=== PATIENT | female | born 1980 ===

== ENCOUNTER 2017-01-15 13:07 | Emergency (ER) | payer OTHER, SELFPAY ==
[2017-01-15 13:07] VITALS: BMI 33.6
--- NOTE | 2017-01-15 15:20 | C.PDOC ---
Time Seen by Provider: 01/15/17 13:35 Chief Complaint (Nursing): Anxiety History Per: Patient Onset/Duration Of Symptoms: Days, Intermittent Episodes Current Symptoms Are (Timing): Still Present Exacerbating Factor(s): Other (Based on physical location) Severity: Moderate Associated Symptoms: Anxiety Reports Recently: Seen In ED (Yesterday she had normal labs and CXR at [facility]. ) Additional History Per: Prior Records Past Medical History Reviewed: Historical Data, Nursing Documentation, Vital Signs Vital Signs: Last Vital Signs Temp 97 F L 01/15/17 13:14 Pulse 82 01/15/17 13:14 Resp 18 01/15/17 13:14 BP 127/82 01/15/17 13:14 Pulse Ox 96 01/15/17 13:14 - Medical History PMH: Anxiety, Asthma, HTN, Hypothyroidism, Personality Disorder, Chronic Kidney Disease Surgical History: No Surg Hx - [facility] Procedures MONITORING NOS (05/07/14) MANUAL ASSIST DELIV NEC (05/07/14) Family History: States: Unknown Family Hx - Social History Hx Tobacco Use: No Hx Alcohol Use: No Hx Substance Use: No - Immunization History Hx Tetanus Toxoid Vaccination: No Hx Influenza Vaccination: Yes Hx Pneumococcal Vaccination: No Review Of Systems Except As Marked, All Systems Reviewed And Found Negative. Constitutional: Negative for: Fever, Weakness Cardiovascular: Positive for: Palpitations Respiratory: Positive for: Shortness of Breath. Negative for: Hemoptysis Gastrointestinal: Negative for: Abdominal Pain Musculoskeletal: Negative for: Neck Pain Skin: Negative for: Rash Neurological: Negative for: Weakness, Numbness, Seizures Psych: Positive for: Anxiety. Negative for: Psychosis, Suicidal ideation Physical Exam - Physical Exam Appears: Non-toxic, No Acute Distress Skin: Normal Color, Warm, Dry, No Rash Head: Atraumatic, Normacephalic Eye(s): bilateral: PERRL, EOMI Neck: Normal ROM, Supple Cardiovascular: Rhythm Regular Respiratory: Normal Breath Sounds, No Accessory Muscle Use Gastrointestinal/Abdominal: Soft, No Tenderness Back: No CVA Tenderness Extremity: Normal ROM, No Pedal Edema, No Calf Tenderness Neurological/Psych: Oriented x3, Normal Speech, Normal Cognition, Normal Motor, Normal Sensation ED Course And Treatment ECG: Interpreted By Me, Viewed By Me ECG Rhythm: Sinus Rhythm ECG Interpretation: No Acute Changes Rate From EC O2 Sat by Pulse Oximetry: 96 Pulse Ox Interpretation: Normal Progress Note: Pt feels much better after speaking to the Nitroglycerin Separator Operator. Reassessment Condition: Improved Medical Decision Making Medical Decision Making: PERC rule negative. Disposition Counseled Patient/Family Regarding: Studies Performed, Diagnosis, Need For Followup, Rx Given - Disposition Disposition: HOME/ ROUTINE Disposition Time: 15:21 Condition: IMPROVED Additional Instructions: Follow up with your doctor for further evaluation and treatment. Return to the ER if you develop worsening of symptoms or if you have any other concerns. Prescriptions: ALPRAZolam [Xanax] 0.25 mg PO BID PRN #10 tab PRN Reason: Anxiety Instructions: Anxiety (ED) - Clinical Impression Clinical Impression: Anxiety attack
[2017-01-15 15:43] VITALS: BP 120/95; PULSE 80; RESP 20; TEMP 98; O2SAT 100
== END 2017-01-15 15:45 | disposition home or self-care (01) ==
LOC: C.ER 13:07
DX: F41.9 Anxiety disorder, unspecified (principal)

== ENCOUNTER 2017-01-21 10:07 | Emergency (ER) | payer MEDICAID, OTHER, SELFPAY ==
[2017-01-21 10:12] VITALS: RESP 18; TEMP 97; BMI 32.4
[2017-01-21] MEDS ORDERED: Sodium Chloride 0.9% 1,000 ML IV ONE (10:53)
[2017-01-21] MEDS ORDERED: Sodium Chloride 0.9% 1,000 ML ONE (10:59)
[2017-01-21 11:22] LABS: BASO # 0.1 K/uL (0.0-0.2); BASO % 0.7 % (0.0-2.0); EOS # 0.2 K/uL (0.0-0.7); EOS % 2.5 % (0.0-4.0); HEMATOCRIT 43.8 % (34.0-47.0); LYMPH # 1.6 K/uL (1.0-4.3); LYMPH % 18.2 % (20.0-40.0); MEAN CELL VOLUME 87.5 fL (81.0-99.0); MEAN CORPUSCULAR HEMOGLOBIN 29.4 pg (27.0-31.0); MEAN CORPUSCULAR HGB CONC 33.6 g/dL (33.0-37.0); MONO # 0.6 K/uL (0.0-0.8); MONO % 6.6 % (0.0-10.0); RED CELL DISTRIBUTION WIDTH 13.3 % (11.5-14.5); WHITE BLOOD COUNT 8.8 K/uL (4.8-10.8)
[2017-01-21 11:23] LABS: CHLORIDE 99 mmol/L (98-107)
[2017-01-21 11:24] LABS: POTASSIUM 3.6 mmol/L (3.6-5.2); SODIUM 137 mmol/L (132-148)
[2017-01-21 11:26] LABS: GFR AFRICAN-AMERICAN > 60; RBC URINE < 1 /hpf (0-3); URINE BILIRUBIN NEGATIVE (NEGATIVE); URINE BLOOD NEGATIVE (NEGATIVE); URINE COLOR Straw (YELLOW); URINE GLUCOSE (UA) NORMAL (Normal); URINE KETONE NEGATIVE (NEGATIVE); URINE LEUKOCYTE ESTERASE NEG Leu/uL (Negative); URINE PROTEIN NEGATIVE (NEGATIVE); URINE UROBILINOGEN NORMAL mg/dL (0.2-1.0); WBC URINE 1 /hpf (0-5)
[2017-01-21 11:27] LABS: ALB/GLOB RATIO 1.2 (1.0-2.1); ALKALINE PHOSPHATASE 80 U/L (38-126); ALT/SGPT 43 U/L (9-52); AST/SGOT 30 U/L (14-36); BILIRUBIN,TOTAL 0.5 mg/dL (0.2-1.3); BLOOD UREA NITROGEN 9 mg/dL (7-17); CALCIUM 9.4 mg/dl (8.6-10.4); CARBON DIOXIDE 20 mmol/L (22-30); GLUCOSE,RANDOM 88 mg/dL (65-105); TOTAL PROTEIN 8.3 g/dL (6.3-8.3)
[2017-01-21 12:08] LABS: FT3 4.25 pg/mL (2.77-5.27)
[2017-01-21 12:22] LABS: THYROID STIMULATING HORMONE 0.47 mIU/L (0.46-4.68)
--- NOTE | 2017-01-21 12:44 | RAD ---
PROCEDURE: CHEST RADIOGRAPH, 1 VIEW HISTORY: palpitations COMPARISON: None available. FINDINGS: LUNGS: Clear. PLEURA: No pneumothorax or pleural fluid seen. CARDIOVASCULAR: Normal. OSSEOUS STRUCTURES: No significant abnormalities. VISUALIZED UPPER ABDOMEN: Normal. OTHER FINDINGS: None. IMPRESSION: No active disease.
[2017-01-21 12:46] VITALS: BP 130/76; PULSE 77; O2SAT 96
--- NOTE | 2017-01-21 12:53 | C.PDOC ---
History Of Present Illness The patient, a 36 y/o female, presents to the ED for evaluation of lightheadedness and palpitations which have been occurring intermittently for the past 1-2 weeks with symptoms occurring more frequently within the past 1-2 days. Patient reports a recent change in her synthroid medication by her PMD. Otherwise, she denies fever, chills, chest pain, shortness of breath, nausea, vomiting, recent travel, or sick contacts. Chief Complaint (Nursing): Dizziness/Lightheaded History Per: Patient History/Exam Limitations: no limitations Onset/Duration Of Symptoms: Intermittent Episodes (1-2 weeks ), Worse Since (1- 2 days ) Current Symptoms Are (Timing): Still Present Possible Causative Factor(s): New Medications Fall Associated With With Symptoms: No Recent travel outside of the [place]: No Additional History Per: Patient Past Medical History Reviewed: Historical Data, Nursing Documentation, Vital Signs Vital Signs: Last Vital Signs Temp 97 F L 01/21/17 12:39 Pulse 77 01/21/17 12:39 Resp 18 01/21/17 12:39 BP 130/76 01/21/17 12:39 Pulse Ox 96 01/21/17 12:57 - Medical History PMH: Anxiety, Asthma, HTN, Hypothyroidism, Personality Disorder, Chronic Kidney Disease Surgical History: No Surg Hx - [facility] Procedures MONITORING NOS (05/07/14) MANUAL ASSIST DELIV NEC (05/07/14) Family History: States: Unknown Family Hx - Social History Hx Tobacco Use: No Hx Alcohol Use: No Hx Substance Use: No - Immunization History Hx Tetanus Toxoid Vaccination: No Hx Influenza Vaccination: Yes Hx Pneumococcal Vaccination: No Review Of Systems Except As Marked, All Systems Reviewed And Found Negative. Constitutional: Negative for: Fever, Chills Cardiovascular: Positive for: Palpitations. Negative for: Chest Pain Respiratory: Negative for: Shortness of Breath Gastrointestinal: Negative for: Nausea, Vomiting Neurological: Positive for: Other (+lightheadedness ) Physical Exam - Physical Exam Appears: Non-toxic, No Acute Distress Skin: Normal Color, Warm, Dry Head: Atraumatic, Normacephalic Eye(s): bilateral: Normal Inspection, EOMI Oral Mucosa: Moist Neck: Supple Chest: Symmetrical, No Deformity, No Tenderness Cardiovascular: Rhythm Regular, No Murmur Respiratory: Normal Breath Sounds, No Rales, No Rhonchi, No Wheezing Gastrointestinal/Abdominal: Soft, No Tenderness, No Guarding, No Rebound Back: Normal Inspection, No Vertebral Tenderness, No Paraspinal Tenderness Extremity: Normal ROM, Capillary Refill (less than 2 seconds) Neurological/Psych: Oriented x3, Normal Speech, Normal Cognition Gait: Steady ED Course And Treatment - Laboratory Results Result Diagrams: 01/21/17 11:12 01/21/17 11:12 ECG: Interpreted By Me, Viewed By Me ECG Rhythm: Sinus Rhythm Rate From EC O2 Sat by Pulse Oximetry: 96 (on RA) Pulse Ox Interpretation: Normal - Other Rad CXR X-Ray: Interpreted by Me, Viewed By Me, Read By Radiologist Interpretation: Accession No. : [id number]. Patient Name / ID : FIDEL CHRISTIANSEN / [id number]. Exam Date : 01/21/2017 11:01:46 ( Approved ). Study Comment : Sex / Age : F / 36Y. Creator : Steff Soares. Dictator : Steff Soares. Sales Department Manager : Banquet Pilot : Steff Soares. Approver2 : Report Date : 01/21/2017 12:42:43. My Comment : . PROCEDURE: CHEST RADIOGRAPH, 1 VIEW. HISTORY: palpitations. COMPARISON: None available. FINDINGS: LUNGS : Clear. PLEURA: No pneumothorax or pleural fluid seen. CARDIOVASCULAR: Normal. OSSEOUS STRUCTURES: No significant abnormalities. VISUALIZED UPPER ABDOMEN: Normal. OTHER FINDINGS: None. IMPRESSION: No active disease. Progress Note: labs, CXR, EKG ordered and reviewed. Patient received Ativan PO and IV Fluids. On reassessment, patient is resting comfortably, showing no signs of distress, and reports an improvement in her symptoms. Patient is stable for discharge and is provided with an Rx instructing her to follow up with her PMD within 24-48 hours for further evaluation. Disposition - Disposition Referrals: [facility], [Non-Staff] - Disposition: HOME/ ROUTINE Disposition Time: 12:00 Condition: IMPROVED Additional Instructions: Thank you for letting us take care of you today. Your provider was Dr. Huang. You were treated for palpitations/lightheadedness. The emergency medical care you received today was directed at your acute symptoms. If you were prescribed any medication, please fill it and take as directed. It may take several days for your symptoms to resolve. Return to the Emergency Department if your symptoms worsen, do not improve, or if you have any other problems. Please contact your doctor or call one of the physicians/clinics you have been referred to that are listed on the Patient Visit Information form that is included in your discharge packet. Bring any paperwork you were given at discharge with you along with any medications you are taking to your follow up visit. Our treatment cannot replace ongoing medical care by a primary care provider (PCP) outside of the emergency department. Thank you for allowing the [facility] team to be part of your care today. Follow up with your doctor in 3-4 days for re-evaluation. Prescriptions: ALPRAZolam [Xanax] 0.25 mg PO Q8 PRN #5 tab PRN Reason: Anxiety Instructions: Palpitations (ED) - Clinical Impression Clinical Impression: Anxiety - Scribe Statement The provider has reviewed the documentation as recorded by the Scribe (Kyara Hubbard) Provider Attestation: All medical record entries made by the Scribe were at my direction and personally dictated by me. I have reviewed the chart and agree that the record accurately reflects my personal performance of the history, physical exam, medical decision making, and the department course for this patient. I have also personally directed, reviewed, and agree with the discharge instructions and disposition.
--- NOTE | 2017-01-22 23:17 | CARD ---
APPROVED REPORT EKG Measurement Heart [id number] <Conclusion> Normal sinus rhythm Normal ECG
== END 2017-01-21 12:49 | disposition home or self-care (01) ==
LOC: C.ER 10:07
DX: F41.9 Anxiety disorder, unspecified (principal)
CPT/HCPCS: 71010; 80053; 80324; 80345; 80346; 80349; 80353; 80358; 80361; 81001; 83992; 84443; 84481; 84484; 84703; 85025; 93005; 99285; J7040

== ENCOUNTER 2017-01-26 11:43 | Emergency (ER) | payer SELFPAY ==
[2017-01-26 11:44] VITALS: BMI 32.4
[2017-01-26] MEDS ORDERED: Heparin25000 units/250ml 1/2NS 250 ML IV STA (12:07)
[2017-01-26 12:40] LABS: BASO # 0.1 K/uL (0.0-0.2); BASO % 0.8 % (0.0-2.0); EOS # 0.2 K/uL (0.0-0.7); HEMATOCRIT 41.7 % (34.0-47.0); LYMPH # 1.4 K/uL (1.0-4.3); LYMPH % 22.1 % (20.0-40.0); MEAN CELL VOLUME 88.2 fL (81.0-99.0); MEAN CORPUSCULAR HEMOGLOBIN 29.4 pg (27.0-31.0); MEAN CORPUSCULAR HGB CONC 33.3 g/dL (33.0-37.0); MEAN PLATELET VOLUME 10.1 fL (7.2-11.7); MONO # 0.4 K/uL (0.0-0.8); MONO % 6.1 % (0.0-10.0); NRBC % 0.1 % (0.0-2.0); RED CELL DISTRIBUTION WIDTH 13.2 % (11.5-14.5); WHITE BLOOD COUNT 6.5 K/uL (4.8-10.8)
[2017-01-26 12:48] LABS: CHLORIDE 100 mmol/L (98-107); SODIUM 138 mmol/L (132-148)
[2017-01-26 12:49] LABS: POTASSIUM 3.8 mmol/L (3.6-5.2)
[2017-01-26 12:51] LABS: ALB/GLOB RATIO 1.4 (1.0-2.1); ALKALINE PHOSPHATASE 81 U/L (38-126); ALT/SGPT 35 U/L (9-52); AST/SGOT 35 U/L (14-36); BILIRUBIN,TOTAL 0.5 mg/dL (0.2-1.3); BLOOD UREA NITROGEN 7 mg/dL (7-17); CARBON DIOXIDE 23 mmol/L (22-30); GFR AFRICAN-AMERICAN > 60; GLUCOSE,RANDOM 108 mg/dL (65-105); TOTAL PROTEIN 7.7 g/dL (6.3-8.3)
[2017-01-26 12:52] LABS: CALCIUM 8.9 mg/dl (8.6-10.4)
[2017-01-26 13:05] LABS: INR 1.1
[2017-01-26 13:07] LABS: FT3 4.62 pg/mL (2.77-5.27)
--- NOTE | 2017-01-26 13:18 | RAD ---
HISTORY: chest pain COMPARISON: 01/21/2017 FINDINGS: LUNGS: No active pulmonary disease. PLEURA: No significant pleural effusion identified, no pneumothorax apparent. CARDIOVASCULAR: Normal. OSSEOUS STRUCTURES: No significant abnormalities. VISUALIZED UPPER ABDOMEN: Normal. OTHER FINDINGS: None. IMPRESSION: No active disease.
--- NOTE | 2017-01-26 14:12 | C.PDOC ---
History Of Present Illness 36 y/o female presents to the ED complaining of persistent palpitations and sharp chest pain intermittently for two weeks. Patient denies shortness of breath, fever, or cough. Note that the patient was seen by me 5 days ago, treated and released with prescription which she said made her feel better but she has been unable to follow up because her doctor is on vacation. Chief Complaint (Nursing): Chest Pain History Per: Patient History/Exam Limitations: no limitations Onset/Duration Of Symptoms: Days (14), Intermittent Episodes, Persistent Current Symptoms Are (Timing): Still Present Recent travel outside of the [place]: No Past Medical History Reviewed: Historical Data, Nursing Documentation, Vital Signs Vital Signs: Last Vital Signs Temp 97.8 F 01/26/17 11:50 Pulse 107 H 01/26/17 11:50 Resp 16 01/26/17 12:25 BP 119/85 01/26/17 11:50 Pulse Ox 98 01/26/17 14:20 - Medical History PMH: Anxiety, Asthma, HTN, Hypothyroidism, Personality Disorder, Chronic Kidney Disease Surgical History: No Surg Hx - [facility] Procedures MONITORING NOS (05/07/14) MANUAL ASSIST DELIV NEC (05/07/14) Family History: States: Unknown Family Hx - Social History Hx Tobacco Use: No Hx Alcohol Use: No Hx Substance Use: No - Immunization History Hx Tetanus Toxoid Vaccination: No Hx Influenza Vaccination: Yes Hx Pneumococcal Vaccination: No Review Of Systems Except As Marked, All Systems Reviewed And Found Negative. Constitutional: Negative for: Fever Cardiovascular: Positive for: Chest Pain, Palpitations Respiratory: Negative for: Cough, Shortness of Breath Physical Exam - Physical Exam Appears: Non-toxic, No Acute Distress Skin: Normal Color, Warm, Dry Head: Atraumatic, Normacephalic Neck: Normal ROM, Supple Chest: Symmetrical, No Tenderness Cardiovascular: Rhythm Regular Respiratory: Normal Breath Sounds, No Rales, No Rhonchi, No Wheezing Gastrointestinal/Abdominal: Normal Exam, Soft, No Tenderness Back: Normal Inspection Extremity: Normal ROM, No Swelling Neurological/Psych: Oriented x3, Normal Speech, Normal Cognition ED Course And Treatment - Laboratory Results Result Diagrams: 01/26/17 12:32 01/26/17 12:07 ECG: Interpreted By Me ECG Rhythm: Sinus Rhythm Interpretation Of ECG: normal axis, normal intervals Rate From EC (bpm) O2 Sat by Pulse Oximetry: 98 (ra) Pulse Ox Interpretation: Normal - Other Rad Chest X-Ray X-Ray: Viewed By Me, Read By Radiologist (Ry Feliciano MD) Interpretation: IMPRESSION: No active disease. Medical Decision Making Medical Decision Making: Plan: * EKG * Labs * CXR Disposition - Disposition Referrals: [facility], [Non-Staff] - Disposition: HOME/ ROUTINE Disposition Time: 14:30 Condition: GOOD Additional Instructions: Thank you for letting us take care of you today. Your provider was Dr. Huang. You were treated for non-cardiac chest pain. The emergency medical care you received today was directed at your acute symptoms. If you were prescribed any medication, please fill it and take as directed. It may take several days for your symptoms to resolve. Return to the Emergency Department if your symptoms worsen, do not improve, or if you have any other problems. Please contact your doctor or call one of the physicians/clinics you have been referred to that are listed on the Patient Visit Information form that is included in your discharge packet. Bring any paperwork you were given at discharge with you along with any medications you are taking to your follow up visit. Our treatment cannot replace ongoing medical care by a primary care provider (PCP) outside of the emergency department. Thank you for allowing the [facility] team to be part of your care today. Follow up with your doctor in 2 days to be re-evaluated. Long-term medications such as Xanax should not be prescribed by the emergency room. Prescriptions: ALPRAZolam [Xanax] 0.25 mg PO BID PRN #10 tab PRN Reason: Anxiety Instructions: Chest Pain (ED) - Clinical Impression Clinical Impression: Non-cardiac chest pain - Scribe Statement The provider has reviewed the documentation as recorded by the Scribe (Didi Vela) Provider Attestation: All medical record entries made by the Scribe were at my direction and personally dictated by me. I have reviewed the chart and agree that the record accurately reflects my personal performance of the history, physical exam, medical decision making, and the department course for this patient. I have also personally directed, reviewed, and agree with the discharge instructions and disposition.
[2017-01-26 14:39] LABS: THYROID STIMULATING HORMONE 0.32 mIU/L (0.46-4.68)
[2017-01-26 15:05] VITALS: BP 121/71; PULSE 87; RESP 17; TEMP 98.7; O2SAT 99
--- NOTE | 2017-01-31 14:02 | CARD ---
APPROVED REPORT EKG Measurement Heart [id number] <Conclusion> Sinus tachycardia Otherwise normal ECG
== END 2017-01-26 15:05 | disposition home or self-care (01) ==
LOC: C.ER 11:43 → C.9E 12:06 → UNDOADMIN 12:06 → C.ER 15:05
DX: R07.89 Other chest pain (principal)

== ENCOUNTER 2017-09-18 09:12 | Emergency (ER) | payer OTHER ==
[2017-09-18 09:12] VITALS: BMI 34.4
[2017-09-18 09:25] VITALS: RESP 18
--- NOTE | 2017-09-18 09:54 | C.PDOC ---
History Of Present Illness 36 yr old female presents to the ER with complaints of new onset of left buttock /leg pain and paresthesia for the past 2 days. Patient reports history of chronic intermittent lower back pain. States previous diagnose "arthritis" on spinal xrays. Patient states the pain is made worse with movement and position. Denies recent trauma, leg weakness or numbness. NEW ONSET L BUTTOCK/LEG PAIN AND PARESTHESIA X 2 DAYS. HO CHRONIC LBP, INTERMIT. PS PREV DX "ARTHRITIS" ON SPINAL XRAYS. NO TRAUMA. WORSE W MOVEMENT, POSITION. DENIES LEG WEAKNESS, OTHER ASSOC SX EXAM MILD DIST NONTOXIC BACK LIMITED ROM DUE TO PAIN. NO FOCAL TEND. ATRAUM NEURO LLE +PARESTHESIA THIGH, POST LOWER LEG. REFLEXES 2+ B/L. NO MOTOR DEF. EXT ATRAUM AROM WO DIFF REMAINDER NEG MDM SCIATICA. NO PAIN MEDS TAKEN CONTACT CENTER CONSULTANT. ON GABAPENTIN AND KLONIPIN. PAIN MEDS, ADVISED CLINIC FU Time Seen by Provider: 09/18/17 09:34 Chief Complaint (Nursing): Back Pain History Per: Patient History/Exam Limitations: no limitations Onset/Duration Of Symptoms: Days (2) Past Medical History Reviewed: Historical Data, Nursing Documentation, Vital Signs Vital Signs: Last Vital Signs Temp 98.1 F 09/18/17 10:42 Pulse 81 09/18/17 10:42 Resp 18 09/18/17 10:42 BP 127/85 09/18/17 10:42 Pulse Ox 97 09/18/17 10:42 - Medical History PMH: Anxiety, Asthma, HTN, Hypothyroidism, Personality Disorder, Chronic Kidney Disease - [facility] Procedures MONITORING NOS (05/07/14) MANUAL ASSIST DELIV NEC (05/07/14) Family History: States: No Known Family Hx - Social History Hx Tobacco Use: No Hx Alcohol Use: No Hx Substance Use: No - Immunization History Hx Tetanus Toxoid Vaccination: No Hx Influenza Vaccination: Yes Hx Pneumococcal Vaccination: No Review Of Systems Except As Marked, All Systems Reviewed And Found Negative. Musculoskeletal: Positive for: Other ((+) Left buttock/Leg pain and paresthesia. (-) No leg weakness or numbness.) Physical Exam - Physical Exam Appears: Non-toxic, In Acute Distress (Mild) Skin: Warm, Dry, No Rash Head: Atraumatic, Normacephalic Back: Decreased ROM (Due to pain), Other (No focal tenderness) Extremity: Normal ROM, No Tenderness, No Swelling Neurological/Psych: Oriented x3, Normal Speech, Normal Motor, Other ((+) LLE - Paresthesia thigh, post lower leg. Reflexes 2+ bilateral. No motor deficits.) ED Course And Treatment O2 Sat by Pulse Oximetry: 94 (RA) Pulse Ox Interpretation: Normal Medical Decision Making Medical Decision Making: PLAN: * Zofran PO * Dilaudid IM * Toradol IM * Lidocaine TD Disposition Counseled Patient/Family Regarding: Diagnosis, Need For Followup, Rx Given - Disposition [facility]errals[facility] [Outside] Disposition: HOME/ ROUTINE Disposition Time: 09:54 Condition: IMPROVED Prescriptions: Dexamethasone 12 mg PO ONCE #2 tab Ibuprofen [Motrin] 600 mg PO Q6 #30 tab oxyCODONE/Acetaminophen [Percocet 5/325 mg Tab] 1 tab PO QID PRN #14 tab PRN Reason: Pain Instructions: Sciatica (ED) Forms: [facility] (Turkish) - Clinical Impression Clinical Impression: Sciatic leg pain - Scribe Statement The provider has reviewed the documentation as recorded by the Maryibe Deandra Hurst Provider Attestation: All medical record entries made by the Maryibe were at my direction and personally dictated by me. I have reviewed the chart and agree that the record accurately reflects my personal performance of the history, physical exam, medical decision making, and the department course for this patient. I have also personally directed, reviewed, and agree with the discharge instructions and disposition.
[2017-09-18] MEDS ORDERED: HYDROmorphone 0.5 mg/0.5 ml ISec IM STA (09:56)
[2017-09-18] MEDS ORDERED: Lidocaine 5% Patch TD STA (09:56)
[2017-09-18] MEDS ORDERED: Lidocaine 5% Patch TD ONE (10:09)
[2017-09-18 10:43] VITALS: BP 127/85; PULSE 81; TEMP 98.1
[2017-09-18 10:47] VITALS: O2SAT 94
== END 2017-09-18 10:44 | disposition home or self-care (01) ==
LOC: C.ER 09:12
DX: M54.32 Sciatica, left side (principal)
CPT/HCPCS: 96372; 99283; J1170; J1885

== ENCOUNTER 2017-09-19 10:48 | Inpatient (IN) | payer OTHER ==
--- NOTE | 2017-09-19 11:41 | C.PDOC ---
History Of Present Illness 36 y/o female presents to ED for evaluation of left leg pain and swelling for the last 2 days. Pt was seen in the clinic yesterday and was discharged home with pain meds. Pt states that pain still persists. Denies change in sensation, fever, or other complaints. Time Seen by Provider: 09/19/17 11:29 Chief Complaint (Nursing): Lower Extremity Problem/Injury History Per: Patient History/Exam Limitations: no limitations Onset/Duration Of Symptoms: Days Current Symptoms Are (Timing): Still Present Past Medical History Reviewed: Historical Data, Nursing Documentation, Vital Signs Vital Signs: Last Vital Signs Temp 97.9 F 09/19/17 11:04 Pulse 78 09/19/17 11:04 Resp 18 09/19/17 11:04 BP 126/83 09/19/17 11:04 Pulse Ox 99 09/19/17 11:46 - Medical History PMH: Anxiety, Asthma, HTN, Hypothyroidism, Personality Disorder, Chronic Kidney Disease - [facility] Procedures MONITORING NOS (05/07/14) MANUAL ASSIST DELIV NEC (05/07/14) Family History: States: Unknown Family Hx - Social History Hx Tobacco Use: No Hx Alcohol Use: No Hx Substance Use: No - Immunization History Hx Tetanus Toxoid Vaccination: No Hx Influenza Vaccination: No Hx Pneumococcal Vaccination: No Review Of Systems Except As Marked, All Systems Reviewed And Found Negative. Constitutional: Negative for: Fever, Chills Cardiovascular: Positive for: Edema (left leg). Negative for: Chest Pain, Palpitations Respiratory: Negative for: Shortness of Breath Gastrointestinal: Negative for: Nausea, Vomiting, Abdominal Pain Musculoskeletal: Positive for: Leg Pain (left) Neurological: Negative for: Weakness, Numbness Physical Exam - Physical Exam Appears: Non-toxic, No Acute Distress Skin: Warm, Dry, Other (discoloration of left lower extremity) Head: Atraumatic, Normacephalic Eye(s): bilateral: Normal Inspection Oral Mucosa: Moist Cardiovascular: Rhythm Regular, No Murmur Respiratory: Normal Breath Sounds, No Rales, No Rhonchi, No Wheezing Extremity: Capillary Refill (<2 secs.), No Deformity, Swelling (mild left lower extremity), Other ((+) stephanie's sign in left leg) Neurological/Psych: Oriented x3, Normal Speech ED Course And Treatment - Laboratory Results Result Diagrams: 09/19/17 11:52 09/19/17 11:52 Lab Interpretation: Abnormal O2 Sat by Pulse Oximetry: 99 Pulse Ox Interpretation: Normal - CT Scan/US L leg US Other Rad Studies (CT/US): Radiology Report Reviewed (+ L leg femoral DVT) Progress Note: tramadol PO, Lovenox 90 mg SQ Reevaluation Time: 12:35 Reassessment Condition: Improved - Physician Consult Information Outcome Of Conversation: 1230: d/w Dr. Espinoza, Hospitalist, ok to admit Medical Decision Making Medical Decision Making: Blood work, EKG, doppler ordered and reviewed. Patient was given Tramadol. unprovoked DVT no ciggs, OCP, surgery, trauma, prolonged fixed positions/trips. Disposition Doctor Will See Patient In The: Hospital Counseled Patient/Family Regarding: Studies Performed, Diagnosis - Disposition Disposition: HOSPITALIZED Disposition Time: 12:40 Condition: GOOD Forms: [facility] (Kyrgyz) - Clinical Impression Clinical Impression: Left leg DVT - Scribe Statement The provider has reviewed the documentation as recorded by the Maryibfrench Hubbard All medical record entries made by the Maryibfrench were at my direction and personally dictated by me. I have reviewed the chart and agree that the record accurately reflects my personal performance of the history, physical exam, medical decision making, and the department course for this patient. I have also personally directed, reviewed, and agree with the discharge instructions and disposition.
[2017-09-19 11:58] LABS: BASO # 0.1 K/uL (0.0-0.2); BASO % 0.3 % (0.0-2.0); EOS % 0.2 % (0.0-4.0); HEMATOCRIT 42.1 % (34.0-47.0); LYMPH # 1.9 K/uL (1.0-4.3); MEAN CELL VOLUME 89.1 fL (81.0-99.0); MEAN CORPUSCULAR HEMOGLOBIN 29.5 pg (27.0-31.0); MEAN CORPUSCULAR HGB CONC 33.1 g/dL (33.0-37.0); MEAN PLATELET VOLUME 10.3 fL (7.2-11.7); MONO # 0.7 K/uL (0.0-0.8); MONO % 3.6 % (0.0-10.0); RED CELL DISTRIBUTION WIDTH 13.2 % (11.5-14.5)
[2017-09-19 12:00] LABS: WHITE BLOOD COUNT 18.8 K/uL (4.8-10.8)
[2017-09-19 12:10] LABS: ALKALINE PHOSPHATASE 101 U/L (38-126); ALT/SGPT 54 U/L (9-52); AST/SGOT 29 U/L (14-36); BLOOD UREA NITROGEN 10 mg/dL (7-17); CALCIUM 9.1 mg/dl (8.6-10.4); CARBON DIOXIDE 19 mmol/L (22-30); CHLORIDE 101 mmol/L (98-107); GFR AFRICAN-AMERICAN > 60; GLUCOSE,RANDOM 106 mg/dL (65-105); POTASSIUM 3.4 mmol/L (3.6-5.2); SODIUM 135 mmol/L (132-148); TOTAL PROTEIN 8.4 g/dL (6.3-8.3)
[2017-09-19 12:11] LABS: ALB/GLOB RATIO 1.2 (1.0-2.1)
[2017-09-19] MEDS ORDERED: Enoxaparin 40 mg Syringe SC STA (12:22)
--- NOTE | 2017-09-19 12:37 | VASCLAB ---
PROCEDURE: Lower Extremity Venous Duplex Exam. HISTORY: Leg swelling PRIORS: None. TECHNIQUE: Bilateral common femoral, femoral, popliteal and posterior tibial, peroneal and great saphenous veins were evaluated. Flow was assessed with color Doppler, compressibility, assessment of phasic flow and augmentation response. Report prepared by AUDRA Celestin FINDINGS: RIGHT: 1. Common Femoral Vein: 1.1. Compressibility - Fully compressible: Thrombus - None : Flow - Phasic: Augmentation -Normal: Reflux - None. 2. Femoral Vein: 2.1. Compressibility - Fully compressible: Thrombus - None : Flow - Phasic: Augmentation -Normal: Reflux - None. 3. Popliteal Vein: 3.1. Compressibility - Fully compressible: Thrombus - None : Flow - Phasic: Augmentation -Normal: Reflux - None. 4. Posterior Tibial Vein: 4.1. Compressibility - Fully compressible: Thrombus - None: Flow - Phasic: Augmentation -Normal: Reflux - None. 5. Peroneal Vein: 5.1. Compressibility - Fully compressible: Thrombus - None: Flow - Phasic: Augmentation -Normal: Reflux - None. 6. Great Saphenous Vein: 6.1. Compressibility - Fully compressible: Thrombus - None: Flow - Phasic: Augmentation - Normal: Reflux - None. LEFT: 1. Common Femoral Vein: 1.1. Compressibility - Incompressible: Thrombus - Acute: Flow - Absent : Augmentation -None: Reflux - None. 2. Femoral Vein: 2.1. Compressibility - Partial: Thrombus - Acute: Flow - Reduced : Augmentation -Normal: Reflux - None. 3. Popliteal Vein: 3.1. Compressibility - Fully compressible: Thrombus - None : Flow - Phasic: Augmentation -Normal: Reflux - None. 4. Posterior Tibial Vein: 4.1. Compressibility - Fully compressible: Thrombus - None: Flow - Phasic: Augmentation -Normal: Reflux - None. 5. Peroneal Vein: 5.1. Compressibility - Fully compressible: Thrombus - None: Flow - Phasic: Augmentation -Normal: Reflux - None. 6. Great Saphenous Vein: 6.1. Compressibility - Fully compressible: Thrombus - None: Flow - Phasic: Augmentation - Normal: Reflux - None. OTHER FINDINGS: IMPRESSION: Right: No evidence of deep or superficial vein thrombosis of the right lower extremity. Normal valve function noted of the right side. Left: 1. Totally occluding acute deep vein thrombosis of the left common femoral vein, extending into the saphenofemoral junction. 2. Partial acute deep vein thrombosis of the left femoral vein, with mild reduction of the venous return. The findings above were reported by the cardiovascular operating room nurse, to emergency room Mellisa Atkinson, at 12:19 p.m.
[2017-09-19] MEDS ORDERED: Enoxaparin 100 mg Syringe SC ONE (12:45)
--- NOTE | 2017-09-19 12:58 | CP.PCM.PN ---
Subjective - Date & Time of Evaluation Date of Evaluation: 09/19/17 Time of Evaluation: 12:55 Objective - Vital Signs/Intake and Output Vital Signs (last 24 hours): Temp Pulse Resp BP Pulse Ox 97.9 F 78 18 126/83 99 09/19/17 11:04 09/19/17 11:04 09/19/17 11:04 09/19/17 11:04 09/19/17 12:40 - Medications Medications: Current Medications Potassium Chloride (K-Dur 20 Meq Er Tab) 20 meq PO DAILY [facility] - Labs Labs: 09/19/17 11:52 09/19/17 11:52 - Constitutional Appears: Non-toxic - Head Exam Head Exam: NORMAL INSPECTION - Eye Exam Eye Exam: EOMI, Normal appearance - ENT Exam ENT Exam: Mucous Membranes Moist - Cardiovascular Exam Cardiovascular Exam: REGULAR RHYTHM, +S1, +S2 - GI/Abdominal Exam GI & Abdominal Exam: Soft - Extremities Exam Extremities Exam: Full ROM - Neurological Exam Neurological Exam: Alert, Awake
[2017-09-19] MEDS ORDERED: Potassium Chloride 20 mEq ER Tab PO ONE (13:14)
[2017-09-19] MEDS: Potassium Chloride 20 mEq ER Tab PO SCH (13:14)
--- NOTE | 2017-09-19 13:44 | RAD ---
HISTORY: adm COMPARISON: 01/26/2017. FINDINGS: LUNGS: There is mild pulmonary hyperinflation and peribronchial cuffing with streaky opacities in the lungs. No focal consolidation. PLEURA: No significant pleural effusion identified, no pneumothorax apparent. CARDIOVASCULAR: Normal. OSSEOUS STRUCTURES: No significant abnormalities. VISUALIZED UPPER ABDOMEN: Normal. OTHER FINDINGS: None. IMPRESSION: Findings are most compatible with reactive small airway disease/ viral bronchitis/ atypical pneumonitis. No lobar pneumonia.
[2017-09-19] MEDS ORDERED: Iodixanol 320 MG/ML 100 ML BOTTLE IV ONE (14:31)
--- NOTE | 2017-09-19 14:31 | CP.PCM.HP ---
Addendum entered and electronically signed by Rozina Menon DO 09/19/17 15:08: AT, PT, DP pulses palpated bilaterally capillary refill <2 seconds bilaterally Original Note: <Rozina Menon - Last Filed: 09/19/17 14:48> History of Present Illness - History of Present Illness History of Present Illness: History and Physical 36F presents with left leg pain and swelling for the last 2 days. Patient was seen in clinic and discharged home with pain medications. Patient came back because the pain wasn't getting better. Pain still persists even with tramadol given today in ED. Patient denies numbness, tingling, fever. Patient states there is some pain in her legs when she squeezes her left thigh. Patient states she's also had shortness of breath which happened prior to feeling the sharper pain in her left leg. Patient states she sometimes has palpitations but workup has not found anything in her past. Patient denies ever using control. Patient denies car rides longer than 30minutes. Patient states she was a former smoker, but hasn't smoked for about 7 years. Prior to then, she would smoke socially when out drinking PMH: anxiety, hypothyroid Past surgical history: none Social history: former smoker, social alcohol user, no illicit drugs, no hookah Family History: mother had "thin blood" Present on Admission - Present on Admission Any Indicators Present on Admission: Yes History of DVT/PE: Yes History of Uncontrolled Diabetes: No Urinary Catheter: No Decubitus Ulcer Present: No Review of Systems - EENT Eyes: As Per HPI Past Patient History - Infectious Disease Hx of Infectious Diseases: None - Past Social History Smoking Status: Former Smoker - CARDIAC Hx Hypertension: Yes - PULMONARY Hx Asthma: Yes - NEUROLOGICAL Hx Neurological Disorder: Yes Other/Comment: trigeminal neuralgia - HEENT Other/Comment: states recently completed abtx for tooth infection x1wk ago - RENAL Hx Chronic Kidney Disease: Yes - ENDOCRINE/METABOLIC Hx Hypothyroidism: Yes - HEMATOLOGICAL/ONCOLOGICAL Hx Blood Disorders: No - INTEGUMENTARY Hx Dermatological Problems: No - MUSCULOSKELETAL/RHEUMATOLOGICAL Hx Musculoskeletal Disorders: No - GASTROINTESTINAL Hx Gastrointestinal Disorders: No - GENITOURINARY/GYNECOLOGICAL Hx Genitourinary Disorders: No - PSYCHIATRIC Hx Anxiety: Yes Hx Substance Use: No - SURGICAL HISTORY Hx Surgeries: No - ANESTHESIA Hx Anesthesia: No Hx Anesthesia Reactions: No Hx Malignant Hyperthermia: No Meds Allergies/Adverse Reactions: Allergies Allergy/AdvReac Type Severity Reaction Status Date / Time No Known Allergies Allergy Verified 09/19/17 11:06 Physical Exam - Constitutional Appears: Non-toxic - Head Exam Head Exam: NORMAL INSPECTION - Eye Exam Eye Exam: EOMI, Normal appearance - ENT Exam ENT Exam: Mucous Membranes Moist - Neck Exam Neck exam: Positive for: Full Rom - Respiratory Exam Respiratory Exam: Clear to Auscultation Bilateral, NORMAL BREATHING PATTERN - Cardiovascular Exam Cardiovascular Exam: REGULAR RHYTHM, +S1, +S2 - GI/Abdominal Exam GI & Abdominal Exam: Normal Bowel Sounds, Soft - Extremities Exam Additional comments: left leg is colder than right leg, visibly more purple. Patient unable to do straight leg test due to discomfort - Neurological Exam Neurological exam: Alert, CN II-XII Intact Additional comments: sensory normal bilateral lower extremities - Psychiatric Exam Psychiatric exam: Normal Affect, Normal Mood - Skin Skin Exam: Dry, Intact, Pallor Results - Vital Signs Recent Vital Signs: Last Vital Signs Temp 97.9 F 09/19/17 11:04 Pulse 78 09/19/17 11:04 Resp 18 09/19/17 11:04 BP 126/83 09/19/17 11:04 Pulse Ox 99 09/19/17 12:40 - Labs Result Diagrams: 09/19/17 11:52 09/19/17 11:52 Labs: Laboratory Results - last 24 hr 09/19/17 09/19/17 09/19/17 11:52 11:52 11:52 WBC 18.8 H D RBC 4.72 Hgb 13.9 Hct 42.1 MCV 89.1 MCH 29.5 MCHC 33.1 RDW 13.2 Plt Count 150 MPV 10.3 Neut % (Auto) 85.9 H Lymph % (Auto) 10.0 L Gregory % (Auto) 3.6 Eos % (Auto) 0.2 Baso % (Auto) 0.3 Neut # 16.1 H Lymph # 1.9 Gregory # 0.7 Eos # 0.0 Baso # 0.1 D-Dimer, Quantitative 4800 H Sodium 135 Potassium 3.4 L Chloride 101 Carbon Dioxide 19 L Anion Gap 19 BUN 10 Creatinine 0.5 L Est GFR ( Amer) > 60 Est GFR (Non-Af Amer) > 60 Random Glucose 106 H Calcium 9.1 Total Bilirubin 1.0 AST 29 ALT 54 H D Alkaline Phosphatase 101 Total Protein 8.4 H Albumin 4.5 Globulin 3.9 Albumin/Globulin Ratio 1.2 Assessment & Plan - Assessment and Plan (Free Text) Assessment: Patient is a 36 who presents with left leg pain. DVT, and shortness of breath D-dimer 4800 f/u BNP f/u CTA of chest f/u 09/19 EKG 09/19 CT chest angio: 09/19 CXR: no active disease 09/19 Duplex lower extremity showing dvt in left common femoral vein extending to saphenofemoral junction and dvt in the left femoral vein, with mild reduction of venous return Lovenox 90 SC BID Hypokalemia, repleted K+ 3.4 DVT prophylaxis: no SCDs. Therapeutic lovenox is ordered GI prophylaxis Protonix discussed with DR. Olga Menon DO PGY1 - Date & Time Date: 09/19/17 Time: 14:57 <Ry Espinoza - Last Filed: 09/19/17 15:28> Results - Vital Signs Recent Vital Signs: Last Vital Signs Temp 97.9 F 09/19/17 11:04 Pulse 78 09/19/17 11:04 Resp 18 09/19/17 11:04 BP 126/83 09/19/17 11:04 Pulse Ox 99 09/19/17 12:40 - Labs Result Diagrams: 09/19/17 11:52 09/19/17 11:52 Labs: Laboratory Results - last 24 hr 09/19/17 09/19/17 09/19/17 11:52 11:52 11:52 WBC 18.8 H D RBC 4.72 Hgb 13.9 Hct 42.1 MCV 89.1 MCH 29.5 MCHC 33.1 RDW 13.2 Plt Count 150 MPV 10.3 Neut % (Auto) 85.9 H Lymph % (Auto) 10.0 L Gregory % (Auto) 3.6 Eos % (Auto) 0.2 Baso % (Auto) 0.3 Neut # 16.1 H Lymph # 1.9 Gregory # 0.7 Eos # 0.0 Baso # 0.1 D-Dimer, Quantitative 4800 H Sodium 135 Potassium 3.4 L Chloride 101 Carbon Dioxide 19 L Anion Gap 19 BUN 10 Creatinine 0.5 L Est GFR ( Amer) > 60 Est GFR (Non-Af Amer) > 60 Random Glucose 106 H Calcium 9.1 Total Bilirubin 1.0 AST 29 ALT 54 H D Alkaline Phosphatase 101 Total Protein 8.4 H Albumin 4.5 Globulin 3.9 Albumin/Globulin Ratio 1.2 Attending/Attestation - Attestation I have personally seen and examined this patient.: Yes I have fully participated in the care of the patient.: Yes I have reviewed all pertinent clinical information: Yes Notes (Text): Medical attending: Patient was seen and examined by me, agrees the above note by medical administrative specialist - please there is an error in the resident note - she actually went to the emergency room previously and was discharged from the ER. It appears that at that time she was thought to have some episode of sciatica. Came and saw the patient in hallway bed for. She is not under any acute distress. She did have a positive large DVT located on the left common femoral vein extending all the way down to the saphenofemoral junction. She says that the pain prevents her from walking very far. She is able to move her toes. On exam we were able to feel dorsalis pedis and tibialis posterior pulses. She denies having any use of control pills, she denies smoking, she denies recent blood from a or falling to the left side. She already had a shot of Lovenox subcutaneous 90 given in the ER this is can be continued twice a day Because of the extent of this DVT we asked the patient if the she's having any shortness of breath or feelings of palpitations or rapid heart rates. The patient explains to us that she DOES feel short of breath and that every now that she has noted palpitations. So our plan is to order a CTA to assess for potential PE. There is an EKG ordered however it's completely missing right now so we'll have to try to track down her EKG. Thank you very much, Ry Espinoza
--- NOTE | 2017-09-19 15:36 | CT ---
PROCEDURE: CT Chest with contrast (Pulmonary Angiogram) HISTORY: ddimer and dvt with SOB COMPARISON: None available. TECHNIQUE: Axial computed tomography images were obtained of the chest in the pulmonary arterial phase of enhancement. Coronal and sagittal reformatted images were created and reviewed. Intravenous contrast dose: 100 mL Visipaque 320 Radiation dose: Total exam DLP = 534.40 mGy-cm. This CT exam was performed using one or more of the following dose reduction techniques: Automated exposure control, adjustment of the mA and/or kV according to patient size, and/or use of iterative reconstruction technique. FINDINGS: PULMONARY ARTERIES: Unremarkable. No pulmonary embolism. AORTA: No acute findings. No thoracic aortic aneurysm. LUNGS: Unremarkable. No nodule, mass or pulmonary consolidation. PLEURAL SPACES: Unremarkable. No effusion or pneuomothorax. HEART: Unremarkable. No cardiomegaly. No significant pericardial effusion. LYMPH NODES: No lymphadenopathy. BONES, CHEST WALL: Unremarkable. No fracture or destructive lesion OTHER FINDINGS: Unremarkable. IMPRESSION: No evidence of pulmonary embolism. Unremarkable CT examination of the chest.
[2017-09-19 18:02] LABS: CHOLESTEROL 148 mg/dL (0-199)
[2017-09-19] MEDS: Enoxaparin 100 mg Syringe SC SCH (22:35)
[2017-09-20] MEDS: Oxycodone/Acetaminophen 5/325 mg Tab PO PRN ×2 (01:51→21:56)
[2017-09-20 06:59] LABS: BASO % 0.4 % (0.0-2.0); EOS # 0.3 K/uL (0.0-0.7); EOS % 3.2 % (0.0-4.0); LYMPH # 2.9 K/uL (1.0-4.3); LYMPH % 28.5 % (20.0-40.0); MEAN CELL VOLUME 90.3 fL (81.0-99.0); MEAN CORPUSCULAR HEMOGLOBIN 30.4 pg (27.0-31.0); MEAN CORPUSCULAR HGB CONC 33.7 g/dL (33.0-37.0); MEAN PLATELET VOLUME 9.7 fL (7.2-11.7); MONO # 0.5 K/uL (0.0-0.8); NRBC % 0.1 % (0.0-2.0); RED CELL DISTRIBUTION WIDTH 13.4 % (11.5-14.5); WHITE BLOOD COUNT 10.3 K/uL (4.8-10.8)
[2017-09-20 07:09] LABS: INR 1.2
--- NOTE | 2017-09-20 07:43 | CP.PCM.PN ---
Objective - Vital Signs/Intake and Output Vital Signs (last 24 hours): Temp Pulse Resp BP Pulse Ox 97.7 F 72 20 123/86 97 09/20/17 00:00 09/20/17 00:00 09/20/17 00:00 09/20/17 00:00 09/20/17 00:00 - Medications Medications: Current Medications Enoxaparin Sodium (Lovenox) 90 mg SC Q12 [facility] Last Admin: 09/19/17 22:35 Dose: 90 mg Oxycodone/Acetaminophen (Percocet 5/325 Mg Tab) 1 tab PO Q6H PRN PRN Reason: Pain, moderate (4-7) Stop: 09/22/17 13:41 Last Admin: 09/20/17 01:51 Dose: 1 tab Pantoprazole Sodium (Protonix Ec Tab) 40 mg PO DAILY [facility] Pneumococcal Polyvalent Vaccine (Pneumovax 23 Vaccine) 0.5 ml IM .ONCE ONE Stop: 09/22/17 10:01 Potassium Chloride (K-Dur 20 Meq Er Tab) 20 meq PO DAILY [facility] Last Admin: 09/19/17 13:14 Dose: 20 meq - Labs Labs: 09/20/17 06:49 09/19/17 11:52 PT 13.0 SECONDS (9.7-12.2) H 09/20/17 06:49 INR 1.2 09/20/17 06:49 APTT 34 SECONDS (21-34) 09/20/17 06:49
[2017-09-20] MEDS ORDERED: Levothyroxine 88 MCG TAB PO SCH ×2 (08:00→10:00)
--- NOTE | 2017-09-20 08:12 | CP.PCM.PN ---
<Rozina Menon - Last Filed: 09/20/17 14:58> Subjective - Date & Time of Evaluation Date of Evaluation: 09/20/17 Time of Evaluation: 07:35 - Subjective Subjective: Progress note for Dr. Espinoza Patient seen and examined at bedside. No acute events overnight. Patient states that she was short of breath for a little bit overnight, but denies chest pain. Patient states that when she walked yesterday, her left leg seemed more swollen and experienced sharp pain. Patient advised to be careful walking and limit it if she feels that she will fall. Patient states that her left leg feel a little worse than yesterday. Patient also complains of back pain traveling along left buttock and was explained during physical exam that likely musculoskeltal, but can be related to the DVT in common femoral dvt. Per speaking with surgery resident: patient's mother had to take a blood thinner at one point in her life, for reason's patient is unaware of. On admission, patient mentioned that her mother had "thin blood" that they had to "thicken." Will follow up Objective - Vital Signs/Intake and Output Vital Signs (last 24 hours): Temp Pulse Resp BP Pulse Ox 97.6 F 73 18 112/69 97 09/20/17 06:00 09/20/17 06:00 09/20/17 06:00 09/20/17 06:00 09/20/17 06:00 - Medications Medications: Current Medications Enoxaparin Sodium (Lovenox) 90 mg SC Q12 [facility] Last Admin: 09/19/17 22:35 Dose: 90 mg Levothyroxine Sodium (Synthroid) 88 mcg PO DAILY@0630 [facility] Last Admin: 09/20/17 08:05 Dose: 88 mcg Oxycodone/Acetaminophen (Percocet 5/325 Mg Tab) 1 tab PO Q6H PRN PRN Reason: Pain, moderate (4-7) Stop: 09/22/17 13:41 Last Admin: 09/20/17 01:51 Dose: 1 tab Pantoprazole Sodium (Protonix Ec Tab) 40 mg PO DAILY [facility] Pneumococcal Polyvalent Vaccine (Pneumovax 23 Vaccine) 0.5 ml IM .ONCE ONE Stop: 09/22/17 10:01 Potassium Chloride (K-Dur 20 Meq Er Tab) 20 meq PO DAILY [facility] Last Admin: 09/19/17 13:14 Dose: 20 meq - Labs Labs: 09/20/17 06:49 09/19/17 11:52 PT 13.0 SECONDS (9.7-12.2) H 09/20/17 06:49 INR 1.2 09/20/17 06:49 APTT 34 SECONDS (21-34) 09/20/17 06:49 - Constitutional Appears: Non-toxic - Head Exam Head Exam: NORMAL INSPECTION - Eye Exam Eye Exam: EOMI, Normal appearance - ENT Exam ENT Exam: Mucous Membranes Moist - Neck Exam Neck Exam: Full ROM - Respiratory Exam Respiratory Exam: Clear to Ausculation Bilateral, NORMAL BREATHING PATTERN - Cardiovascular Exam Cardiovascular Exam: REGULAR RHYTHM, +S1, +S2 - GI/Abdominal Exam GI & Abdominal Exam: Soft, Normal Bowel Sounds Additional comments: no rebound tenderness, no rigidity - Extremities Exam Extremities Exam: Full ROM Additional comments: lef piriformis tenderpoint - Back Exam Back Exam: Full ROM Additional comments: tattoo noted on back. - Neurological Exam Neurological Exam: Alert, Awake - Skin Skin Exam: Dry, Intact Additional comments: left leg colder than right leg. right leg is normal skin color and left leg is slightly purple in hue. DP, AT, PT pulses palpated bilaterally left DP, AT, PT pulses faint Assessment and Plan - Assessment and Plan (Free Text) Assessment: Patient is a 36 who presents with left leg pain. DVT common femoral vein extending to saphenofemoral junction and dvt in the left femoral vein and shortness of breath D-dimer 4800 09/20 BNP 101 09/19 EKG 09/19 CTA of chest: negative for PE 09/19 CXR: no active disease 09/19 Duplex lower extremity showing dvt in left common femoral vein extending to saphenofemoral junction and dvt in the left femoral vein, with mild reduction of venous return 09/[address] Phan: ileofemoral dvt for tPa with angiojet tomorrow 09/20 Lipid Panel: Triglycerides 148 Cholesterol 148 LDL 102 HDL 39 rosuvastatin 10mgqd Lovenox 90 SC BID Vascular Surgery Consult: Dr. Phan Monitor Vitals Hx Hypothyroidism TSH 17.00 Free T4 1.51 levothyroxine 100mcg POQD ? hypercoaguable family history Heme/Onc Consult: Dr. Guerra Hypokalemia, repleted, resolved Left Piriformis muscle strain, sciatic nerve irritation flexeril 5mg PO TID Prophylaxis DVT prophylaxis: no SCDs. Therapeutic lovenox is ordered GI prophylaxis Protonix discussed with DR. Olga Menon, DO PGY1 <Ry Espinoza - Last Filed: 09/20/17 15:15> Objective - Vital Signs/Intake and Output Vital Signs (last 24 hours): Temp Pulse Resp BP Pulse Ox 98.5 F 73 20 136/90 98 09/20/17 08:00 09/20/17 08:00 09/20/17 08:00 09/20/17 08:00 09/20/17 08:00 Intake and Output: 09/20/17 09/20/17 06:59 18:59 Intake Total 400 Balance 400 - Medications Medications: Current Medications Clonazepam (Klonopin) 1 mg PO DAILY [facility] Last Admin: 09/20/17 10:24 Dose: 1 mg Cyclobenzaprine HCl (Flexeril) 5 mg PO TID PRN PRN Reason: Muscle spasm Enoxaparin Sodium (Lovenox) 90 mg SC Q12 [facility] Last Admin: 09/20/17 10:23 Dose: 90 mg Ergocalciferol (Drisdol 50,000 Intl Units Cap) 1 cap PO QWK [facility] Last Admin: 09/20/17 10:24 Dose: 1 cap Fluticasone Propionate (Flonase) 1 spr SNEHAL DAILY [facility] Last Admin: 09/20/17 12:05 Dose: 1 spr Gabapentin (Neurontin) 300 mg PO BID [facility] Last Admin: 09/20/17 10:24 Dose: 300 mg Ibuprofen (Motrin Tab) 600 mg PO Q6 [facility] Last Admin: 09/20/17 12:06 Dose: 600 mg Levothyroxine Sodium (Synthroid) 100 mcg PO DAILY@0630 [facility] Oxycodone/Acetaminophen (Percocet 5/325 Mg Tab) 1 tab PO Q6H PRN PRN Reason: Pain, moderate (4-7) Stop: 09/22/17 13:41 Last Admin: 09/20/17 01:51 Dose: 1 tab Pantoprazole Sodium (Protonix Ec Tab) 40 mg PO DAILY [facility] Last Admin: 09/20/17 10:23 Dose: 40 mg Pneumococcal Polyvalent Vaccine (Pneumovax 23 Vaccine) 0.5 ml IM .ONCE ONE Stop: 12/02/17 10:01 Potassium Chloride (K-Dur 20 Meq Er Tab) 20 meq PO DAILY [facility] Last Admin: 09/20/17 10:24 Dose: 20 meq Rosuvastatin Calcium (Crestor) 10 mg PO HS K[facility]ANDRA - Labs Labs: 09/20/17 06:49 09/20/17 06:49 PT 13.0 SECONDS (9.7-12.2) H 09/20/17 06:49 INR 1.2 09/20/17 06:49 APTT 34 SECONDS (21-34) 09/20/17 06:49 Attending/Attestation - Attestation I have personally seen and examined this patient.: Yes I have fully participated in the care of the patient.: Yes I have reviewed all pertinent clinical information, including history, physical exam and plan: Yes Notes (Text): 09/20/17 15:15 Medical attending: Patient was seen and examined by me, agrees the above note by hospitalist medical director. The patient was seen with her family members at bedside. The patient was okay with this. Yesterday we had placed her on Lovenox however when we came and saw the patient today the swelling as well as the discomfort of her left leg particularly her left thigh been steadily getting worse. The left leg was larger than the right side. We reached out to the vascular surgery, and a additional CT scan of the lower extremities is pending. Surgery is considering to the intervention tomorrow with TPA and AngioJet. Thank you very much, Ry Espnioza
[2017-09-20 08:47] LABS: ALB/GLOB RATIO 1.3 (1.0-2.1); ALKALINE PHOSPHATASE 94 U/L (38-126); ALT/SGPT 57 U/L (9-52); AST/SGOT 34 U/L (14-36); BLOOD UREA NITROGEN 10 mg/dL (7-17); CALCIUM 8.7 mg/dl (8.6-10.4); CARBON DIOXIDE 26 mmol/L (22-30); CHLORIDE 101 mmol/L (98-107); GFR AFRICAN-AMERICAN > 60; GLUCOSE,RANDOM 75 mg/dL (65-105); POTASSIUM 3.8 mmol/L (3.6-5.2); SODIUM 141 mmol/L (132-148); TOTAL PROTEIN 7.5 g/dL (6.3-8.3)
[2017-09-20] MEDS: Pantoprazole 40 mg EC Tab PO SCH (10:23)
[2017-09-20] MEDS: Enoxaparin 100 mg Syringe SC SCH ×2 (10:23→21:57)
[2017-09-20] MEDS: Potassium Chloride 20 mEq ER Tab PO SCH (10:24)
[2017-09-20] MEDS: Ergocalciferol 50,000 Intl Units Cap PO SCH (10:24)
--- NOTE | 2017-09-20 10:42 | CP.PCM.CON ---
History of Present Illness - History of Present Illness History of Present Illness: Vascular Surgery Consult Note for Dr. Phan Reason for Consult: DVT in L common femoral vein and L femoral vein 36F with PMH of hypothyroidism was admitted for left leg pain and swelling. Patient states that symptoms have been present for about 4 days. Patient denies trauma, immobilization, or recent surgery. Patient went to ER and was sent home. She immediately followed up in the [facility] and was sent for lower extremity doppler. Doppler showed clot in L common femoral vein and L femoral vein. She went back to ER then was admitted. She was started on therapeutic lovenox. Patient states that she never had this pain in the past. She reportd sudeen onset. She rates the pain as moderate o severe. She describes pain as constant and sharp located in Left lower extremity. She denies exacerbating or alleviating factors. Denies smoking or OCP use. Admits subjective fever/chills, chest pain, SOB, palpitations, PMH: anxiety, hypothyroid, vitamin D deficiency Meds: As per EMR Allergy: NKDA PSH: denies FH: mother was on anticoagulation for "heart issue" Social: former smoker, social alcohol user, denies illicit drugs; lives with 7 kids and Review of Systems - Review of Systems All systems: reviewed and no additional remarkable complaints except (as per hpi ) Past Patient History - Infectious Disease Hx of Infectious Diseases: None - Past Social History Smoking Status: Former Smoker - CARDIAC Hx Hypertension: Yes - PULMONARY Hx Asthma: Yes - NEUROLOGICAL Hx Neurological Disorder: Yes Other/Comment: trigeminal neuralgia - HEENT Other/Comment: states recently completed abtx for tooth infection x1wk ago - RENAL Hx Chronic Kidney Disease: Yes - ENDOCRINE/METABOLIC Hx Hypothyroidism: Yes - HEMATOLOGICAL/ONCOLOGICAL Hx Blood Disorders: No - INTEGUMENTARY Hx Dermatological Problems: No - MUSCULOSKELETAL/RHEUMATOLOGICAL Hx Musculoskeletal Disorders: No - GASTROINTESTINAL Hx Gastrointestinal Disorders: No - GENITOURINARY/GYNECOLOGICAL Hx Genitourinary Disorders: No - PSYCHIATRIC Hx Anxiety: Yes Hx Substance Use: No - SURGICAL HISTORY Hx Surgeries: No - ANESTHESIA Hx Anesthesia: No Hx Anesthesia Reactions: No Hx Malignant Hyperthermia: No Meds Allergies/Adverse Reactions: Allergies Allergy/AdvReac Type Severity Reaction Status Date / Time No Known Allergies Allergy Verified 09/19/17 11:06 - Medications Medications: Current Medications Clonazepam (Klonopin) 1 mg PO DAILY [facility] Last Admin: 09/20/17 10:24 Dose: 1 mg Cyclobenzaprine HCl (Flexeril) 5 mg PO TID PRN PRN Reason: Muscle spasm Enoxaparin Sodium (Lovenox) 90 mg SC Q12 [facility] Last Admin: 09/20/17 10:23 Dose: 90 mg Ergocalciferol (Drisdol 50,000 Intl Units Cap) 1 cap PO QWK [facility] Last Admin: 09/20/17 10:24 Dose: 1 cap Fluticasone Propionate (Flonase) 1 spr SNEHAL DAILY [facility] Gabapentin (Neurontin) 300 mg PO BID [facility] Last Admin: 09/20/17 10:24 Dose: 300 mg Ibuprofen (Motrin Tab) 600 mg PO Q6 [facility] Levothyroxine Sodium (Synthroid) 88 mcg PO DAILY@0630 [facility] Last Admin: 09/20/17 08:05 Dose: 88 mcg Oxycodone/Acetaminophen (Percocet 5/325 Mg Tab) 1 tab PO Q6H PRN PRN Reason: Pain, moderate (4-7) Stop: 09/22/17 13:41 Last Admin: 09/20/17 01:51 Dose: 1 tab Pantoprazole Sodium (Protonix Ec Tab) 40 mg PO DAILY [facility] Last Admin: 09/20/17 10:23 Dose: 40 mg Pneumococcal Polyvalent Vaccine (Pneumovax 23 Vaccine) 0.5 ml IM .ONCE ONE Stop: 09/22/17 10:01 Potassium Chloride (K-Dur 20 Meq Er Tab) 20 meq PO DAILY [facility] Last Admin: 09/20/17 10:24 Dose: 20 meq Physical Exam - Constitutional Appears: No Acute Distress, Younger Than Stated Age - Head Exam Head Exam: ATRAUMATIC, NORMOCEPHALIC - Eye Exam Eye Exam: EOMI, Normal appearance - ENT Exam ENT Exam: Mucous Membranes Moist - Respiratory Exam Respiratory Exam: NORMAL BREATHING PATTERN - Cardiovascular Exam Cardiovascular Exam: REGULAR RHYTHM - GI/Abdominal Exam GI & Abdominal Exam: Soft. absent: Tenderness - Extremities Exam Extremities exam: Positive for: calf tenderness, normal capillary refill, pedal edema, tenderness (LLE), pedal pulses present (bilaterally) Additional comments: LLE: redness, edema throughout leg, tender to palpation, DP/PT/Popliteal pulses present - Back Exam Back exam: absent: CVA tenderness (L), CVA tenderness (R) - Neurological Exam Neurological exam: Alert, CN II-XII Intact, Oriented x3 - Psychiatric Exam Psychiatric exam: Normal Affect, Normal Mood - Skin Skin Exam: Dry, Intact, Warm Results - Vital Signs Recent Vital Signs: Last Vital Signs Temp 98.5 F 09/20/17 08:00 Pulse 73 09/20/17 08:00 Resp 20 09/20/17 08:00 BP 136/90 09/20/17 08:00 Pulse Ox 98 09/20/17 08:00 - Labs Result Diagrams: 09/20/17 06:49 09/20/17 06:49 Labs: Laboratory Results - last 24 hr 09/19/17 09/19/17 09/19/17 11:52 11:52 11:52 WBC 18.8 H D RBC 4.72 Hgb 13.9 Hct 42.1 MCV 89.1 MCH 29.5 MCHC 33.1 RDW 13.2 Plt Count 150 MPV 10.3 Neut % (Auto) 85.9 H Lymph % (Auto) 10.0 L [place] % (Auto) 3.6 Eos % (Auto) 0.2 Baso % (Auto) 0.3 Neut # 16.1 H Lymph # 1.9 [place] # 0.7 Eos # 0.0 Baso # 0.1 PT INR APTT D-Dimer, Quantitative 4800 H Sodium 135 Potassium 3.4 L Chloride 101 Carbon Dioxide 19 L Anion Gap 19 BUN 10 Creatinine 0.5 L Est GFR ( Amer) > 60 Est GFR (Non-Af Amer) > 60 Random Glucose 106 H Calcium 9.1 Total Bilirubin 1.0 AST 29 ALT 54 H D Alkaline Phosphatase 101 Troponin I NT-Pro-B Natriuret Pep Total Protein 8.4 H Albumin 4.5 Globulin 3.9 Albumin/Globulin Ratio 1.2 Triglycerides Cholesterol LDL Cholesterol Direct HDL Cholesterol Free T4 TSH 3rd Generation 09/19/17 09/19/17 09/20/17 17:29 17:29 06:49 WBC 10.3 RBC 4.65 Hgb 14.1 Hct 42.0 MCV 90.3 MCH 30.4 MCHC 33.7 RDW 13.4 Plt Count 143 MPV 9.7 Neut % (Auto) 62.9 Lymph % (Auto) 28.5 [place] % (Auto) 5.0 Eos % (Auto) 3.2 Baso % (Auto) 0.4 Neut # 6.5 Lymph # 2.9 [place] # 0.5 Eos # 0.3 Baso # 0.0 PT INR APTT D-Dimer, Quantitative Sodium Potassium Chloride Carbon Dioxide Anion Gap BUN Creatinine Est GFR ( Amer) Est GFR (Non-Af Amer) Random Glucose Calcium Total Bilirubin AST ALT Alkaline Phosphatase Troponin I < 0.0120 NT-Pro-B Natriuret Pep 101 Total Protein Albumin Globulin Albumin/Globulin Ratio Triglycerides 91 D Cholesterol 148 LDL Cholesterol Direct 102 HDL Cholesterol 39 Free T4 1.51 TSH 3rd Generation 17.00 H 09/20/17 09/20/17 06:49 06:49 WBC RBC Hgb Hct MCV MCH MCHC RDW Plt Count MPV Neut % (Auto) Lymph % (Auto) [place] % (Auto) Eos % (Auto) Baso % (Auto) Neut # Lymph # [place] # Eos # Baso # PT 13.0 H INR 1.2 APTT 34 D-Dimer, Quantitative Sodium 141 Potassium 3.8 Chloride 101 Carbon Dioxide 26 Anion Gap 18 BUN 10 Creatinine 0.5 L Est GFR ( Amer) > 60 Est GFR (Non-Af Amer) > 60 Random Glucose 75 Calcium 8.7 Total Bilirubin 1.0 AST 34 ALT 57 H Alkaline Phosphatase 94 Troponin I NT-Pro-B Natriuret Pep Total Protein 7.5 Albumin 4.2 Globulin 3.3 Albumin/Globulin Ratio 1.3 Triglycerides Cholesterol LDL Cholesterol Direct HDL Cholesterol Free T4 TSH 3rd Generation Assessment & Plan - Assessment and Plan (Free Text) Plan: 36 F with L common femoral vein and L femoral vein DVT -TPA angiojet tomorrow -NPO past MN -Anticoagulation -Recommend Heme/Onc consult -Discussed with Dr. Emilie Cortez PGY1
[2017-09-20] MEDS: Fluticasone Nasal 50 mcg/Spray NAS SCH (12:05)
--- NOTE | 2017-09-20 14:54 | CP.PCM.CON ---
<Priti Lundy DO - Last Filed: 09/20/17 16:24> History of Present Illness - History of Present Illness History of Present Illness: Hematology consult for Dr. Guerra Patient is a 36 year old female with PMHx hypothyroidism, anxiety, chronic sinusitis who presented to the hospital with complaint of leg pain. Patient states she went to the ER initially on 09/18 with complaint of left buttock and leg pain. Patient was treated with pain medications and discharged to follow up with her PMD in the [facility]. She went to the clinic on and was sent back to the ER for evaluation for suspected DVT. Patient was diagnosed with left totally occluding acute DVT of the left common femoral vein extending into the saphenofemoral junction as well as partial acute DVT of the left femoral vein with mild reduction of venous return. Patient denies smoking , hormonal control use, sedentary lifestyle. Patient reports her mother was on a blood thinner at one point but believes it was due to a cardiac issue, not blood clot related. PMD: NHC at [facility] PMHx: hypothyroidism, anxiety, depression, chronic sinusitis PSHx: denies Social: denies alcohol, tobacco (former), drugs Review of Systems - Constitutional Constitutional: absent: Chills, Fever - EENT Eyes: absent: Blurred Vision Nose/Mouth/Throat: Nasal Congestion - Cardiovascular Cardiovascular: absent: Chest Pain, Dyspnea - Respiratory Respiratory: absent: Cough - Gastrointestinal Gastrointestinal: absent: Nausea, Vomiting - Genitourinary Genitourinary: absent: Dysuria - Musculoskeletal Musculoskeletal: Back Pain - Neurological Neurological: absent: Weakness Past Patient History - Infectious Disease Hx of Infectious Diseases: None - Past Social History Smoking Status: Former Smoker - CARDIAC Hx Hypertension: Yes - PULMONARY Hx Asthma: Yes - NEUROLOGICAL Hx Neurological Disorder: Yes Other/Comment: trigeminal neuralgia - HEENT Other/Comment: states recently completed abtx for tooth infection x1wk ago - RENAL Hx Chronic Kidney Disease: Yes - ENDOCRINE/METABOLIC Hx Hypothyroidism: Yes - HEMATOLOGICAL/ONCOLOGICAL Hx Blood Disorders: No - INTEGUMENTARY Hx Dermatological Problems: No - MUSCULOSKELETAL/RHEUMATOLOGICAL Hx Musculoskeletal Disorders: No - GASTROINTESTINAL Hx Gastrointestinal Disorders: No - GENITOURINARY/GYNECOLOGICAL Hx Genitourinary Disorders: No - PSYCHIATRIC Hx Anxiety: Yes Hx Substance Use: No - SURGICAL HISTORY Hx Surgeries: No - ANESTHESIA Hx Anesthesia: No Hx Anesthesia Reactions: No Hx Malignant Hyperthermia: No Meds Allergies/Adverse Reactions: Allergies Allergy/AdvReac Type Severity Reaction Status Date / Time No Known Allergies Allergy Verified 09/19/17 11:06 - Medications Medications: Current Medications Clonazepam (Klonopin) 1 mg PO DAILY [facility] Last Admin: 09/20/17 10:24 Dose: 1 mg Cyclobenzaprine HCl (Flexeril) 5 mg PO TID PRN PRN Reason: Muscle spasm Enoxaparin Sodium (Lovenox) 90 mg SC Q12 [facility] Last Admin: 09/20/17 10:23 Dose: 90 mg Ergocalciferol (Drisdol 50,000 Intl Units Cap) 1 cap PO QWK [facility] Last Admin: 09/20/17 10:24 Dose: 1 cap Fluticasone Propionate (Flonase) 1 spr SNEHAL DAILY [facility] Last Admin: 09/20/17 12:05 Dose: 1 spr Gabapentin (Neurontin) 300 mg PO BID [facility] Last Admin: 09/20/17 10:24 Dose: 300 mg Ibuprofen (Motrin Tab) 600 mg PO Q6 [facility] Last Admin: 09/20/17 12:06 Dose: 600 mg Levothyroxine Sodium (Synthroid) 100 mcg PO DAILY@0630 [facility] Oxycodone/Acetaminophen (Percocet 5/325 Mg Tab) 1 tab PO Q6H PRN PRN Reason: Pain, moderate (4-7) Stop: 09/22/17 13:41 Last Admin: 09/20/17 01:51 Dose: 1 tab Pantoprazole Sodium (Protonix Ec Tab) 40 mg PO DAILY [facility] Last Admin: 09/20/17 10:23 Dose: 40 mg Pneumococcal Polyvalent Vaccine (Pneumovax 23 Vaccine) 0.5 ml IM .ONCE ONE Stop: 09/22/17 10:01 Potassium Chloride (K-Dur 20 Meq Er Tab) 20 meq PO DAILY [facility] Last Admin: 09/20/17 10:24 Dose: 20 meq Rosuvastatin Calcium (Crestor) 10 mg PO HS [facility] Physical Exam - Constitutional Appears: No Acute Distress - Head Exam Head Exam: ATRAUMATIC, NORMOCEPHALIC - Eye Exam Eye Exam: EOMI - ENT Exam ENT Exam: Mucous Membranes Moist - Respiratory Exam Respiratory Exam: NORMAL BREATHING PATTERN - Cardiovascular Exam Cardiovascular Exam: +S1, +S2 - GI/Abdominal Exam GI & Abdominal Exam: Soft - Extremities Exam Extremities exam: Positive for: calf tenderness (left) - Neurological Exam Neurological exam: Alert, Oriented x3 - Psychiatric Exam Psychiatric exam: Normal Affect - Skin Skin Exam: Warm Results - Vital Signs Recent Vital Signs: Last Vital Signs Temp 98.5 F 09/20/17 08:00 Pulse 73 09/20/17 08:00 Resp 20 09/20/17 08:00 BP 136/90 09/20/17 08:00 Pulse Ox 98 09/20/17 08:00 - Labs Result Diagrams: 09/20/17 06:49 09/20/17 06:49 Labs: Laboratory Results - last 24 hr 09/19/17 09/19/17 09/20/17 17:29 17:29 06:49 WBC 10.3 RBC 4.65 Hgb 14.1 Hct 42.0 MCV 90.3 MCH 30.4 MCHC 33.7 RDW 13.4 Plt Count 143 MPV 9.7 Neut % (Auto) 62.9 Lymph % (Auto) 28.5 [place] % (Auto) 5.0 Eos % (Auto) 3.2 Baso % (Auto) 0.4 Neut # 6.5 Lymph # 2.9 [place] # 0.5 Eos # 0.3 Baso # 0.0 PT INR APTT Sodium Potassium Chloride Carbon Dioxide Anion Gap BUN Creatinine Est GFR ( Amer) Est GFR (Non-Af Amer) Random Glucose Calcium Total Bilirubin AST ALT Alkaline Phosphatase Troponin I < 0.0120 NT-Pro-B Natriuret Pep 101 Total Protein Albumin Globulin Albumin/Globulin Ratio Triglycerides 91 D Cholesterol 148 LDL Cholesterol Direct 102 HDL Cholesterol 39 Free T4 1.51 TSH 3rd Generation 17.00 H 09/20/17 09/20/17 06:49 06:49 WBC RBC Hgb Hct MCV MCH MCHC RDW Plt Count MPV Neut % (Auto) Lymph % (Auto) [place] % (Auto) Eos % (Auto) Baso % (Auto) Neut # Lymph # [place] # Eos # Baso # PT 13.0 H INR 1.2 APTT 34 Sodium 141 Potassium 3.8 Chloride 101 Carbon Dioxide 26 Anion Gap 18 BUN 10 Creatinine 0.5 L Est GFR ( Amer) > 60 Est GFR (Non-Af Amer) > 60 Random Glucose 75 Calcium 8.7 Total Bilirubin 1.0 AST 34 ALT 57 H Alkaline Phosphatase 94 Troponin I NT-Pro-B Natriuret Pep Total Protein 7.5 Albumin 4.2 Globulin 3.3 Albumin/Globulin Ratio 1.3 Triglycerides Cholesterol LDL Cholesterol Direct HDL Cholesterol Free T4 TSH 3rd Generation Assessment & Plan - Assessment and Plan (Free Text) Assessment: Left common femoral vein and left femoral vein DVT unprovoked continue therapeutic anticoagulation patient will need anticoagulation for minimum 3 months patient to be evaluated by vascular surgery for possible removal of clot will check for antiphospholipid antibody, prothrombin gene mutation, factor V Leiden mutation remainder of hypercoaguability workup to be done as outpatient Plan as per Dr. Guerra <Raf Guerra - Last Filed: 09/20/17 17:42> Meds - Medications Medications: Current Medications Clonazepam (Klonopin) 1 mg PO DAILY [facility] Last Admin: 09/20/17 10:24 Dose: 1 mg Cyclobenzaprine HCl (Flexeril) 5 mg PO TID PRN PRN Reason: Muscle spasm Enoxaparin Sodium (Lovenox) 90 mg SC Q12 [facility] Last Admin: 09/20/17 10:23 Dose: 90 mg Ergocalciferol (Drisdol 50,000 Intl Units Cap) 1 cap PO QWK [facility] Last Admin: 09/20/17 10:24 Dose: 1 cap Fluticasone Propionate (Flonase) 1 spr SNEHAL DAILY [facility] Last Admin: 09/20/17 12:05 Dose: 1 spr Gabapentin (Neurontin) 300 mg PO BID [facility] Last Admin: 09/20/17 10:24 Dose: 300 mg Ibuprofen (Motrin Tab) 600 mg PO Q6 [facility] Last Admin: 09/20/17 17:13 Dose: 600 mg Levothyroxine Sodium (Synthroid) 100 mcg PO DAILY@0630 [facility] Oxycodone/Acetaminophen (Percocet 5/325 Mg Tab) 1 tab PO Q6H PRN PRN Reason: Pain, moderate (4-7) Stop: 09/22/17 13:41 Last Admin: 09/20/17 01:51 Dose: 1 tab Pantoprazole Sodium (Protonix Ec Tab) 40 mg PO DAILY [facility] Last Admin: 09/20/17 10:23 Dose: 40 mg Pneumococcal Polyvalent Vaccine (Pneumovax 23 Vaccine) 0.5 ml IM .ONCE ONE Stop: 09/22/17 10:01 Potassium Chloride (K-Dur 20 Meq Er Tab) 20 meq PO DAILY [facility] Last Admin: 09/20/17 10:24 Dose: 20 meq Rosuvastatin Calcium (Crestor) 10 mg PO HS [facility] Results - Vital Signs Recent Vital Signs: Last Vital Signs Temp 98.1 F 09/20/17 16:34 Pulse 83 09/20/17 16:34 Resp 20 09/20/17 16:34 BP 122/79 09/20/17 16:34 Pulse Ox 99 09/20/17 16:34 - Labs Result Diagrams: 09/20/17 06:49 09/20/17 06:49 Labs: Laboratory Results - last 24 hr 09/19/17 09/19/17 09/20/17 17:29 17:29 06:49 WBC 10.3 RBC 4.65 Hgb 14.1 Hct 42.0 MCV 90.3 MCH 30.4 MCHC 33.7 RDW 13.4 Plt Count 143 MPV 9.7 Neut % (Auto) 62.9 Lymph % (Auto) 28.5 [place] % (Auto) 5.0 Eos % (Auto) 3.2 Baso % (Auto) 0.4 Neut # 6.5 Lymph # 2.9 [place] # 0.5 Eos # 0.3 Baso # 0.0 PT INR APTT Sodium Potassium Chloride Carbon Dioxide Anion Gap BUN Creatinine Est GFR ( Amer) Est GFR (Non-Af Amer) Random Glucose Calcium Total Bilirubin AST ALT Alkaline Phosphatase Troponin I < 0.0120 NT-Pro-B Natriuret Pep 101 Total Protein Albumin Globulin Albumin/Globulin Ratio Triglycerides 91 D Cholesterol 148 LDL Cholesterol Direct 102 HDL Cholesterol 39 Free T4 1.51 TSH 3rd Generation 17.00 H 09/20/17 09/20/17 06:49 06:49 WBC RBC Hgb Hct MCV MCH MCHC RDW Plt Count MPV Neut % (Auto) Lymph % (Auto) [place] % (Auto) Eos % (Auto) Baso % (Auto) Neut # Lymph # [place] # Eos # Baso # PT 13.0 H INR 1.2 APTT 34 Sodium 141 Potassium 3.8 Chloride 101 Carbon Dioxide 26 Anion Gap 18 BUN 10 Creatinine 0.5 L Est GFR ( Amer) > 60 Est GFR (Non-Af Amer) > 60 Random Glucose 75 Calcium 8.7 Total Bilirubin 1.0 AST 34 ALT 57 H Alkaline Phosphatase 94 Troponin I NT-Pro-B Natriuret Pep Total Protein 7.5 Albumin 4.2 Globulin 3.3 Albumin/Globulin Ratio 1.3 Triglycerides Cholesterol LDL Cholesterol Direct HDL Cholesterol Free T4 TSH 3rd Generation Assessment & Plan - Assessment and Plan (Free Text) Assessment: Pt seen and examined, agree with residents consult. 36 year old female admitted with unprovoked left leg DVT. Therapeutic anticoagulation, inherited thrombophilia w/u, vascular surgery. Thank you for this interesting consult.
--- NOTE | 2017-09-20 14:56 | CP.PCM.PN ---
Subjective - Date & Time of Evaluation Date of Evaluation: 09/20/17 Time of Evaluation: 14:55 - Subjective Subjective: ileo femoral dvt for tpa angiojet tomorrow Objective - Vital Signs/Intake and Output Vital Signs (last 24 hours): Temp Pulse Resp BP Pulse Ox 98.5 F 73 20 136/90 98 09/20/17 08:00 09/20/17 08:00 09/20/17 08:00 09/20/17 08:00 09/20/17 08:00 Intake and Output: 09/20/17 09/20/17 06:59 18:59 Intake Total 400 Balance 400 - Medications Medications: Current Medications Clonazepam (Klonopin) 1 mg PO DAILY [facility] Last Admin: 09/20/17 10:24 Dose: 1 mg Cyclobenzaprine HCl (Flexeril) 5 mg PO TID PRN PRN Reason: Muscle spasm Enoxaparin Sodium (Lovenox) 90 mg SC Q12 [facility] Last Admin: 09/20/17 10:23 Dose: 90 mg Ergocalciferol (Drisdol 50,000 Intl Units Cap) 1 cap PO QWK [facility] Last Admin: 09/20/17 10:24 Dose: 1 cap Fluticasone Propionate (Flonase) 1 spr SNEHAL DAILY [facility] Last Admin: 09/20/17 12:05 Dose: 1 spr Gabapentin (Neurontin) 300 mg PO BID [facility] Last Admin: 09/20/17 10:24 Dose: 300 mg Ibuprofen (Motrin Tab) 600 mg PO Q6 [facility] Last Admin: 09/20/17 12:06 Dose: 600 mg Levothyroxine Sodium (Synthroid) 100 mcg PO DAILY@0630 [facility] Oxycodone/Acetaminophen (Percocet 5/325 Mg Tab) 1 tab PO Q6H PRN PRN Reason: Pain, moderate (4-7) Stop: 09/22/17 13:41 Last Admin: 09/20/17 01:51 Dose: 1 tab Pantoprazole Sodium (Protonix Ec Tab) 40 mg PO DAILY [facility] Last Admin: 09/20/17 10:23 Dose: 40 mg Pneumococcal Polyvalent Vaccine (Pneumovax 23 Vaccine) 0.5 ml IM .ONCE ONE Stop: 09/22/17 10:01 Potassium Chloride (K-Dur 20 Meq Er Tab) 20 meq PO DAILY [facility] Last Admin: 09/20/17 10:24 Dose: 20 meq Rosuvastatin Calcium (Crestor) 10 mg PO HS [facility] - Labs Labs: 09/20/17 06:49 09/20/17 06:49 PT 13.0 SECONDS (9.7-12.2) H 09/20/17 06:49 INR 1.2 09/20/17 06:49 APTT 34 SECONDS (21-34) 09/20/17 06:49
[2017-09-20] MEDS ORDERED: Iodixanol 320 mg/ml 150 ml Bottle IV ONE (15:41)
[2017-09-21] MEDS ORDERED: Levothyroxine 88 MCG TAB PO SCH (06:30)
[2017-09-21 07:52] LABS: BASO % 0.4 % (0.0-2.0); EOS # 0.4 K/uL (0.0-0.7); EOS % 4.9 % (0.0-4.0); LYMPH # 1.9 K/uL (1.0-4.3); MEAN CELL VOLUME 88.4 fL (81.0-99.0); MEAN CORPUSCULAR HEMOGLOBIN 30.2 pg (27.0-31.0); MEAN CORPUSCULAR HGB CONC 34.2 g/dL (33.0-37.0); MEAN PLATELET VOLUME 10.7 fL (7.2-11.7); MONO # 0.4 K/uL (0.0-0.8); MONO % 5.6 % (0.0-10.0); RED CELL DISTRIBUTION WIDTH 13.1 % (11.5-14.5); WHITE BLOOD COUNT 7.3 K/uL (4.8-10.8)
[2017-09-21 08:03] LABS: ALB/GLOB RATIO 1.3 (1.0-2.1); ALKALINE PHOSPHATASE 98 U/L (38-126); ALT/SGPT 50 U/L (9-52); AST/SGOT 28 U/L (14-36); BILIRUBIN,TOTAL 1.1 mg/dL (0.2-1.3); BLOOD UREA NITROGEN 13 mg/dL (7-17); CALCIUM 8.7 mg/dl (8.6-10.4); CARBON DIOXIDE 22 mmol/L (22-30); CHLORIDE 105 mmol/L (98-107); GFR AFRICAN-AMERICAN > 60; GLUCOSE,RANDOM 103 mg/dL (65-105); POTASSIUM 3.7 mmol/L (3.6-5.2); SODIUM 141 mmol/L (132-148); TOTAL PROTEIN 7.7 g/dL (6.3-8.3)
[2017-09-21] MEDS: Enoxaparin 100 mg Syringe SC SCH (10:24)
[2017-09-21] MEDS: Fluticasone Nasal 50 mcg/Spray NAS SCH (10:24)
[2017-09-21] MEDS: Pantoprazole 40 mg EC Tab PO SCH (10:25)
[2017-09-21] MEDS: Potassium Chloride 20 mEq ER Tab PO SCH (10:25)
[2017-09-21] MEDS ORDERED: Propofol 10 mg/ml Inj (20 ML) ONE (12:06)
[2017-09-21] MEDS ORDERED: Midazolam 2 MG/2 ML VIAL ONE ×3 (12:06→13:37)
[2017-09-21] MEDS ORDERED: Iohexol 350mg/ml 100 ML ONE (12:16)
[2017-09-21] MEDS ORDERED: Iodixanol 320 MG/ML 200 ML BOTTLE IV ONE (12:17)
[2017-09-21] MEDS ORDERED: Iodixanol 320 MG/ML 100 ML BOTTLE IV ONE (12:18)
[2017-09-21] MEDS ORDERED: Lidocaine 2% Inj (20ml) ONE (12:22)
[2017-09-21] MEDS ORDERED: Alteplase 20 MG in Sodium Chloride 0.9% 100 ML IV ONE (13:00)
--- NOTE | 2017-09-21 14:19 | CT ---
PROCEDURE: CT Angiography Abdomen, Pelvis and Lower Extremity with Contrast HISTORY: left ileo femoral dvt /venous phase abd/pelvis COMPARISON: None. TECHNIQUE: Technique: CT angiography of the abdomen, pelvis and bilateral lower extremities performed in the VENOUS phase of enhancement. Coronal and sagittal reformats, and well as rotating MIP images of the vessels generated at the workstation. Intravenous contrast dose: 150 MILLILITERS VISIPAQUE 320 Radiation dose: Total exam DLP = 2992.68 MGy-cm. This CT exam was performed using one or more of the following dose reduction techniques: Automated exposure control, adjustment of the mA and/or kV according to patient size, and/or use of iterative reconstruction technique. FINDINGS: CT ANGIOGRAPHY: The suprarenal IVC is normal. There is thrombus within the infrarenal IVC extending into the left common iliac vein and left lower extremity. There is significant thrombus within the left common femoral vein superficial femoral vein and deep femoral vein. Thrombus appears to extend into the popliteal vein. Assessment of thrombus within the tibial veins is limited on this study. Iliac vein and left femoral veins are enlarged consistent acute DVT and possible phlebitis. ABDOMINAL AORTA:: The abdominal is unremarkable. MAJOR AORTIC BRANCHES: Celiac [place]: Unremarkable. Superior mesenteric artery: Unremarkable. Inferior mesenteric artery: Unremarkable. Renal arteries: Unremarkable. PELVIC ARTERIES: Right Common Iliac: Unremarkable. Right External Iliac: Unremarkable. Right Internal Iliac: Unremarkable. Left Common Iliac: Unremarkable. Left External Iliac: Unremarkable. Left Internal Iliac: Unremarkable. RIGHT LOWER EXTREMITY ARTERIES: Right Common Femoral: Unremarkable. Right Superficial Femoral: Unremarkable. Right Profunda Femoris: Unremarkable. Right Popliteal:Unremarkable. Right Anterior Tibial: Unremarkable. Right Tibioperoneal Trunk: Unremarkable. Right Posterior Tibial: Unremarkable. Right Peroneal: Unremarkable. Right dorsalis pedis : Unremarkable. LEFT LOWER EXTREMITY ARTERIES: Left Common Femoral: Unremarkable. Left Superficial Femoral: Unremarkable. Left Profunda Femoris: Unremarkable. Left Popliteal: Unremarkable. Left Anterior Tibial: Unremarkable. Left Tibioperoneal Trunk: Unremarkable. Left Posterior Tibial: Unremarkable. Left Peronea: Unremarkable. Left Dorsalis pedis: Unremarkable. NON-ANGIOGRAPHIC ASPECT OF THE EXAM: LOWER THORAX: Unremarkable. LIVER: Unremarkable. No gross lesion or ductal dilatation. GALLBLADDER AND BILE DUCTS: Unremarkable. PANCREAS: Unremarkable. No gross lesion or ductal dilatation. SPLEEN: Unremarkable. ADRENALS: Unremarkable. No mass. KIDNEYS AND URETERS: Unremarkable. No hydronephrosis. No solid mass. STOMACH AND BOWEL: Unremarkable. No obstruction. No gross mural thickening. APPENDIX: Normal appendix. PERITONEUM: Unremarkable. No free fluid. No free air. LYMPH NODES: Unremarkable. No enlarged lymph nodes. BLADDER: Unremarkable. REPRODUCTIVE: Unremarkable. BONES: No acute fracture. OTHER FINDINGS: None. IMPRESSION: CT venogram showed thrombus within the infrarenal IVC extends the left common femoral vein and left lower extremity. In the left lower extremity, thrombus is present within the left common femoral vein, superficial femoral vein, and deep femoral veins. The thrombus extends in the popliteal vein. This is and acute DVT of the left ileal femoral veins. Assessment of thrombus within the tibial veins limited on this study. Remainder of the exam as per above.
--- NOTE | 2017-09-21 14:27 | PCM.SURG1 ---
Surgeon's Initial Post Op Note - Surgeon's Notes Surgeon: rahul Speck Dyer: 0 Type of Anesthesia: IV Sedation Anesthesia Administered By: charlotte/oneida Pre-Operative Diagnosis: ileo femoral dvt Operative Findings: extensive dvt left iliac and femoral. 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 venogram. mechanical thrombolysis with tpa and angiojet. balloon angioplasty of left iliac common and external vein Specimen/Specimens Removed: 0 Estimated Blood Loss: EBL {In ML}: 50 Blood Products Given: N/A Drains Used: No Drains Post-Op Condition: Good Date of Surgery/Procedure: 09/21/17 Time of Surgery/Procedure: 14:31
--- NOTE | 2017-09-21 15:06 | CP.PCM.PN ---
<Jude Suazo - Last Filed: 09/21/17 15:18> Subjective - Date & Time of Evaluation Date of Evaluation: 09/21/17 Time of Evaluation: 09:05 - Subjective Subjective: Medicine Note (PGY-1)----> Dr. Espinoza's service Patient was seen and examined at bedside. Patient's was at bedside. Patient states that she is doing well but still admits to moderate discomfort in her right leg. Patient denies chest pain, palpitations, SOB, fever, chills, nausea, headache and dizziness. Patient is aware that she is scheduled for mechanical thrombolysis with tpa and angiojet for left ileo-femoral DVT. Objective - Vital Signs/Intake and Output Vital Signs (last 24 hours): Temp Pulse Resp BP Pulse Ox 98.3 F 82 20 125/80 97 09/21/17 07:00 09/21/17 08:00 09/21/17 07:00 09/21/17 07:00 09/21/17 07:00 - Medications Medications: Current Medications Clonazepam (Klonopin) 1 mg PO DAILY [facility] Last Admin: 09/21/17 10:25 Dose: 1 mg Cyclobenzaprine HCl (Flexeril) 5 mg PO TID PRN PRN Reason: Muscle spasm Enoxaparin Sodium (Lovenox) 90 mg SC Q12 [facility] Last Admin: 09/21/17 10:24 Dose: 90 mg Ergocalciferol (Drisdol 50,000 Intl Units Cap) 1 cap PO QWK [facility] Last Admin: 09/20/17 10:24 Dose: 1 cap Fluticasone Propionate (Flonase) 1 spr SNEHAL DAILY [facility] Last Admin: 09/21/17 10:24 Dose: 1 spr Gabapentin (Neurontin) 300 mg PO BID [facility] Last Admin: 09/21/17 10:25 Dose: 300 mg Ibuprofen (Motrin Tab) 600 mg PO Q6 [facility] Last Admin: 09/21/17 05:25 Dose: Not Given Levothyroxine Sodium (Synthroid) 100 mcg PO DAILY@0630 [facility] Oxycodone/Acetaminophen (Percocet 5/325 Mg Tab) 1 tab PO Q6H PRN PRN Reason: Pain, moderate (4-7) Stop: 09/22/17 13:41 Last Admin: 09/20/17 21:56 Dose: 1 tab Pantoprazole Sodium (Protonix Ec Tab) 40 mg PO DAILY [facility] Last Admin: 09/21/17 10:25 Dose: 40 mg Pneumococcal Polyvalent Vaccine (Pneumovax 23 Vaccine) 0.5 ml IM .ONCE ONE Stop: 09/22/17 10:01 Potassium Chloride (K-Dur 20 Meq Er Tab) 20 meq PO DAILY [facility] Last Admin: 09/21/17 10:25 Dose: 20 meq Rosuvastatin Calcium (Crestor) 10 mg PO HS [facility] Last Admin: 09/20/17 21:57 Dose: 10 mg - Labs Labs: 09/21/17 07:31 09/21/17 07:31 PT 13.0 SECONDS (9.7-12.2) H 09/20/17 06:49 INR 1.2 09/20/17 06:49 APTT 34 SECONDS (21-34) 09/20/17 06:49 - Constitutional Appears: Well, No Acute Distress - Head Exam Head Exam: ATRAUMATIC - Eye Exam Eye Exam: EOMI, Normal appearance - ENT Exam ENT Exam: Mucous Membranes Moist - Respiratory Exam Respiratory Exam: Clear to Ausculation Bilateral, NORMAL BREATHING PATTERN - Cardiovascular Exam Cardiovascular Exam: REGULAR RHYTHM, +S1, +S2 - GI/Abdominal Exam GI & Abdominal Exam: Soft, Normal Bowel Sounds - Extremities Exam Extremities Exam: Calf Tenderness. absent: Tenderness Additional comments: Left foot pain and calf tenderness left leg colder than right leg. right leg is normal skin color and left leg is slightly purple in hue. DP, AT, PT pulses palpated bilaterally left DP, AT, PT pulses faint - Neurological Exam Neurological Exam: Alert, Awake - Psychiatric Exam Psychiatric exam: Normal Affect Assessment and Plan (1) Left leg DVT Assessment & Plan: DVT common femoral vein extending to saphenofemoral junction and dvt in the left femoral vein On admission: D-dimer 4800 09/19 CTA of chest: negative for PE 09/19 CXR: no active disease 09/19 Duplex lower extremity showing dvt in left common femoral vein extending to saphenofemoral junction and dvt in the left femoral vein, with mild reduction of venous return Labs: Lipid Panel: Triglycerides 148, Cholesterol 148, LDL 102, HDL 39 rosuvastatin 10mgqd Lovenox 90 SC BID Management/Medication: Vascular Surgery, Dr. Phan Consulted---> Help appreciated: S/P IVC filter via right politeal vein, venogram, mechanical thrombolysis with tpa and angiojet. balloon angioplasty of left iliac common and external vein, POD #0 * Rosuvastatin 10mg HS * Lovenox 90 SC BID Status: Acute (2) History of hypothyroidism Assessment & Plan: TSH 17.00 Free T4 1.51 levothyroxine 100mcg PO daily Status: Acute (3) Family history of hypercoagulable state Assessment & Plan: Heme/Onc Consult: Dr. Guerra---> Help appreciated * Management as per recommendation Status: Acute (4) Spasm of left piriformis muscle Assessment & Plan: Irritation of the sciatica nerve Medication/Management: * flexeril 5mg PO TID Status: Acute (5) Prophylactic measure Assessment & Plan: DVT prophylaxis: no SCDs. Therapeutic lovenox is ordered GI prophylaxis Protonix All plans and management discussed with Dr. Espinoza Status: Acute <Ry Espinoza - Last Filed: 09/21/17 16:27> Objective - Vital Signs/Intake and Output Vital Signs (last 24 hours): Temp Pulse Resp BP Pulse Ox 98.3 F 82 20 125/80 97 09/21/17 07:00 09/21/17 08:00 09/21/17 07:00 09/21/17 07:00 09/21/17 07:00 - Medications Medications: Current Medications Clonazepam (Klonopin) 1 mg PO DAILY [facility] Last Admin: 09/21/17 10:25 Dose: 1 mg Cyclobenzaprine HCl (Flexeril) 5 mg PO TID PRN PRN Reason: Muscle spasm Enoxaparin Sodium (Lovenox) 90 mg SC Q12 [facility] Last Admin: 09/21/17 10:24 Dose: 90 mg Ergocalciferol (Drisdol 50,000 Intl Units Cap) 1 cap PO QWK [facility] Last Admin: 09/20/17 10:24 Dose: 1 cap Fluticasone Propionate (Flonase) 1 spr SNEHAL DAILY [facility] Last Admin: 09/21/17 10:24 Dose: 1 spr Gabapentin (Neurontin) 300 mg PO BID [facility] Last Admin: 09/21/17 10:25 Dose: 300 mg Ibuprofen (Motrin Tab) 600 mg PO Q6 [facility] Last Admin: 09/21/17 12:00 Dose: Not Given Levothyroxine Sodium (Synthroid) 100 mcg PO DAILY@0630 [facility] Oxycodone/Acetaminophen (Percocet 5/325 Mg Tab) 1 tab PO Q6H PRN PRN Reason: Pain, moderate (4-7) Stop: 09/22/17 13:41 Last Admin: 09/20/17 21:56 Dose: 1 tab Pantoprazole Sodium (Protonix Ec Tab) 40 mg PO DAILY [facility] Last Admin: 09/21/17 10:25 Dose: 40 mg Pneumococcal Polyvalent Vaccine (Pneumovax 23 Vaccine) 0.5 ml IM .ONCE ONE Stop: 09/22/17 10:01 Potassium Chloride (K-Dur 20 Meq Er Tab) 20 meq PO DAILY [facility] Last Admin: 09/21/17 10:25 Dose: 20 meq Rosuvastatin Calcium (Crestor) 10 mg PO HS [facility] Last Admin: 09/20/17 21:57 Dose: 10 mg - Labs Labs: 09/21/17 07:31 09/21/17 07:31 PT 13.0 SECONDS (9.7-12.2) H 09/20/17 06:49 INR 1.2 09/20/17 06:49 APTT 34 SECONDS (21-34) 09/20/17 06:49 Attending/Attestation - Attestation I have personally seen and examined this patient.: Yes I have fully participated in the care of the patient.: Yes I have reviewed all pertinent clinical information, including history, physical exam and plan: Yes Notes (Text): 09/21/17 16:27 Medical attending: Patient was seen and examined by me, agrees the above note by medical office rep. I greatly appreciate the help of vascular surgery with Dr. Phan. 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 And the so the left iliac vein was compressed by the iliac artery. So Dr. Phan's team was able to TPA these clots and balloon and stent her iliac area. He also put an IVC filter since the clot extended so much. He explained that the filter can and should be eventually removed. He indicated that the patient will need full anticoagulation with either Coumadin or any new or oral anticoagulation agent for 3 to 6 months duration Thank you very much, Ry Espinoza
[2017-09-21] MEDS ORDERED: Aluminum Hydroxide/Magnesium Hydroxide Susp (30 mL) PO ONE (17:21)
--- NOTE | 2017-09-21 19:10 | VAS ---
DATE: 09/21/2017 OPERATIVE ANGIOGRAM VENOGRAM REPORT PREOPERATIVE DIAGNOSES: Left iliac vein thrombosis. PROCEDURE CARRIED OUT: 1. Placement of vena cava filter via right popliteal vein with micropuncture technique and venacavogram. 2. Venogram, left leg popliteal approach and venogram mechanical thrombolysis using the AngioJet technique and t-PA. 3. Balloon angioplasty of left iliac vein and common iliac and external iliac vein and deployment of 18 x 90 wall stent in the left common iliac and external iliac vein. SURGEON: Morteza Phan Jr., MD ASSISTANTS: None. ANESTHESIOLOGIST: Jessica Momin MD and Lizette Mayfield CRNA INDICATIONS FOR PROCEDURE: The patient is a 36-year-old woman with several children, who presents with extensive iliofemoral vein thrombosis of left leg, discoloration of her skin and massive swelling. PROCEDURE AND FINDINGS: Initially because there was clot on her CAT scan, which showed extension at the inferior vena cava, we placed a filter at the level of the renal veins via a right popliteal approach. Subsequently, using micropuncture technique, we punctured the left popliteal artery, advanced the catheter centrally and carried out a venogram. This is showing an extensive clot at the level of the common femoral vein superiorly. There was no clot seen in the lower portion of the leg. We then using an 8-[place] catheter and the AngioJet device, the larger size, instilled t-PA, waited 30 minutes and went back on the machine and suctioned out the clots that were present. Subsequent imaging revealed that there was a high-grade stenosis just below the confluence of the iliac veins and the left iliac vein. This was ballooned with a variety of balloons of 12 to 14 balloon appeared with a residual present. We then deployed an 18 x 90 stent in this area with excellent cosmetic results and brisk flow in to the vena cava. Pressure was then applied to both popliteal veins after the catheters were removed. The patient remained on a continuous heparin drip during the procedure. There were no intraoperative complications or problems. The blood loss was 50 mL. The operation carried out is, 1. Placement of removable filter via right femoral vein with C-arm fluoroscopy, ultrasound guided puncture and micropuncture technique. 2. Venogram, left leg; t-PA thrombolysis, mechanical thrombolysis using the AngioJet device, balloon angioplasty of the left iliac vein, finally deployment of an 18 x 90 wall stent in the left common and external iliac vein. The patient tolerated the procedure well. Final pictures, angiographic pictures showed brisk flow into the vena cava without any residual stenosis. Morteza Phan Jr., MD
[2017-09-21 20:30] LABS: BASO # 0.1 K/uL (0.0-0.2); BASO % 1.1 % (0.0-2.0); EOS % 0.4 % (0.0-4.0); HEMATOCRIT 38.6 % (34.0-47.0); LYMPH # 0.8 K/uL (1.0-4.3); LYMPH % 6.5 % (20.0-40.0); MEAN CELL VOLUME 88.4 fL (81.0-99.0); MEAN CORPUSCULAR HEMOGLOBIN 29.3 pg (27.0-31.0); MEAN CORPUSCULAR HGB CONC 33.1 g/dL (33.0-37.0); MEAN PLATELET VOLUME 11.4 fL (7.2-11.7); MONO # 0.6 K/uL (0.0-0.8); MONO % 4.8 % (0.0-10.0); PLATELET COUNT 143 K/uL (130-400); WHITE BLOOD COUNT 11.9 K/uL (4.8-10.8)
[2017-09-21 20:37] LABS: POTASSIUM 4.3 mmol/L (3.6-5.2)
[2017-09-21 20:41] LABS: ALB/GLOB RATIO 1.3 (1.0-2.1); ALKALINE PHOSPHATASE 89 U/L (38-126); ALT/SGPT 46 U/L (9-52); AST/SGOT 103 U/L (14-36); BILIRUBIN,TOTAL 3.3 mg/dL (0.2-1.3); BLOOD UREA NITROGEN 18 mg/dL (7-17); CALCIUM 8.7 mg/dl (8.6-10.4); CARBON DIOXIDE 19 mmol/L (22-30); CHLORIDE 106 mmol/L (98-107); GFR AFRICAN-AMERICAN > 60; GLUCOSE,RANDOM 149 mg/dL (65-105); SODIUM 137 mmol/L (132-148); TOTAL PROTEIN 7.6 g/dL (6.3-8.3)
--- NOTE | 2017-09-21 21:08 | CT ---
EXAM: CT Head Without Intravenous Contrast CLINICAL HISTORY: 36 years old, female; Pain; Headache; Additional info: Headache after thrombectomy and ivc filter TECHNIQUE: Axial computed tomography images of the head/brain without intravenous contrast. All CT scans at this facility use one or more dose reduction techniques, viz.: automated exposure control; ma/kV adjustment per patient size (including targeted exams where dose is matched to indication; i.e. head); or iterative reconstruction technique. Coronal and sagittal reformatted images were created and reviewed. COMPARISON: No relevant prior studies available. FINDINGS: Brain: Multiple areas of increased attenuation are identified within the CSF spaces, diffusely within the bilateral cerebral hemispheres, and opacifying the intracranial vasculature. This may simply be secondary to recent intravenous contrast, although a subarachnoid hemorrhage demonstrates a similar appearance. No significant white matter disease. No edema. Ventricles: No significant ventriculomegaly. Bones: No acute displaced fracture. Sinuses: Unremarkable as visualized. No acute sinusitis. Mastoid air cells: Unremarkable as visualized. No mastoid effusion. IMPRESSION: Findings within the bilateral cerebral hemispheres which may be secondary to recent intravenous contrast, although a subarachnoid hemorrhage demonstrates a similar appearance. To delineate between the two causative factors, either delayed imaging (approximately 4-6 hours) to allow for the intravenous contrast to be excreted, versus a lumbar puncture (to evaluate for the presence of blood in the CSF) is suggested.
[2017-09-21 21:18] LABS: NEUTROPHIL 89 % (50-75); TOTAL CELLS COUNTED 100
--- NOTE | 2017-09-21 21:28 | US ---
EXAM: US Abdomen Limited, Right Upper Quadrant CLINICAL HISTORY: 36 years old, female; Pain; Abdominal pain; Epigastric; Additional info: Ruq ultrasound TECHNIQUE: Real-time ultrasound of the right upper quadrant with image documentation. COMPARISON: CT - ANGIOGRAPHY ABD ILEOFEM RUNOFF 2017-09-20 16:06 FINDINGS: Liver: Increased in echogenicity and size measuring 18 cm in longitudinal dimension. No intrahepatic bile duct dilation. Gallbladder: No acute findings. No gallstones. Common bile duct: No stones. No dilation, measuring 4.5 mm. Pancreas: Visualization of the pancreas is limited by overlying bowel gas. Right kidney: Unremarkable echogenicity and size measuring 10.7 x 5.0 x 4.6 cm. No obstructing stones. No solid mass. No hydronephrosis. IMPRESSION: Fatty infiltration of enlarged liver. Limited evaluation of the pancreas, secondary to overlying bowel gas. Otherwise, unremarkable sonographic evaluation of the right upper quadrant, as detailed above.
[2017-09-21] MEDS ORDERED: Protamine 50mg/5mL Inj IV ONE (21:36)
[2017-09-21] MEDS ORDERED: HYDROmorphone 1 mg/ml ISec ONE (21:37)
--- NOTE | 2017-09-21 21:56 | CP.PCM.PN ---
<SinanRozina - Last Filed: 09/21/17 22:00> Subjective - Date & Time of Evaluation Date of Evaluation: 09/21/17 Time of Evaluation: 21:52 - Subjective Subjective: Progress note Patient was seen and examined with severe frontal and occipital headache. Patient was nauseau, vomiting, and admitted to right upper quadrant pain, mid- epigastric burning sensation. Patient feels weak she states. Patient does not appear to be in the same disposition as last progress note and is not in the same disposition as the time this resident has seen patient (prior to procedure) . Bilious vomiting seen in basin. Patient denies numbness, weakness, tingling. she does have sore feelings in pain. Upon visit with night attending Dr. Lang, patient was still not tolerating pain well. Patient continues vomiting. Objective - Vital Signs/Intake and Output Vital Signs (last 24 hours): Temp Pulse Resp BP Pulse Ox 98.4 F 65 20 191/103 H 97 09/21/17 16:30 09/21/17 18:41 09/21/17 16:30 09/21/17 18:41 09/21/17 16:30 - Medications Medications: Current Medications Clonazepam (Klonopin) 1 mg PO DAILY [facility] Last Admin: 09/21/17 10:25 Dose: 1 mg Cyclobenzaprine HCl (Flexeril) 5 mg PO TID PRN PRN Reason: Muscle spasm Ergocalciferol (Drisdol 50,000 Intl Units Cap) 1 cap PO QWK [facility] Last Admin: 09/20/17 10:24 Dose: 1 cap Fluticasone Propionate (Flonase) 1 spr SNEHAL DAILY [facility] Last Admin: 09/21/17 10:24 Dose: 1 spr Gabapentin (Neurontin) 300 mg PO BID [facility] Last Admin: 09/21/17 18:14 Dose: 300 mg Ibuprofen (Motrin Tab) 600 mg PO Q6 PRN PRN Reason: Pain, moderate (4-7) Last Admin: 09/21/17 18:14 Dose: 600 mg Ketorolac Tromethamine (Toradol) 30 mg IVP Q6 PRN PRN Reason: Pain, severe (8-10) Last Admin: 09/21/17 18:15 Dose: 30 mg Levothyroxine Sodium (Synthroid) 100 mcg PO DAILY@0630 [facility] Metoclopramide HCl (Reglan) 10 mg IVP Q4 [facility] Ondansetron HCl (Zofran Inj) 4 mg IVP Q6H PRN PRN Reason: Nausea/Vomiting Last Admin: 09/21/17 18:15 Dose: 4 mg Pantoprazole Sodium (Protonix Ec Tab) 40 mg PO DAILY [facility] Last Admin: 09/21/17 10:25 Dose: 40 mg Pneumococcal Polyvalent Vaccine (Pneumovax 23 Vaccine) 0.5 ml IM .ONCE ONE Stop: 09/22/17 10:01 Potassium Chloride (K-Dur 20 Meq Er Tab) 20 meq PO DAILY [facility] Last Admin: 09/21/17 10:25 Dose: 20 meq Rosuvastatin Calcium (Crestor) 10 mg PO HS [facility] Last Admin: 09/20/17 21:57 Dose: 10 mg - Labs Labs: 09/21/17 20:14 09/21/17 20:14 PT 13.0 SECONDS (9.7-12.2) H 09/20/17 06:49 INR 1.2 09/20/17 06:49 APTT 34 SECONDS (21-34) 09/20/17 06:49 - Constitutional Appears: In Acute Distress - Head Exam Head Exam: NORMAL INSPECTION - Eye Exam Eye Exam: EOMI, Normal appearance Pupil Exam: NORMAL ACCOMODATION, PERRL - ENT Exam ENT Exam: absent: Mucous Membranes Moist - Cardiovascular Exam Cardiovascular Exam: REGULAR RHYTHM, +S1, +S2 Assessment and Plan - Assessment and Plan (Free Text) Assessment: DVT common femoral vein extending to saphenofemoral junction and dvt in the left femoral vein s/p IVC filter via right popliteal vein and thrombolysis of left femoral dvt. On admission: D-dimer 4800 09/19 CTA of chest: negative for PE 09/19 CXR: no active disease 09/19 Duplex lower extremity showing dvt in left common femoral vein extending to saphenofemoral junction and dvt in the left femoral vein, with mild reduction of venous return 09/21 CT head without contrast 20:00 possible subarachnoid hemorrhage, suggestive but cannot be sure due to recent contrast. per radiology, repeat CT head w/o contrast in 5 hours 09/21 CT head without contrast repeat: ICU consult: Dr. Carbone Labs: Lipid Panel: Triglycerides 148, Cholesterol 148, LDL 102, HDL 39 Rosuvastatin 10mgqd Management/Medication: Vascular Surgery, Dr. Phan Consult Help appreciated: S/P IVC filter via right politeal vein, venogram, mechanical thrombolysis with tpa and angiojet. balloon angioplasty of left iliac common and external vein, POD #0 Rosuvastatin 10mg HS Lovenox 90 SC BID, held due to severe headache, pending second CT head w/o contrast read History of hypothyroidism Assessment & Plan: TSH 17.00 Free T4 1.51 levothyroxine 100mcg PO daily Status: Acute history of trigeminal neuralgia Gabapentin Family history of hypercoagulable state Assessment & Plan: Heme/Onc Consult: Dr. Guerra Help appreciated * Management as per recommendation Status: Acute Spasm of left piriformis muscle Assessment & Plan: Irritation of the sciatica nerve Medication/Management: * flexeril 5mg PO TID PRN Status: Acute Prophylaxis Assessment & Plan: DVT prophylaxis: no SCDs. Therapeutic lovenox is ordered GI prophylaxis Protonix All plans and management discussed with Dr. Espinoza Status: Acute <Edgardo Lang P - Last Filed: 09/21/17 23:44> Objective - Vital Signs/Intake and Output Vital Signs (last 24 hours): Temp Pulse Resp BP Pulse Ox 98.4 F 65 20 191/103 H 97 09/21/17 16:30 09/21/17 18:41 09/21/17 16:30 09/21/17 18:41 09/21/17 16:30 - Medications Medications: Current Medications Clonazepam (Klonopin) 1 mg PO DAILY [facility] Last Admin: 09/21/17 10:25 Dose: 1 mg Cyclobenzaprine HCl (Flexeril) 5 mg PO TID PRN PRN Reason: Muscle spasm Ergocalciferol (Drisdol 50,000 Intl Units Cap) 1 cap PO QWK [facility] Last Admin: 09/20/17 10:24 Dose: 1 cap Fluticasone Propionate (Flonase) 1 spr SNEHAL DAILY [facility] Last Admin: 09/21/17 10:24 Dose: 1 spr Gabapentin (Neurontin) 300 mg PO BID [facility] Last Admin: 09/21/17 18:14 Dose: 300 mg Hydralazine HCl (Apresoline) 10 mg IVP Q6H PRN PRN Reason: Systolic Blood Pressure Ibuprofen (Motrin Tab) 600 mg PO Q6 PRN PRN Reason: Pain, moderate (4-7) Last Admin: 09/21/17 18:14 Dose: 600 mg Ketorolac Tromethamine (Toradol) 30 mg IVP Q6 PRN PRN Reason: Pain, severe (8-10) Last Admin: 09/21/17 18:15 Dose: 30 mg Levothyroxine Sodium (Synthroid) 100 mcg PO DAILY@0630 [facility] Metoclopramide HCl (Reglan) 10 mg IVP Q4 [facility] Last Admin: 09/21/17 22:00 Dose: 10 mg Ondansetron HCl (Zofran Inj) 4 mg IVP Q6H PRN PRN Reason: Nausea/Vomiting Last Admin: 09/21/17 18:15 Dose: 4 mg Pantoprazole Sodium (Protonix Ec Tab) 40 mg PO DAILY [facility] Last Admin: 09/21/17 10:25 Dose: 40 mg Pneumococcal Polyvalent Vaccine (Pneumovax 23 Vaccine) 0.5 ml IM .ONCE ONE Stop: 09/22/17 10:01 Potassium Chloride (K-Dur 20 Meq Er Tab) 20 meq PO DAILY [facility] Last Admin: 09/21/17 10:25 Dose: 20 meq Rosuvastatin Calcium (Crestor) 10 mg PO HS [facility] Last Admin: 09/21/17 21:59 Dose: Not Given - Labs Labs: 09/21/17 20:14 09/21/17 20:14 PT 13.0 SECONDS (9.7-12.2) H 09/20/17 06:49 INR 1.2 09/20/17 06:49 APTT 34 SECONDS (21-34) 09/20/17 06:49 Attending/Attestation - Attestation I have personally seen and examined this patient.: Yes I have fully participated in the care of the patient.: Yes I have reviewed all pertinent clinical information, including history, physical exam and plan: Yes Notes (Text): C/o severe headache in frontal, occipital area, denied abd pain, only when vomiting, patient alert and oriented, moving all 4 limbs. She was evaluated after reviewing the CT ordered earlier for headache, CT reviewed by me and also discussed with radiologist area of subarachnoid space especially close to central falx more prominent suspicious for subarachnoid bleeding vs recent contrast administration which was also the possibility in this patient. She did have some pain with movement of head side and touching chin to chest. Elevated BP also had DD of being in relation to pain vs effect of subarachoind bleeding. Patient also has h/o trigeminal neuralgia on the left side, mentioned that this was different pain. Case also discussed with Dr. Phan on the phone, last lovenox dose was at 10:24 this am, heparin and local tpa given during ivc filter placement and thrombectomy the effect of both should be gone by this time. A repeat CT brain ordered and also abd/pelvis ordered as drop in hemoglobin noticed 1.6g, and patient had abdominal symptoms earlier. If repeat study is negative for bleeding therapeutic heparin drip will be started. Patient will be transferred to ICU. Control of bp if not improved after iv opiod, of anticoagulation till repeat CT, patient already has ivc filter. D/w Dr Carbone in ICU, agreed for transfer. 09/21/17 23:44
[2017-09-21] MEDS ORDERED: HYDROmorphone 1 mg/ml ISec IVP STA (21:59)
--- NOTE | 2017-09-21 22:40 | CP.PCM.CON ---
History of Present Illness - History of Present Illness History of Present Illness: Attending: Ry Espinoza MD Hematology: Raf Guerra MD Vascular Surgeon: Morteza Phan MD Reason for Consult: Concern for Subaracnoid Hemorrhage Chief Complaint: Headaches/Vomiting The patient was seen and examined in the ICU HPI: This is a 36 years old female with hx of headaches, Asthma and anxiety who was admitted on the09/19/17 and diagnosed with left leg DVT. She had done machine maintenance mechanic thrombolysis of the left Ileo- femoral DVT with TPA and later developed severe fronto- occipital headaches, different from her usual headaches. This was accompanied with profuse vomiting and RUQ and epigastria abdominal pains. A head CT indicated signs of Subaracnoid Hemorrhage vs acute intravenous contrast. PMH: Trigeminal Neuralgia; Anxiety ; Hypothyroidism; Asthma; Headaches PSH: SH: Former smoker; No illegal drugs; No alcohol Family hx;States: No known Illnesses Allergies: NKDA Medications: reviewed \ Review of Systems - Constitutional Constitutional: Fatigue, Headache. absent: Anorexia, Chills, Lethargy - EENT Eyes: absent: Diplopia, Floaters, Photophobia, Requires Corrective Lenses Ears: absent: Decreased Hearing, Ear Discharge, Tinnitus Nose/Mouth/Throat: absent: Epistaxis, Nasal Congestion, Nasal Discharge, Sinus Pressure, Dental Pain - Cardiovascular Cardiovascular: absent: Chest Pain at Rest, Dyspnea, Edema, Palpitations - Respiratory Respiratory: absent: Hemoptysis, Dyspnea on Exertion, Wheezing, Snoring, Stridor - Gastrointestinal Gastrointestinal: Nausea, Vomiting. absent: Constipation, Diarrhea - Genitourinary Genitourinary: absent: Dysuria, Flank Pain, Hematuria, Urinary Frequency - Musculoskeletal Musculoskeletal: Back Pain. absent: Stiffness, Tingling - Integumentary Additional comments: left leg pain - Neurological Neurological: absent: Abnormal Movements, Confusion, Focal Weakness - Psychiatric Psychiatric: absent: Anxiety, Depression - Endocrine Endocrine: absent: Palpitations, Polyphagia, Polyuria - Hematologic/Lymphatic Hematologic: absent: Easy Bleeding, Easy Bruising Past Patient History - Infectious Disease Hx of Infectious Diseases: None - Past Social History Smoking Status: Former Smoker Chewing Tobacco Use: No Cigar Use: No Alcohol: None Drugs: Denies Home Situation {Lives}: With Family - CARDIAC Hx Hypertension: Yes - PULMONARY Hx Asthma: Yes - NEUROLOGICAL Hx Neurological Disorder: Yes Other/Comment: trigeminal neuralgia - HEENT Other/Comment: states recently completed abtx for tooth infection x1wk ago - RENAL Hx Chronic Kidney Disease: Yes - ENDOCRINE/METABOLIC Hx Hypothyroidism: Yes - HEMATOLOGICAL/ONCOLOGICAL Hx Blood Disorders: No - INTEGUMENTARY Hx Dermatological Problems: No - MUSCULOSKELETAL/RHEUMATOLOGICAL Hx Musculoskeletal Disorders: No - GASTROINTESTINAL Hx Gastrointestinal Disorders: No - GENITOURINARY/GYNECOLOGICAL Hx Genitourinary Disorders: No - PSYCHIATRIC Hx Anxiety: Yes Hx Substance Use: No - SURGICAL HISTORY Hx Surgeries: No - ANESTHESIA Hx Anesthesia: No Hx Anesthesia Reactions: No Hx Malignant Hyperthermia: No Meds Allergies/Adverse Reactions: Allergies Allergy/AdvReac Type Severity Reaction Status Date / Time No Known Allergies Allergy Verified 09/19/17 11:06 - Medications Medications: Current Medications Clonazepam (Klonopin) 1 mg PO DAILY [facility] Last Admin: 09/21/17 10:25 Dose: 1 mg Cyclobenzaprine HCl (Flexeril) 5 mg PO TID PRN PRN Reason: Muscle spasm Ergocalciferol (Drisdol 50,000 Intl Units Cap) 1 cap PO QWK [facility] Last Admin: 09/20/17 10:24 Dose: 1 cap Fluticasone Propionate (Flonase) 1 spr SNEHAL DAILY [facility] Last Admin: 09/21/17 10:24 Dose: 1 spr Gabapentin (Neurontin) 300 mg PO BID [facility] Last Admin: 09/21/17 18:14 Dose: 300 mg Ibuprofen (Motrin Tab) 600 mg PO Q6 PRN PRN Reason: Pain, moderate (4-7) Last Admin: 09/21/17 18:14 Dose: 600 mg Ketorolac Tromethamine (Toradol) 30 mg IVP Q6 PRN PRN Reason: Pain, severe (8-10) Last Admin: 09/21/17 18:15 Dose: 30 mg Levothyroxine Sodium (Synthroid) 100 mcg PO DAILY@0630 [facility] Metoclopramide HCl (Reglan) 10 mg IVP Q4 [facility] Last Admin: 09/21/17 22:00 Dose: 10 mg Ondansetron HCl (Zofran Inj) 4 mg IVP Q6H PRN PRN Reason: Nausea/Vomiting Last Admin: 09/21/17 18:15 Dose: 4 mg Pantoprazole Sodium (Protonix Ec Tab) 40 mg PO DAILY [facility] Last Admin: 09/21/17 10:25 Dose: 40 mg Pneumococcal Polyvalent Vaccine (Pneumovax 23 Vaccine) 0.5 ml IM .ONCE ONE Stop: 09/22/17 10:01 Potassium Chloride (K-Dur 20 Meq Er Tab) 20 meq PO DAILY [facility] Last Admin: 09/21/17 10:25 Dose: 20 meq Rosuvastatin Calcium (Crestor) 10 mg PO HS [facility] Last Admin: 09/21/17 21:59 Dose: Not Given Physical Exam - Constitutional Appears: No Acute Distress - Head Exam Head Exam: ATRAUMATIC, NORMAL INSPECTION, NORMOCEPHALIC - Eye Exam Eye Exam: EOMI, Normal appearance Pupil Exam: NORMAL ACCOMODATION, PERRL - ENT Exam ENT Exam: Mucous Membranes Moist, Normal Exam, Normal External Ear Exam, Normal Oropharynx - Neck Exam Neck exam: Positive for: Full Rom, Lymphadenopathy, Tenderness - Respiratory Exam Respiratory Exam: Clear to Auscultation Bilateral. absent: Rales, Rhonchi, Wheezes - Cardiovascular Exam Cardiovascular Exam: REGULAR RHYTHM, +S1, +S2 - GI/Abdominal Exam GI & Abdominal Exam: Normal Bowel Sounds, Soft. absent: Mass, Organomegaly - Rectal Exam Rectal Exam: Deferred - Extremities Exam Extremities exam: Positive for: full ROM, normal inspection. Negative for: calf tenderness Additional comments: Left leg wrapped in crescencio dressing - Back Exam Back exam: NORMAL INSPECTION. absent: CVA tenderness (L), CVA tenderness (R) - Neurological Exam Neurological exam: Alert, CN II-XII Intact, Oriented x3, Reflexes Normal - Psychiatric Exam Psychiatric exam: Normal Affect, Normal Mood - Skin Skin Exam: Dry, Intact, Normal Color, Warm Results - Vital Signs Recent Vital Signs: Last Vital Signs Temp 98.4 F 09/21/17 16:30 Pulse 65 09/21/17 18:41 Resp 20 09/21/17 16:30 BP 191/103 H 09/21/17 18:41 Pulse Ox 97 09/21/17 16:30 - Labs Result Diagrams: 09/21/17 20:14 09/21/17 20:14 Labs: Laboratory Results - last 24 hr 09/21/17 09/21/17 09/21/17 07:31 07:31 20:14 WBC 7.3 11.9 H D RBC 4.75 4.36 Hgb 14.4 12.8 Hct 42.0 38.6 MCV 88.4 88.4 MCH 30.2 29.3 MCHC 34.2 33.1 RDW 13.1 13.0 Plt Count 165 143 MPV 10.7 11.4 Neut % (Auto) 63.1 87.2 H Lymph % (Auto) 26.0 6.5 L Jackson % (Auto) 5.6 4.8 Eos % (Auto) 4.9 H 0.4 Baso % (Auto) 0.4 1.1 Neut # 4.6 10.3 H Lymph # 1.9 0.8 L Jackson # 0.4 0.6 Eos # 0.4 0.0 Baso # 0.0 0.1 Neutrophils % (Manual) 89 H Band Neutrophils % 1 Lymphocytes % (Manual) 7 L Monocytes % (Manual) 3 Platelet Estimate Normal Sodium 141 Potassium 3.7 Chloride 105 Carbon Dioxide 22 Anion Gap 17 BUN 13 Creatinine 0.5 L Est GFR ( Amer) > 60 Est GFR (Non-Af Amer) > 60 Random Glucose 103 Calcium 8.7 Total Bilirubin 1.1 Direct Bilirubin AST 28 ALT 50 Alkaline Phosphatase 98 Total Protein 7.7 Albumin 4.4 Globulin 3.3 Albumin/Globulin Ratio 1.3 Beta HCG, Quant < 2.39 09/21/17 09/21/17 20:14 21:00 WBC RBC Hgb Hct MCV MCH MCHC RDW Plt Count MPV Neut % (Auto) Lymph % (Auto) Jackson % (Auto) Eos % (Auto) Baso % (Auto) Neut # Lymph # Jackson # Eos # Baso # Neutrophils % (Manual) Band Neutrophils % Lymphocytes % (Manual) Monocytes % (Manual) Platelet Estimate Sodium 137 Potassium 4.3 Chloride 106 Carbon Dioxide 19 L Anion Gap 16 BUN 18 H Creatinine 1.1 Est GFR ( Amer) > 60 Est GFR (Non-Af Amer) 57 Random Glucose 149 H Calcium 8.7 Total Bilirubin 3.3 H Direct Bilirubin 1.7 H AST 103 H D ALT 46 Alkaline Phosphatase 89 Total Protein 7.6 Albumin 4.3 Globulin 3.4 Albumin/Globulin Ratio 1.3 Beta HCG, Quant - Impressions Impression: CT Head without contrast: - Imaging and Cardiology CT scan - head Status: Image reviewed by me, Report reviewed by me Additional comment: Diffuse increased attenuation within the CSF space and opacifying the intracraneal vasculature, which could represent recent intravenous contrast or subaracnoid hemorrhage. Assessment & Plan - Assessment and Plan (Free Text) Plan: #. Headache/ nausea and Vomits r/o Subaracnoid hemorrhage v/s recent intravenous contrast on CT brain. - Transfer to ICU for Closer monitoring - Repeat CT head without contrast in 2 hours and 8 hours( results showed no difference with conclusion being that the CT picture was intravenious contrast in the vessels of the brain.) - Treat headache with Dil;audid - Vomits treated with Reglan # Left ileofemoral DVT s/p Mechanical Thrombolysis with TPA - Heparin started as this could be discontinued promptly and reversed quickle with Protamin if necessary - A repeated CT of the head will be done in the Am and if no sign of bleed then the patient could be switched to Oral or Subcutaneous forms of Anticoagulation. #. Hypothyroidism - Levothyroxin #. Anxiety - Klonapin - Date & Time Date: 09/21/17 Time: 22:40
--- NOTE | 2017-09-22 00:36 | CT ---
EXAM: CT Head Without Intravenous Contrast CLINICAL HISTORY: 36 years old, female; Pain; Headache; Headache not specified; Additional info: Reassess headache TECHNIQUE: Axial computed tomography images of the head/brain without intravenous contrast. All CT scans at this facility use one or more dose reduction techniques, viz.: automated exposure control; ma/kV adjustment per patient size (including targeted exams where dose is matched to indication; i.e. head); or iterative reconstruction technique. COMPARISON: CT - HEAD W/O CONTRAST 2017-09-21 20:37 FINDINGS: Brain: Again identified is increased attenuation within the CSF spaces, diffusely within the bilateral cerebral hemispheres, with decreased prominence when compared with prior examination. Persistent ribbonlike focus of increased attenuation within the left frontoparietal lobe, less prominent than prior but persistent. No significant white matter disease. No edema. Ventricles: No significant ventriculomegaly. Bones: No acute displaced fracture. Sinuses: Unremarkable as visualized. No acute sinusitis. Mastoid air cells: Unremarkable as visualized. No mastoid effusion. IMPRESSION: Findings which most likely represent residual intracranial contrast, for which short-term followup is recommended.
--- NOTE | 2017-09-22 00:52 | CT ---
EXAM: CT Chest Without Intravenous Contrast CLINICAL HISTORY: 36 years old, female; Pain; Abdominal pain; Generalized; Additional info: Abdominal pain, sp ivc filter placement TECHNIQUE: Axial computed tomography images of the chest without intravenous contrast. All CT scans at this facility use one or more dose reduction techniques, viz.: automated exposure control; ma/kV adjustment per patient size (including targeted exams where dose is matched to indication; i.e. head); or iterative reconstruction technique. Coronal and sagittal reformatted images were created and reviewed. COMPARISON: No relevant prior studies available. FINDINGS: Lungs: No mass. No consolidation. Small bilateral pleural effusions, with adjacent compressive atelectasis. Pleural spaces: As above. Heart: No cardiomegaly. No significant pericardial effusion. Vasculature: No aortic aneurysm. Lymph nodes: No enlarged lymph nodes. Bones: No acute fracture. IMPRESSION: Small bilateral pleural effusions, with adjacent compressive atelectasis. EXAM: CT Abdomen Without Intravenous Contrast CLINICAL HISTORY: 36 years old, female; Pain; Abdominal pain; Generalized; Additional info: Abdominal pain, sp ivc filter placement TECHNIQUE: Axial computed tomography images of the abdomen without intravenous contrast. All CT scans at this facility use one or more dose reduction techniques, viz.: automated exposure control; ma/kV adjustment per patient size (including targeted exams where dose is matched to indication; i.e. head); or iterative reconstruction technique. Coronal and sagittal reformatted images were created and reviewed. COMPARISON: CT - ANGIOGRAPHY ABD ILEOFEM RUNOFF 2017-09-20 16:06 FINDINGS: ABDOMEN: Liver: No acute findings Gallbladder and bile ducts: Vicarious excretion of contrast into the gallbladder, which is minimally distended. No intra-extrahepatic biliary ductal dilation. Pancreas: Limited evaluation secondary to the lack of intravenous contrast. Spleen: No acute findings. Adrenals: No acute findings. Kidneys and ureters: No obstructing stones. No hydronephrosis. Opacification of the bilateral kidneys, with excretion. Appendix: The appendix is of normal caliber (series 6, image 101). Stomach and bowel: Mural edema within the terminal ileum, a nonspecific finding. Peritoneum: Dense fluid is identified within the presacral position, possibly representing prior hemorrhage. No areas of increased attenuation are detected to suggest the presence of acute hemorrhage. Lymph nodes: Limited evaluation without intravenous contrast. Vasculature: No aortic aneurysm. Filter in good position. Stent within the left common iliac vein. Persistent phlegmonous change surrounding the Veins of the left hemipelvis. This finding is unchanged from earlier examination. Bones: No acute fracture. IMPRESSION: Interval placement of a left common iliac vein stent. Dense free fluid within the presacral position, representing prior hemorrhage. No acute hemorrhage is identified. Stable phlegmonous change within the left hemipelvis, incompletely evaluated on the current examination. Vicarious excretion of contrast within the gallbladder, which is minimally distended.
[2017-09-22] MEDS ORDERED: Heparin25000 units/250ml 1/2NS 25,000 UNITS/250 ML BAG IV PRN (01:07)
[2017-09-22] MEDS: Levothyroxine 100 MCG TAB PO SCH (06:36)
[2017-09-22 08:01] LABS: BASO % 0.3 % (0.0-2.0); EOS # 0.1 K/uL (0.0-0.7); EOS % 0.4 % (0.0-4.0); LYMPH # 1.6 K/uL (1.0-4.3); LYMPH % 13.2 % (20.0-40.0); MEAN CELL VOLUME 88.9 fL (81.0-99.0); MEAN CORPUSCULAR HEMOGLOBIN 29.9 pg (27.0-31.0); MEAN CORPUSCULAR HGB CONC 33.6 g/dL (33.0-37.0); MEAN PLATELET VOLUME 10.2 fL (7.2-11.7); MONO # 0.6 K/uL (0.0-0.8); MONO % 4.8 % (0.0-10.0); RED CELL DISTRIBUTION WIDTH 13.2 % (11.5-14.5); WHITE BLOOD COUNT 12.2 K/uL (4.8-10.8)
[2017-09-22 08:23] LABS: ALB/GLOB RATIO 1.4 (1.0-2.1); ALKALINE PHOSPHATASE 81 U/L (38-126); ALT/SGPT 49 U/L (9-52); AST/SGOT 64 U/L (14-36); BILIRUBIN,TOTAL 1.4 mg/dL (0.2-1.3); BLOOD UREA NITROGEN 19 mg/dL (7-17); CALCIUM 8.2 mg/dl (8.6-10.4); CARBON DIOXIDE 28 mmol/L (22-30); CHLORIDE 105 mmol/L (98-107); GFR AFRICAN-AMERICAN > 60; GLUCOSE,RANDOM 127 mg/dL (65-105); MAGNESIUM 1.7 mg/dL (1.6-2.3); PHOSPHOROUS 3.3 mg/dL (2.5-4.5); POTASSIUM 3.5 mmol/L (3.6-5.2); SODIUM 139 mmol/L (132-148); TOTAL PROTEIN 6.5 g/dL (6.3-8.3)
--- NOTE | 2017-09-22 08:39 | CT ---
PROCEDURE: CT HEAD WITHOUT CONTRAST. HISTORY: follow up for prior subarachnoid prominien finding COMPARISON: Unenhanced head CT 09/22/2017. TECHNIQUE: Axial computed tomography images were obtained through the head/brain without intravenous contrast. Radiation dose: Total exam DLP = 995.74 mGy-cm. This CT exam was performed using one or more of the following dose reduction techniques: Automated exposure control, adjustment of the mA and/or kV according to patient size, and/or use of iterative reconstruction technique. FINDINGS: HEMORRHAGE: Stable subarachnoid hemorrhage is appreciated the left frontal lobe minimally and throughout multiple medial bifrontal/ biparietal sulci of the parasagittal plane near the vertex under nearly diffuse basis. Only sulci in the anterior frontal lobe appears spared. BRAIN: Normal andrade-white matter differentiation and density are appreciated throughout the cerebrum and cerebellum with the brainstem appearing unremarkable as well. There is no mass effect. There is no suspicious extra-axial fluid collection in the midline brain anatomy appears diffusely unremarkable. VENTRICLES: Unremarkable. No hydrocephalus. CALVARIUM: Unremarkable. PARANASAL SINUSES: Unremarkable as visualized. No significant inflammatory changes. MASTOID AIR CELLS: Unremarkable as visualized. No inflammatory changes. OTHER FINDINGS: None. IMPRESSION: Stable subarachnoid hemorrhage is seen in the parasagittal bifrontal and biparietal distributions as well as at the left frontal lobe laterally. No interval increase in volume subarachnoid hemorrhage is identified at this time. Remainder of the brain appears normal. Continued clinical and CT follow-up are advised.
[2017-09-22] MEDS: Potassium Chloride 20 mEq ER Tab PO SCH (09:43)
[2017-09-22] MEDS: Pantoprazole 40 mg EC Tab PO SCH (09:43)
[2017-09-22] MEDS ORDERED: Pneumococcal 23-Valent Vaccine IM ONE (10:00)
[2017-09-22] MEDS ORDERED: Influenza Vaccine 60 mcg/0.5 mL SYR (4YR UP) IM ONE (10:00)
--- NOTE | 2017-09-22 10:35 | CARD ---
APPROVED REPORT EKG Measurement Heart [id number] <Conclusion> Suspect arm lead reversal, interpretation assumes no reversal Normal sinus rhythm Right axis deviation T wave abnormality, consider inferior ischemia Abnormal ECG
[2017-09-22] MEDS: Fluticasone Nasal 50 mcg/Spray NAS SCH (10:39)
--- NOTE | 2017-09-22 15:17 | CP.PCM.PN ---
Subjective - Date & Time of Evaluation Date of Evaluation: 09/22/17 Time of Evaluation: 15:00 - Subjective Subjective: Patient was seen and examined She was moved down to ICU last night for further monitoring after it was noted that the patient had developed a headache as well as elevated high blood pressure She had just had S/P mechanical thrombolysis with TPA and angiojet as well as ballon angioplasty of the left illiac. She had an extensive DVT of the left illiac and femoral vein as well as severe stenosis. Overnight she developed a headache as well as elevated blood pressure, nausea, abdominal discomfort. She was moved to the ICU and the initial head CT was concerning for subaracnoid hemorrhage and she had a repeat head CT done. She does not have any seem to have an neurological deficits at this time, CN 2- 12 intact and also full range of motion of the upper and lower extremities as well as msucle strength. However she reports still has ongoing headache though much less severe than before. Objective - Vital Signs/Intake and Output Vital Signs (last 24 hours): Temp Pulse Resp BP Pulse Ox 98.3 F 82 17 122/87 100 09/22/17 12:00 09/22/17 15:00 09/22/17 15:00 09/22/17 14:44 09/22/17 15:00 Intake and Output: 09/22/17 09/22/17 06:59 18:59 Intake Total 481.5 81.5 Output Total 0 900 Balance 481.5 -818.5 - Medications Medications: Current Medications Acetaminophen (Tylenol 325mg Tab) 650 mg PO Q6 PRN PRN Reason: Headache Last Admin: 09/22/17 13:16 Dose: 650 mg Clonazepam (Klonopin) 1 mg PO DAILY [facility] Last Admin: 09/22/17 09:43 Dose: 1 mg Cyclobenzaprine HCl (Flexeril) 5 mg PO TID PRN PRN Reason: Muscle spasm Ergocalciferol (Drisdol 50,000 Intl Units Cap) 1 cap PO QWK [facility] Last Admin: 09/20/17 10:24 Dose: 1 cap Fluticasone Propionate (Flonase) 1 spr SNEHAL DAILY [facility] Last Admin: 09/21/17 10:24 Dose: 1 spr Gabapentin (Neurontin) 300 mg PO BID [facility] Last Admin: 12/02/17 09:43 Dose: 300 mg Hydralazine HCl (Apresoline) 10 mg IVP Q6H PRN PRN Reason: Systolic Blood Pressure Hydromorphone HCl (Dilaudid) 0.5 mg IVP Q4H PRN PRN Reason: Pain, moderate (4-7) Hydromorphone HCl (Dilaudid) 1 mg IVP Q4H PRN PRN Reason: Pain, severe (8-10) Heparin Sodium/Sodium Chloride (Heparin 97023 Units/250ml 1/2 Normal Saline) 25 ,000 units in 250 mls @ 16.329 mls/hr IV .[id number] PRN; Protocol; 18 UNITS/KG/HR PRN Reason: ADJUST RATE PER PROTOCOL Last Admin: 09/22/17 01:44 Dose: 18 units/kg/hr, 16.329 mls/hr Magnesium Sulfate/Dextrose (Magnesium Sulfate 1 Gm/100 Ml D5w) 1 gm in 100 mls @ 300 mls/hr IVPB Q30M [facility] Stop: 09/22/17 16:04 Levothyroxine Sodium (Synthroid) 100 mcg PO DAILY@0630 [facility] Last Admin: 09/22/17 06:36 Dose: 100 mcg Metoclopramide HCl (Reglan) 10 mg IVP Q6 PRN PRN Reason: Nausea/Vomiting Nimodipine (Nimotop) 30 mg PO Q4H [facility] Ondansetron HCl (Zofran Inj) 4 mg IVP Q6H PRN PRN Reason: Nausea/Vomiting Last Admin: 09/21/17 18:15 Dose: 4 mg Pantoprazole Sodium (Protonix Ec Tab) 40 mg PO DAILY [facility] Last Admin: 09/22/17 09:43 Dose: 40 mg Potassium Chloride (K-Dur 20 Meq Er Tab) 20 meq PO DAILY [facility] Last Admin: 09/22/17 09:43 Dose: 20 meq Rosuvastatin Calcium (Crestor) 10 mg PO HS [facility] Last Admin: 09/21/17 21:59 Dose: Not Given - Labs Labs: 09/22/17 07:50 09/22/17 07:50 PT 13.0 SECONDS (9.7-12.2) H 09/20/17 06:49 INR 1.2 09/20/17 06:49 APTT 57 SECONDS (21-34) H D 09/22/17 07:50 - Constitutional Appears: Non-toxic, No Acute Distress - Head Exam Head Exam: ATRAUMATIC, NORMAL INSPECTION, NORMOCEPHALIC - Eye Exam Eye Exam: EOMI - ENT Exam ENT Exam: Mucous Membranes Moist, Normal Exam - Respiratory Exam Respiratory Exam: Clear to Ausculation Bilateral, NORMAL BREATHING PATTERN - Cardiovascular Exam Cardiovascular Exam: REGULAR RHYTHM - GI/Abdominal Exam GI & Abdominal Exam: Soft, Normal Bowel Sounds. absent: Distended, Firm, Guarding, Rigid, Tenderness - Extremities Exam Additional comments: Decreased swelling left upper thigh and calf area. Palpable pulses - Neurological Exam Neurological Exam: Alert, Awake, CN II-XII Intact, Oriented x3 Neuro motor strength exam: Left Upper Extremity: 5, Right Upper Extremity: 5, Left Lower Extremity: 5, Right Lower Extremity: 5 - Psychiatric Exam Psychiatric exam: Normal Affect, Normal Mood - Skin Skin Exam: Dry, Warm Assessment and Plan - Assessment and Plan (Free Text) Assessment: Assessment and Plan (1) Subarachnoid hemmorage, status post thrombolysis with TPA. Appreciate neurology evaluation of the patient. Per neurology a CTA of head and neck should be done to assess for potential anursym. Also use Magnesium sulfate for headache and decadron IV as well Follow blood pressure, hydralazine 10mg IVP if systolic > 160 Hold all heparin, lovenox, ASA, NSAIDS (2) Left leg DVT of the illiac and femoral veins DVT common femoral vein extending to saphenofemoral junction and dvt in the left femoral vein On admission: D-dimer 4800 09/19 CTA of chest: negative for PE 09/19 CXR: no active disease 09/19 Duplex lower extremity showing dvt in left common femoral vein extending to saphenofemoral junction and dvt in the left femoral vein, with mild reduction of venous return Vascular Surgery, Dr. Phan Consulted---> Help appreciated: S/P IVC filter via right politeal vein, venogram, mechanical thrombolysis with tpa and angiojet. balloon angioplasty of left iliac common and external vein, POD #0 * Rosuvastatin 10mg HS (3) History of hypothyroidism TSH 17.00 Free T4 1.51 levothyroxine 100mcg PO daily (3) Family history of hypercoagulable state Heme/Onc Consult: Dr. Guerra---> Help appreciated * Management as per recommendation (4) Prophylactic measure DVT prophylaxis: no SCDs. GI prophylaxis Protonix
--- NOTE | 2017-09-22 15:31 | CP.PCM.PN ---
Subjective - Date & Time of Evaluation Date of Evaluation: 09/22/17 Time of Evaluation: 15:30 - Subjective Subjective: see dictation Objective - Vital Signs/Intake and Output Vital Signs (last 24 hours): Temp Pulse Resp BP Pulse Ox 98.3 F 82 17 122/87 100 09/22/17 12:00 09/22/17 15:00 09/22/17 15:00 09/22/17 14:44 09/22/17 15:00 Intake and Output: 09/22/17 09/22/17 06:59 18:59 Intake Total 481.5 81.5 Output Total 0 900 Balance 481.5 -818.5 - Medications Medications: Current Medications Acetaminophen (Tylenol 325mg Tab) 650 mg PO Q6 PRN PRN Reason: Headache Last Admin: 09/22/17 13:16 Dose: 650 mg Clonazepam (Klonopin) 1 mg PO DAILY [facility] Last Admin: 09/22/17 09:43 Dose: 1 mg Cyclobenzaprine HCl (Flexeril) 5 mg PO TID PRN PRN Reason: Muscle spasm Ergocalciferol (Drisdol 50,000 Intl Units Cap) 1 cap PO QWK [facility] Last Admin: 09/20/17 10:24 Dose: 1 cap Fluticasone Propionate (Flonase) 1 spr SNEHAL DAILY [facility] Last Admin: 09/21/17 10:24 Dose: 1 spr Gabapentin (Neurontin) 300 mg PO BID [facility] Last Admin: 09/22/17 09:43 Dose: 300 mg Hydralazine HCl (Apresoline) 10 mg IVP Q6H PRN PRN Reason: Systolic Blood Pressure Hydromorphone HCl (Dilaudid) 0.5 mg IVP Q4H PRN PRN Reason: Pain, moderate (4-7) Hydromorphone HCl (Dilaudid) 1 mg IVP Q4H PRN PRN Reason: Pain, severe (8-10) Heparin Sodium/Sodium Chloride (Heparin 84964 Units/250ml 1/2 Normal Saline) 25 ,000 units in 250 mls @ 16.329 mls/hr IV .[id number] PRN; Protocol; 18 UNITS/KG/HR PRN Reason: ADJUST RATE PER PROTOCOL Last Admin: 09/22/17 01:44 Dose: 18 units/kg/hr, 16.329 mls/hr Magnesium Sulfate/Dextrose (Magnesium Sulfate 1 Gm/100 Ml D5w) 1 gm in 100 mls @ 300 mls/hr IVPB Q30M [facility] Stop: 09/22/17 16:04 Levothyroxine Sodium (Synthroid) 100 mcg PO DAILY@0630 [facility] Last Admin: 09/22/17 06:36 Dose: 100 mcg Metoclopramide HCl (Reglan) 10 mg IVP Q6 PRN PRN Reason: Nausea/Vomiting Nimodipine (Nimotop) 30 mg PO Q4H [facility] Ondansetron HCl (Zofran Inj) 4 mg IVP Q6H PRN PRN Reason: Nausea/Vomiting Last Admin: 09/21/17 18:15 Dose: 4 mg Pantoprazole Sodium (Protonix Ec Tab) 40 mg PO DAILY [facility] Last Admin: 09/22/17 09:43 Dose: 40 mg Potassium Chloride (K-Dur 20 Meq Er Tab) 20 meq PO DAILY [facility] Last Admin: 09/22/17 09:43 Dose: 20 meq Rosuvastatin Calcium (Crestor) 10 mg PO HS [facility] Last Admin: 09/21/17 21:59 Dose: Not Given - Labs Labs: 09/22/17 07:50 09/22/17 07:50 PT 13.0 SECONDS (9.7-12.2) H 09/20/17 06:49 INR 1.2 09/20/17 06:49 APTT 57 SECONDS (21-34) H D 09/22/17 07:50
[2017-09-22] MEDS: Magnesium Sulfate 1 gm in D5W 1 GM/100 ML BAG IVPB SCH ×2 (15:37→15:38)
--- NOTE | 2017-09-22 15:50 | CP.PCM.CON ---
History of Present Illness - History of Present Illness History of Present Illness: Ms. 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 After the procedure she was started on heparin drip with a plan for long-term anticoagulation; however, she developed the sudden onset of headache that started in the occipital region and radiated bifrontally with a peak that occurred in seconds. She described the headache as 10/10 in severity, pulsating , associated with photophobia and nausea with vomiting. CT scan of the head showed subarachnoid blood in the parasagital, bifrontal and posterior regions. Heparin drip was discontinued and I was called to assist with the management and care. Review of Systems - Review of Systems All systems: reviewed and no additional remarkable complaints except Past Patient History - Infectious Disease Hx of Infectious Diseases: None - Past Social History Smoking Status: Former Smoker Chewing Tobacco Use: No Cigar Use: No Alcohol: None Drugs: Denies Home Situation {Lives}: With Family - CARDIAC Hx Hypertension: Yes - PULMONARY Hx Asthma: Yes - NEUROLOGICAL Hx Neurological Disorder: Yes Other/Comment: trigeminal neuralgia - HEENT Other/Comment: states recently completed abtx for tooth infection x1wk ago - RENAL Hx Chronic Kidney Disease: Yes - ENDOCRINE/METABOLIC Hx Hypothyroidism: Yes - HEMATOLOGICAL/ONCOLOGICAL Hx Blood Disorders: No - INTEGUMENTARY Hx Dermatological Problems: No - MUSCULOSKELETAL/RHEUMATOLOGICAL Hx Musculoskeletal Disorders: No - GASTROINTESTINAL Hx Gastrointestinal Disorders: No - GENITOURINARY/GYNECOLOGICAL Hx Genitourinary Disorders: No - PSYCHIATRIC Hx Anxiety: Yes Hx Substance Use: No - SURGICAL HISTORY Hx Surgeries: No - ANESTHESIA Hx Anesthesia: No Hx Anesthesia Reactions: No Hx Malignant Hyperthermia: No Meds Allergies/Adverse Reactions: Allergies Allergy/AdvReac Type Severity Reaction Status Date / Time No Known Allergies Allergy Verified 09/19/17 11:06 - Medications Medications: Current Medications Acetaminophen (Tylenol 325mg Tab) 650 mg PO Q6 PRN PRN Reason: Headache Last Admin: 09/22/17 13:16 Dose: 650 mg Clonazepam (Klonopin) 1 mg PO DAILY [facility] Last Admin: 09/22/17 09:43 Dose: 1 mg Cyclobenzaprine HCl (Flexeril) 5 mg PO TID PRN PRN Reason: Muscle spasm Ergocalciferol (Drisdol 50,000 Intl Units Cap) 1 cap PO QWK [facility] Last Admin: 09/20/17 10:24 Dose: 1 cap Fluticasone Propionate (Flonase) 1 spr SNEHAL DAILY [facility] Last Admin: 09/22/17 10:39 Dose: Not Given Gabapentin (Neurontin) 300 mg PO BID [facility] Last Admin: 09/22/17 09:43 Dose: 300 mg Hydralazine HCl (Apresoline) 10 mg IVP Q6H PRN PRN Reason: Systolic Blood Pressure Hydromorphone HCl (Dilaudid) 0.5 mg IVP Q4H PRN PRN Reason: Pain, moderate (4-7) Hydromorphone HCl (Dilaudid) 1 mg IVP Q4H PRN PRN Reason: Pain, severe (8-10) Heparin Sodium/Sodium Chloride (Heparin 26194 Units/250ml 1/2 Normal Saline) 25 ,000 units in 250 mls @ 16.329 mls/hr IV .[id number] PRN; Protocol; 18 UNITS/KG/HR PRN Reason: ADJUST RATE PER PROTOCOL Last Admin: 09/22/17 01:44 Dose: 18 units/kg/hr, 16.329 mls/hr Magnesium Sulfate/Dextrose (Magnesium Sulfate 1 Gm/100 Ml D5w) 1 gm in 100 mls @ 300 mls/hr IVPB Q30M [facility] Stop: 09/22/17 16:04 Last Admin: 09/22/17 15:38 Dose: 300 mls/hr Levothyroxine Sodium (Synthroid) 100 mcg PO DAILY@0630 [facility] Last Admin: 09/22/17 06:36 Dose: 100 mcg Metoclopramide HCl (Reglan) 10 mg IVP Q6 PRN PRN Reason: Nausea/Vomiting Nimodipine (Nimotop) 30 mg PO Q4H [facility] Last Admin: 09/22/17 15:37 Dose: 30 mg Ondansetron HCl (Zofran Inj) 4 mg IVP Q6H PRN PRN Reason: Nausea/Vomiting Last Admin: 09/21/17 18:15 Dose: 4 mg Pantoprazole Sodium (Protonix Ec Tab) 40 mg PO DAILY [facility] Last Admin: 09/22/17 09:43 Dose: 40 mg Potassium Chloride (K-Dur 20 Meq Er Tab) 20 meq PO DAILY [facility] Last Admin: 09/22/17 09:43 Dose: 20 meq Rosuvastatin Calcium (Crestor) 10 mg PO HS [facility] Last Admin: 09/21/17 21:59 Dose: Not Given Physical Exam - Constitutional Appears: Well - Eye Exam Eye Exam: EOMI, Normal appearance, PERRL - ENT Exam ENT Exam: Mucous Membranes Moist, Normal Exam - Neck Exam Neck exam: Positive for: Normal Inspection - Respiratory Exam Respiratory Exam: Clear to Auscultation Bilateral, NORMAL BREATHING PATTERN - Cardiovascular Exam Cardiovascular Exam: REGULAR RHYTHM, +S1, +S2 - GI/Abdominal Exam GI & Abdominal Exam: Normal Bowel Sounds, Soft. absent: Tenderness - Rectal Exam Rectal Exam: Deferred - Extremities Exam Extremities exam: Positive for: normal inspection - Back Exam Back exam: NORMAL INSPECTION - Neurological Exam Neurological exam: Alert, CN II-XII Intact, Normal Gait, Oriented x3, Reflexes Normal - Psychiatric Exam Psychiatric exam: Normal Affect, Normal Mood Results - Vital Signs Recent Vital Signs: Last Vital Signs Temp 98.3 F 09/22/17 12:00 Pulse 82 09/22/17 15:00 Resp 17 09/22/17 15:00 BP 122/87 09/22/17 14:44 Pulse Ox 100 09/22/17 15:00 - Labs Result Diagrams: 09/22/17 07:50 09/22/17 07:50 Labs: Laboratory Results - last 24 hr 09/21/17 09/21/17 09/21/17 20:14 20:14 21:00 WBC 11.9 H D RBC 4.36 Hgb 12.8 Hct 38.6 MCV 88.4 MCH 29.3 MCHC 33.1 RDW 13.0 Plt Count 143 MPV 11.4 Neut % (Auto) 87.2 H Lymph % (Auto) 6.5 L [place] % (Auto) 4.8 Eos % (Auto) 0.4 Baso % (Auto) 1.1 Neut # 10.3 H Lymph # 0.8 L [place] # 0.6 Eos # 0.0 Baso # 0.1 Neutrophils % (Manual) 89 H Band Neutrophils % 1 Lymphocytes % (Manual) 7 L Monocytes % (Manual) 3 Platelet Estimate Normal APTT Sodium 137 Potassium 4.3 Chloride 106 Carbon Dioxide 19 L Anion Gap 16 BUN 18 H Creatinine 1.1 Est GFR ( Amer) > 60 Est GFR (Non-Af Amer) 57 Random Glucose 149 H Calcium 8.7 Phosphorus Magnesium Total Bilirubin 3.3 H Direct Bilirubin 1.7 H AST 103 H D ALT 46 Alkaline Phosphatase 89 Total Protein 7.6 Albumin 4.3 Globulin 3.4 Albumin/Globulin Ratio 1.3 09/22/17 09/22/17 09/22/17 07:50 07:50 07:50 WBC 12.2 H RBC 4.05 Hgb 12.1 Hct 36.0 MCV 88.9 MCH 29.9 MCHC 33.6 RDW 13.2 Plt Count 142 MPV 10.2 Neut % (Auto) 81.3 H Lymph % (Auto) 13.2 L [place] % (Auto) 4.8 Eos % (Auto) 0.4 Baso % (Auto) 0.3 Neut # 9.9 H Lymph # 1.6 [place] # 0.6 Eos # 0.1 Baso # 0.0 Neutrophils % (Manual) Band Neutrophils % Lymphocytes % (Manual) Monocytes % (Manual) Platelet Estimate APTT 57 H D Sodium 139 Potassium 3.5 L Chloride 105 Carbon Dioxide 28 Anion Gap 9 L BUN 19 H Creatinine 0.9 Est GFR ( Amer) > 60 Est GFR (Non-Af Amer) > 60 Random Glucose 127 H Calcium 8.2 L Phosphorus 3.3 Magnesium 1.7 Total Bilirubin 1.4 H Direct Bilirubin AST 64 H D ALT 49 Alkaline Phosphatase 81 Total Protein 6.5 Albumin 3.8 Globulin 2.7 Albumin/Globulin Ratio 1.4 Assessment & Plan (1) Subarachnoid hemorrhage Assessment and Plan: The appearance of the areas involved on the CT scan of the head make this more likely to be a venous bleed as opposed to arterial A CTA of the head/neck is recommended to rule out any intracranial aneurysms or arterial malformations. Furthermore, I recommend conservative care and the followin. Treat pain with Magnesium Sulfate 2 grams IV ONCE and Decadron 10 mg IV ONCE 2. Start nimodipine at 30 mg Q 4 to improve outcome in SAH 3. Q2 hour neuro-checks and call a code stroke if there is any change in mental status or focal neurologic deficits appear 4. Keep head elevated about 45 degrees 5. Control BP and maintain normotension 6. Fluids with NS at 75 mL/hr 7. Avoid anti-platelet agents or anticoagulation for now 8. PT/OT eval and treat if needed 9. Discuss SCD with vascular surgery, may consider SQ heparin for DVT Px after [address] head shows resolution of bleed. 10. Case management consult Thank you. Status: Acute Priority: High (2) Family history of hypercoagulable state Status: Acute (3) Anxiety Status: Acute (4) Anxiety attack Status: Acute (5) Paresthesia Status: Acute (6) Trigeminal neuralgia Status: Acute
--- NOTE | 2017-09-22 17:05 | CP.CCUPN ---
CCU Subjective - Physician Review Events Since Last Encounter (Free Text): 09/22/17 17:02 alert and oriented, no focal defecits, c/o headache. CCU Objective - Vital Signs / Intake & Output Vital Signs (Last 4 hours): Vital Signs Temp Pulse Resp BP Pulse Ox 09/22/17 16:00 98.7 F 95 H 15 98 09/22/17 15:45 77 14 146/80 99 09/22/17 15:00 82 17 100 09/22/17 14:44 76 16 122/87 100 09/22/17 14:00 83 20 99 09/22/17 13:44 78 13 104/58 L 99 Intake and Output (Last 8hrs): Intake & Output 09/22/17 09/22/17 09/22/17 06:59 14:59 22:59 Intake Total 481.5 281.5 300 Output Total 0 500 800 Balance 481.5 -218.5 -500 Weight 198 lb 8 oz Intake: Intake, IV Amount 81.5 81.5 100 Right Forearm 81.5 81.5 100 Oral 400 200 200 Output: Urine 0 500 800 Urine, Voided 0 500 800 - Physical Exam Head: Positive for: Atraumatic, Normocephalic Pupils: Positive for: PERRL Extroacular Muscles: Positive for: EOMI Conjunctiva: Positive for: Normal Mouth: Positive for: Moist Mucous Membranes Neck: Positive for: Normal Range of Motion Respiratory/Chest: Positive for: Clear to Auscultation, Good Air Exchange Cardiovascular: Positive for: Regular Rate and Rhythm Abdomen: Positive for: Normal Bowel Sounds. Negative for: Tenderness, Distention Neurological: Positive for: GCS=15, CN II-XII Intact, Speech Normal Psychiatric: Positive for: Alert, Oriented x 3, Normal Insight, Normal Concentration - Medications Active Medications: Active Medications Generic Name Dose Route Start Last Admin Trade Name Freq PRN Reason Stop Dose Admin Acetaminophen 650 mg 09/22/17 11:56 09/22/17 13:16 Tylenol 325mg Tab PO 650 mg Q6 PRN Administration Headache Clonazepam 1 mg 09/20/17 10:00 09/22/17 09:43 Klonopin PO 1 mg DAILY [facility] Administration Cyclobenzaprine HCl 5 mg 09/20/17 08:18 Flexeril PO TID PRN Muscle spasm Ergocalciferol 1 cap 09/20/17 10:00 09/20/17 10:24 Drisdol 50,000 Intl Units Cap PO 1 cap QWK [facility] Administration Fluticasone Propionate 1 spr 09/20/17 10:00 09/22/17 10:39 Flonase SNEHAL Not Given DAILY [facility] Gabapentin 300 mg 09/20/17 10:00 09/22/17 09:43 Neurontin PO 300 mg BID [facility] Administration Hydralazine HCl 10 mg 09/21/17 22:53 Apresoline IVP Q6H PRN Systolic Blood Pressure Hydromorphone HCl 0.5 mg 09/22/17 01:15 Dilaudid IVP Q4H PRN Pain, moderate (4-7) Hydromorphone HCl 1 mg 09/22/17 01:16 Dilaudid IVP Q4H PRN Pain, severe (8-10) Sodium Chloride 1,000 mls @ 70 mls/hr 09/22/17 16:00 Sodium Chloride 0.9% IV .[id number] [facility] Levothyroxine Sodium 100 mcg 09/22/17 06:30 09/22/17 06:36 Synthroid PO 100 mcg DAILY@0630 [facility] Administration Metoclopramide HCl 10 mg 09/22/17 01:02 Reglan IVP Q6 PRN Nausea/Vomiting Nimodipine 30 mg 09/22/17 15:00 09/22/17 15:37 Nimotop PO 30 mg Q4H [facility] Administration Ondansetron HCl 4 mg 09/21/17 17:20 09/21/17 18:15 Zofran Inj IVP 4 mg Q6H PRN Administration Nausea/Vomiting Pantoprazole Sodium 40 mg 09/20/17 10:00 09/22/17 09:43 Protonix Ec Tab PO 40 mg DAILY [facility] Administration Potassium Chloride 20 meq 09/19/17 13:00 09/22/17 09:43 K-Dur 20 Meq Er Tab PO 20 meq DAILY [facility] Administration Rosuvastatin Calcium 10 mg 09/20/17 22:00 09/21/17 21:59 Crestor PO Not Given HS [facility] - Patient Studies Lab Studies: Lab Studies 09/22/17 09/22/17 09/22/17 Range/Units 07:50 07:50 07:50 WBC 12.2 H (4.8-10.8) K/uL RBC 4.05 (3.80-5.20) Mil/uL Hgb 12.1 (11.0-16.0) g/dL Hct 36.0 (34.0-47.0) % MCV 88.9 (81.0-99.0) fL MCH 29.9 (27.0-31.0) pg MCHC 33.6 (33.0-37.0) g/dL RDW 13.2 (11.5-14.5) % Plt Count 142 (130-400) K/uL MPV 10.2 (7.2-11.7) fL Neut % (Auto) 81.3 H (50.0-75.0) % Lymph % (Auto) 13.2 L (20.0-40.0) % [place] % (Auto) 4.8 (0.0-10.0) % Eos % (Auto) 0.4 (0.0-4.0) % Baso % (Auto) 0.3 (0.0-2.0) % Neut # 9.9 H (1.8-7.0) K/uL Lymph # 1.6 (1.0-4.3) K/uL [place] # 0.6 (0.0-0.8) K/uL Eos # 0.1 (0.0-0.7) K/uL Baso # 0.0 (0.0-0.2) K/uL Neutrophils % (Manual) (50-75) % Band Neutrophils % (0-2) % Lymphocytes % (Manual) (20-40) % Monocytes % (Manual) (0-10) % Platelet Estimate (NORMAL) APTT 57 H D (21-34) SECONDS Sodium 139 (132-148) mmol/L Potassium 3.5 L (3.6-5.2) mmol/L Chloride 105 (98-107) mmol/L Carbon Dioxide 28 (22-30) mmol/L Anion Gap 9 L (10-20) BUN 19 H (7-17) mg/dL Creatinine 0.9 (0.7-1.2) mg/dL Est GFR ( Amer) > 60 Est GFR (Non-Af Amer) > 60 Random Glucose 127 H (65-105) mg/dL Calcium 8.2 L (8.6-10.4) mg/dl Phosphorus 3.3 (2.5-4.5) mg/dL Magnesium 1.7 (1.6-2.3) mg/dL Total Bilirubin 1.4 H (0.2-1.3) mg/dL Direct Bilirubin (0.0-0.4) mg/dL AST 64 H D (14-36) U/L ALT 49 (9-52) U/L Alkaline Phosphatase 81 (38-126) U/L Total Protein 6.5 (6.3-8.3) g/dL Albumin 3.8 (3.5-5.0) g/dL Globulin 2.7 (2.2-3.9) gm/dL Albumin/Globulin Ratio 1.4 (1.0-2.1) 09/21/17 09/21/17 09/21/17 Range/Units 21:00 20:14 20:14 WBC 11.9 H D (4.8-10.8) K/uL RBC 4.36 (3.80-5.20) Mil/uL Hgb 12.8 (11.0-16.0) g/dL Hct 38.6 (34.0-47.0) % MCV 88.4 (81.0-99.0) fL MCH 29.3 (27.0-31.0) pg MCHC 33.1 (33.0-37.0) g/dL RDW 13.0 (11.5-14.5) % Plt Count 143 (130-400) K/uL MPV 11.4 (7.2-11.7) fL Neut % (Auto) 87.2 H (50.0-75.0) % Lymph % (Auto) 6.5 L (20.0-40.0) % [place] % (Auto) 4.8 (0.0-10.0) % Eos % (Auto) 0.4 (0.0-4.0) % Baso % (Auto) 1.1 (0.0-2.0) % Neut # 10.3 H (1.8-7.0) K/uL Lymph # 0.8 L (1.0-4.3) K/uL [place] # 0.6 (0.0-0.8) K/uL Eos # 0.0 (0.0-0.7) K/uL Baso # 0.1 (0.0-0.2) K/uL Neutrophils % (Manual) 89 H (50-75) % Band Neutrophils % 1 (0-2) % Lymphocytes % (Manual) 7 L (20-40) % Monocytes % (Manual) 3 (0-10) % Platelet Estimate Normal (NORMAL) APTT (21-34) SECONDS Sodium 137 (132-148) mmol/L Potassium 4.3 (3.6-5.2) mmol/L Chloride 106 (98-107) mmol/L Carbon Dioxide 19 L (22-30) mmol/L Anion Gap 16 (10-20) BUN 18 H (7-17) mg/dL Creatinine 1.1 (0.7-1.2) mg/dL Est GFR ( Amer) > 60 Est GFR (Non-Af Amer) 57 Random Glucose 149 H (65-105) mg/dL Calcium 8.7 (8.6-10.4) mg/dl Phosphorus (2.5-4.5) mg/dL Magnesium (1.6-2.3) mg/dL Total Bilirubin 3.3 H (0.2-1.3) mg/dL Direct Bilirubin 1.7 H (0.0-0.4) mg/dL AST 103 H D (14-36) U/L ALT 46 (9-52) U/L Alkaline Phosphatase 89 (38-126) U/L Total Protein 7.6 (6.3-8.3) g/dL Albumin 4.3 (3.5-5.0) g/dL Globulin 3.4 (2.2-3.9) gm/dL Albumin/Globulin Ratio 1.3 (1.0-2.1) Laboratory Results - last 24 hr 09/21/17 09/21/17 09/21/17 20:14 20:14 21:00 WBC 11.9 H D RBC 4.36 Hgb 12.8 Hct 38.6 MCV 88.4 MCH 29.3 MCHC 33.1 RDW 13.0 Plt Count 143 MPV 11.4 Neut % (Auto) 87.2 H Lymph % (Auto) 6.5 L [place] % (Auto) 4.8 Eos % (Auto) 0.4 Baso % (Auto) 1.1 Neut # 10.3 H Lymph # 0.8 L [place] # 0.6 Eos # 0.0 Baso # 0.1 Neutrophils % (Manual) 89 H Band Neutrophils % 1 Lymphocytes % (Manual) 7 L Monocytes % (Manual) 3 Platelet Estimate Normal APTT Sodium 137 Potassium 4.3 Chloride 106 Carbon Dioxide 19 L Anion Gap 16 BUN 18 H Creatinine 1.1 Est GFR ( Amer) > 60 Est GFR (Non-Af Amer) 57 Random Glucose 149 H Calcium 8.7 Phosphorus Magnesium Total Bilirubin 3.3 H Direct Bilirubin 1.7 H AST 103 H D ALT 46 Alkaline Phosphatase 89 Total Protein 7.6 Albumin 4.3 Globulin 3.4 Albumin/Globulin Ratio 1.3 09/22/17 09/22/17 09/22/17 07:50 07:50 07:50 WBC 12.2 H RBC 4.05 Hgb 12.1 Hct 36.0 MCV 88.9 MCH 29.9 MCHC 33.6 RDW 13.2 Plt Count 142 MPV 10.2 Neut % (Auto) 81.3 H Lymph % (Auto) 13.2 L [place] % (Auto) 4.8 Eos % (Auto) 0.4 Baso % (Auto) 0.3 Neut # 9.9 H Lymph # 1.6 [place] # 0.6 Eos # 0.1 Baso # 0.0 Neutrophils % (Manual) Band Neutrophils % Lymphocytes % (Manual) Monocytes % (Manual) Platelet Estimate APTT 57 H D Sodium 139 Potassium 3.5 L Chloride 105 Carbon Dioxide 28 Anion Gap 9 L BUN 19 H Creatinine 0.9 Est GFR ( Amer) > 60 Est GFR (Non-Af Amer) > 60 Random Glucose 127 H Calcium 8.2 L Phosphorus 3.3 Magnesium 1.7 Total Bilirubin 1.4 H Direct Bilirubin AST 64 H D ALT 49 Alkaline Phosphatase 81 Total Protein 6.5 Albumin 3.8 Globulin 2.7 Albumin/Globulin Ratio 1.4 EKG/Cardiology Studies: Cardiology / EKG Studies 09/21/17 19:42 EKG [ELECTROCARDIOGRAM] Stat Comment: Mode Of Transportation: Reason For Exam: substernal chest pain and burning Isolation: Contact Review of Systems - Review of Systems All systems: reviewed and no additional remarkable complaints except - Neurological Neurological: Headaches Critical Care Progress Note - Nutrition Nutrition: Nutrition Category Date Time Status Regular Diet [DIET] Diets 12/02/17 Lunch Active Assessment/Plan (1) Subarachnoid hemorrhage Assessment and plan: 36yo F. 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 patient underwent revascularization with intravenous tPA, angiojet and stenting. post-operative heparin started. post-op course c/b SAH. Neuro: obtaining CTA to r/o aneurysmal bleed. Starting nimodipine for vasospasm prophylaxis. Mag Sulfate x 1 for headache. Neuro checks q2h. Neuro - Dr. Crockett Pulm: no acute issues, breathing spontaneously on room air CV: hemodynamically stable Hem: no acute issues Renal: no acute issues, urine output wnl, will monitor. Endo: no acute issues GI: regular diet ID: no acute issues DVT proph - SCD's GI proph - protonix Code status - full code Critical Care Time spent 60 minutes Multi-disciplinary rounds were performed with house staff, nursing, speech therapy, respiratory therapy, pharmacy and nutrition with integrated input from the primary team/attending and other consulting services. The documented time is cumulative and includes review of patient data/exams/labs/chart review and examination of the patient on rounds and throughout the day; time is exclusive of any procedures or teaching time. Current Visit: Yes Status: Acute Priority: High
[2017-09-22] MEDS: Sodium Chloride 0.9% 1,000 ML IV SCH (18:04)
--- NOTE | 2017-09-22 18:16 | CP.PCM.PN ---
Subjective - Date & Time of Evaluation Date of Evaluation: 09/22/17 Time of Evaluation: 18:05 - Subjective Subjective: Has headache. Interim events noted Off anticoagulation Objective - Vital Signs/Intake and Output Vital Signs (last 24 hours): Temp Pulse Resp BP Pulse Ox 98.7 F 84 15 146/80 99 09/22/17 16:00 09/22/17 17:00 09/22/17 17:00 09/22/17 15:45 09/22/17 17:00 Intake and Output: 09/22/17 09/22/17 06:59 18:59 Intake Total 481.5 776.5 Output Total 0 1300 Balance 481.5 -523.5 - Medications Medications: Current Medications Acetaminophen (Tylenol 325mg Tab) 650 mg PO Q6 PRN PRN Reason: Headache Last Admin: 09/22/17 13:16 Dose: 650 mg Clonazepam (Klonopin) 1 mg PO DAILY [facility] Last Admin: 09/22/17 09:43 Dose: 1 mg Cyclobenzaprine HCl (Flexeril) 5 mg PO TID PRN PRN Reason: Muscle spasm Ergocalciferol (Drisdol 50,000 Intl Units Cap) 1 cap PO QWK [facility] Last Admin: 09/20/17 10:24 Dose: 1 cap Fluticasone Propionate (Flonase) 1 spr SNEHAL DAILY [facility] Last Admin: 09/22/17 10:39 Dose: Not Given Gabapentin (Neurontin) 300 mg PO BID [facility] Last Admin: 09/22/17 18:03 Dose: 300 mg Hydralazine HCl (Apresoline) 10 mg IVP Q6H PRN PRN Reason: Systolic Blood Pressure Hydromorphone HCl (Dilaudid) 0.5 mg IVP Q4H PRN PRN Reason: Pain, moderate (4-7) Hydromorphone HCl (Dilaudid) 1 mg IVP Q4H PRN PRN Reason: Pain, severe (8-10) Sodium Chloride (Sodium Chloride 0.9%) 1,000 mls @ 70 mls/hr IV .[id number] [facility] Last Admin: 09/22/17 18:04 Dose: 70 mls/hr Levothyroxine Sodium (Synthroid) 100 mcg PO DAILY@0630 [facility] Last Admin: 09/22/17 06:36 Dose: 100 mcg Metoclopramide HCl (Reglan) 10 mg IVP Q6 PRN PRN Reason: Nausea/Vomiting Nimodipine (Nimotop) 30 mg PO Q4H [facility] Last Admin: 09/22/17 18:03 Dose: 30 mg Ondansetron HCl (Zofran Inj) 4 mg IVP Q6H PRN PRN Reason: Nausea/Vomiting Last Admin: 09/21/17 18:15 Dose: 4 mg Pantoprazole Sodium (Protonix Ec Tab) 40 mg PO DAILY [facility] Last Admin: 09/22/17 09:43 Dose: 40 mg Potassium Chloride (K-Dur 20 Meq Er Tab) 20 meq PO DAILY [facility] Last Admin: 09/22/17 09:43 Dose: 20 meq Rosuvastatin Calcium (Crestor) 10 mg PO HS [facility] Last Admin: 09/21/17 21:59 Dose: Not Given - Labs Labs: 09/22/17 07:50 09/22/17 07:50 PT 13.0 SECONDS (9.7-12.2) H 09/20/17 06:49 INR 1.2 09/20/17 06:49 APTT 57 SECONDS (21-34) H D 09/22/17 07:50 - Head Exam Head Exam: ATRAUMATIC - Eye Exam Eye Exam: Normal appearance - ENT Exam ENT Exam: Mucous Membranes Dry - Respiratory Exam Respiratory Exam: NORMAL BREATHING PATTERN - Cardiovascular Exam Cardiovascular Exam: +S1, +S2 - GI/Abdominal Exam GI & Abdominal Exam: Normal Bowel Sounds - Extremities Exam Extremities Exam: Pedal Edema Assessment and Plan (1) Subarachnoid hemorrhage Assessment & Plan: Neuro f/u anticoagulation on hold Status: Acute (2) Left leg DVT Assessment & Plan: left ilio femoral DVT secondary to May-Thurner syndrome s/p IVC filter, revascularization, stenting anticoagulation on hold for SAH would recommend DVT prophylaxis once cleared by neurology Status: Acute
[2017-09-22] MEDS ORDERED: Iodixanol 320 MG/ML 100 ML BOTTLE IV ONE (18:23)
--- NOTE | 2017-09-22 20:19 | CT ---
EXAM: CT Angiography Head With Intravenous Contrast CLINICAL HISTORY: 36 years old, female; Signs and symptoms; Other: R. O aneurysm; Additional info: R/O aneurysm, S/P sah TECHNIQUE: Axial computed tomographic angiography images of the head with intravenous contrast using CT angiography protocol. All CT scans at this facility use one or more dose reduction techniques, viz.: automated exposure control; ma/kV adjustment per patient size (including targeted exams where dose is matched to indication; i.e. head); or iterative reconstruction technique. MIP reconstructed images were created and reviewed. Coronal and sagittal reformatted images were created and reviewed. CONTRAST: 100 mL of [id number] administered intravenously. COMPARISON: No relevant prior studies available. FINDINGS: Right internal carotid artery: No acute findings. Intracranial segment is patent with no significant stenosis. No aneurysm. No dissection. Right anterior cerebral artery: Unremarkable. No occlusion or significant stenosis. No aneurysm. Right middle cerebral artery: Unremarkable. No occlusion or significant stenosis. No aneurysm. Right posterior cerebral artery: Unremarkable. No occlusion or significant stenosis. No aneurysm. Right vertebral artery: Unremarkable as visualized. Left internal carotid artery: No acute findings. Intracranial segment is patent with no significant stenosis. No aneurysm. No dissection. Left anterior cerebral artery: Unremarkable. No occlusion or significant stenosis. No aneurysm. Left middle cerebral artery: Unremarkable. No occlusion or significant stenosis. No aneurysm. Left posterior cerebral artery: Unremarkable. No occlusion or significant stenosis. No aneurysm. Left vertebral artery: Unremarkable as visualized. Basilar artery: Unremarkable. No occlusion or significant stenosis. No aneurysm. IMPRESSION: Unremarkable CTA examination of the brain, detailed above. EXAM: CT Angiography Neck With Intravenous Contrast CLINICAL HISTORY: 36 years old, female; Signs and symptoms; Other: R. O aneurysm; Additional info: R/O aneurysm, S/P sah TECHNIQUE: Axial computed tomographic angiography images of the neck with intravenous contrast using CT angiography protocol. All CT scans at this facility use one or more dose reduction techniques, viz.: automated exposure control; ma/kV adjustment per patient size (including targeted exams where dose is matched to indication; i.e. head); or iterative reconstruction technique. MIP reconstructed images were created and reviewed. Coronal and sagittal reformatted images were created and reviewed. CONTRAST: 100 mL of [id number] administered intravenously. COMPARISON: CT - HEAD W/O CONTRAST 2017-09-22 08:15 FINDINGS: VASCULATURE: Right common carotid artery: Unremarkable. No significant stenosis. No dissection or occlusion. Right internal carotid artery: Unremarkable. Extracranial segment is patent with no significant stenosis. No dissection or occlusion. Right external carotid artery: Unremarkable. No occlusion. Right vertebral artery: Unremarkable. No significant stenosis. No dissection or occlusion. Left common carotid artery: Unremarkable. No significant stenosis. No dissection or occlusion. Left internal carotid artery: Unremarkable. Extracranial segment is patent with no significant stenosis. No dissection or occlusion. Left external carotid artery: Unremarkable. No occlusion. Left vertebral artery: Unremarkable. No significant stenosis. No dissection or occlusion. NECK: Bones/joints: No acute fracture. No dislocation. Soft tissues: Unremarkable as visualized. No mass. CAROTID STENOSIS REFERENCE USING NASCET CRITERIA: % ICA stenosis = (1 - narrowest ICA diameter/diameter of distal cervical ICA) x 100. Mild - <50% stenosis. Moderate - 50-69% stenosis. Severe - 70-94% stenosis. Near occlusion - 95-99% stenosis. Occluded - 100% stenosis. IMPRESSION: No hemodynamically significant stenosis within bilateral internal carotid arteries, as detailed above.
[2017-09-22 20:53] LABS: B2 GLYCOPROTEIN I AB(IGA) <9 SAU (<=20); B2 GLYCOPROTEIN I AB(IGG) <9 SGU (<=20); B2 GLYCOPROTEIN I AB(IGM) 10 SMU (<=20)
[2017-09-22 21:58] LABS: CARDIOLIPIN AB (IGA) <11 APL (<=11)
[2017-09-23] MEDS: HYDROmorphone 0.5 mg/0.5 ml ISec IVP PRN ×2 (01:48→11:29)
--- NOTE | 2017-09-23 02:03 | CON ---
DATE: 09/22/2017 HISTORY OF PRESENT ILLNESS: The patient is a woman who is in the intensive care unit at [facility]. She yesterday underwent a thrombolysis and treatment of her left leg DVT and iliac vein stenosis successfully. Postoperatively she has headache with vomiting. It was felt that she may have had a subarachnoid bleed. Heparin was stopped. Another study was done and felt there was no bleed on subsequent CAT scan and heparin was restarted. Then it was stopped again, because another CAT scan showed that it was improved, but that there was another source of subarachnoid bleed. I consulted Dr. Crockett who is a neurologist regarding this. He felt the patient did have a bleed. He has given variety of medications. Because of this, heparin has to be stopped. Everyone is aware. The patient was also informed mother. The patient, despite all these problems, is fine. Blood pressure, vital signs, etc. all noted. She does have the headache at present. She is alert, oriented and cooperative. Our plan at present is to go without anticoagulation in view of the problems associated with the subarachnoid bleed while on anticoagulation. We will follow the patient closely. The Dr. Crockett and myself are all involved in the discussions as well as the primary care physician, Dr. Espinoza. Morteza Phan Jr., MD
[2017-09-23] MEDS: Levothyroxine 100 MCG TAB PO SCH (06:09)
[2017-09-23 06:29] LABS: LYMPH # 1.1 K/uL (1.0-4.3); LYMPH % 10.3 % (20.0-40.0); MEAN CELL VOLUME 88.8 fL (81.0-99.0); MEAN CORPUSCULAR HEMOGLOBIN 29.8 pg (27.0-31.0); MEAN CORPUSCULAR HGB CONC 33.6 g/dL (33.0-37.0); MEAN PLATELET VOLUME 10.3 fL (7.2-11.7); MONO # 0.5 K/uL (0.0-0.8); MONO % 4.3 % (0.0-10.0); RED CELL DISTRIBUTION WIDTH 13.2 % (11.5-14.5); WHITE BLOOD COUNT 11.1 K/uL (4.8-10.8)
[2017-09-23 06:48] LABS: ALKALINE PHOSPHATASE 77 U/L (38-126); ALT/SGPT 56 U/L (9-52); AST/SGOT 35 U/L (14-36); BILIRUBIN,TOTAL 0.5 mg/dL (0.2-1.3); BLOOD UREA NITROGEN 8 mg/dL (7-17); CALCIUM 8.5 mg/dl (8.6-10.4); CARBON DIOXIDE 30 mmol/L (22-30); CHLORIDE 103 mmol/L (98-107); GFR AFRICAN-AMERICAN > 60; GLUCOSE,RANDOM 111 mg/dL (65-105); MAGNESIUM 1.8 mg/dL (1.6-2.3); PHOSPHOROUS 3.1 mg/dL (2.5-4.5); SODIUM 139 mmol/L (132-148)
[2017-09-23] MEDS: Sodium Chloride 0.9% 1,000 ML IV SCH ×2 (07:04→08:23)
--- NOTE | 2017-09-23 07:49 | CP.PCM.PN ---
Subjective - Date & Time of Evaluation Date of Evaluation: 09/23/17 Time of Evaluation: 07:39 - Subjective Subjective: Vascular Surgery Progress note. Dr. Phan Pt seen and examined at bedside. Patient c/o headaches and some nausea overnight. Continues to c/o headaches this morning. Denies CP/SOB. No F/C. Left leg dressing became soiled with urine last night, nursing staff replaced. Objective - Vital Signs/Intake and Output Vital Signs (last 24 hours): Temp Pulse Resp BP Pulse Ox 98.0 F 67 19 132/87 97 09/23/17 04:00 09/23/17 07:00 09/23/17 07:00 09/23/17 06:45 09/23/17 07:00 Intake and Output: 09/23/17 09/23/17 06:59 18:59 Intake Total 2040 190 Output Total 1700 0 Balance 340 190 - Medications Medications: Current Medications Acetaminophen (Tylenol 325mg Tab) 650 mg PO Q6 PRN PRN Reason: Headache Last Admin: 09/22/17 13:16 Dose: 650 mg Clonazepam (Klonopin) 1 mg PO DAILY [facility] Last Admin: 09/22/17 09:43 Dose: 1 mg Cyclobenzaprine HCl (Flexeril) 5 mg PO TID PRN PRN Reason: Muscle spasm Ergocalciferol (Drisdol 50,000 Intl Units Cap) 1 cap PO QWK [facility] Last Admin: 09/20/17 10:24 Dose: 1 cap Fluticasone Propionate (Flonase) 1 spr SNEHAL DAILY [facility] Last Admin: 09/22/17 10:39 Dose: Not Given Gabapentin (Neurontin) 300 mg PO BID [facility] Last Admin: 09/22/17 18:03 Dose: 300 mg Hydralazine HCl (Apresoline) 10 mg IVP Q6H PRN PRN Reason: Systolic Blood Pressure Hydromorphone HCl (Dilaudid) 0.5 mg IVP Q4H PRN PRN Reason: Pain, moderate (4-7) Last Admin: 09/23/17 01:48 Dose: 0.5 mg Hydromorphone HCl (Dilaudid) 1 mg IVP Q4H PRN PRN Reason: Pain, severe (8-10) Sodium Chloride (Sodium Chloride 0.9%) 1,000 mls @ 70 mls/hr IV .[id number] [facility] Last Admin: 09/23/17 07:04 Dose: Not Given Levothyroxine Sodium (Synthroid) 100 mcg PO DAILY@0630 [facility] Last Admin: 09/23/17 06:09 Dose: 100 mcg Metoclopramide HCl (Reglan) 10 mg IVP Q6 PRN PRN Reason: Nausea/Vomiting Nimodipine (Nimotop) 30 mg PO Q4H [facility] Last Admin: 09/23/17 06:09 Dose: 30 mg Ondansetron HCl (Zofran Inj) 4 mg IVP Q6H PRN PRN Reason: Nausea/Vomiting Last Admin: 09/21/17 18:15 Dose: 4 mg Pantoprazole Sodium (Protonix Ec Tab) 40 mg PO DAILY [facility] Last Admin: 09/22/17 09:43 Dose: 40 mg Potassium Chloride (K-Dur 20 Meq Er Tab) 20 meq PO DAILY [facility] Last Admin: 09/22/17 09:43 Dose: 20 meq Rosuvastatin Calcium (Crestor) 10 mg PO HS [facility] Last Admin: 09/22/17 22:50 Dose: 10 mg - Labs Labs: 09/23/17 06:16 09/23/17 06:17 PT 13.0 SECONDS (9.7-12.2) H 09/20/17 06:49 INR 1.2 09/20/17 06:49 APTT 57 SECONDS (21-34) H D 09/22/17 07:50 - Constitutional Appears: Well, Non-toxic, No Acute Distress - Head Exam Head Exam: ATRAUMATIC, NORMAL INSPECTION, NORMOCEPHALIC - Eye Exam Eye Exam: EOMI - ENT Exam ENT Exam: Mucous Membranes Moist - Respiratory Exam Respiratory Exam: NORMAL BREATHING PATTERN. absent: Accessory Muscle Use, Chest Wall Tenderness, Respiratory Distress - Cardiovascular Exam Cardiovascular Exam: RRR, +S1, +S2. absent: JVD - GI/Abdominal Exam GI & Abdominal Exam: Soft. absent: Distended, Firm, Guarding, Rigid, Tenderness - Extremities Exam Additional comments: crescencio bandage in place bilateral lower extremity. left lower extremity swelling improved markedly - Neurological Exam Neurological Exam: Alert, Awake, Oriented x3. absent: Motor Sensory Deficit - Psychiatric Exam Psychiatric exam: Normal Affect, Normal Mood - Skin Skin Exam: Dry, Intact, Normal Color, Warm Assessment and Plan - Assessment and Plan (Free Text) Assessment: 36yo F with left iliac DVT, s/p IVC filter placement, Angio and thromboplasty on 09/21. Hospital course complicated by possible subarachnoid bleeding CT- possible subarachnoid bleeding, stable CTA head/neck - negative - F/u neurology recs - hold heparin ac - f/u hypercoagulability workup - f/u AM labs Further recs as per Dr. Emilie Anderson PGY1 surgery pager: [phone]
[2017-09-23] MEDS: HYDROmorphone 1 mg/ml ISec IVP PRN (08:22)
[2017-09-23] MEDS: Fluticasone Nasal 50 mcg/Spray NAS SCH (11:16)
[2017-09-23] MEDS: Potassium Chloride 20 mEq ER Tab PO SCH (11:16)
[2017-09-23] MEDS: Pantoprazole 40 mg EC Tab PO SCH (11:19)
[2017-09-23] MEDS ORDERED: Dexamethasone 4 mg/1 ml IVP PRN (11:22)
[2017-09-23] MEDS ORDERED: Magnesium Sulfate 1 gm in D5W 1 GM/100 ML BAG IVPB ONE (11:34)
--- NOTE | 2017-09-23 12:14 | CP.PCM.PN ---
Subjective - Date & Time of Evaluation Date of Evaluation: 09/23/17 Time of Evaluation: 11:30 - Subjective Subjective: Patient was alert and orientated and answering questions appropriately She does report ongoing generalized headaches, also some nausea. She also reports bright lights bother her eyes a lot. Denied blurry vision. Denied chest pain, denied shortness of breath, denied abdominal pain, denied lower extremity pain. There was a CTA of the neck and head, the report did not suggest aneurysm seen Objective - Vital Signs/Intake and Output Vital Signs (last 24 hours): Temp Pulse Resp BP Pulse Ox 98.0 F 73 8 L 145/89 100 09/23/17 08:00 09/23/17 11:00 09/23/17 11:00 09/23/17 10:45 09/23/17 11:00 Intake and Output: 09/23/17 09/23/17 06:59 18:59 Intake Total 2040 470 Output Total 1700 300 Balance 340 170 - Medications Medications: Current Medications Acetaminophen (Tylenol 325mg Tab) 650 mg PO Q6 PRN PRN Reason: Headache Last Admin: 09/22/17 13:16 Dose: 650 mg Clonazepam (Klonopin) 1 mg PO DAILY [facility] Last Admin: 09/23/17 11:17 Dose: 1 mg Cyclobenzaprine HCl (Flexeril) 5 mg PO TID PRN PRN Reason: Muscle spasm Ergocalciferol (Drisdol 50,000 Intl Units Cap) 1 cap PO QWK [facility] Last Admin: 09/20/17 10:24 Dose: 1 cap Fluticasone Propionate (Flonase) 1 spr SNEHAL DAILY [facility] Last Admin: 09/23/17 11:16 Dose: 1 spr Gabapentin (Neurontin) 300 mg PO BID [facility] Last Admin: 09/23/17 11:17 Dose: 300 mg Hydralazine HCl (Apresoline) 10 mg IVP Q6H PRN PRN Reason: Systolic Blood Pressure Hydromorphone HCl (Dilaudid) 0.5 mg IVP Q4H PRN PRN Reason: Pain, moderate (4-7) Last Admin: 09/23/17 11:29 Dose: 0.5 mg Hydromorphone HCl (Dilaudid) 1 mg IVP Q4H PRN PRN Reason: Pain, severe (8-10) Last Admin: 09/23/17 08:22 Dose: 1 mg Sodium Chloride (Sodium Chloride 0.9%) 1,000 mls @ 70 mls/hr IV .[id number] [facility] Last Admin: 09/23/17 08:23 Dose: 70 mls/hr Levothyroxine Sodium (Synthroid) 100 mcg PO DAILY@0630 [facility] Last Admin: 09/23/17 06:09 Dose: 100 mcg Metoclopramide HCl (Reglan) 10 mg IVP Q6 PRN PRN Reason: Nausea/Vomiting Nimodipine (Nimotop) 30 mg PO Q4H [facility] Last Admin: 09/23/17 11:56 Dose: 30 mg Ondansetron HCl (Zofran Inj) 4 mg IVP Q6H PRN PRN Reason: Nausea/Vomiting Last Admin: 09/23/17 11:22 Dose: 4 mg Pantoprazole Sodium (Protonix Ec Tab) 40 mg PO DAILY [facility] Last Admin: 09/23/17 11:19 Dose: 40 mg Potassium Chloride (K-Dur 20 Meq Er Tab) 20 meq PO DAILY [facility] Last Admin: 09/23/17 11:16 Dose: 20 meq Rosuvastatin Calcium (Crestor) 10 mg PO HS [facility] Last Admin: 09/22/17 22:50 Dose: 10 mg - Labs Labs: 09/23/17 06:16 09/23/17 06:17 PT 13.0 SECONDS (9.7-12.2) H 09/20/17 06:49 INR 1.2 09/20/17 06:49 APTT 57 SECONDS (21-34) H D 09/22/17 07:50 - Constitutional Appears: No Acute Distress - Head Exam Head Exam: NORMAL INSPECTION, NORMOCEPHALIC - Eye Exam Eye Exam: EOMI, Normal appearance, PERRL - ENT Exam ENT Exam: Mucous Membranes Moist - Respiratory Exam Respiratory Exam: Clear to Ausculation Bilateral, NORMAL BREATHING PATTERN - Cardiovascular Exam Cardiovascular Exam: REGULAR RHYTHM - GI/Abdominal Exam GI & Abdominal Exam: Soft, Normal Bowel Sounds - Extremities Exam Extremities Exam: absent: Pedal Edema Additional comments: decreasing edema left leg. - Neurological Exam Neurological Exam: Alert, Awake, CN II-XII Intact, Oriented x3 Neuro motor strength exam: Left Upper Extremity: 5, Right Upper Extremity: 5 - Psychiatric Exam Psychiatric exam: Depressed, Flat Affect - Skin Skin Exam: Normal Color, Warm Assessment and Plan - Assessment and Plan (Free Text) Assessment: Assessment and Plan (1) Subarachnoid hemmorage, status post thrombolysis with TPA. 09/23: CTA of neck/brain negative for aneurysm, She reports still having headache. 1g of Mag Sulfate ordered 09/22: Appreciate neurology evaluation of the patient. Per neurology a CTA of head and neck should be done to assess for potential aneurysm. Also use Magnesium sulfate for headache and decadron IV as well Follow blood pressure, hydralazine 10mg IVP if systolic > 160 Hold all heparin, lovenox, ASA, NSAIDS (2) Left leg DVT of the illiac and femoral veins DVT common femoral vein extending to saphenofemoral junction and dvt in the left femoral vein On admission: 09/19 CTA of chest: negative for PE 09/19 CXR: no active disease 09/19 Duplex lower extremity showing dvt in left common femoral vein extending to saphenofemoral junction and dvt in the left femoral vein, with mild reduction of venous return Vascular Surgery, Dr. Phan Consulted---> Help appreciated: S/P IVC filter via right politeal vein, venogram, mechanical thrombolysis with tpa and angiojet. balloon angioplasty of left iliac common and external vein, POD #0 * Rosuvastatin 10mg HS (3) History of hypothyroidism TSH 17.00 Free T4 1.51 levothyroxine 100mcg PO daily (3) Family history of hypercoagulable state Heme/Onc Consult: Dr. Guerra---> Help appreciated * Management as per recommendation (4) Prophylactic measure DVT prophylaxis: no SCDs. GI prophylaxis Protonix
--- NOTE | 2017-09-23 16:20 | CP.CCUPN ---
CCU Objective - Vital Signs / Intake & Output Vital Signs (Last 4 hours): Vital Signs Pulse Resp BP Pulse Ox 09/23/17 15:44 76 10 L 97 09/23/17 15:00 70 14 09/23/17 14:45 78 24 138/98 H 94 L 09/23/17 14:00 61 11 L 98 09/23/17 13:45 70 20 132/80 97 09/23/17 13:00 64 11 L 99 09/23/17 12:44 62 12 105/69 99 Intake and Output (Last 8hrs): Intake & Output 09/23/17 09/23/17 09/23/17 06:59 14:59 22:59 Intake Total 1280 950 70 Output Total 1000 300 Balance 280 650 70 Intake: Intake, IV Amount 560 590 70 Right Forearm 560 590 70 Oral 720 360 Output: Urine 1000 300 Urine, Voided 1000 300 Other: # Voids Urine, Voided 1 - Physical Exam Head: Positive for: Atraumatic, Normocephalic Pupils: Positive for: PERRL Extroacular Muscles: Positive for: EOMI Conjunctiva: Positive for: Normal Mouth: Positive for: Moist Mucous Membranes Neck: Positive for: Normal Range of Motion Respiratory/Chest: Positive for: Clear to Auscultation, Good Air Exchange Cardiovascular: Positive for: Regular Rate and Rhythm Abdomen: Positive for: Normal Bowel Sounds. Negative for: Tenderness, Distention Neurological: Positive for: GCS=15, CN II-XII Intact, Speech Normal Psychiatric: Positive for: Alert, Oriented x 3, Normal Insight, Normal Concentration - Medications Active Medications: Active Medications Generic Name Dose Route Start Last Admin Trade Name Christianoq PRN Reason Stop Dose Admin Acetaminophen 650 mg 09/22/17 11:56 09/22/17 13:16 Tylenol 325mg Tab PO 650 mg Q6 PRN Administration Headache Clonazepam 1 mg 09/20/17 10:00 09/23/17 11:17 Klonopin PO 1 mg DAILY [facility]ASSANDRA Administration Cyclobenzaprine HCl 5 mg 09/20/17 08:18 Flexeril PO TID PRN Muscle spasm Ergocalciferol 1 cap 09/20/17 10:00 09/20/17 10:24 Drisdol 50,000 Intl Units Cap PO 1 cap QWK [facility]ASSANDRA Administration Fluticasone Propionate 1 spr 09/20/17 10:00 09/23/17 11:16 Flonase SNEHAL 1 spr DAILY [facility]ANDRA Administration Gabapentin 300 mg 09/20/17 10:00 09/23/17 11:17 Neurontin PO 300 mg BID [facility]ASSANDRA Administration Hydralazine HCl 10 mg 09/21/17 22:53 Apresoline IVP Q6H PRN Systolic Blood Pressure Hydromorphone HCl 0.5 mg 09/22/17 01:15 09/23/17 11:29 Dilaudid IVP 0.5 mg Q4H PRN Administration Pain, moderate (4-7) Hydromorphone HCl 1 mg 09/22/17 01:16 09/23/17 08:22 Dilaudid IVP 1 mg Q4H PRN Administration Pain, severe (8-10) Sodium Chloride 1,000 mls @ 70 mls/hr 09/22/17 16:00 09/23/17 08:23 Sodium Chloride 0.9% IV 70 mls/hr .[id number] [facility]ASSANDRA Administration Levothyroxine Sodium 100 mcg 09/22/17 06:30 09/23/17 06:09 Synthroid PO 100 mcg DAILY@0630 [facility] Administration Metoclopramide HCl 10 mg 09/22/17 01:02 Reglan IVP Q6 PRN Nausea/Vomiting Nimodipine 30 mg 09/22/17 15:00 09/23/17 11:56 Nimotop PO 30 mg Q4H [facility] Administration Ondansetron HCl 4 mg 09/21/17 17:20 09/23/17 11:22 Zofran Inj IVP 4 mg Q6H PRN Administration Nausea/Vomiting Pantoprazole Sodium 40 mg 09/20/17 10:00 09/23/17 11:19 Protonix Ec Tab PO 40 mg DAILY [facility] Administration Potassium Chloride 20 meq 09/19/17 13:00 09/23/17 11:16 K-Dur 20 Meq Er Tab PO 20 meq DAILY [facility] Administration Rosuvastatin Calcium 10 mg 09/20/17 22:00 09/22/17 22:50 Crestor PO 10 mg HS [facility]ANDRA Administration - Patient Studies Lab Studies: Lab Studies 09/23/17 09/23/17 09/20/17 Range/Units 06:17 06:16 13:51 WBC 11.1 H (4.8-10.8) K/uL RBC 4.16 (3.80-5.20) Mil/uL Hgb 12.4 (11.0-16.0) g/dL Hct 37.0 (34.0-47.0) % MCV 88.8 (81.0-99.0) fL MCH 29.8 (27.0-31.0) pg MCHC 33.6 (33.0-37.0) g/dL RDW 13.2 (11.5-14.5) % Plt Count 150 (130-400) K/uL MPV 10.3 (7.2-11.7) fL Neut % (Auto) 85.4 H (50.0-75.0) % Lymph % (Auto) 10.3 L (20.0-40.0) % [place] % (Auto) 4.3 (0.0-10.0) % Eos % (Auto) 0.0 (0.0-4.0) % Baso % (Auto) 0.0 (0.0-2.0) % Neut # 9.5 H (1.8-7.0) K/uL Lymph # 1.1 (1.0-4.3) K/uL [place] # 0.5 (0.0-0.8) K/uL Eos # 0.0 (0.0-0.7) K/uL Baso # 0.0 (0.0-0.2) K/uL Sodium 139 (132-148) mmol/L Potassium 4.0 (3.6-5.2) mmol/L Chloride 103 (98-107) mmol/L Carbon Dioxide 30 (22-30) mmol/L Anion Gap 10 (10-20) BUN 8 (7-17) mg/dL Creatinine 0.5 L (0.7-1.2) mg/dL Est GFR ( Amer) > 60 Est GFR (Non-Af Amer) > 60 Random Glucose 111 H (65-105) mg/dL Calcium 8.5 L (8.6-10.4) mg/dl Phosphorus 3.1 (2.5-4.5) mg/dL Magnesium 1.8 (1.6-2.3) mg/dL Total Bilirubin 0.5 (0.2-1.3) mg/dL AST 35 (14-36) U/L ALT 56 H (9-52) U/L Alkaline Phosphatase 77 (38-126) U/L Total Protein 8.0 (6.3-8.3) g/dL Albumin 4.0 (3.5-5.0) g/dL Globulin 4.0 H (2.2-3.9) gm/dL Albumin/Globulin Ratio 1.0 (1.0-2.1) Hddc-[id number] Ab <9 (<=20) KRISTI Beta-2 GPI IgG Ab <9 (<=20) SGU Beta-2 GPI IgM Ab 10 (<=20) SMU Anti-Cardiolipin IgG Ab <14 (<=14) GPL Anti-Cardiolipin IgA Ab <11 (<=11) APL Anti-Cardiolipin IgM Ab 13 H (<=12) MPL Laboratory Results - last 24 hr 09/20/17 09/23/17 09/23/17 13:51 06:16 06:17 WBC 11.1 H RBC 4.16 Hgb 12.4 Hct 37.0 MCV 88.8 MCH 29.8 MCHC 33.6 RDW 13.2 Plt Count 150 MPV 10.3 Neut % (Auto) 85.4 H Lymph % (Auto) 10.3 L [place] % (Auto) 4.3 Eos % (Auto) 0.0 Baso % (Auto) 0.0 Neut # 9.5 H Lymph # 1.1 [place] # 0.5 Eos # 0.0 Baso # 0.0 Sodium 139 Potassium 4.0 Chloride 103 Carbon Dioxide 30 Anion Gap 10 BUN 8 Creatinine 0.5 L Est GFR ( Amer) > 60 Est GFR (Non-Af Amer) > 60 Random Glucose 111 H Calcium 8.5 L Phosphorus 3.1 Magnesium 1.8 Total Bilirubin 0.5 AST 35 ALT 56 H Alkaline Phosphatase 77 Total Protein 8.0 Albumin 4.0 Globulin 4.0 H Albumin/Globulin Ratio 1.0 [id number] Ab <9 Beta-2 GPI IgG Ab <9 Beta-2 GPI IgM Ab 10 Anti-Cardiolipin IgG Ab <14 Anti-Cardiolipin IgA Ab <11 Anti-Cardiolipin IgM Ab 13 H Critical Care Progress Note - Nutrition Nutrition: Nutrition Category Date Time Status Regular Diet [DIET] Diets 09/22/17 Lunch Active Assessment/Plan (1) Subarachnoid hemorrhage Assessment and plan: 36yo F. 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 patient underwent revascularization with intravenous tPA, angiojet and stenting, IVC filter placement. post-operative heparin started. post-op course c/b SAH. Neuro: CTA showed no aneurysm or AVM. Continue nimodipine for vasospasm prophylaxis. Mag Sulfate x 1 for headache. Patient will need monitoring for vasospasm for at least 7 days, and possibly out to 21 days. Neuro - Dr. Bon Rendon: no acute issues, breathing spontaneously on room air CV: hemodynamically stable Hem: no acute issues, heparin gtt held. Renal: no acute issues, urine output wnl, will monitor. Endo: no acute issues GI: regular diet ID: no acute issues DVT proph - SCD's, holding a/c with current bleed, can restart DVT proph once bleed is determined to be stable. GI proph - protonix Code status - full code OOB to chair Critical Care Time spent 60 minutes Multi-disciplinary rounds were performed with house staff, nursing, speech therapy, respiratory therapy, pharmacy and nutrition with integrated input from the primary team/attending and other consulting services. The documented time is cumulative and includes review of patient data/exams/labs/chart review and examination of the patient on rounds and throughout the day; time is exclusive of any procedures or teaching time. Current Visit: Yes Status: Acute Priority: High
--- NOTE | 2017-09-23 19:15 | CP.PCM.CON ---
History of Present Illness - History of Present Illness History of Present Illness: Ms. Martinez was seen and examined today at bedside in the ICU. Her mother was present in the room and we discussed her headache and the improvement she experienced today. I confirmed to them that the patient did not have any aneurysms on the CTA and that I believed this is a venous-type bleed. She said that she is benefiting from the magnesium and felt that the decadron also helped with the pain. Review of Systems - Review of Systems All systems: reviewed and no additional remarkable complaints except Past Patient History - Infectious Disease Hx of Infectious Diseases: None - Past Social History Smoking Status: Former Smoker Chewing Tobacco Use: No Cigar Use: No Alcohol: None Drugs: Denies Home Situation {Lives}: With Family - CARDIAC Hx Hypertension: Yes - PULMONARY Hx Asthma: Yes - NEUROLOGICAL Hx Neurological Disorder: Yes Other/Comment: trigeminal neuralgia - HEENT Other/Comment: states recently completed abtx for tooth infection x1wk ago - RENAL Hx Chronic Kidney Disease: Yes - ENDOCRINE/METABOLIC Hx Hypothyroidism: Yes - HEMATOLOGICAL/ONCOLOGICAL Hx Blood Disorders: No - INTEGUMENTARY Hx Dermatological Problems: No - MUSCULOSKELETAL/RHEUMATOLOGICAL Hx Musculoskeletal Disorders: No - GASTROINTESTINAL Hx Gastrointestinal Disorders: No - GENITOURINARY/GYNECOLOGICAL Hx Genitourinary Disorders: No - PSYCHIATRIC Hx Anxiety: Yes Hx Substance Use: No - SURGICAL HISTORY Hx Surgeries: No - ANESTHESIA Hx Anesthesia: No Hx Anesthesia Reactions: No Hx Malignant Hyperthermia: No Meds Allergies/Adverse Reactions: Allergies Allergy/AdvReac Type Severity Reaction Status Date / Time No Known Allergies Allergy Verified 09/19/17 11:06 - Medications Medications: Current Medications Acetaminophen (Tylenol 325mg Tab) 650 mg PO Q6 PRN PRN Reason: Headache Last Admin: 09/22/17 13:16 Dose: 650 mg Clonazepam (Klonopin) 1 mg PO DAILY [facility] Last Admin: 09/23/17 11:17 Dose: 1 mg Cyclobenzaprine HCl (Flexeril) 5 mg PO TID PRN PRN Reason: Muscle spasm Ergocalciferol (Drisdol 50,000 Intl Units Cap) 1 cap PO QWK [facility] Last Admin: 09/20/17 10:24 Dose: 1 cap Fluticasone Propionate (Flonase) 1 spr SNEHAL DAILY [facility] Last Admin: 09/23/17 11:16 Dose: 1 spr Gabapentin (Neurontin) 300 mg PO BID [facility] Last Admin: 09/23/17 18:03 Dose: 300 mg Hydralazine HCl (Apresoline) 10 mg IVP Q6H PRN PRN Reason: Systolic Blood Pressure Hydromorphone HCl (Dilaudid) 0.5 mg IVP Q4H PRN PRN Reason: Pain, moderate (4-7) Last Admin: 09/23/17 11:29 Dose: 0.5 mg Hydromorphone HCl (Dilaudid) 1 mg IVP Q4H PRN PRN Reason: Pain, severe (8-10) Last Admin: 09/23/17 08:22 Dose: 1 mg Sodium Chloride (Sodium Chloride 0.9%) 1,000 mls @ 70 mls/hr IV .[id number] [facility] Last Admin: 09/23/17 08:23 Dose: 70 mls/hr Levothyroxine Sodium (Synthroid) 100 mcg PO DAILY@0630 [facility] Last Admin: 09/23/17 06:09 Dose: 100 mcg Metoclopramide HCl (Reglan) 10 mg IVP Q6 PRN PRN Reason: Nausea/Vomiting Nimodipine (Nimotop) 30 mg PO Q4H [facility] Last Admin: 09/23/17 18:03 Dose: 30 mg Ondansetron HCl (Zofran Inj) 4 mg IVP Q6H PRN PRN Reason: Nausea/Vomiting Last Admin: 09/23/17 11:22 Dose: 4 mg Pantoprazole Sodium (Protonix Ec Tab) 40 mg PO DAILY [facility] Last Admin: 09/23/17 11:19 Dose: 40 mg Potassium Chloride (K-Dur 20 Meq Er Tab) 20 meq PO DAILY [facility] Last Admin: 09/23/17 11:16 Dose: 20 meq Rosuvastatin Calcium (Crestor) 10 mg PO HS [facility] Last Admin: 09/22/17 22:50 Dose: 10 mg Physical Exam - Neurological Exam Additional comments: Neurologically unchanged compared with previous examination. Results - Vital Signs Recent Vital Signs: Last Vital Signs Temp 98.1 F 09/23/17 16:00 Pulse 73 09/23/17 19:00 Resp 18 09/23/17 19:00 BP 116/71 09/23/17 18:44 Pulse Ox 100 09/23/17 19:00 - Labs Result Diagrams: 09/23/17 06:16 09/23/17 06:17 Labs: Laboratory Results - last 24 hr 09/20/17 09/23/17 09/23/17 13:51 06:16 06:17 WBC 11.1 H RBC 4.16 Hgb 12.4 Hct 37.0 MCV 88.8 MCH 29.8 MCHC 33.6 RDW 13.2 Plt Count 150 MPV 10.3 Neut % (Auto) 85.4 H Lymph % (Auto) 10.3 L [place] % (Auto) 4.3 Eos % (Auto) 0.0 Baso % (Auto) 0.0 Neut # 9.5 H Lymph # 1.1 [place] # 0.5 Eos # 0.0 Baso # 0.0 Sodium 139 Potassium 4.0 Chloride 103 Carbon Dioxide 30 Anion Gap 10 BUN 8 Creatinine 0.5 L Est GFR ( Amer) > 60 Est GFR (Non-Af Amer) > 60 Random Glucose 111 H Calcium 8.5 L Phosphorus 3.1 Magnesium 1.8 Total Bilirubin 0.5 AST 35 ALT 56 H Alkaline Phosphatase 77 Total Protein 8.0 Albumin 4.0 Globulin 4.0 H Albumin/Globulin Ratio 1.0 [id number] Ab <9 Beta-2 GPI IgG Ab <9 Beta-2 GPI IgM Ab 10 Anti-Cardiolipin IgG Ab <14 Anti-Cardiolipin IgA Ab <11 Anti-Cardiolipin IgM Ab 13 H Assessment & Plan (1) Subarachnoid hemorrhage Assessment and Plan: Continue nimodipine at current dose for a total of 21 days. The patient continues to be a risk for delayed ischemia and requires close observation for the next week. I will continue following. Transcranial doppler is recommended , if available. Continue treating headache with magnesium sulfate 2 grams IV Q [address] head in the AM. With consider adding depakote if the headache is not improved tomorrow. Status: Acute Priority: High (2) Family history of hypercoagulable state Status: Chronic Priority: Medium (3) Anxiety Status: Chronic Priority: Medium (4) Anxiety attack Status: Chronic Priority: Medium (5) Paresthesia Status: Chronic Priority: Medium (6) Trigeminal neuralgia Status: Chronic
[2017-09-24 01:51] LABS: PHOSPHATIDYLSERINE AB IGA <20 U/mL (<20); PHOSPHATIDYLSERINE AB IGM <25 U/mL (<25)
[2017-09-24] MEDS: Levothyroxine 100 MCG TAB PO SCH (06:04)
[2017-09-24] MEDS: HYDROmorphone 0.5 mg/0.5 ml ISec IVP PRN ×2 (06:05→16:34)
[2017-09-24 06:08] LABS: BASO % 0.2 % (0.0-2.0); EOS # 0.1 K/uL (0.0-0.7); EOS % 1.2 % (0.0-4.0); HEMATOCRIT 36.7 % (34.0-47.0); LYMPH # 2.9 K/uL (1.0-4.3); LYMPH % 24.4 % (20.0-40.0); MEAN CELL VOLUME 89.5 fL (81.0-99.0); MEAN CORPUSCULAR HEMOGLOBIN 30.1 pg (27.0-31.0); MEAN CORPUSCULAR HGB CONC 33.6 g/dL (33.0-37.0); MEAN PLATELET VOLUME 10.3 fL (7.2-11.7); MONO # 0.8 K/uL (0.0-0.8); MONO % 6.3 % (0.0-10.0); NRBC % 0.1 % (0.0-2.0); RED CELL DISTRIBUTION WIDTH 13.3 % (11.5-14.5)
[2017-09-24] MEDS: Sodium Chloride 0.9% 1,000 ML IV SCH (06:11)
[2017-09-24 06:29] LABS: ALB/GLOB RATIO 1.1 (1.0-2.1); ALKALINE PHOSPHATASE 73 U/L (38-126); ALT/SGPT 46 U/L (9-52); AST/SGOT 42 U/L (14-36); BILIRUBIN,TOTAL 0.4 mg/dL (0.2-1.3); BLOOD UREA NITROGEN 12 mg/dL (7-17); CALCIUM 8.5 mg/dl (8.6-10.4); CARBON DIOXIDE 29 mmol/L (22-30); CHLORIDE 104 mmol/L (98-107); GFR AFRICAN-AMERICAN > 60; GLUCOSE,RANDOM 90 mg/dL (65-105); MAGNESIUM 1.8 mg/dL (1.6-2.3); PHOSPHOROUS 3.5 mg/dL (2.5-4.5); POTASSIUM 4.2 mmol/L (3.6-5.2); SODIUM 140 mmol/L (132-148); TOTAL PROTEIN 7.4 g/dL (6.3-8.3)
--- NOTE | 2017-09-24 09:33 | CP.PCM.PN ---
Subjective - Date & Time of Evaluation Date of Evaluation: 09/24/17 Time of Evaluation: 07:00 - Subjective Subjective: Vascular Surgery Dr. Phan Pt S&E @bedside. NAEO. pt reports intermittent headaches that respond to PO tylenol. Pt reports improved swelling of LLE. Pt states that crescencio wrap is too tight on LLE and too loose on RLE. Pt denies F/C, N/V. tolerating diet. Objective - Vital Signs/Intake and Output Vital Signs (last 24 hours): Temp Pulse Resp BP Pulse Ox 98 F 66 20 121/85 100 09/24/17 08:00 09/24/17 09:00 09/24/17 09:00 09/24/17 08:58 09/24/17 09:00 Intake and Output: 09/24/17 09/24/17 06:59 18:59 Intake Total 1540 570 Output Total 1050 Balance 490 570 - Medications Medications: Current Medications Acetaminophen (Tylenol 325mg Tab) 650 mg PO Q6 PRN PRN Reason: Headache Last Admin: 09/22/17 13:16 Dose: 650 mg Clonazepam (Klonopin) 1 mg PO DAILY [facility] Last Admin: 09/23/17 11:17 Dose: 1 mg Cyclobenzaprine HCl (Flexeril) 5 mg PO TID PRN PRN Reason: Muscle spasm Ergocalciferol (Drisdol 50,000 Intl Units Cap) 1 cap PO QWK [facility] Last Admin: 09/20/17 10:24 Dose: 1 cap Fluticasone Propionate (Flonase) 1 spr SNEHAL DAILY [facility] Last Admin: 09/23/17 11:16 Dose: 1 spr Gabapentin (Neurontin) 300 mg PO BID [facility] Last Admin: 09/23/17 18:03 Dose: 300 mg Hydralazine HCl (Apresoline) 10 mg IVP Q6H PRN PRN Reason: Systolic Blood Pressure Hydromorphone HCl (Dilaudid) 0.5 mg IVP Q4H PRN PRN Reason: Pain, moderate (4-7) Last Admin: 09/24/17 06:05 Dose: 0.5 mg Hydromorphone HCl (Dilaudid) 1 mg IVP Q4H PRN PRN Reason: Pain, severe (8-10) Last Admin: 09/23/17 08:22 Dose: 1 mg Sodium Chloride (Sodium Chloride 0.9%) 1,000 mls @ 70 mls/hr IV .[id number] [facility] Last Admin: 09/24/17 06:11 Dose: Not Given Levothyroxine Sodium (Synthroid) 100 mcg PO DAILY@0630 [facility] Last Admin: 09/24/17 06:04 Dose: 100 mcg Metoclopramide HCl (Reglan) 10 mg IVP Q6 PRN PRN Reason: Nausea/Vomiting Nimodipine (Nimotop) 30 mg PO Q4H [facility] Last Admin: 09/24/17 03:28 Dose: 30 mg Ondansetron HCl (Zofran Inj) 4 mg IVP Q6H PRN PRN Reason: Nausea/Vomiting Last Admin: 09/24/17 07:47 Dose: 4 mg Pantoprazole Sodium (Protonix Ec Tab) 40 mg PO DAILY [facility] Last Admin: 09/23/17 11:19 Dose: 40 mg Potassium Chloride (K-Dur 20 Meq Er Tab) 20 meq PO DAILY [facility] Last Admin: 09/23/17 11:16 Dose: 20 meq Rosuvastatin Calcium (Crestor) 10 mg PO HS [facility] Last Admin: 09/23/17 22:18 Dose: 10 mg - Labs Labs: 09/24/17 06:03 09/24/17 06:03 PT 13.0 SECONDS (9.7-12.2) H 09/20/17 06:49 INR 1.2 09/20/17 06:49 APTT 57 SECONDS (21-34) H D 09/22/17 07:50 - Constitutional Appears: Non-toxic, No Acute Distress - Head Exam Head Exam: NORMAL INSPECTION - Eye Exam Eye Exam: Normal appearance - ENT Exam ENT Exam: Mucous Membranes Moist - Respiratory Exam Respiratory Exam: NORMAL BREATHING PATTERN. absent: Accessory Muscle Use, Respiratory Distress - Cardiovascular Exam Cardiovascular Exam: absent: Bradycardia, Tachycardia - GI/Abdominal Exam GI & Abdominal Exam: Soft. absent: Distended, Tenderness - Extremities Exam Additional comments: reduced LLE non-pitting edema. crescencio wraps in place puncture sites c/d/i - Neurological Exam Neurological Exam: Alert, Awake, Oriented x3 - Psychiatric Exam Psychiatric exam: Normal Affect, Normal Mood - Skin Skin Exam: Dry, Intact, Normal Color, Warm Assessment and Plan - Assessment and Plan (Free Text) Assessment: 36 y/o F w/ left iliac DVT, POD#3 s/p IVC filter placement, Angio and thromboplasty now w/ subarachnoid bleeding - crescencio bandages re-wrapped --> re-wrap PRN - F/u neurology recs - cont to hold heparin - f/u hypercoagulability workup - pt cleared for transfer out of ICU from surgical standpoint - encourage OOB to chair/Amb/IS use Further recs as per Dr. Emilie Marcum DO PGY2
[2017-09-24] MEDS: Fluticasone Nasal 50 mcg/Spray NAS SCH (10:19)
[2017-09-24] MEDS: Pantoprazole 40 mg EC Tab PO SCH (10:20)
[2017-09-24] MEDS: Potassium Chloride 20 mEq ER Tab PO SCH (10:20)
--- NOTE | 2017-09-24 12:33 | CP.PCM.PN ---
Subjective - Date & Time of Evaluation Date of Evaluation: 09/24/17 Time of Evaluation: 12:32 - Subjective Subjective: Ms. Martinez was seen and examined at the bedside in ICU. She is alert, oriented in all spheres. She complains of headache in the parietal area radiating to the bilateral eyes. She also states of pain scale 8/10, pressure-like. She further states of mild dizziness due to her headache, but denies any blurry vision, weakness, lightheadedness, nausea, or vomiting. There was no untoward events overnight. Objective - Vital Signs/Intake and Output Vital Signs (last 24 hours): Temp Pulse Resp BP Pulse Ox 98 F 72 16 145/89 100 09/24/17 08:00 09/24/17 11:00 09/24/17 11:00 09/24/17 10:15 09/24/17 11:00 Intake and Output: 09/24/17 09/24/17 06:59 18:59 Intake Total 1540 830 Output Total 1050 0 Balance 490 830 - Medications Medications: Current Medications Acetaminophen (Tylenol 325mg Tab) 650 mg PO Q6 PRN PRN Reason: Headache Last Admin: 09/24/17 10:20 Dose: 650 mg Clonazepam (Klonopin) 1 mg PO DAILY [facility] Last Admin: 09/24/17 10:20 Dose: 1 mg Ergocalciferol (Drisdol 50,000 Intl Units Cap) 1 cap PO QWK [facility] Last Admin: 09/20/17 10:24 Dose: 1 cap Fluticasone Propionate (Flonase) 1 spr SNEHAL DAILY [facility] Last Admin: 09/24/17 10:19 Dose: 1 spr Gabapentin (Neurontin) 300 mg PO BID [facility] Last Admin: 09/24/17 10:20 Dose: 300 mg Hydralazine HCl (Apresoline) 10 mg IVP Q6H PRN PRN Reason: Systolic Blood Pressure Hydromorphone HCl (Dilaudid) 0.5 mg IVP Q4H PRN PRN Reason: Pain, moderate (4-7) Last Admin: 09/24/17 06:05 Dose: 0.5 mg Hydromorphone HCl (Dilaudid) 1 mg IVP Q4H PRN PRN Reason: Pain, severe (8-10) Last Admin: 09/23/17 08:22 Dose: 1 mg Magnesium Sulfate/Dextrose (Magnesium Sulfate 1 Gm/100 Ml D5w) 1 gm in 100 mls @ 300 mls/hr IVPB Q30M [facility] Stop: 09/24/17 13:19 Levothyroxine Sodium (Synthroid) 100 mcg PO DAILY@0630 [facility] Last Admin: 09/24/17 06:04 Dose: 100 mcg Metoclopramide HCl (Reglan) 10 mg IVP Q6 PRN PRN Reason: Nausea/Vomiting Nimodipine (Nimotop) 30 mg PO Q4H [facility] Last Admin: 09/24/17 10:21 Dose: 30 mg Ondansetron HCl (Zofran Inj) 4 mg IVP Q6H PRN PRN Reason: Nausea/Vomiting Last Admin: 09/24/17 07:47 Dose: 4 mg Pantoprazole Sodium (Protonix Ec Tab) 40 mg PO DAILY [facility] Last Admin: 09/24/17 10:20 Dose: 40 mg Potassium Chloride (K-Dur 20 Meq Er Tab) 20 meq PO DAILY [facility] Last Admin: 09/24/17 10:20 Dose: 20 meq - Labs Labs: 09/24/17 06:03 09/24/17 06:03 PT 13.0 SECONDS (9.7-12.2) H 09/20/17 06:49 INR 1.2 09/20/17 06:49 APTT 57 SECONDS (21-34) H D 09/22/17 07:50 - Constitutional Appears: No Acute Distress - Head Exam Head Exam: ATRAUMATIC - Neurological Exam Neurological Exam: Alert, Awake, CN II-XII Intact, Oriented x3 Neuro motor strength exam: Left Upper Extremity: 5, Right Upper Extremity: 5, Left Lower Extremity: 5, Right Lower Extremity: 5 Additional comments: She is able to follow simple commands and answer questions appropriately. Sensation remains intact. Assessment and Plan (1) Subarachnoid hemorrhage Assessment & Plan: Case discussed with Dr. Crockett, Recommends to repeat CT of the head without contrast. Magnesium Sulfate 2 gms IVPB for 1 dose and Depakote 500 mg IVPB for 1 dose. Status: Acute
[2017-09-24] MEDS ORDERED: Valproate 500 MG in Sodium Chloride 0.9% 100 ML IVPB ONE (13:00)
[2017-09-24] MEDS: Magnesium Sulfate 1 gm in D5W 1 GM/100 ML BAG IVPB SCH ×2 (13:13→13:14)
--- NOTE | 2017-09-24 14:48 | CP.CCUPN ---
<Mihai Lobo - Last Filed: 09/24/17 15:37> CCU Subjective - Physician Review Subjective (Free Text): PGY1 ICU progress note for Dr. Main Patient seen and examined at bedside this morning. Patient is awake and in a good mood. She is smiling and laughing but states that she has been experiencing headaches off and on throughout the night. The pain medicine helps her greatly. She denies any visual changes, nausea or vomiting. Patient denies any other complaints at this time. CCU Objective - Vital Signs / Intake & Output Vital Signs (Last 4 hours): Vital Signs Temp Pulse Resp BP Pulse Ox 09/24/17 14:00 71 23 98 09/24/17 13:08 68 23 108/69 98 09/24/17 13:00 66 14 98 09/24/17 12:08 76 11 L 116/83 97 09/24/17 12:04 68 12 116/79 100 09/24/17 12:00 98.1 F 70 16 100 09/24/17 11:00 72 16 100 Intake and Output (Last 8hrs): Intake & Output 09/23/17 09/24/17 09/24/17 22:59 06:59 14:59 Intake Total 9739 212 6897 Output Total 900 450 0 Balance 190 361 5186 Intake: Intake, IV Amount 560 560 550 Right Forearm 560 560 550 Oral 615 325 800 Output: Urine 900 450 Urine, Voided 900 450 Emesis 0 Other: # Voids Urine, Voided 1 1 0 # Bowel Movements 0 - Physical Exam Head: Positive for: Atraumatic, Normocephalic Pupils: Positive for: PERRL Extroacular Muscles: Positive for: EOMI Conjunctiva: Positive for: Normal Mouth: Positive for: Moist Mucous Membranes Neck: Positive for: Normal Range of Motion Respiratory/Chest: Positive for: Clear to Auscultation, Good Air Exchange Cardiovascular: Positive for: Regular Rate and Rhythm Abdomen: Positive for: Normal Bowel Sounds. Negative for: Tenderness, Distention Neurological: Positive for: GCS=15, CN II-XII Intact, Speech Normal Psychiatric: Positive for: Alert, Oriented x 3, Normal Insight, Normal Concentration - Medications Active Medications: Active Medications Generic Name Dose Route Start Last Admin Trade Name Freq PRN Reason Stop Dose Admin Acetaminophen 650 mg 09/22/17 11:56 09/24/17 10:20 Tylenol 325mg Tab PO 650 mg Q6 PRN Administration Headache Clonazepam 1 mg 09/20/17 10:00 09/24/17 10:20 Klonopin PO 1 mg DAILY [facility] Administration Ergocalciferol 1 cap 09/20/17 10:00 09/20/17 10:24 Drisdol 50,000 Intl Units Cap PO 1 cap QWK [facility] Administration Fluticasone Propionate 1 spr 09/20/17 10:00 09/24/17 10:19 Flonase SNEHAL 1 spr DAILY [facility] Administration Gabapentin 300 mg 09/20/17 10:00 09/24/17 10:20 Neurontin PO 300 mg BID [facility] Administration Hydralazine HCl 10 mg 09/21/17 22:53 Apresoline IVP Q6H PRN Systolic Blood Pressure Hydromorphone HCl 0.5 mg 09/22/17 01:15 09/24/17 06:05 Dilaudid IVP 0.5 mg Q4H PRN Administration Pain, moderate (4-7) Hydromorphone HCl 1 mg 09/22/17 01:16 09/23/17 08:22 Dilaudid IVP 1 mg Q4H PRN Administration Pain, severe (8-10) Levothyroxine Sodium 100 mcg 09/22/17 06:30 09/24/17 06:04 Synthroid PO 100 mcg DAILY@0630 [facility] Administration Metoclopramide HCl 10 mg 09/22/17 01:02 Reglan IVP Q6 PRN Nausea/Vomiting Nimodipine 30 mg 09/22/17 15:00 09/24/17 14:22 Nimotop PO 30 mg Q4H [facility] Administration Ondansetron HCl 4 mg 09/21/17 17:20 09/24/17 07:47 Zofran Inj IVP 4 mg Q6H PRN Administration Nausea/Vomiting Pantoprazole Sodium 40 mg 09/20/17 10:00 09/24/17 10:20 Protonix Ec Tab PO 40 mg DAILY [facility] Administration Potassium Chloride 20 meq 09/19/17 13:00 09/24/17 10:20 K-Dur 20 Meq Er Tab PO 20 meq DAILY [facility] Administration - Patient Studies Lab Studies: Microbiology Studies 09/21/17 06:00 MRSA Culture (Admit) - Final Naris MRSA NOT DETECTED Lab Studies 09/24/17 09/24/17 09/20/17 Range/Units 06:03 06:03 13:51 WBC 12.0 H (4.8-10.8) K/uL RBC 4.10 (3.80-5.20) Mil/uL Hgb 12.3 (11.0-16.0) g/dL Hct 36.7 (34.0-47.0) % MCV 89.5 (81.0-99.0) fL MCH 30.1 (27.0-31.0) pg MCHC 33.6 (33.0-37.0) g/dL RDW 13.3 (11.5-14.5) % Plt Count 161 (130-400) K/uL MPV 10.3 (7.2-11.7) fL Neut % (Auto) 67.9 (50.0-75.0) % Lymph % (Auto) 24.4 (20.0-40.0) % Putnam % (Auto) 6.3 (0.0-10.0) % Eos % (Auto) 1.2 (0.0-4.0) % Baso % (Auto) 0.2 (0.0-2.0) % Neut # 8.1 H (1.8-7.0) K/uL Lymph # 2.9 (1.0-4.3) K/uL Putnam # 0.8 (0.0-0.8) K/uL Eos # 0.1 (0.0-0.7) K/uL Baso # 0.0 (0.0-0.2) K/uL Sodium 140 (132-148) mmol/L Potassium 4.2 (3.6-5.2) mmol/L Chloride 104 (98-107) mmol/L Carbon Dioxide 29 (22-30) mmol/L Anion Gap 11 (10-20) BUN 12 (7-17) mg/dL Creatinine 0.6 L (0.7-1.2) mg/dL Est GFR ( Amer) > 60 Est GFR (Non-Af Amer) > 60 Random Glucose 90 (65-105) mg/dL Calcium 8.5 L (8.6-10.4) mg/dl Phosphorus 3.5 (2.5-4.5) mg/dL Magnesium 1.8 (1.6-2.3) mg/dL Total Bilirubin 0.4 (0.2-1.3) mg/dL AST 42 H (14-36) U/L ALT 46 (9-52) U/L Alkaline Phosphatase 73 (38-126) U/L Total Protein 7.4 (6.3-8.3) g/dL Albumin 3.8 (3.5-5.0) g/dL Globulin 3.5 (2.2-3.9) gm/dL Albumin/Globulin Ratio 1.1 (1.0-2.1) Phosphatidylserine IgG (<10) U/mL Phosphatidylserine IgA (<20) U/mL Phosphatidylserine IgM (<25) U/mL Anti-Phospholipid Intrp Prothrombin Mut Interp see note Prothrombin Gene Mutate see note Prothromb Gene Review see note 09/20/17 Range/Units 13:51 WBC (4.8-10.8) K/uL RBC (3.80-5.20) Mil/uL Hgb (11.0-16.0) g/dL Hct (34.0-47.0) % MCV (81.0-99.0) fL MCH (27.0-31.0) pg MCHC (33.0-37.0) g/dL RDW (11.5-14.5) % Plt Count (130-400) K/uL MPV (7.2-11.7) fL Neut % (Auto) (50.0-75.0) % Lymph % (Auto) (20.0-40.0) % Putnam % (Auto) (0.0-10.0) % Eos % (Auto) (0.0-4.0) % Baso % (Auto) (0.0-2.0) % Neut # (1.8-7.0) K/uL Lymph # (1.0-4.3) K/uL Putnam # (0.0-0.8) K/uL Eos # (0.0-0.7) K/uL Baso # (0.0-0.2) K/uL Sodium (132-148) mmol/L Potassium (3.6-5.2) mmol/L Chloride (98-107) mmol/L Carbon Dioxide (22-30) mmol/L Anion Gap (10-20) BUN (7-17) mg/dL Creatinine (0.7-1.2) mg/dL Est GFR ( Amer) Est GFR (Non-Af Amer) Random Glucose (65-105) mg/dL Calcium (8.6-10.4) mg/dl Phosphorus (2.5-4.5) mg/dL Magnesium (1.6-2.3) mg/dL Total Bilirubin (0.2-1.3) mg/dL AST (14-36) U/L ALT (9-52) U/L Alkaline Phosphatase (38-126) U/L Total Protein (6.3-8.3) g/dL Albumin (3.5-5.0) g/dL Globulin (2.2-3.9) gm/dL Albumin/Globulin Ratio (1.0-2.1) Phosphatidylserine IgG <10 (<10) U/mL Phosphatidylserine IgA <20 (<20) U/mL Phosphatidylserine IgM <25 (<25) U/mL Anti-Phospholipid Intrp see note Prothrombin Mut Interp Prothrombin Gene Mutate Prothromb Gene Review Laboratory Results - last 24 hr 09/20/17 09/20/17 09/24/17 13:51 13:51 06:03 WBC 12.0 H RBC 4.10 Hgb 12.3 Hct 36.7 MCV 89.5 MCH 30.1 MCHC 33.6 RDW 13.3 Plt Count 161 MPV 10.3 Neut % (Auto) 67.9 Lymph % (Auto) 24.4 Putnam % (Auto) 6.3 Eos % (Auto) 1.2 Baso % (Auto) 0.2 Neut # 8.1 H Lymph # 2.9 Putnam # 0.8 Eos # 0.1 Baso # 0.0 Sodium Potassium Chloride Carbon Dioxide Anion Gap BUN Creatinine Est GFR ( Amer) Est GFR (Non-Af Amer) Random Glucose Calcium Phosphorus Magnesium Total Bilirubin AST ALT Alkaline Phosphatase Total Protein Albumin Globulin Albumin/Globulin Ratio Phosphatidylserine IgG <10 Phosphatidylserine IgA <20 Phosphatidylserine IgM <25 Anti-Phospholipid Intrp see note Prothrombin Mut Interp see note Prothrombin Gene Mutate see note Prothromb Gene Review see note 09/24/17 06:03 WBC RBC Hgb Hct MCV MCH MCHC RDW Plt Count MPV Neut % (Auto) Lymph % (Auto) Putnam % (Auto) Eos % (Auto) Baso % (Auto) Neut # Lymph # Putnam # Eos # Baso # Sodium 140 Potassium 4.2 Chloride 104 Carbon Dioxide 29 Anion Gap 11 BUN 12 Creatinine 0.6 L Est GFR ( Amer) > 60 Est GFR (Non-Af Amer) > 60 Random Glucose 90 Calcium 8.5 L Phosphorus 3.5 Magnesium 1.8 Total Bilirubin 0.4 AST 42 H ALT 46 Alkaline Phosphatase 73 Total Protein 7.4 Albumin 3.8 Globulin 3.5 Albumin/Globulin Ratio 1.1 Phosphatidylserine IgG Phosphatidylserine IgA Phosphatidylserine IgM Anti-Phospholipid Intrp Prothrombin Mut Interp Prothrombin Gene Mutate Prothromb Gene Review Review of Systems - Review of Systems All systems: reviewed and no additional remarkable complaints except (as per HPI ) Critical Care Progress Note - Nutrition Nutrition: Nutrition Category Date Time Status Regular Diet [DIET] Diets 09/22/17 Lunch Active Assessment/Plan - Assessment and Plan (Free Text) Assessment: 36 year old female patient with a 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 Patient underwent revascularization with intravenous tPA, angiojet and stenting, IVC filter placement. post-operative heparin started. post-op course complicated by SAH. Plan: Neuro: Head/Neck CTA - No hemodynamically significant stenosis within bilateral internal carotid arteries. Unremarkable CTA examination of the brain. Head CT 09/22 - Stable subarachnoid hemorrhage is seen in the parasagittal bifrontal and biparietal distributions as well as at the left frontal lobe laterally. No interval increase in volume subarachnoid hemorrhage is identified at this time. Remainder of the brain appears normal. Head CT 09/24 - No evidence of residual extra-axial blood. Minimal chronic ethmoid sinusitis. continue clonazepam 1mg PO daily continue nimodipine 30mg PO q4h - vasospasm prophylaxis - will need monitoring for vasospasm for at least 7 days, and possibly out to 21 days. Neuro - Dr. Crockett tylenol for mild pain dilaudid for mod/severe pain Neurontin 300mg PO BID Pulmonary: no acute issues, breathing spontaneously on room air CV: hemodynamically stable Prophylactic care: SCDs; anti-coag currently on hold due to brain bleed Protonix 40mg PO daily Case discussed with Dr. Jose David Lobo PGY1 <Solomon Gunn - Last Filed: 09/25/17 18:29> CCU Objective - Vital Signs / Intake & Output Vital Signs (Last 4 hours): Vital Signs Pulse Resp Pulse Ox 09/25/17 16:00 81 21 97 09/25/17 15:00 79 21 95 Intake and Output (Last 8hrs): Intake & Output 09/25/17 09/25/17 09/25/17 06:59 14:59 22:59 Intake Total 250 1760 Output Total 400 Balance -150 1760 Intake: Oral 250 1760 Output: Urine 400 Urine, Voided 400 Other: # Voids Urine, Voided 1 - Medications Active Medications: Active Medications Generic Name Dose Route Start Last Admin Trade Name Freq PRN Reason Stop Dose Admin Acetaminophen 650 mg 09/22/17 11:56 09/24/17 10:20 Tylenol 325mg Tab PO 650 mg Q6 PRN Administration Headache Clonazepam 1 mg 09/20/17 10:00 09/25/17 09:58 Klonopin PO 1 mg DAILY [facility]A Administration Ergocalciferol 1 cap 09/20/17 10:00 09/20/17 10:24 Drisdol 50,000 Intl Units Cap PO 1 cap QWK [facility]A Administration Fluticasone Propionate 1 spr 09/20/17 10:00 09/25/17 09:58 Flonase SNEHAL 1 spr DAILY [facility]A Administration Gabapentin 300 mg 09/20/17 10:00 09/25/17 09:58 Neurontin PO 300 mg BID [facility] Administration Hydralazine HCl 10 mg 09/21/17 22:53 Apresoline IVP Q6H PRN Systolic Blood Pressure Hydromorphone HCl 0.5 mg 09/22/17 01:15 09/24/17 16:34 Dilaudid IVP 0.5 mg Q4H PRN Administration Pain, moderate (4-7) Hydromorphone HCl 1 mg 09/22/17 01:16 09/25/17 17:40 Dilaudid IVP 1 mg Q4H PRN Administration Pain, severe (8-10) Levothyroxine Sodium 100 mcg 09/22/17 06:30 09/25/17 06:53 Synthroid PO 100 mcg DAILY@0630 [facility] Administration Metoclopramide HCl 10 mg 09/22/17 01:02 Reglan IVP Q6 PRN Nausea/Vomiting Nimodipine 30 mg 09/22/17 15:00 09/25/17 14:55 Nimotop PO 30 mg Q4H [facility] Administration Ondansetron HCl 4 mg 09/21/17 17:20 09/25/17 11:31 Zofran Inj IVP 4 mg Q6H PRN Administration Nausea/Vomiting Pantoprazole Sodium 40 mg 09/20/17 10:00 09/25/17 09:58 Protonix Ec Tab PO 40 mg DAILY [facility]ANDRA Administration Potassium Chloride 20 meq 09/19/17 13:00 09/25/17 09:58 K-Dur 20 Meq Er Tab PO 20 meq DAILY [facility]ANDRA Administration - Patient Studies Lab Studies: Lab Studies 09/25/17 09/25/17 Range/Units 06:37 06:37 WBC 11.2 H (4.8-10.8) K/uL RBC 4.35 (3.80-5.20) Mil/uL Hgb 12.7 (11.0-16.0) g/dL Hct 39.3 (34.0-47.0) % MCV 90.3 (81.0-99.0) fL MCH 29.3 (27.0-31.0) pg MCHC 32.4 L (33.0-37.0) g/dL RDW 13.0 (11.5-14.5) % Plt Count 172 (130-400) K/uL MPV 10.6 (7.2-11.7) fL Neut % (Auto) 69.0 (50.0-75.0) % Lymph % (Auto) 21.0 (20.0-40.0) % Putnam % (Auto) 6.5 (0.0-10.0) % Eos % (Auto) 3.2 (0.0-4.0) % Baso % (Auto) 0.3 (0.0-2.0) % Neut # 7.7 H (1.8-7.0) K/uL Lymph # 2.3 (1.0-4.3) K/uL Putnam # 0.7 (0.0-0.8) K/uL Eos # 0.4 (0.0-0.7) K/uL Baso # 0.0 (0.0-0.2) K/uL Sodium 138 (132-148) mmol/L Potassium 3.6 (3.6-5.2) mmol/L Chloride 101 (98-107) mmol/L Carbon Dioxide 27 (22-30) mmol/L Anion Gap 14 (10-20) BUN 10 (7-17) mg/dL Creatinine 0.6 L (0.7-1.2) mg/dL Est GFR ( Amer) > 60 Est GFR (Non-Af Amer) > 60 Random Glucose 72 (65-105) mg/dL Calcium 8.2 L (8.6-10.4) mg/dl Phosphorus 4.1 (2.5-4.5) mg/dL Magnesium 1.7 (1.6-2.3) mg/dL Total Bilirubin 0.5 (0.2-1.3) mg/dL AST 22 (14-36) U/L ALT 47 (9-52) U/L Alkaline Phosphatase 69 (38-126) U/L Total Protein 6.5 (6.3-8.3) g/dL Albumin 3.8 (3.5-5.0) g/dL Globulin 2.7 (2.2-3.9) gm/dL Albumin/Globulin Ratio 1.4 (1.0-2.1) Laboratory Results - last 24 hr 09/25/17 09/25/17 06:37 06:37 WBC 11.2 H RBC 4.35 Hgb 12.7 Hct 39.3 MCV 90.3 MCH 29.3 MCHC 32.4 L RDW 13.0 Plt Count 172 MPV 10.6 Neut % (Auto) 69.0 Lymph % (Auto) 21.0 Putnam % (Auto) 6.5 Eos % (Auto) 3.2 Baso % (Auto) 0.3 Neut # 7.7 H Lymph # 2.3 Putnam # 0.7 Eos # 0.4 Baso # 0.0 Sodium 138 Potassium 3.6 Chloride 101 Carbon Dioxide 27 Anion Gap 14 BUN 10 Creatinine 0.6 L Est GFR ( Amer) > 60 Est GFR (Non-Af Amer) > 60 Random Glucose 72 Calcium 8.2 L Phosphorus 4.1 Magnesium 1.7 Total Bilirubin 0.5 AST 22 ALT 47 Alkaline Phosphatase 69 Total Protein 6.5 Albumin 3.8 Globulin 2.7 Albumin/Globulin Ratio 1.4 Critical Care Progress Note - Nutrition Nutrition: Nutrition Category Date Time Status Regular Diet [DIET] Diets 12/02/17 Lunch Active Attending/Attestation - Attestation I have personally seen and examined this patient.: Yes I have fully participated in the care of the patient.: Yes I have reviewed all pertinent clinical information: Yes Notes (Text): 09/25/17 18:29 patient seen and examinedin the intensive care unit. Case discussed with house staff in the morning around Patient is stable for transfer to floor Continue present treatment Case discussed with neurology
--- NOTE | 2017-09-24 14:53 | CP.PCM.PN ---
Subjective - Date & Time of Evaluation Date of Evaluation: 09/24/17 Time of Evaluation: 02:00 - Subjective Subjective: Patient has mild headache.alert and oriented x3. she denies chest pain,no leg pain,no sob Just came from CT brain Objective - Vital Signs/Intake and Output Vital Signs (last 24 hours): Temp Pulse Resp BP Pulse Ox 98.1 F 71 23 108/69 98 09/24/17 12:00 09/24/17 14:00 09/24/17 14:00 09/24/17 13:08 09/24/17 14:00 Intake and Output: 09/24/17 09/24/17 06:59 18:59 Intake Total 1540 1350 Output Total 1050 0 Balance 490 1350 - Medications Medications: Current Medications Acetaminophen (Tylenol 325mg Tab) 650 mg PO Q6 PRN PRN Reason: Headache Last Admin: 09/24/17 10:20 Dose: 650 mg Clonazepam (Klonopin) 1 mg PO DAILY [facility] Last Admin: 09/24/17 10:20 Dose: 1 mg Ergocalciferol (Drisdol 50,000 Intl Units Cap) 1 cap PO QWK [facility] Last Admin: 09/20/17 10:24 Dose: 1 cap Fluticasone Propionate (Flonase) 1 spr SNEHAL DAILY [facility] Last Admin: 09/24/17 10:19 Dose: 1 spr Gabapentin (Neurontin) 300 mg PO BID [facility] Last Admin: 09/24/17 10:20 Dose: 300 mg Hydralazine HCl (Apresoline) 10 mg IVP Q6H PRN PRN Reason: Systolic Blood Pressure Hydromorphone HCl (Dilaudid) 0.5 mg IVP Q4H PRN PRN Reason: Pain, moderate (4-7) Last Admin: 09/24/17 06:05 Dose: 0.5 mg Hydromorphone HCl (Dilaudid) 1 mg IVP Q4H PRN PRN Reason: Pain, severe (8-10) Last Admin: 09/23/17 08:22 Dose: 1 mg Levothyroxine Sodium (Synthroid) 100 mcg PO DAILY@0630 [facility] Last Admin: 09/24/17 06:04 Dose: 100 mcg Metoclopramide HCl (Reglan) 10 mg IVP Q6 PRN PRN Reason: Nausea/Vomiting Nimodipine (Nimotop) 30 mg PO Q4H [facility] Last Admin: 09/24/17 14:22 Dose: 30 mg Ondansetron HCl (Zofran Inj) 4 mg IVP Q6H PRN PRN Reason: Nausea/Vomiting Last Admin: 09/24/17 07:47 Dose: 4 mg Pantoprazole Sodium (Protonix Ec Tab) 40 mg PO DAILY [facility] Last Admin: 09/24/17 10:20 Dose: 40 mg Potassium Chloride (K-Dur 20 Meq Er Tab) 20 meq PO DAILY [facility] Last Admin: 09/24/17 10:20 Dose: 20 meq - Labs Labs: 09/24/17 06:03 09/24/17 06:03 PT 13.0 SECONDS (9.7-12.2) H 09/20/17 06:49 INR 1.2 09/20/17 06:49 APTT 57 SECONDS (21-34) H D 09/22/17 07:50 - Constitutional Appears: Non-toxic - Head Exam Head Exam: ATRAUMATIC, NORMAL INSPECTION - Eye Exam Eye Exam: Normal appearance - ENT Exam ENT Exam: Mucous Membranes Moist - Neck Exam Neck Exam: Full ROM - Respiratory Exam Respiratory Exam: Clear to Ausculation Bilateral, NORMAL BREATHING PATTERN - Cardiovascular Exam Cardiovascular Exam: REGULAR RHYTHM - GI/Abdominal Exam GI & Abdominal Exam: Soft, Normal Bowel Sounds - Extremities Exam Extremities Exam: absent: Tenderness (wrapped with RADHA bandage) - Back Exam Back Exam: NORMAL INSPECTION - Neurological Exam Neurological Exam: Awake, Oriented x3 - Psychiatric Exam Psychiatric exam: Normal Mood - Skin Skin Exam: Dry Assessment and Plan - Assessment and Plan (Free Text) Plan: 1. 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 On admission DVT common femoral vein extending to saphenofemoral junction and dvt in the left femoral vein s/p IVC filter,mechanical thrombolysis with TPA and Angiojet,balloon angioplasty of the iliac common and external vein not on anticoagualtion due to SAH d/w DR Neff continue Rosuvastatin continue Nimodipine for vasospasm follow up Dr Neff and professor of business DR Guerra 2.Subarachnoid hemorrhage s/p TPA Off anticoagulation Mild headache follow CT brain follow up neurologist DR Liam Negron one dose given as per neurologist 3.Hypothyroidism continue Levothyroxin 4.R/O Hypercoagulopathy follow up professor of business 5.GI prophylaxis on protonix DVT-Off anticoagulation and no SCD legs wrapped with RADHA bandages
--- NOTE | 2017-09-24 15:15 | CT ---
PROCEDURE: CT HEAD WITHOUT CONTRAST. HISTORY: ICH COMPARISON: 09/22/2017 TECHNIQUE: Axial computed tomography images were obtained through the head/brain without intravenous contrast. Radiation dose: Total exam DLP = 849.25 mGy-cm. This CT exam was performed using one or more of the following dose reduction techniques: Automated exposure control, adjustment of the mA and/or kV according to patient size, and/or use of iterative reconstruction technique. FINDINGS: HEMORRHAGE: No intracranial hemorrhage. There is no evidence of residual subarachnoid blood. BRAIN: No mass effect or edema. No atrophy or chronic microvascular ischemic changes. VENTRICLES: Unremarkable. No hydrocephalus. CALVARIUM: Unremarkable. PARANASAL SINUSES: Minimal ethmoid mucoperiosteal thickening consistent with chronic sinusitis. MASTOID AIR CELLS: Unremarkable as visualized. No inflammatory changes. OTHER FINDINGS: None. IMPRESSION: No evidence of residual extra-axial blood. Minimal chronic ethmoid sinusitis.
[2017-09-24] MEDS: HYDROmorphone 1 mg/ml ISec IVP PRN (22:08)
[2017-09-25] MEDS: HYDROmorphone 1 mg/ml ISec IVP PRN ×4 (05:09→23:44)
[2017-09-25] MEDS: Levothyroxine 100 MCG TAB PO SCH (06:53)
[2017-09-25 07:01] LABS: ALB/GLOB RATIO 1.4 (1.0-2.1); ALKALINE PHOSPHATASE 69 U/L (38-126); ALT/SGPT 47 U/L (9-52); AST/SGOT 22 U/L (14-36); BILIRUBIN,TOTAL 0.5 mg/dL (0.2-1.3); BLOOD UREA NITROGEN 10 mg/dL (7-17); CALCIUM 8.2 mg/dl (8.6-10.4); CARBON DIOXIDE 27 mmol/L (22-30); CHLORIDE 101 mmol/L (98-107); GFR AFRICAN-AMERICAN > 60; GLUCOSE,RANDOM 72 mg/dL (65-105); MAGNESIUM 1.7 mg/dL (1.6-2.3); PHOSPHOROUS 4.1 mg/dL (2.5-4.5); POTASSIUM 3.6 mmol/L (3.6-5.2); SODIUM 138 mmol/L (132-148); TOTAL PROTEIN 6.5 g/dL (6.3-8.3)
[2017-09-25 07:32] LABS: BASO % 0.3 % (0.0-2.0); EOS # 0.4 K/uL (0.0-0.7); EOS % 3.2 % (0.0-4.0); HEMATOCRIT 39.3 % (34.0-47.0); LYMPH # 2.3 K/uL (1.0-4.3); MEAN CELL VOLUME 90.3 fL (81.0-99.0); MEAN CORPUSCULAR HEMOGLOBIN 29.3 pg (27.0-31.0); MEAN CORPUSCULAR HGB CONC 32.4 g/dL (33.0-37.0); MEAN PLATELET VOLUME 10.6 fL (7.2-11.7); MONO # 0.7 K/uL (0.0-0.8); MONO % 6.5 % (0.0-10.0); NRBC % 0.1 % (0.0-2.0); WHITE BLOOD COUNT 11.2 K/uL (4.8-10.8)
--- NOTE | 2017-09-25 08:57 | CP.PCM.PN ---
Subjective - Date & Time of Evaluation Date of Evaluation: 09/25/17 Time of Evaluation: 08:51 - Subjective Subjective: Vascular Surgery Progress note. Dr Phan Pt seen and examined at bedside. No acute events overnight. Does report some dizziness when she walks. Denies any N/V/D. Tolerating diet. No new complaitns. Objective - Vital Signs/Intake and Output Vital Signs (last 24 hours): Temp Pulse Resp BP Pulse Ox 97.8 F 77 14 98/57 L 97 09/25/17 04:00 09/25/17 07:00 09/25/17 07:00 09/25/17 06:28 09/25/17 07:00 Intake and Output: 09/25/17 09/25/17 06:59 18:59 Intake Total 590 Output Total 700 Balance -110 - Medications Medications: Current Medications Acetaminophen (Tylenol 325mg Tab) 650 mg PO Q6 PRN PRN Reason: Headache Last Admin: 09/24/17 10:20 Dose: 650 mg Clonazepam (Klonopin) 1 mg PO DAILY [facility] Last Admin: 09/24/17 10:20 Dose: 1 mg Ergocalciferol (Drisdol 50,000 Intl Units Cap) 1 cap PO QWK [facility] Last Admin: 09/20/17 10:24 Dose: 1 cap Fluticasone Propionate (Flonase) 1 spr SNEHAL DAILY [facility] Last Admin: 09/24/17 10:19 Dose: 1 spr Gabapentin (Neurontin) 300 mg PO BID [facility] Last Admin: 09/24/17 18:14 Dose: 300 mg Hydralazine HCl (Apresoline) 10 mg IVP Q6H PRN PRN Reason: Systolic Blood Pressure Hydromorphone HCl (Dilaudid) 0.5 mg IVP Q4H PRN PRN Reason: Pain, moderate (4-7) Last Admin: 09/24/17 16:34 Dose: 0.5 mg Hydromorphone HCl (Dilaudid) 1 mg IVP Q4H PRN PRN Reason: Pain, severe (8-10) Last Admin: 09/25/17 05:09 Dose: 1 mg Levothyroxine Sodium (Synthroid) 100 mcg PO DAILY@0630 [facility] Last Admin: 09/25/17 06:53 Dose: 100 mcg Metoclopramide HCl (Reglan) 10 mg IVP Q6 PRN PRN Reason: Nausea/Vomiting Nimodipine (Nimotop) 30 mg PO Q4H [facility] Last Admin: 09/25/17 06:53 Dose: 30 mg Ondansetron HCl (Zofran Inj) 4 mg IVP Q6H PRN PRN Reason: Nausea/Vomiting Last Admin: 09/24/17 07:47 Dose: 4 mg Pantoprazole Sodium (Protonix Ec Tab) 40 mg PO DAILY [facility] Last Admin: 09/24/17 10:20 Dose: 40 mg Potassium Chloride (K-Dur 20 Meq Er Tab) 20 meq PO DAILY [facility] Last Admin: 09/24/17 10:20 Dose: 20 meq - Labs Labs: 09/25/17 06:37 09/25/17 06:37 PT 13.0 SECONDS (9.7-12.2) H 09/20/17 06:49 INR 1.2 09/20/17 06:49 APTT 57 SECONDS (21-34) H D 09/22/17 07:50 - Constitutional Appears: Well, No Acute Distress - Head Exam Head Exam: ATRAUMATIC, NORMAL INSPECTION, NORMOCEPHALIC - Eye Exam Eye Exam: EOMI, Normal appearance - ENT Exam ENT Exam: Mucous Membranes Moist - Respiratory Exam Respiratory Exam: NORMAL BREATHING PATTERN. absent: Accessory Muscle Use, Decreased Breath Sounds, Respiratory Distress - GI/Abdominal Exam GI & Abdominal Exam: Soft. absent: Distended, Guarding, Rigid, Tenderness - Extremities Exam Additional comments: crescencio bandage to bilateral lower extremities. Swelling improved. No pain bilateral popliteal access point. Assessment and Plan - Assessment and Plan (Free Text) Assessment: 36 y/o F w/ left iliac DVT, POD#4 s/p IVC filter placement, Angio and thromboplasty complicated with subarachnoid bleeding - continue crescencio bandage - F/u neurology recs - hold heparin until cleared by neurology - f/u hypercoagulability workup as ordered by Heme/Onc - encourage OOB to chair/Amb/IS use - No further surgical intervention at this time Further recs as per Dr. Emilie Anderson PGY1 surgery pager: [phone]
[2017-09-25] MEDS: Fluticasone Nasal 50 mcg/Spray NAS SCH (09:58)
[2017-09-25] MEDS: Pantoprazole 40 mg EC Tab PO SCH (09:58)
[2017-09-25] MEDS: Potassium Chloride 20 mEq ER Tab PO SCH (09:58)
--- NOTE | 2017-09-25 18:54 | CP.PCM.PN ---
Subjective - Date & Time of Evaluation Date of Evaluation: 09/25/17 Time of Evaluation: 09:30 - Subjective Subjective: seen and examined this morning Mild headache,no nausea,no vomting Discussed about her CT head report Her lower back and left leg pain and discomfort remains the same Objective - Vital Signs/Intake and Output Vital Signs (last 24 hours): Temp Pulse Resp BP Pulse Ox 98.5 F 81 21 119/71 97 09/25/17 12:00 09/25/17 16:00 09/25/17 16:00 09/25/17 14:28 09/25/17 16:00 Intake and Output: 09/25/17 09/25/17 06:59 18:59 Intake Total 590 1760 Output Total 700 Balance -110 1760 - Medications Medications: Current Medications Acetaminophen (Tylenol 325mg Tab) 650 mg PO Q6 PRN PRN Reason: Headache Last Admin: 09/24/17 10:20 Dose: 650 mg Clonazepam (Klonopin) 1 mg PO DAILY [facility] Last Admin: 09/25/17 09:58 Dose: 1 mg Ergocalciferol (Drisdol 50,000 Intl Units Cap) 1 cap PO QWK [facility] Last Admin: 09/20/17 10:24 Dose: 1 cap Fluticasone Propionate (Flonase) 1 spr SNEHAL DAILY [facility] Last Admin: 09/25/17 09:58 Dose: 1 spr Gabapentin (Neurontin) 300 mg PO BID [facility] Last Admin: 09/25/17 18:37 Dose: 300 mg Hydralazine HCl (Apresoline) 10 mg IVP Q6H PRN PRN Reason: Systolic Blood Pressure Hydromorphone HCl (Dilaudid) 0.5 mg IVP Q4H PRN PRN Reason: Pain, moderate (4-7) Last Admin: 09/24/17 16:34 Dose: 0.5 mg Hydromorphone HCl (Dilaudid) 1 mg IVP Q4H PRN PRN Reason: Pain, severe (8-10) Last Admin: 09/25/17 17:40 Dose: 1 mg Levothyroxine Sodium (Synthroid) 100 mcg PO DAILY@0630 [facility] Last Admin: 09/25/17 06:53 Dose: 100 mcg Metoclopramide HCl (Reglan) 10 mg IVP Q6 PRN PRN Reason: Nausea/Vomiting Nimodipine (Nimotop) 30 mg PO Q4H [facility] Last Admin: 09/25/17 18:35 Dose: 30 mg Ondansetron HCl (Zofran Inj) 4 mg IVP Q6H PRN PRN Reason: Nausea/Vomiting Last Admin: 09/25/17 18:30 Dose: 4 mg Pantoprazole Sodium (Protonix Ec Tab) 40 mg PO DAILY [facility] Last Admin: 09/25/17 09:58 Dose: 40 mg Potassium Chloride (K-Dur 20 Meq Er Tab) 20 meq PO DAILY [facility] Last Admin: 09/25/17 09:58 Dose: 20 meq - Labs Labs: 09/25/17 06:37 09/25/17 06:37 PT 13.0 SECONDS (9.7-12.2) H 09/20/17 06:49 INR 1.2 09/20/17 06:49 APTT 57 SECONDS (21-34) H D 09/22/17 07:50 - Constitutional Appears: Non-toxic - Head Exam Head Exam: NORMAL INSPECTION - Eye Exam Eye Exam: Normal appearance - ENT Exam ENT Exam: Mucous Membranes Moist - Respiratory Exam Respiratory Exam: NORMAL BREATHING PATTERN - Cardiovascular Exam Cardiovascular Exam: REGULAR RHYTHM - GI/Abdominal Exam GI & Abdominal Exam: Soft, Normal Bowel Sounds - Extremities Exam Extremities Exam: absent: Full ROM (radha bandage), Joint Swelling - Back Exam Back Exam: NORMAL INSPECTION - Neurological Exam Neurological Exam: Awake, Oriented x3 - Psychiatric Exam Psychiatric exam: Normal Mood - Skin Skin Exam: Dry, Normal Color Assessment and Plan - Assessment and Plan (Free Text) Plan: 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 On admission DVT common femoral vein extending to saphenofemoral junction and dvt in the left femoral vein s/p IVC filter,mechanical thrombolysis with TPA and Angiojet,balloon angioplasty of the iliac common and external vein not on anticoagualtion due to SAH d/w DR Neff today.OK for PT out bed to ambulate,ok to transfer to tele continue Rosuvastatin continue Nimodipine for vasospasm d/w DR Guerra.No anticoagulation for DVT due to SAH 2.Subarachnoid hemorrhage s/p TPA Off anticoagulation Mild headache CT brain done -no bleeding spoke to DR Wheeler this morning.transfer to tele No anticoagulation for DVT continue Nimodipine 3.Hypothyroidism continue Levothyroxin 4.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
[2017-09-26] MEDS: HYDROmorphone 1 mg/ml ISec IVP PRN ×3 (05:58→19:59)
[2017-09-26] MEDS: Levothyroxine 100 MCG TAB PO SCH (06:00)
[2017-09-26 06:27] LABS: BASO % 0.3 % (0.0-2.0); EOS # 0.5 K/uL (0.0-0.7); EOS % 4.8 % (0.0-4.0); HEMATOCRIT 37.5 % (34.0-47.0); LYMPH # 1.6 K/uL (1.0-4.3); LYMPH % 15.9 % (20.0-40.0); MEAN CELL VOLUME 89.5 fL (81.0-99.0); MEAN CORPUSCULAR HEMOGLOBIN 30.5 pg (27.0-31.0); MEAN CORPUSCULAR HGB CONC 34.1 g/dL (33.0-37.0); MEAN PLATELET VOLUME 10.1 fL (7.2-11.7); MONO # 0.7 K/uL (0.0-0.8); MONO % 7.4 % (0.0-10.0); NRBC % 0.1 % (0.0-2.0); RED CELL DISTRIBUTION WIDTH 13.2 % (11.5-14.5); WHITE BLOOD COUNT 10.1 K/uL (4.8-10.8)
[2017-09-26 06:30] LABS: ALB/GLOB RATIO 1.5 (1.0-2.1); ALKALINE PHOSPHATASE 80 U/L (38-126); ALT/SGPT 48 U/L (9-52); AST/SGOT 29 U/L (14-36); BILIRUBIN,TOTAL 0.4 mg/dL (0.2-1.3); BLOOD UREA NITROGEN 10 mg/dL (7-17); CALCIUM 8.6 mg/dl (8.6-10.4); CARBON DIOXIDE 32 mmol/L (22-30); CHLORIDE 98 mmol/L (98-107); GFR AFRICAN-AMERICAN > 60; GLUCOSE,RANDOM 93 mg/dL (65-105); POTASSIUM 3.9 mmol/L (3.6-5.2); SODIUM 139 mmol/L (132-148); TOTAL PROTEIN 6.5 g/dL (6.3-8.3)
[2017-09-26] MEDS: Fluticasone Nasal 50 mcg/Spray NAS SCH (10:09)
[2017-09-26] MEDS: Potassium Chloride 20 mEq ER Tab PO SCH (10:09)
[2017-09-26] MEDS: Pantoprazole 40 mg EC Tab PO SCH (10:10)
--- NOTE | 2017-09-26 12:01 | CP.PCM.PN ---
Subjective - Date & Time of Evaluation Date of Evaluation: 09/26/17 Time of Evaluation: 11:57 - Subjective Subjective: Ms. Martinez was seen and examined at the bedside in ICU. She is alert, oriented in all spheres. She denies any headache and blurry vision today, but complains of nausea. Zofran and reglan was administered. She further mentioned of not able to move her bowel since in the ICU will order laxative . There was no untoward events overnight. Objective - Vital Signs/Intake and Output Vital Signs (last 24 hours): Temp Pulse Resp BP Pulse Ox 97.8 F 81 20 118/86 99 09/26/17 08:00 09/26/17 11:00 09/26/17 11:00 09/26/17 08:28 09/26/17 11:00 - Medications Medications: Current Medications Acetaminophen (Tylenol 325mg Tab) 650 mg PO Q6 PRN PRN Reason: Headache Last Admin: 09/24/17 10:20 Dose: 650 mg Clonazepam (Klonopin) 1 mg PO DAILY [facility] Last Admin: 09/26/17 10:10 Dose: 1 mg Docusate Sodium (Colace) 100 mg PO TID PRN PRN Reason: Constipation Ergocalciferol (Drisdol 50,000 Intl Units Cap) 1 cap PO QWK [facility] Last Admin: 09/20/17 10:24 Dose: 1 cap Fluticasone Propionate (Flonase) 1 spr SNEHAL DAILY [facility] Last Admin: 09/26/17 10:09 Dose: 1 spr Gabapentin (Neurontin) 300 mg PO BID [facility] Last Admin: 09/26/17 10:11 Dose: 300 mg Hydralazine HCl (Apresoline) 10 mg IVP Q6H PRN PRN Reason: Systolic Blood Pressure Hydromorphone HCl (Dilaudid) 0.5 mg IVP Q4H PRN PRN Reason: Pain, moderate (4-7) Last Admin: 09/24/17 16:34 Dose: 0.5 mg Hydromorphone HCl (Dilaudid) 1 mg IVP Q4H PRN PRN Reason: Pain, severe (8-10) Last Admin: 09/26/17 10:43 Dose: 1 mg Levothyroxine Sodium (Synthroid) 100 mcg PO DAILY@0630 [facility] Last Admin: 09/26/17 06:00 Dose: 100 mcg Metoclopramide HCl (Reglan) 10 mg IVP Q6 PRN PRN Reason: Nausea/Vomiting Last Admin: 09/26/17 11:23 Dose: 10 mg Nimodipine (Nimotop) 30 mg PO Q4H [facility] Last Admin: 09/26/17 10:10 Dose: 30 mg Ondansetron HCl (Zofran Inj) 4 mg IVP Q6H PRN PRN Reason: Nausea/Vomiting Last Admin: 09/26/17 07:35 Dose: 4 mg Pantoprazole Sodium (Protonix Ec Tab) 40 mg PO DAILY [facility] Last Admin: 09/26/17 10:10 Dose: 40 mg Potassium Chloride (K-Dur 20 Meq Er Tab) 20 meq PO DAILY [facility] Last Admin: 09/26/17 10:09 Dose: 20 meq - Labs Labs: 09/26/17 06:07 09/26/17 06:07 PT 13.0 SECONDS (9.7-12.2) H 09/20/17 06:49 INR 1.2 09/20/17 06:49 APTT 57 SECONDS (21-34) H D 09/22/17 07:50 - Constitutional Appears: No Acute Distress - Head Exam Head Exam: ATRAUMATIC - Neurological Exam Neurological Exam: Alert, Awake, CN II-XII Intact, Oriented x3 Neuro motor strength exam: Left Upper Extremity: 5, Right Upper Extremity: 5, Left Lower Extremity: 5, Right Lower Extremity: 5 Additional comments: Neurological unchanged from previous examination. Assessment and Plan (1) Subarachnoid hemorrhage Assessment & Plan: Case discussed with Dr. Crockett, with the result of recent CT of the head, will consult Dr. Cervantes for possible cerebral angiogram to rule out any AVM. continue all current medical, physical, and occupational therapies. Lactulose 20 gm PO for 1 dose for her constipation Status: Acute
--- NOTE | 2017-09-26 13:09 | CP.PCM.PN ---
<SinanRozina - Last Filed: 09/26/17 13:11> Subjective - Date & Time of Evaluation Date of Evaluation: 09/26/17 Time of Evaluation: 13:11 - Subjective Subjective: Progress Note People seen and examined at bedside. Patient states she didn't sleep well overnight due to noise. Patient denies fever, chills, numbness, and tingling. Patient states her physical therapy is tough, but she's doing well. Patient is in a cheerful disposition. Objective - Vital Signs/Intake and Output Vital Signs (last 24 hours): Temp Pulse Resp BP Pulse Ox 98.5 F 81 20 118/86 99 09/26/17 12:00 09/26/17 11:00 09/26/17 11:00 09/26/17 08:28 09/26/17 11:00 - Medications Medications: Current Medications Acetaminophen (Tylenol 325mg Tab) 650 mg PO Q6 PRN PRN Reason: Headache Last Admin: 09/24/17 10:20 Dose: 650 mg Clonazepam (Klonopin) 1 mg PO DAILY [facility] Last Admin: 09/26/17 10:10 Dose: 1 mg Docusate Sodium (Colace) 100 mg PO TID PRN PRN Reason: Constipation Ergocalciferol (Drisdol 50,000 Intl Units Cap) 1 cap PO QWK [facility] Last Admin: 09/20/17 10:24 Dose: 1 cap Fluticasone Propionate (Flonase) 1 spr SNEHAL DAILY [facility] Last Admin: 09/26/17 10:09 Dose: 1 spr Gabapentin (Neurontin) 300 mg PO BID [facility] Last Admin: 09/26/17 10:11 Dose: 300 mg Hydralazine HCl (Apresoline) 10 mg IVP Q6H PRN PRN Reason: Systolic Blood Pressure Hydromorphone HCl (Dilaudid) 0.5 mg IVP Q4H PRN PRN Reason: Pain, moderate (4-7) Last Admin: 09/24/17 16:34 Dose: 0.5 mg Hydromorphone HCl (Dilaudid) 1 mg IVP Q4H PRN PRN Reason: Pain, severe (8-10) Last Admin: 09/26/17 10:43 Dose: 1 mg Levothyroxine Sodium (Synthroid) 100 mcg PO DAILY@0630 [facility] Last Admin: 09/26/17 06:00 Dose: 100 mcg Metoclopramide HCl (Reglan) 10 mg IVP Q6 PRN PRN Reason: Nausea/Vomiting Last Admin: 09/26/17 11:23 Dose: 10 mg Nimodipine (Nimotop) 30 mg PO Q4H [facility] Last Admin: 09/26/17 10:10 Dose: 30 mg Ondansetron HCl (Zofran Inj) 4 mg IVP Q6H PRN PRN Reason: Nausea/Vomiting Last Admin: 09/26/17 07:35 Dose: 4 mg Pantoprazole Sodium (Protonix Ec Tab) 40 mg PO DAILY [facility] Last Admin: 09/26/17 10:10 Dose: 40 mg Potassium Chloride (K-Dur 20 Meq Er Tab) 20 meq PO DAILY [facility] Last Admin: 09/26/17 10:09 Dose: 20 meq - Labs Labs: 09/26/17 06:07 09/26/17 06:07 PT 13.0 SECONDS (9.7-12.2) H 09/20/17 06:49 INR 1.2 09/20/17 06:49 APTT 57 SECONDS (21-34) H D 09/22/17 07:50 - Constitutional Appears: Non-toxic - Head Exam Head Exam: NORMAL INSPECTION - Eye Exam Eye Exam: EOMI, Normal appearance - ENT Exam ENT Exam: Mucous Membranes Moist - Neck Exam Neck Exam: Full ROM - Respiratory Exam Respiratory Exam: NORMAL BREATHING PATTERN. absent: Accessory Muscle Use, Respiratory Distress - Cardiovascular Exam Cardiovascular Exam: REGULAR RHYTHM, +S1, +S2 - GI/Abdominal Exam GI & Abdominal Exam: Soft. absent: Tenderness - Extremities Exam Extremities Exam: Full ROM. 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 Phan 09/25 OK for PT out bed to ambulate,ok to transfer to tele continue Rosuvastatin continue Nimodipine for vasospasm d/w Dr. Guerra. anticoagulation contraindicated for DVT due to SAH 2.Subarachnoid hemorrhage s/p TPA anticoagulation contraindicated for DVT due to SAH 09/25 CT brain done -no bleeding Per Dr. Crockett, continue Nimodipine. Patient transferred to telemetry 09/25 No anticoagulation for DVT continue Nimodipine 3.Hypothyroidism continue Levothyroxine 4. Hypercoagulopathy Dr. Guerra consulted 5. Constipation Colace 100mg TID Miralax 6. Prophylaxis GI prophylaxis: protonix DVT: Off anticoagulation and no SCD legs wrapped with RADHA bandages PT and OR treatment Rozina Menon, DO PGY1 <Bogdan Quesada - Last Filed: 09/26/17 18:11> Objective - Vital Signs/Intake and Output Vital Signs (last 24 hours): Temp Pulse Resp BP Pulse Ox 98.5 F 72 18 108/56 L 97 09/26/17 12:00 09/26/17 14:00 09/26/17 14:00 09/26/17 12:28 09/26/17 14:00 Intake and Output: 09/26/17 09/26/17 06:59 18:59 Intake Total 1180 Balance 1180 - Medications Medications: Current Medications Acetaminophen (Tylenol 325mg Tab) 650 mg PO Q6 PRN PRN Reason: Headache Last Admin: 09/24/17 10:20 Dose: 650 mg Clonazepam (Klonopin) 1 mg PO DAILY [facility] Last Admin: 09/26/17 10:10 Dose: 1 mg Docusate Sodium (Colace) 100 mg PO TID PRN PRN Reason: Constipation Ergocalciferol (Drisdol 50,000 Intl Units Cap) 1 cap PO QWK [facility] Last Admin: 09/20/17 10:24 Dose: 1 cap Fluticasone Propionate (Flonase) 1 spr SNEHAL DAILY [facility] Last Admin: 09/26/17 10:09 Dose: 1 spr Gabapentin (Neurontin) 300 mg PO BID [facility] Last Admin: 09/26/17 10:11 Dose: 300 mg Hydralazine HCl (Apresoline) 10 mg IVP Q6H PRN PRN Reason: Systolic Blood Pressure Hydromorphone HCl (Dilaudid) 0.5 mg IVP Q4H PRN PRN Reason: Pain, moderate (4-7) Last Admin: 09/24/17 16:34 Dose: 0.5 mg Hydromorphone HCl (Dilaudid) 1 mg IVP Q4H PRN PRN Reason: Pain, severe (8-10) Last Admin: 09/26/17 10:43 Dose: 1 mg Levothyroxine Sodium (Synthroid) 100 mcg PO DAILY@0630 [facility] Last Admin: 09/26/17 06:00 Dose: 100 mcg Metoclopramide HCl (Reglan) 10 mg IVP Q6 PRN PRN Reason: Nausea/Vomiting Last Admin: 09/26/17 11:23 Dose: 10 mg Nimodipine (Nimotop) 30 mg PO Q4H [facility] Last Admin: 09/26/17 15:25 Dose: 30 mg Ondansetron HCl (Zofran Inj) 4 mg IVP Q6H PRN PRN Reason: Nausea/Vomiting Last Admin: 09/26/17 07:35 Dose: 4 mg Pantoprazole Sodium (Protonix Ec Tab) 40 mg PO DAILY [facility] Last Admin: 09/26/17 10:10 Dose: 40 mg Polyethylene Glycol (Miralax) 17 gm PO ONCE ONE Stop: 09/27/17 13:11 Potassium Chloride (K-Dur 20 Meq Er Tab) 20 meq PO DAILY [facility] Last Admin: 09/26/17 10:09 Dose: 20 meq - Labs Labs: 09/26/17 06:07 09/26/17 06:07 PT 13.0 SECONDS (9.7-12.2) H 09/20/17 06:49 INR 1.2 09/20/17 06:49 APTT 57 SECONDS (21-34) H D 09/22/17 07:50 Attending/Attestation - Attestation Notes (Text): 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 Phan 09/25 OK for PT out bed to ambulate,ok to transfer to [facility] continue Rosuvastatin Not on anticoagulation due to SAH 2.Subarachnoid hemorrhage s/p TPA 09/25 CT brain done -no bleeding Per Dr. Korya, continue Nimodipine.Total 21 days (Started on 09/22) Patient transferred to telemetry 09/25 d/w Dr Crockett about Cerebral angiogram to r/o AVM .He spoke to DR Cervantes Interventional neurologist we will follow with Dr Crockett continue Nimodipine 3.Hypothyroidism continue Levothyroxine 4. Hypercoagulopathy Dr. Guerra consulted not on anticoagulation 5. Constipation Colace 100mg TID Miralax 6. Prophylaxis GI prophylaxis: protonix DVT: Off anticoagulation and no SCD legs wrapped with RADHA bandages 09/26/17 18:11
--- NOTE | 2017-09-26 23:03 | CARD ---
APPROVED REPORT EKG Measurement Heart [id number] <Conclusion> Normal sinus rhythm Minimal voltage criteria for LVH, may be normal variant Borderline ECG
[2017-09-27] MEDS: HYDROmorphone 1 mg/ml ISec IVP PRN ×3 (02:56→14:02)
[2017-09-27] MEDS: Levothyroxine 100 MCG TAB PO SCH (06:35)
--- NOTE | 2017-09-27 10:05 | CP.PCM.PN ---
<Rozina Menon - Last Filed: 09/27/17 17:44> Subjective - Date & Time of Evaluation Date of Evaluation: 09/27/17 Time of Evaluation: 10:02 - Subjective Subjective: Progress note for DR. Quesada Patient seen and examined at bedside. No acute events overnight. Patient says she didn't sleep well. Patient was told that a "Quiet kit" will be ordered. Patient admits to headache, constipation, flatus. Patient denies bowel movement , nausea, vomiting, chest pain, shortness of breath. Objective - Vital Signs/Intake and Output Vital Signs (last 24 hours): Temp Pulse Resp BP Pulse Ox 98.4 F 75 17 134/88 98 09/27/17 04:00 09/27/17 07:00 09/27/17 07:00 09/27/17 06:28 09/27/17 07:00 - Medications Medications: Current Medications Acetaminophen (Tylenol 325mg Tab) 650 mg PO Q6 PRN PRN Reason: Headache Last Admin: 09/24/17 10:20 Dose: 650 mg Clonazepam (Klonopin) 1 mg PO DAILY [facility] Last Admin: 09/26/17 10:10 Dose: 1 mg Docusate Sodium (Colace) 100 mg PO TID [facility] Ergocalciferol (Drisdol 50,000 Intl Units Cap) 1 cap PO QWK [facility] Last Admin: 09/20/17 10:24 Dose: 1 cap Fluticasone Propionate (Flonase) 1 spr SNEHAL DAILY [facility] Last Admin: 09/26/17 10:09 Dose: 1 spr Gabapentin (Neurontin) 300 mg PO BID [facility] Last Admin: 09/26/17 19:58 Dose: 300 mg Hydralazine HCl (Apresoline) 10 mg IVP Q6H PRN PRN Reason: Systolic Blood Pressure Hydromorphone HCl (Dilaudid) 0.5 mg IVP Q4H PRN PRN Reason: Pain, moderate (4-7) Last Admin: 09/24/17 16:34 Dose: 0.5 mg Hydromorphone HCl (Dilaudid) 1 mg IVP Q4H PRN PRN Reason: Pain, severe (8-10) Last Admin: 09/27/17 08:37 Dose: 1 mg Levothyroxine Sodium (Synthroid) 100 mcg PO DAILY@0630 [facility] Last Admin: 09/27/17 06:35 Dose: 100 mcg Metoclopramide HCl (Reglan) 10 mg IVP Q6 PRN PRN Reason: Nausea/Vomiting Last Admin: 09/26/17 11:23 Dose: 10 mg Nimodipine (Nimotop) 30 mg PO Q4H [facility] Last Admin: 09/27/17 06:35 Dose: 30 mg Ondansetron HCl (Zofran Inj) 4 mg IVP Q6H PRN PRN Reason: Nausea/Vomiting Last Admin: 09/26/17 07:35 Dose: 4 mg Pantoprazole Sodium (Protonix Ec Tab) 40 mg PO DAILY [facility] Last Admin: 09/26/17 10:10 Dose: 40 mg Polyethylene Glycol (Miralax) 17 gm PO ONCE ONE Stop: 09/27/17 13:11 Potassium Chloride (K-Dur 20 Meq Er Tab) 20 meq PO DAILY [facility] Last Admin: 09/26/17 10:09 Dose: 20 meq - Labs Labs: 09/26/17 06:07 09/26/17 06:07 PT 13.0 SECONDS (9.7-12.2) H 09/20/17 06:49 INR 1.2 09/20/17 06:49 APTT 57 SECONDS (21-34) H D 09/22/17 07:50 - Constitutional Appears: Non-toxic - Head Exam Head Exam: NORMAL INSPECTION - Eye Exam Eye Exam: EOMI, Normal appearance - ENT Exam ENT Exam: Mucous Membranes Moist - Neck Exam Neck Exam: Full ROM - Respiratory Exam Respiratory Exam: NORMAL BREATHING PATTERN. absent: Accessory Muscle Use - Cardiovascular Exam Cardiovascular Exam: REGULAR RHYTHM, +S1, +S2 - GI/Abdominal Exam GI & Abdominal Exam: Soft. absent: Tenderness - Extremities Exam Extremities Exam: Full ROM. absent: Pedal Edema Additional comments: legs are wrapped in radha bandages. Pedal pulses DP, PT, and AT palpated bilaterally. 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 Phan 09/25 OK for PT out bed to ambulate,ok to transfer to tele continue Rosuvastatin continue Nimodipine for vasospasm d/w Dr. Guerra. anticoagulation contraindicated for DVT due to SAH 2.Subarachnoid hemorrhage s/p TPA anticoagulation contraindicated for DVT due to SAH 09/25 CT brain done -no bleeding Per Dr. Crockett, continue Nimodipine. Patient transferred to telemetry 09/25 No anticoagulation for DVT continue Nimodipine f/u with Dr. Crockett and Dr. Cervantes about cerebral angiogram 3.Hypothyroidism continue Levothyroxine 4. Hypercoagulopathy Dr. Guerra consulted 5. Constipation 09/26 Colace 100mg TID KASSANDRA, hold for bm 09/26 Miralax 17gm once 6. Prophylaxis GI prophylaxis: protonix DVT: Off anticoagulation and no SCD legs wrapped with RADHA bandages PT and OR treatment Rozina Menon, DO PGY1 <Bogdan Quesada - Last Filed: 09/27/17 18:23> Objective - Vital Signs/Intake and Output Vital Signs (last 24 hours): Temp Pulse Resp BP Pulse Ox 97.3 F L 87 20 124/86 100 09/27/17 16:32 09/27/17 16:32 09/27/17 16:32 09/27/17 16:32 09/27/17 16:32 Intake and Output: 09/27/17 09/27/17 06:59 18:59 Intake Total 200 Balance 200 - Medications Medications: Current Medications Acetaminophen (Tylenol 325mg Tab) 650 mg PO Q6 PRN PRN Reason: Headache Last Admin: 09/24/17 10:20 Dose: 650 mg Clonazepam (Klonopin) 1 mg PO DAILY [facility] Last Admin: 09/27/17 11:12 Dose: 1 mg Docusate Sodium (Colace) 100 mg PO TID [facility] Last Admin: 09/27/17 17:39 Dose: 100 mg Ergocalciferol (Drisdol 50,000 Intl Units Cap) 1 cap PO QWK [facility] Last Admin: 09/27/17 11:13 Dose: 1 cap Fluticasone Propionate (Flonase) 1 spr SNEHAL DAILY [facility] Last Admin: 09/27/17 11:11 Dose: 1 spr Gabapentin (Neurontin) 300 mg PO BID [facility] Last Admin: 09/27/17 17:39 Dose: 300 mg Hydralazine HCl (Apresoline) 10 mg IVP Q6H PRN PRN Reason: Systolic Blood Pressure Hydromorphone HCl (Dilaudid) 0.5 mg IVP Q4H PRN PRN Reason: Pain, moderate (4-7) Last Admin: 09/24/17 16:34 Dose: 0.5 mg Hydromorphone HCl (Dilaudid) 1 mg IVP Q4H PRN PRN Reason: Pain, severe (8-10) Last Admin: 09/27/17 14:02 Dose: 1 mg Levothyroxine Sodium (Synthroid) 100 mcg PO DAILY@0630 [facility] Last Admin: 09/27/17 06:35 Dose: 100 mcg Metoclopramide HCl (Reglan) 10 mg IVP Q6 PRN PRN Reason: Nausea/Vomiting Last Admin: 09/26/17 11:23 Dose: 10 mg Nimodipine (Nimotop) 30 mg PO Q4H [facility] Last Admin: 09/27/17 15:14 Dose: 30 mg Ondansetron HCl (Zofran Inj) 4 mg IVP Q6H PRN PRN Reason: Nausea/Vomiting Last Admin: 09/27/17 14:48 Dose: 4 mg Pantoprazole Sodium (Protonix Ec Tab) 40 mg PO DAILY [facility] Last Admin: 09/27/17 11:11 Dose: 40 mg Potassium Chloride (K-Dur 20 Meq Er Tab) 20 meq PO DAILY [facility] Last Admin: 09/27/17 11:12 Dose: 20 meq - Labs Labs: 09/26/17 06:07 09/26/17 06:07 PT 13.0 SECONDS (9.7-12.2) H 09/20/17 06:49 INR 1.2 09/20/17 06:49 APTT 57 SECONDS (21-34) H D 09/22/17 07:50 Attending/Attestation - Attestation I have personally seen and examined this patient.: Yes I have fully participated in the care of the patient.: Yes I have reviewed all pertinent clinical information, including history, physical exam and plan: Yes Notes (Text): 1. 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 Phan 09/25 OK for PT out bed to ambulate,ok to transfer to tele continue Rosuvastatin Not on anticoagulation this time due to SAH 2.Subarachnoid hemorrhage s/p TPA anticoagulation contraindicated for DVT due to SAH 09/25 CT brain done -no bleeding Per Dr. Crockett, continue Nimodipine. Patient transferred to telemetry 09/25 Not on anticoagulation for DVT f/u with Dr. Crockett and Dr. Cervantes about cerebral angiogram 3.Hypothyroidism continue Levothyroxine 4. Hypercoagulopathy Dr. Guerra consulted 5. Constipation Colace 100mg TID Miralax 6. Prophylaxis GI prophylaxis: protonix DVT: Off anticoagulation and no SCD legs wrapped with RADHA bandages PT
[2017-09-27] MEDS: Fluticasone Nasal 50 mcg/Spray NAS SCH (11:11)
[2017-09-27] MEDS: Pantoprazole 40 mg EC Tab PO SCH (11:11)
[2017-09-27] MEDS: Potassium Chloride 20 mEq ER Tab PO SCH (11:12)
[2017-09-27] MEDS: Ergocalciferol 50,000 Intl Units Cap PO SCH (11:13)
--- NOTE | 2017-09-27 12:50 | CP.PCM.PN ---
<Rhys Rausch - Last Filed: 09/27/17 12:43> Subjective - Date & Time of Evaluation Date of Evaluation: 09/27/17 Time of Evaluation: 12:43 - Subjective Subjective: Ms. Martinez was seen and examined at the bedside in ICU. She is alert, oriented in all spheres. She denies any headache, dizziness, lightheadedness, nausea, or vomiting. She is able to follow simple commands. She is inform regarding possible cerebral angiogram to be schedule on Sunday. She verbalizes understanding. There was no untoward events overnight. Objective - Vital Signs/Intake and Output Vital Signs (last 24 hours): Temp Pulse Resp BP Pulse Ox 98.4 F 75 17 134/88 98 09/27/17 04:00 09/27/17 07:00 09/27/17 07:00 09/27/17 06:28 09/27/17 07:00 - Medications Medications: Current Medications Acetaminophen (Tylenol 325mg Tab) 650 mg PO Q6 PRN PRN Reason: Headache Last Admin: 09/24/17 10:20 Dose: 650 mg Clonazepam (Klonopin) 1 mg PO DAILY [facility] Last Admin: 09/27/17 11:12 Dose: 1 mg Docusate Sodium (Colace) 100 mg PO TID [facility] Last Admin: 09/27/17 11:13 Dose: 100 mg Ergocalciferol (Drisdol 50,000 Intl Units Cap) 1 cap PO QWK [facility] Last Admin: 09/27/17 11:13 Dose: 1 cap Fluticasone Propionate (Flonase) 1 spr SNEHAL DAILY [facility] Last Admin: 09/27/17 11:11 Dose: 1 spr Gabapentin (Neurontin) 300 mg PO BID [facility] Last Admin: 09/27/17 11:15 Dose: 300 mg Hydralazine HCl (Apresoline) 10 mg IVP Q6H PRN PRN Reason: Systolic Blood Pressure Hydromorphone HCl (Dilaudid) 0.5 mg IVP Q4H PRN PRN Reason: Pain, moderate (4-7) Last Admin: 09/24/17 16:34 Dose: 0.5 mg Hydromorphone HCl (Dilaudid) 1 mg IVP Q4H PRN PRN Reason: Pain, severe (8-10) Last Admin: 09/27/17 08:37 Dose: 1 mg Levothyroxine Sodium (Synthroid) 100 mcg PO DAILY@0630 [facility] Last Admin: 09/27/17 06:35 Dose: 100 mcg Metoclopramide HCl (Reglan) 10 mg IVP Q6 PRN PRN Reason: Nausea/Vomiting Last Admin: 09/26/17 11:23 Dose: 10 mg Nimodipine (Nimotop) 30 mg PO Q4H [facility] Last Admin: 09/27/17 11:12 Dose: 30 mg Ondansetron HCl (Zofran Inj) 4 mg IVP Q6H PRN PRN Reason: Nausea/Vomiting Last Admin: 09/26/17 07:35 Dose: 4 mg Pantoprazole Sodium (Protonix Ec Tab) 40 mg PO DAILY [facility] Last Admin: 09/27/17 11:11 Dose: 40 mg Polyethylene Glycol (Miralax) 17 gm PO ONCE ONE Stop: 09/27/17 13:11 Potassium Chloride (K-Dur 20 Meq Er Tab) 20 meq PO DAILY [facility] Last Admin: 09/27/17 11:12 Dose: 20 meq - Labs Labs: 09/26/17 06:07 09/26/17 06:07 PT 13.0 SECONDS (9.7-12.2) H 09/20/17 06:49 INR 1.2 09/20/17 06:49 APTT 57 SECONDS (21-34) H D 09/22/17 07:50 - Constitutional Appears: No Acute Distress - Head Exam Head Exam: ATRAUMATIC - Neurological Exam Neurological Exam: Alert, Awake, CN II-XII Intact, Oriented x3 Neuro motor strength exam: Left Upper Extremity: 5, Right Upper Extremity: 5, Left Lower Extremity: 2/1, Right Lower Extremity: 2/1 Additional comments: Neurological unchanged from previous examination. Assessment and Plan (1) Subarachnoid hemorrhage Assessment & Plan: Case discussed with Dr. Crockett, will schedule cerebral angiogram with Dr. Cervantes. Continue all current medical. physical, and occupational therapies. Status: Acute <Bogdan Quesada - Last Filed: 09/27/17 18:20> Objective - Vital Signs/Intake and Output Vital Signs (last 24 hours): Temp Pulse Resp BP Pulse Ox 97.3 F L 87 20 124/86 100 09/27/17 16:32 09/27/17 16:32 09/27/17 16:32 09/27/17 16:32 09/27/17 16:32 Intake and Output: 09/27/17 09/27/17 06:59 18:59 Intake Total 200 Balance 200 - Medications Medications: Current Medications Acetaminophen (Tylenol 325mg Tab) 650 mg PO Q6 PRN PRN Reason: Headache Last Admin: 09/24/17 10:20 Dose: 650 mg Clonazepam (Klonopin) 1 mg PO DAILY [facility] Last Admin: 09/27/17 11:12 Dose: 1 mg Docusate Sodium (Colace) 100 mg PO TID [facility] Last Admin: 09/27/17 17:39 Dose: 100 mg Ergocalciferol (Drisdol 50,000 Intl Units Cap) 1 cap PO QWK [facility] Last Admin: 09/27/17 11:13 Dose: 1 cap Fluticasone Propionate (Flonase) 1 spr SNEHAL DAILY [facility] Last Admin: 09/27/17 11:11 Dose: 1 spr Gabapentin (Neurontin) 300 mg PO BID [facility] Last Admin: 09/27/17 17:39 Dose: 300 mg Hydralazine HCl (Apresoline) 10 mg IVP Q6H PRN PRN Reason: Systolic Blood Pressure Hydromorphone HCl (Dilaudid) 0.5 mg IVP Q4H PRN PRN Reason: Pain, moderate (4-7) Last Admin: 09/24/17 16:34 Dose: 0.5 mg Hydromorphone HCl (Dilaudid) 1 mg IVP Q4H PRN PRN Reason: Pain, severe (8-10) Last Admin: 09/27/17 14:02 Dose: 1 mg Levothyroxine Sodium (Synthroid) 100 mcg PO DAILY@0630 [facility] Last Admin: 09/27/17 06:35 Dose: 100 mcg Metoclopramide HCl (Reglan) 10 mg IVP Q6 PRN PRN Reason: Nausea/Vomiting Last Admin: 09/26/17 11:23 Dose: 10 mg Nimodipine (Nimotop) 30 mg PO Q4H [facility] Last Admin: 09/27/17 15:14 Dose: 30 mg Ondansetron HCl (Zofran Inj) 4 mg IVP Q6H PRN PRN Reason: Nausea/Vomiting Last Admin: 09/27/17 14:48 Dose: 4 mg Pantoprazole Sodium (Protonix Ec Tab) 40 mg PO DAILY [facility] Last Admin: 09/27/17 11:11 Dose: 40 mg Potassium Chloride (K-Dur 20 Meq Er Tab) 20 meq PO DAILY [facility] Last Admin: 09/27/17 11:12 Dose: 20 meq - Labs Labs: 09/26/17 06:07 09/26/17 06:07 PT 13.0 SECONDS (9.7-12.2) H 09/20/17 06:49 INR 1.2 09/20/17 06:49 APTT 57 SECONDS (21-34) H D 09/22/17 07:50
[2017-09-27] MEDS ORDERED: POLYETHYLENE GLYCOL 3350 17 GM/Dose PACKET PO ONE (13:10)
[2017-09-27] MEDS: HYDROmorphone 0.5 mg/0.5 ml ISec IVP PRN (18:21)
[2017-09-28] MEDS: HYDROmorphone 1 mg/ml ISec IVP PRN ×5 (00:18→22:29)
[2017-09-28] MEDS: Levothyroxine 100 MCG TAB PO SCH (06:48)
--- NOTE | 2017-09-28 07:30 | CP.PCM.PN ---
<SinanRozina - Last Filed: 09/28/17 16:09> Subjective - Date & Time of Evaluation Date of Evaluation: 09/28/17 Time of Evaluation: 09:38 - Subjective Subjective: Progress Note Patient tolerating pain well. Patient states physical therapy is tough, but necessary. Patient states the neurologist told her that the cerebral angio will be scheduled for Sunday10/01/17. Patient denies fever, chills, nausea, vomiting. Patient states she still hasn't had a bowel movement. Patient told we will order her medication and adjust pain medication. Objective - Vital Signs/Intake and Output Vital Signs (last 24 hours): Temp Pulse Resp BP Pulse Ox 98.4 F 76 20 115/79 98 09/28/17 04:54 09/28/17 04:54 09/28/17 04:54 09/28/17 04:54 09/28/17 04:54 Intake and Output: 09/28/17 09/28/17 06:59 18:59 Intake Total 560 Balance 560 - Medications Medications: Current Medications Acetaminophen (Tylenol 325mg Tab) 650 mg PO Q6 PRN PRN Reason: Headache Last Admin: 09/24/17 10:20 Dose: 650 mg Clonazepam (Klonopin) 1 mg PO DAILY [facility] Last Admin: 09/27/17 11:12 Dose: 1 mg Docusate Sodium (Colace) 100 mg PO TID [facility] Last Admin: 09/27/17 17:39 Dose: 100 mg Ergocalciferol (Drisdol 50,000 Intl Units Cap) 1 cap PO QWK [facility] Last Admin: 09/27/17 11:13 Dose: 1 cap Fluticasone Propionate (Flonase) 1 spr SNEHAL DAILY [facility] Last Admin: 09/27/17 11:11 Dose: 1 spr Gabapentin (Neurontin) 300 mg PO BID [facility] Last Admin: 09/27/17 17:39 Dose: 300 mg Hydralazine HCl (Apresoline) 10 mg IVP Q6H PRN PRN Reason: Systolic Blood Pressure Hydromorphone HCl (Dilaudid) 0.5 mg IVP Q4H PRN PRN Reason: Pain, moderate (4-7) Last Admin: 09/27/17 18:21 Dose: 0.5 mg Hydromorphone HCl (Dilaudid) 1 mg IVP Q4H PRN PRN Reason: Pain, severe (8-10) Last Admin: 09/28/17 05:02 Dose: 1 mg Levothyroxine Sodium (Synthroid) 100 mcg PO DAILY@0630 [facility] Last Admin: 09/28/17 06:48 Dose: 100 mcg Metoclopramide HCl (Reglan) 10 mg IVP Q6 PRN PRN Reason: Nausea/Vomiting Last Admin: 09/26/17 11:23 Dose: 10 mg Nimodipine (Nimotop) 30 mg PO Q4H [facility] Last Admin: 09/28/17 07:02 Dose: 30 mg Ondansetron HCl (Zofran Inj) 4 mg IVP Q6H PRN PRN Reason: Nausea/Vomiting Last Admin: 09/27/17 14:48 Dose: 4 mg Pantoprazole Sodium (Protonix Ec Tab) 40 mg PO DAILY [facility] Last Admin: 09/27/17 11:11 Dose: 40 mg Potassium Chloride (K-Dur 20 Meq Er Tab) 20 meq PO DAILY [facility] Last Admin: 09/27/17 11:12 Dose: 20 meq - Labs Labs: 09/26/17 06:07 09/26/17 06:07 PT 13.0 SECONDS (9.7-12.2) H 09/20/17 06:49 INR 1.2 09/20/17 06:49 APTT 57 SECONDS (21-34) H D 09/22/17 07:50 - Constitutional Appears: Non-toxic - Head Exam Head Exam: NORMAL INSPECTION - Eye Exam Eye Exam: EOMI, Normal appearance - ENT Exam ENT Exam: Mucous Membranes Moist - Neck Exam Neck Exam: Full ROM. absent: Tenderness - Respiratory Exam Respiratory Exam: NORMAL BREATHING PATTERN. absent: Decreased Breath Sounds - Cardiovascular Exam Cardiovascular Exam: REGULAR RHYTHM, +S1, +S2 - GI/Abdominal Exam GI & Abdominal Exam: Soft. absent: Tenderness - Extremities Exam Extremities Exam: Full ROM Additional comments: stockings on patient. no pitting edema noted. 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 Phan 09/25 OK for PT out bed to ambulate,ok to transfer to tele continue Rosuvastatin continue Nimodipine for vasospasm d/w Dr. Guerra anticoagulation contraindicated for DVT due to SAH 2.Subarachnoid hemorrhage s/p TPA anticoagulation contraindicated for DVT due to SAH 09/25 CT brain done -no bleeding Per Dr. Crockett, continue Nimodipine. Patient transferred to telemetry 09/25 No anticoagulation for DVT continue Nimodipine 30mg PO Q4H Neurology consult: Dr. Crockett and Dr. Cervantes about cerebral angiogram, 10/01 3.Hypothyroidism Levothyroxine 100mcg 4. HTN Hydralazine 10mg IVP Q6H PRN 5. Hypercoagulopathy Dr. Guerra consulted 6. Constipation 09/26 Colace 100mg TID [facility], hold for bm 09/26 Miralax 17gm once 09/28 Miralax 17gm PO BID [facility] x2 doses f/u BM 7. Prophylaxis GI prophylaxis: protonix DVT: Off anticoagulation and no SCD legs wrapped with RADHA bandages PT and OT treatment Potassium 20 meq POQD Pain: Dilaudid 0.5mg IVP Q4H PRN Acetaminophen 650mg Q6 PRN Zofran 4mg IVP Q5H PRN Rozina Menon DO PGY1 <Bogdan Quesada - Last Filed: 09/28/17 17:46> Objective - Vital Signs/Intake and Output Vital Signs (last 24 hours): Temp Pulse Resp BP Pulse Ox 98.6 F 75 20 116/78 99 09/28/17 16:00 09/28/17 16:00 09/28/17 16:00 09/28/17 16:00 09/28/17 16:00 Intake and Output: 09/28/17 09/28/17 06:59 18:59 Intake Total 560 350 Balance 560 350 - Medications Medications: Current Medications Acetaminophen (Tylenol 325mg Tab) 650 mg PO Q6 PRN PRN Reason: Headache Last Admin: 09/24/17 10:20 Dose: 650 mg Clonazepam (Klonopin) 1 mg PO DAILY [facility] Last Admin: 09/28/17 09:17 Dose: 1 mg Docusate Sodium (Colace) 100 mg PO TID [facility] Last Admin: 09/28/17 16:59 Dose: 100 mg Ergocalciferol (Drisdol 50,000 Intl Units Cap) 1 cap PO QWK [facility] Last Admin: 09/27/17 11:13 Dose: 1 cap Fluticasone Propionate (Flonase) 1 spr SNEHAL DAILY [facility] Last Admin: 09/28/17 09:28 Dose: 1 spr Gabapentin (Neurontin) 300 mg PO BID [facility] Last Admin: 09/28/17 16:59 Dose: 300 mg Hydralazine HCl (Apresoline) 10 mg IVP Q6H PRN PRN Reason: Systolic Blood Pressure Hydromorphone HCl (Dilaudid) 0.5 mg IVP Q4H PRN PRN Reason: Pain, moderate (4-7) Last Admin: 09/27/17 18:21 Dose: 0.5 mg Hydromorphone HCl (Dilaudid) 1 mg IVP Q4H PRN PRN Reason: Pain, severe (8-10) Last Admin: 09/28/17 16:50 Dose: 1 mg Levothyroxine Sodium (Synthroid) 100 mcg PO DAILY@0630 [facility] Last Admin: 09/28/17 06:48 Dose: 100 mcg Metoclopramide HCl (Reglan) 10 mg IVP Q6 PRN PRN Reason: Nausea/Vomiting Last Admin: 09/26/17 11:23 Dose: 10 mg Nimodipine (Nimotop) 30 mg PO Q4H [facility] Last Admin: 09/28/17 14:35 Dose: 30 mg Ondansetron HCl (Zofran Inj) 4 mg IVP Q6H PRN PRN Reason: Nausea/Vomiting Last Admin: 09/27/17 14:48 Dose: 4 mg Pantoprazole Sodium (Protonix Ec Tab) 40 mg PO DAILY [facility] Last Admin: 09/28/17 09:16 Dose: 40 mg Polyethylene Glycol (Miralax) 17 gm PO BID [facility] Stop: 09/28/17 18:01 Last Admin: 09/28/17 10:44 Dose: 17 gm Potassium Chloride (K-Dur 20 Meq Er Tab) 20 meq PO DAILY [facility] Last Admin: 09/28/17 09:17 Dose: 20 meq Topiramate (Topamax) 25 mg PO DAILY [facility] Last Admin: 09/28/17 13:10 Dose: 25 mg - Labs Labs: 09/28/17 11:11 09/28/17 11:11 PT 13.0 SECONDS (9.7-12.2) H 09/20/17 06:49 INR 1.2 09/20/17 06:49 APTT 57 SECONDS (21-34) H D 09/22/17 07:50 Attending/Attestation - Attestation I have personally seen and examined this patient.: Yes I have fully participated in the care of the patient.: Yes I have reviewed all pertinent clinical information, including history, physical exam and plan: Yes Notes (Text): Seen and examined Has no complain.Trying to walk with PT Neurologist follow up appreciated I agree with the documentation 09/28/17 17:41
[2017-09-28] MEDS: Pantoprazole 40 mg EC Tab PO SCH (09:16)
[2017-09-28] MEDS: Potassium Chloride 20 mEq ER Tab PO SCH (09:17)
[2017-09-28] MEDS: Fluticasone Nasal 50 mcg/Spray NAS SCH (09:28)
[2017-09-28] MEDS: POLYETHYLENE GLYCOL 3350 17 GM/Dose PACKET PO SCH ×2 (10:44→19:00)
[2017-09-28 11:24] LABS: BASO % 0.4 % (0.0-2.0); EOS # 0.4 K/uL (0.0-0.7); EOS % 4.6 % (0.0-4.0); HEMATOCRIT 42.1 % (34.0-47.0); LYMPH # 1.5 K/uL (1.0-4.3); LYMPH % 15.2 % (20.0-40.0); MEAN CELL VOLUME 89.1 fL (81.0-99.0); MEAN CORPUSCULAR HEMOGLOBIN 30.5 pg (27.0-31.0); MEAN CORPUSCULAR HGB CONC 34.3 g/dL (33.0-37.0); MONO # 0.5 K/uL (0.0-0.8); MONO % 5.6 % (0.0-10.0); RED CELL DISTRIBUTION WIDTH 13.1 % (11.5-14.5); WHITE BLOOD COUNT 9.6 K/uL (4.8-10.8)
[2017-09-28 11:39] LABS: ALB/GLOB RATIO 1.4 (1.0-2.1); ALKALINE PHOSPHATASE 72 U/L (38-126); ALT/SGPT 57 U/L (9-52); AST/SGOT 28 U/L (14-36); BILIRUBIN,TOTAL 0.7 mg/dL (0.2-1.3); BLOOD UREA NITROGEN 10 mg/dL (7-17); CALCIUM 9.2 mg/dl (8.6-10.4); CARBON DIOXIDE 29 mmol/L (22-30); CHLORIDE 97 mmol/L (98-107); GFR AFRICAN-AMERICAN > 60; GLUCOSE,RANDOM 150 mg/dL (65-105); MAGNESIUM 1.7 mg/dL (1.6-2.3); POTASSIUM 3.8 mmol/L (3.6-5.2); SODIUM 137 mmol/L (132-148); TOTAL PROTEIN 7.5 g/dL (6.3-8.3)
--- NOTE | 2017-09-28 13:10 | CP.PCM.PN ---
Subjective - Date & Time of Evaluation Date of Evaluation: 09/28/17 Time of Evaluation: 13:06 - Subjective Subjective: Ms. Martinez was seen and examined at the bedside. She is alert, oriented in all spheres. He denies any dizziness, headache, lightheadedness, numbness, nausea, or vomiting. She states of intermittent dull headache, 3/10, generalized at night time. There is no untoward events overnight. Objective - Vital Signs/Intake and Output Vital Signs (last 24 hours): Temp Pulse Resp BP Pulse Ox 98.1 F 68 20 126/77 99 09/28/17 08:08 09/28/17 08:08 09/28/17 08:08 09/28/17 08:08 09/28/17 08:08 Intake and Output: 09/28/17 09/28/17 06:59 18:59 Intake Total 560 Balance 560 - Medications Medications: Current Medications Acetaminophen (Tylenol 325mg Tab) 650 mg PO Q6 PRN PRN Reason: Headache Last Admin: 09/24/17 10:20 Dose: 650 mg Clonazepam (Klonopin) 1 mg PO DAILY [facility] Last Admin: 09/28/17 09:17 Dose: 1 mg Docusate Sodium (Colace) 100 mg PO TID [facility] Last Admin: 09/28/17 09:16 Dose: 100 mg Ergocalciferol (Drisdol 50,000 Intl Units Cap) 1 cap PO QWK [facility] Last Admin: 09/27/17 11:13 Dose: 1 cap Fluticasone Propionate (Flonase) 1 spr SNEHAL DAILY [facility] Last Admin: 09/28/17 09:28 Dose: 1 spr Gabapentin (Neurontin) 300 mg PO BID [facility] Last Admin: 09/28/17 09:28 Dose: 300 mg Hydralazine HCl (Apresoline) 10 mg IVP Q6H PRN PRN Reason: Systolic Blood Pressure Hydromorphone HCl (Dilaudid) 0.5 mg IVP Q4H PRN PRN Reason: Pain, moderate (4-7) Last Admin: 09/27/17 18:21 Dose: 0.5 mg Hydromorphone HCl (Dilaudid) 1 mg IVP Q4H PRN PRN Reason: Pain, severe (8-10) Last Admin: 09/28/17 10:45 Dose: 1 mg Levothyroxine Sodium (Synthroid) 100 mcg PO DAILY@0630 [facility] Last Admin: 09/28/17 06:48 Dose: 100 mcg Metoclopramide HCl (Reglan) 10 mg IVP Q6 PRN PRN Reason: Nausea/Vomiting Last Admin: 09/26/17 11:23 Dose: 10 mg Nimodipine (Nimotop) 30 mg PO Q4H [facility] Last Admin: 09/28/17 10:04 Dose: 30 mg Ondansetron HCl (Zofran Inj) 4 mg IVP Q6H PRN PRN Reason: Nausea/Vomiting Last Admin: 09/27/17 14:48 Dose: 4 mg Pantoprazole Sodium (Protonix Ec Tab) 40 mg PO DAILY [facility] Last Admin: 09/28/17 09:16 Dose: 40 mg Polyethylene Glycol (Miralax) 17 gm PO BID [facility] Stop: 09/28/17 18:01 Last Admin: 09/28/17 10:44 Dose: 17 gm Potassium Chloride (K-Dur 20 Meq Er Tab) 20 meq PO DAILY [facility] Last Admin: 09/28/17 09:17 Dose: 20 meq Topiramate (Topamax) 25 mg PO DAILY [facility] - Labs Labs: 09/28/17 11:11 09/28/17 11:11 PT 13.0 SECONDS (9.7-12.2) H 09/20/17 06:49 INR 1.2 09/20/17 06:49 APTT 57 SECONDS (21-34) H D 09/22/17 07:50 - Constitutional Appears: No Acute Distress - Head Exam Head Exam: ATRAUMATIC - Neurological Exam Neurological Exam: Alert, Awake, Oriented x3 Neuro motor strength exam: Left Upper Extremity: 5, Right Upper Extremity: 5, Left Lower Extremity: 3, Right Lower Extremity: 3 Additional comments: Neurological unchanged from previous examination. Assessment and Plan (1) Subarachnoid hemorrhage Assessment & Plan: Case discussed with Dr. Crockett, continue all current medical, physical, and occupational therapies. Recommend Topamax 25 mg PO daily. Status: Acute
--- NOTE | 2017-09-29 02:36 | CP.PCM.PN ---
<Hannah Watson - Last Filed: 09/29/17 02:33> Subjective - Date & Time of Evaluation Date of Evaluation: 09/29/17 Time of Evaluation: 02:34 - Subjective Subjective: Medicine Progress Note for Dr. Quesada Patient was seen and examined at bedside in no acute distress. Family was at bedside. Patient reports still having a headache, which becomes worse when standing/walking. Patient also reports feeling nausea, however, she states it occurred after eating. Patient currently denies having chest pain, abdominal pain, fevers, vomiting, dizziness and leg pain/swelling. Objective - Vital Signs/Intake and Output Vital Signs (last 24 hours): Temp Pulse Resp BP Pulse Ox 98.4 F 72 20 104/65 95 09/28/17 23:05 09/29/17 00:10 09/28/17 23:05 09/28/17 23:05 09/28/17 23:05 Intake and Output: 09/28/17 09/29/17 18:59 06:59 Intake Total 350 400 Balance 350 400 - Medications Medications: Current Medications Acetaminophen (Tylenol 325mg Tab) 650 mg PO Q6 PRN PRN Reason: Headache Last Admin: 09/24/17 10:20 Dose: 650 mg Clonazepam (Klonopin) 1 mg PO DAILY [facility] Last Admin: 09/28/17 09:17 Dose: 1 mg Docusate Sodium (Colace) 100 mg PO TID [facility] Last Admin: 09/28/17 16:59 Dose: 100 mg Ergocalciferol (Drisdol 50,000 Intl Units Cap) 1 cap PO QWK [facility] Last Admin: 09/27/17 11:13 Dose: 1 cap Fluticasone Propionate (Flonase) 1 spr SNEHAL DAILY [facility] Last Admin: 09/28/17 09:28 Dose: 1 spr Gabapentin (Neurontin) 300 mg PO BID [facility] Last Admin: 09/28/17 16:59 Dose: 300 mg Hydralazine HCl (Apresoline) 10 mg IVP Q6H PRN PRN Reason: Systolic Blood Pressure Hydromorphone HCl (Dilaudid) 0.5 mg IVP Q4H PRN PRN Reason: Pain, moderate (4-7) Last Admin: 09/27/17 18:21 Dose: 0.5 mg Hydromorphone HCl (Dilaudid) 1 mg IVP Q4H PRN PRN Reason: Pain, severe (8-10) Last Admin: 09/28/17 22:29 Dose: 1 mg Levothyroxine Sodium (Synthroid) 100 mcg PO DAILY@0630 [facility] Last Admin: 09/28/17 06:48 Dose: 100 mcg Metoclopramide HCl (Reglan) 10 mg IVP Q6 PRN PRN Reason: Nausea/Vomiting Last Admin: 09/26/17 11:23 Dose: 10 mg Nimodipine (Nimotop) 30 mg PO Q4H [facility] Last Admin: 09/28/17 22:40 Dose: 30 mg Ondansetron HCl (Zofran Inj) 4 mg IVP Q6H PRN PRN Reason: Nausea/Vomiting Last Admin: 09/27/17 14:48 Dose: 4 mg Pantoprazole Sodium (Protonix Ec Tab) 40 mg PO DAILY [facility] Last Admin: 09/28/17 09:16 Dose: 40 mg Potassium Chloride (K-Dur 20 Meq Er Tab) 20 meq PO DAILY [facility] Last Admin: 09/28/17 09:17 Dose: 20 meq Topiramate (Topamax) 25 mg PO DAILY [facility] Last Admin: 09/28/17 13:10 Dose: 25 mg - Labs Labs: 09/28/17 11:11 09/28/17 11:11 PT 13.0 SECONDS (9.7-12.2) H 09/20/17 06:49 INR 1.2 09/20/17 06:49 APTT 57 SECONDS (21-34) H D 09/22/17 07:50 - Constitutional Appears: No Acute Distress - Head Exam Head Exam: ATRAUMATIC, NORMAL INSPECTION - Eye Exam Eye Exam: EOMI, Normal appearance - ENT Exam ENT Exam: Mucous Membranes Moist - Respiratory Exam Respiratory Exam: Clear to Ausculation Bilateral, NORMAL BREATHING PATTERN. absent: Rales, Rhonchi, Wheezes, Respiratory Distress - Cardiovascular Exam Cardiovascular Exam: REGULAR RHYTHM, +S1, +S2 - GI/Abdominal Exam GI & Abdominal Exam: Soft, Normal Bowel Sounds. absent: Distended, Firm, Tenderness - Extremities Exam Extremities Exam: absent: Tenderness Additional comments: compression stockings on b/l; small non-tender lesion posterior and superior to ankle. 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 Phan 09/25 OK for PT out bed to ambulate, ok to transfer to tele * Continue Rosuvastatin * Continue Nimodipine for vasospasm * d/w Dr. Guerra * anticoagulation contraindicated for DVT due to SAH (2) Subarachnoid hemorrhage Assessment and Plan: * s/p TPA * anticoagulation contraindicated for DVT due to SAH * 09/25: CT brain done -no bleeding; Patient transferred to telemetry * Neurology consult: Dr. Crockett and Dr. Cervantes about cerebral angiogram, 10/01 * Per Dr. Crockett, continue Nimodipine 30mg PO Q4H * Pain medications: Acetaminophen 650mg Q6 PRN; Dilaudid 0.5mg IVP Q4H PRN (3) Hypothyroidism Assessment and Plan: * Continue Levothyroxine 100mcg (7) HTN Assessment and Plan: * Continue Hydralazine 10mg IVP Q6H PRN (7) Hypercoagulopathy Assessment and Plan: * Dr. Guerra consulted, help appreciated * anticoagulation contraindicated for DVT due to SAH (6) Constipation Assessment and Plan: * 09/26 Miralax 17gm once; Colace 100mg TID [facility], hold for bm * 09/28 Miralax 17gm PO BID [facility] x2 doses * f/u BM (7) Prophylaxis Assessment and Plan: * GI prophylaxis: protonix * DVT: Off anticoagulation and no SCD; stockings on * Potassium 20 meq POQD * Zofran 4mg IVP Q5H PRN * PT and OT <Bogdan Quesada - Last Filed: 09/29/17 12:39> Objective - Vital Signs/Intake and Output Vital Signs (last 24 hours): Temp Pulse Resp BP Pulse Ox 97.5 F L 78 20 124/89 100 09/29/17 08:23 09/29/17 08:23 09/29/17 08:23 09/29/17 08:23 09/29/17 08:23 Intake and Output: 09/29/17 09/29/17 06:59 18:59 Intake Total 640 Balance 640 - Medications Medications: Current Medications Acetaminophen (Tylenol 325mg Tab) 650 mg PO Q6 PRN PRN Reason: Headache Last Admin: 09/24/17 10:20 Dose: 650 mg Clonazepam (Klonopin) 1 mg PO DAILY [facility] Last Admin: 09/29/17 09:43 Dose: 1 mg Docusate Sodium (Colace) 100 mg PO TID [facility] Last Admin: 09/29/17 09:42 Dose: 100 mg Ergocalciferol (Drisdol 50,000 Intl Units Cap) 1 cap PO QWK [facility] Last Admin: 09/27/17 11:13 Dose: 1 cap Fluticasone Propionate (Flonase) 1 spr SNEHAL DAILY [facility] Last Admin: 09/29/17 11:34 Dose: 1 spr Gabapentin (Neurontin) 300 mg PO BID [facility] Last Admin: 09/29/17 09:43 Dose: 300 mg Hydralazine HCl (Apresoline) 10 mg IVP Q6H PRN PRN Reason: Systolic Blood Pressure Hydromorphone HCl (Dilaudid) 0.5 mg IVP Q4H PRN PRN Reason: Pain, moderate (4-7) Last Admin: 09/29/17 04:14 Dose: 0.5 mg Hydromorphone HCl (Dilaudid) 1 mg IVP Q4H PRN PRN Reason: Pain, severe (8-10) Last Admin: 09/29/17 08:33 Dose: 1 mg Levothyroxine Sodium (Synthroid) 100 mcg PO DAILY@0630 [facility] Last Admin: 09/29/17 07:10 Dose: 100 mcg Metoclopramide HCl (Reglan) 10 mg IVP Q6 PRN PRN Reason: Nausea/Vomiting Last Admin: 09/26/17 11:23 Dose: 10 mg Nimodipine (Nimotop) 30 mg PO Q4H [facility] Last Admin: 09/29/17 11:35 Dose: 30 mg Ondansetron HCl (Zofran Inj) 4 mg IVP Q6H PRN PRN Reason: Nausea/Vomiting Last Admin: 09/29/17 08:32 Dose: 4 mg Pantoprazole Sodium (Protonix Ec Tab) 40 mg PO DAILY [facility] Last Admin: 09/29/17 09:43 Dose: 40 mg Potassium Chloride (K-Dur 20 Meq Er Tab) 20 meq PO DAILY [facility] Last Admin: 09/29/17 09:43 Dose: 20 meq Topiramate (Topamax) 25 mg PO DAILY [facility] Last Admin: 09/29/17 09:43 Dose: 25 mg - Labs Labs: 09/29/17 07:30 09/29/17 07:30 PT 13.0 SECONDS (9.7-12.2) H 09/20/17 06:49 INR 1.2 09/20/17 06:49 APTT 57 SECONDS (21-34) H D 09/22/17 07:50 Attending/Attestation - Attestation I have personally seen and examined this patient.: Yes I have fully participated in the care of the patient.: Yes I have reviewed all pertinent clinical information, including history, physical exam and plan: Yes Notes (Text): Patient was seen and examined.Her is at bedside Has mild headache and palpitation.She thinks the klonopin will help her I agree with the resident's assessment and the plan Patient is going for cerebral angiogram on Sunday we will follow with neurologist about starting on anticoagulation after the Angiogram continue Nimodipine,topamax
[2017-09-29] MEDS: HYDROmorphone 0.5 mg/0.5 ml ISec IVP PRN (04:14)
[2017-09-29] MEDS: Levothyroxine 100 MCG TAB PO SCH (07:10)
[2017-09-29 07:44] LABS: BASO % 0.4 % (0.0-2.0); EOS # 0.4 K/uL (0.0-0.7); EOS % 5.5 % (0.0-4.0); HEMATOCRIT 40.8 % (34.0-47.0); LYMPH # 1.3 K/uL (1.0-4.3); LYMPH % 15.7 % (20.0-40.0); MEAN CELL VOLUME 88.1 fL (81.0-99.0); MEAN CORPUSCULAR HEMOGLOBIN 30.5 pg (27.0-31.0); MEAN CORPUSCULAR HGB CONC 34.6 g/dL (33.0-37.0); MEAN PLATELET VOLUME 10.1 fL (7.2-11.7); MONO # 0.7 K/uL (0.0-0.8); MONO % 8.3 % (0.0-10.0); NRBC % 0.1 % (0.0-2.0); RED CELL DISTRIBUTION WIDTH 13.2 % (11.5-14.5); WHITE BLOOD COUNT 8.1 K/uL (4.8-10.8)
[2017-09-29 07:56] LABS: ALB/GLOB RATIO 1.4 (1.0-2.1); ALKALINE PHOSPHATASE 80 U/L (38-126); ALT/SGPT 55 U/L (9-52); AST/SGOT 28 U/L (14-36); BILIRUBIN,TOTAL 0.6 mg/dL (0.2-1.3); BLOOD UREA NITROGEN 11 mg/dL (7-17); CALCIUM 9.1 mg/dl (8.6-10.4); CARBON DIOXIDE 31 mmol/L (22-30); CHLORIDE 97 mmol/L (98-107); GFR AFRICAN-AMERICAN > 60; GLUCOSE,RANDOM 95 mg/dL (65-105); MAGNESIUM 1.9 mg/dL (1.6-2.3); SODIUM 139 mmol/L (132-148); TOTAL PROTEIN 7.5 g/dL (6.3-8.3)
[2017-09-29] MEDS: HYDROmorphone 1 mg/ml ISec IVP PRN ×3 (08:33→22:30)
[2017-09-29] MEDS: Pantoprazole 40 mg EC Tab PO SCH (09:43)
[2017-09-29] MEDS: Potassium Chloride 20 mEq ER Tab PO SCH (09:43)
[2017-09-29] MEDS: Fluticasone Nasal 50 mcg/Spray NAS SCH (11:34)
--- NOTE | 2017-09-30 01:10 | CP.PCM.PN ---
<Hannah Watson - Last Filed: 09/30/17 01:07> Subjective - Date & Time of Evaluation Date of Evaluation: 09/30/17 Time of Evaluation: 01:07 - Subjective Subjective: Medicine Progress Note for Dr. Quesada Patient was seen and examined at bedside in no acute distress. Patient reports still having a headache, but its mild and improving. Patient also states her nausea is improving. Patient currently denies having chest pain, abdominal pain , fevers, vomiting, dizziness and leg pain/swelling. Objective - Vital Signs/Intake and Output Vital Signs (last 24 hours): Temp Pulse Resp BP Pulse Ox 97.9 F 79 20 116/79 98 09/29/17 23:05 09/30/17 00:00 09/29/17 23:05 09/29/17 23:05 09/29/17 23:05 Intake and Output: 09/29/17 09/30/17 18:59 06:59 Intake Total 480 400 Balance 480 400 - Medications Medications: Current Medications Acetaminophen (Tylenol 325mg Tab) 650 mg PO Q6 PRN PRN Reason: Headache Last Admin: 09/24/17 10:20 Dose: 650 mg Clonazepam (Klonopin) 1 mg PO DAILY [facility] Last Admin: 09/29/17 09:43 Dose: 1 mg Docusate Sodium (Colace) 100 mg PO TID [facility] Last Admin: 09/29/17 17:16 Dose: 100 mg Ergocalciferol (Drisdol 50,000 Intl Units Cap) 1 cap PO QWK [facility] Last Admin: 09/27/17 11:13 Dose: 1 cap Fluticasone Propionate (Flonase) 1 spr SNEHAL DAILY [facility] Last Admin: 09/29/17 11:34 Dose: 1 spr Gabapentin (Neurontin) 300 mg PO BID [facility] Last Admin: 09/29/17 17:16 Dose: 300 mg Hydralazine HCl (Apresoline) 10 mg IVP Q6H PRN PRN Reason: Systolic Blood Pressure Hydromorphone HCl (Dilaudid) 0.5 mg IVP Q4H PRN PRN Reason: Pain, moderate (4-7) Last Admin: 09/29/17 04:14 Dose: 0.5 mg Hydromorphone HCl (Dilaudid) 1 mg IVP Q4H PRN PRN Reason: Pain, severe (8-10) Last Admin: 09/29/17 22:30 Dose: 1 mg Levothyroxine Sodium (Synthroid) 100 mcg PO DAILY@0630 [facility] Last Admin: 09/29/17 07:10 Dose: 100 mcg Metoclopramide HCl (Reglan) 10 mg IVP Q6 PRN PRN Reason: Nausea/Vomiting Last Admin: 09/26/17 11:23 Dose: 10 mg Nimodipine (Nimotop) 30 mg PO Q4H [facility] Last Admin: 09/29/17 22:24 Dose: 30 mg Ondansetron HCl (Zofran Inj) 4 mg IVP Q6H PRN PRN Reason: Nausea/Vomiting Last Admin: 09/29/17 08:32 Dose: 4 mg Pantoprazole Sodium (Protonix Ec Tab) 40 mg PO DAILY [facility] Last Admin: 09/29/17 09:43 Dose: 40 mg Potassium Chloride (K-Dur 20 Meq Er Tab) 20 meq PO DAILY [facility] Last Admin: 09/29/17 09:43 Dose: 20 meq Topiramate (Topamax) 25 mg PO DAILY [facility] Last Admin: 09/29/17 09:43 Dose: 25 mg - Labs Labs: 09/29/17 07:30 09/29/17 07:30 PT 13.0 SECONDS (9.7-12.2) H 09/20/17 06:49 INR 1.2 09/20/17 06:49 APTT 57 SECONDS (21-34) H D 09/22/17 07:50 - Additional Findings Additional findings: - Constitutional Appears: No Acute Distress - Head Exam Head Exam: ATRAUMATIC, NORMAL INSPECTION - Eye Exam Eye Exam: EOMI, Normal appearance - ENT Exam ENT Exam: Mucous Membranes Moist - Respiratory Exam Respiratory Exam: Clear to Ausculation Bilateral, NORMAL BREATHING PATTERN. absent: Rales, Rhonchi, Wheezes, Respiratory Distress - Cardiovascular Exam Cardiovascular Exam: REGULAR RHYTHM, +S1, +S2 - GI/Abdominal Exam GI & Abdominal Exam: Soft, Normal Bowel Sounds. absent: Distended, Firm, Tenderness - Extremities Exam Extremities Exam: absent: Tenderness Additional comments: compression stockings on b/l; small non-tender lesion posterior and superior to ankle. 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 Phan 09/25 OK for PT out bed to ambulate, ok to transfer to tele * Continue Rosuvastatin * Continue Nimodipine for vasospasm * d/w Dr. Guerra * anticoagulation contraindicated for DVT due to SAH (2) Subarachnoid hemorrhage Assessment and Plan: * s/p TPA * anticoagulation contraindicated for DVT due to SAH * 09/25: CT brain done -no bleeding; Patient transferred to telemetry * Neurology consult: Dr. Crockett and Dr. Cervantes * Patient scheduled for cerebral angiogram on 10/01 * Per Dr. Crockett, continue Nimodipine 30mg PO Q4H, Topamax 25mg PO daily * Pain medications: Acetaminophen 650mg Q6 PRN; Dilaudid 0.5mg IVP Q4H PRN (3) Hypothyroidism Assessment and Plan: * Continue Levothyroxine 100mcg (7) HTN Assessment and Plan: * Continue Hydralazine 10mg IVP Q6H PRN (7) Hypercoagulopathy Assessment and Plan: * Dr. Guerra consulted, help appreciated * anticoagulation contraindicated for DVT due to SAH (6) Constipation Assessment and Plan: * 09/26 Miralax 17gm once; Colace 100mg TID [facility], hold for bm * 09/28 Miralax 17gm PO BID [facility] x2 doses * f/u BM (7) Prophylaxis Assessment and Plan: * GI prophylaxis: protonix * DVT: Off anticoagulation and no SCD; stockings on * Potassium 20 meq POQD * Zofran 4mg IVP Q5H PRN * PT and OT <Bogdan Quesada - Last Filed: 09/30/17 12:43> Objective - Vital Signs/Intake and Output Vital Signs (last 24 hours): Temp Pulse Resp BP Pulse Ox 97.9 F 86 20 118/74 97 09/30/17 08:28 09/30/17 09:30 09/30/17 09:30 09/30/17 09:30 09/30/17 09:30 Intake and Output: 09/30/17 09/30/17 06:59 18:59 Intake Total 650 240 Balance 650 240 - Medications Medications: Current Medications Acetaminophen (Tylenol 325mg Tab) 650 mg PO Q6 PRN PRN Reason: Headache Last Admin: 09/30/17 06:11 Dose: 650 mg Clonazepam (Klonopin) 1 mg PO DAILY [facility] Last Admin: 09/30/17 09:22 Dose: 1 mg Docusate Sodium (Colace) 100 mg PO TID [facility] Last Admin: 09/30/17 09:21 Dose: 100 mg Ergocalciferol (Drisdol 50,000 Intl Units Cap) 1 cap PO QWK [facility] Last Admin: 09/27/17 11:13 Dose: 1 cap Fluticasone Propionate (Flonase) 1 spr SNEHAL DAILY [facility] Last Admin: 09/30/17 11:14 Dose: 1 spr Gabapentin (Neurontin) 300 mg PO BID [facility] Last Admin: 09/30/17 09:22 Dose: 300 mg Hydralazine HCl (Apresoline) 10 mg IVP Q6H PRN PRN Reason: Systolic Blood Pressure Hydromorphone HCl (Dilaudid) 0.5 mg IVP Q4H PRN PRN Reason: Pain, moderate (4-7) Last Admin: 09/30/17 11:48 Dose: 0.5 mg Hydromorphone HCl (Dilaudid) 1 mg IVP Q4H PRN PRN Reason: Pain, severe (8-10) Last Admin: 09/29/17 22:30 Dose: 1 mg Levothyroxine Sodium (Synthroid) 100 mcg PO DAILY@0630 [facility] Last Admin: 09/30/17 06:09 Dose: 100 mcg Metoclopramide HCl (Reglan) 10 mg IVP Q6 PRN PRN Reason: Nausea/Vomiting Last Admin: 09/26/17 11:23 Dose: 10 mg Nimodipine (Nimotop) 30 mg PO Q4H [facility] Last Admin: 09/30/17 11:04 Dose: 30 mg Ondansetron HCl (Zofran Inj) 4 mg IVP Q6H PRN PRN Reason: Nausea/Vomiting Last Admin: 09/30/17 03:46 Dose: 4 mg Pantoprazole Sodium (Protonix Ec Tab) 40 mg PO DAILY [facility] Last Admin: 09/30/17 09:21 Dose: 40 mg Potassium Chloride (K-Dur 20 Meq Er Tab) 20 meq PO DAILY [facility] Last Admin: 09/30/17 09:22 Dose: 20 meq Topiramate (Topamax) 25 mg PO DAILY [facility] Last Admin: 09/30/17 09:20 Dose: 25 mg - Labs Labs: 09/30/17 07:36 09/30/17 07:36 PT 13.0 SECONDS (9.7-12.2) H 09/20/17 06:49 INR 1.2 09/20/17 06:49 APTT 57 SECONDS (21-34) H D 09/22/17 07:50 Attending/Attestation - Attestation I have personally seen and examined this patient.: Yes I have fully participated in the care of the patient.: Yes I have reviewed all pertinent clinical information, including history, physical exam and plan: Yes Notes (Text): Seen and examined,lying comfortable.No complain.Alert oriented x3 plan discussed with the platient I agree with the documentation of the assessment and the plan of the patient 09/30/17 12:43
[2017-09-30] MEDS: HYDROmorphone 0.5 mg/0.5 ml ISec IVP PRN ×2 (03:57→11:48)
[2017-09-30] MEDS: Levothyroxine 100 MCG TAB PO SCH (06:09)
[2017-09-30 07:55] LABS: BASO % 0.4 % (0.0-2.0); EOS # 0.4 K/uL (0.0-0.7); EOS % 4.7 % (0.0-4.0); HEMATOCRIT 38.3 % (34.0-47.0); LYMPH # 1.4 K/uL (1.0-4.3); LYMPH % 15.3 % (20.0-40.0); MEAN CELL VOLUME 88.5 fL (81.0-99.0); MEAN CORPUSCULAR HEMOGLOBIN 30.4 pg (27.0-31.0); MEAN CORPUSCULAR HGB CONC 34.4 g/dL (33.0-37.0); MONO # 0.6 K/uL (0.0-0.8); MONO % 6.8 % (0.0-10.0); RED CELL DISTRIBUTION WIDTH 13.1 % (11.5-14.5); WHITE BLOOD COUNT 9.2 K/uL (4.8-10.8)
[2017-09-30 08:09] LABS: ALB/GLOB RATIO 1.4 (1.0-2.1); ALKALINE PHOSPHATASE 75 U/L (38-126); ALT/SGPT 54 U/L (9-52); AST/SGOT 28 U/L (14-36); BILIRUBIN,TOTAL 0.5 mg/dL (0.2-1.3); BLOOD UREA NITROGEN 15 mg/dL (7-17); CALCIUM 8.6 mg/dl (8.6-10.4); CARBON DIOXIDE 27 mmol/L (22-30); CHLORIDE 101 mmol/L (98-107); GFR AFRICAN-AMERICAN > 60; GLUCOSE,RANDOM 95 mg/dL (65-105); MAGNESIUM 1.8 mg/dL (1.6-2.3); POTASSIUM 3.9 mmol/L (3.6-5.2); SODIUM 139 mmol/L (132-148); TOTAL PROTEIN 6.9 g/dL (6.3-8.3)
[2017-09-30] MEDS: Pantoprazole 40 mg EC Tab PO SCH (09:21)
[2017-09-30] MEDS: Potassium Chloride 20 mEq ER Tab PO SCH (09:22)
[2017-09-30] MEDS: Fluticasone Nasal 50 mcg/Spray NAS SCH (11:14)
--- NOTE | 2017-09-30 11:16 | CP.PCM.PN ---
Subjective - Date & Time of Evaluation Date of Evaluation: 09/30/17 Time of Evaluation: 11:13 - Subjective Subjective: Ms. Martinez was seen and examined at the bedside. She is alert, oriented in all spheres. She denies any headache, dizziness, lightheadedness, weakness, nausea , or vomiting. There was no untoward events overnight. Objective - Vital Signs/Intake and Output Vital Signs (last 24 hours): Temp Pulse Resp BP Pulse Ox 97.9 F 86 20 118/74 97 09/30/17 08:28 09/30/17 09:30 09/30/17 09:30 09/30/17 09:30 09/30/17 09:30 Intake and Output: 09/30/17 09/30/17 06:59 18:59 Intake Total 650 240 Balance 650 240 - Medications Medications: Current Medications Acetaminophen (Tylenol 325mg Tab) 650 mg PO Q6 PRN PRN Reason: Headache Last Admin: 09/30/17 06:11 Dose: 650 mg Clonazepam (Klonopin) 1 mg PO DAILY [facility] Last Admin: 09/30/17 09:22 Dose: 1 mg Docusate Sodium (Colace) 100 mg PO TID [facility] Last Admin: 09/30/17 09:21 Dose: 100 mg Ergocalciferol (Drisdol 50,000 Intl Units Cap) 1 cap PO QWK [facility] Last Admin: 09/27/17 11:13 Dose: 1 cap Fluticasone Propionate (Flonase) 1 spr SNEHAL DAILY [facility] Last Admin: 09/29/17 11:34 Dose: 1 spr Gabapentin (Neurontin) 300 mg PO BID [facility] Last Admin: 09/30/17 09:22 Dose: 300 mg Hydralazine HCl (Apresoline) 10 mg IVP Q6H PRN PRN Reason: Systolic Blood Pressure Hydromorphone HCl (Dilaudid) 0.5 mg IVP Q4H PRN PRN Reason: Pain, moderate (4-7) Last Admin: 09/30/17 03:57 Dose: 0.5 mg Hydromorphone HCl (Dilaudid) 1 mg IVP Q4H PRN PRN Reason: Pain, severe (8-10) Last Admin: 09/29/17 22:30 Dose: 1 mg Levothyroxine Sodium (Synthroid) 100 mcg PO DAILY@0630 [facility] Last Admin: 09/30/17 06:09 Dose: 100 mcg Metoclopramide HCl (Reglan) 10 mg IVP Q6 PRN PRN Reason: Nausea/Vomiting Last Admin: 09/26/17 11:23 Dose: 10 mg Nimodipine (Nimotop) 30 mg PO Q4H [facility] Last Admin: 09/30/17 11:04 Dose: 30 mg Ondansetron HCl (Zofran Inj) 4 mg IVP Q6H PRN PRN Reason: Nausea/Vomiting Last Admin: 09/30/17 03:46 Dose: 4 mg Pantoprazole Sodium (Protonix Ec Tab) 40 mg PO DAILY [facility] Last Admin: 09/30/17 09:21 Dose: 40 mg Potassium Chloride (K-Dur 20 Meq Er Tab) 20 meq PO DAILY [facility] Last Admin: 09/30/17 09:22 Dose: 20 meq Topiramate (Topamax) 25 mg PO DAILY [facility] Last Admin: 09/29/17 09:43 Dose: 25 mg - Labs Labs: 09/30/17 07:36 09/30/17 07:36 PT 13.0 SECONDS (9.7-12.2) H 09/20/17 06:49 INR 1.2 09/20/17 06:49 APTT 57 SECONDS (21-34) H D 09/22/17 07:50 - Constitutional Appears: No Acute Distress - Head Exam Head Exam: ATRAUMATIC - Neurological Exam Neurological Exam: Alert, Awake, CN II-XII Intact, Oriented x3 Neuro motor strength exam: Left Upper Extremity: 5, Right Upper Extremity: 5, Left Lower Extremity: 3, Right Lower Extremity: 3 Additional comments: Neurological unchanged from previous examination. Assessment and Plan (1) Subarachnoid hemorrhage Assessment & Plan: Case discussed with Dr. Crockett, continue all current medical, physical, and occupational therapies. Patient is for cerebral angiogram in am. NPO post 6 am. Status: Acute
[2017-09-30] MEDS: HYDROmorphone 1 mg/ml ISec IVP PRN ×2 (16:03→21:03)
[2017-10-01] MEDS: HYDROmorphone 1 mg/ml ISec IVP PRN ×3 (01:28→23:44)
[2017-10-01] MEDS: Levothyroxine 100 MCG TAB PO SCH ×2 (05:08→06:33)
[2017-10-01 06:23] LABS: BASO % 0.4 % (0.0-2.0); EOS # 0.3 K/uL (0.0-0.7); HEMATOCRIT 39.2 % (34.0-47.0); LYMPH # 1.6 K/uL (1.0-4.3); MEAN CELL VOLUME 89.8 fL (81.0-99.0); MEAN CORPUSCULAR HEMOGLOBIN 30.5 pg (27.0-31.0); MONO # 0.4 K/uL (0.0-0.8); WHITE BLOOD COUNT 7.4 K/uL (4.8-10.8)
[2017-10-01 07:42] LABS: ALB/GLOB RATIO 1.3 (1.0-2.1); ALKALINE PHOSPHATASE 67 U/L (38-126); ALT/SGPT 46 U/L (9-52); AST/SGOT 23 U/L (14-36); BILIRUBIN,TOTAL 0.4 mg/dL (0.2-1.3); BLOOD UREA NITROGEN 15 mg/dL (7-17); CALCIUM 8.6 mg/dl (8.6-10.4); CARBON DIOXIDE 28 mmol/L (22-30); CHLORIDE 100 mmol/L (98-107); GFR AFRICAN-AMERICAN > 60; GLUCOSE,RANDOM 107 mg/dL (65-105); MAGNESIUM 1.6 mg/dL (1.6-2.3); POTASSIUM 3.7 mmol/L (3.6-5.2); SODIUM 136 mmol/L (132-148)
--- NOTE | 2017-10-01 08:11 | CP.PCM.PN ---
Subjective - Date & Time of Evaluation Date of Evaluation: 10/01/17 Time of Evaluation: 08:08 - Subjective Subjective: Ms. Martinez was seen and examined at the bedside. She is alert, oriented in all spheres. She denies any headache, dizziness, lightheadedness, nausea, or vomiting. She is verbalized understanding regarding NPO except meds. There was no untoward events overnight. Objective - Vital Signs/Intake and Output Vital Signs (last 24 hours): Temp Pulse Resp BP Pulse Ox 97.3 F L 80 20 114/68 98 09/30/17 23:10 10/01/17 05:10 09/30/17 23:10 10/01/17 05:10 09/30/17 23:10 Intake and Output: 10/01/17 10/01/17 06:59 18:59 Intake Total 150 Balance 150 - Medications Medications: Current Medications Acetaminophen (Tylenol 325mg Tab) 650 mg PO Q6 PRN PRN Reason: Headache Last Admin: 09/30/17 06:11 Dose: 650 mg Clonazepam (Klonopin) 1 mg PO DAILY [facility] Last Admin: 09/30/17 09:22 Dose: 1 mg Docusate Sodium (Colace) 100 mg PO TID [facility] Last Admin: 09/30/17 18:26 Dose: 100 mg Ergocalciferol (Drisdol 50,000 Intl Units Cap) 1 cap PO QWK [facility] Last Admin: 09/27/17 11:13 Dose: 1 cap Fluticasone Propionate (Flonase) 1 spr SNEHAL DAILY [facility] Last Admin: 09/30/17 11:14 Dose: 1 spr Gabapentin (Neurontin) 300 mg PO BID [facility] Last Admin: 09/30/17 18:26 Dose: 300 mg Hydralazine HCl (Apresoline) 10 mg IVP Q6H PRN PRN Reason: Systolic Blood Pressure Hydromorphone HCl (Dilaudid) 0.5 mg IVP Q4H PRN PRN Reason: Pain, moderate (4-7) Last Admin: 09/30/17 11:48 Dose: 0.5 mg Hydromorphone HCl (Dilaudid) 1 mg IVP Q4H PRN PRN Reason: Pain, severe (8-10) Last Admin: 10/01/17 06:04 Dose: 1 mg Levothyroxine Sodium (Synthroid) 100 mcg PO DAILY@0630 [facility] Last Admin: 10/01/17 06:33 Dose: Not Given Metoclopramide HCl (Reglan) 10 mg IVP Q6 PRN PRN Reason: Nausea/Vomiting Last Admin: 09/26/17 11:23 Dose: 10 mg Nimodipine (Nimotop) 30 mg PO Q4H [facility] Last Admin: 10/01/17 06:05 Dose: 30 mg Ondansetron HCl (Zofran Inj) 4 mg IVP Q6H PRN PRN Reason: Nausea/Vomiting Last Admin: 09/30/17 03:46 Dose: 4 mg Pantoprazole Sodium (Protonix Ec Tab) 40 mg PO DAILY [facility] Last Admin: 09/30/17 09:21 Dose: 40 mg Potassium Chloride (K-Dur 20 Meq Er Tab) 20 meq PO DAILY [facility] Last Admin: 09/30/17 09:22 Dose: 20 meq Topiramate (Topamax) 25 mg PO DAILY [facility] Last Admin: 09/30/17 09:20 Dose: 25 mg - Labs Labs: 10/01/17 06:00 10/01/17 06:00 PT 13.0 SECONDS (9.7-12.2) H 09/20/17 06:49 INR 1.2 09/20/17 06:49 APTT 57 SECONDS (21-34) H D 09/22/17 07:50 - Constitutional Appears: No Acute Distress - Head Exam Head Exam: ATRAUMATIC - Neurological Exam Neurological Exam: Alert, Awake, CN II-XII Intact, Normal Gait, Oriented x3 Additional comments: Neurological unchanged from previous examination. Assessment and Plan (1) Subarachnoid hemorrhage Assessment & Plan: Case discussed with Dr. Crockett, continue all current medical, physical, and occupational therapies. Pending cerebral angiogram today with Dr. Cervantes. Status: Acute
[2017-10-01] MEDS: Fluticasone Nasal 50 mcg/Spray NAS SCH (10:35)
[2017-10-01] MEDS: Pantoprazole 40 mg EC Tab PO SCH (10:35)
[2017-10-01] MEDS: Potassium Chloride 20 mEq ER Tab PO SCH (10:35)
--- NOTE | 2017-10-01 10:39 | CP.PCM.PN ---
<Rozina Menon - Last Filed: 10/01/17 10:36> Subjective - Date & Time of Evaluation Date of Evaluation: 10/01/17 Time of Evaluation: 10:36 - Subjective Subjective: Progress note for Dr. Espinoza Patient seen and examined at bedside. Patient is aware that she is getting and exam today and that she's was NPO after 6am this morning Patient states she has headaches and dizziness at times, but feel better overall. Patient admits to bowel movements. Patient states she sees wavy lines at times with dizziness. Patient denies dizziness at the moment, nausea, vomiting, constipation, diarrhea , abdominal pain. Patient states her legs feel swollen, and was putting on her stockings at bedside. Objective - Vital Signs/Intake and Output Vital Signs (last 24 hours): Temp Pulse Resp BP Pulse Ox 98.8 F 90 18 159/80 H 100 10/01/17 08:00 10/01/17 08:00 10/01/17 08:00 10/01/17 08:00 10/01/17 08:00 Intake and Output: 10/01/17 10/01/17 06:59 18:59 Intake Total 150 Balance 150 - Medications Medications: Current Medications Acetaminophen (Tylenol 325mg Tab) 650 mg PO Q6 PRN PRN Reason: Headache Last Admin: 09/30/17 06:11 Dose: 650 mg Clonazepam (Klonopin) 1 mg PO DAILY [facility] Last Admin: 10/01/17 10:35 Dose: 1 mg Docusate Sodium (Colace) 100 mg PO TID [facility] Last Admin: 10/01/17 10:35 Dose: 100 mg Ergocalciferol (Drisdol 50,000 Intl Units Cap) 1 cap PO QWK [facility] Last Admin: 09/27/17 11:13 Dose: 1 cap Fluticasone Propionate (Flonase) 1 spr SNEHAL DAILY [facility] Last Admin: 10/01/17 10:35 Dose: 1 spr Gabapentin (Neurontin) 300 mg PO BID [facility] Last Admin: 10/01/17 10:35 Dose: 300 mg Hydralazine HCl (Apresoline) 10 mg IVP Q6H PRN PRN Reason: Systolic Blood Pressure Hydromorphone HCl (Dilaudid) 0.5 mg IVP Q4H PRN PRN Reason: Pain, moderate (4-7) Last Admin: 09/30/17 11:48 Dose: 0.5 mg Hydromorphone HCl (Dilaudid) 1 mg IVP Q4H PRN PRN Reason: Pain, severe (8-10) Last Admin: 10/01/17 06:04 Dose: 1 mg Levothyroxine Sodium (Synthroid) 100 mcg PO DAILY@0630 [facility] Last Admin: 10/01/17 06:33 Dose: Not Given Metoclopramide HCl (Reglan) 10 mg IVP Q6 PRN PRN Reason: Nausea/Vomiting Last Admin: 09/26/17 11:23 Dose: 10 mg Nimodipine (Nimotop) 30 mg PO Q4H [facility] Last Admin: 10/01/17 10:35 Dose: 30 mg Ondansetron HCl (Zofran Inj) 4 mg IVP Q6H PRN PRN Reason: Nausea/Vomiting Last Admin: 09/30/17 03:46 Dose: 4 mg Pantoprazole Sodium (Protonix Ec Tab) 40 mg PO DAILY [facility] Last Admin: 10/01/17 10:35 Dose: 40 mg Potassium Chloride (K-Dur 20 Meq Er Tab) 20 meq PO DAILY [facility] Last Admin: 10/01/17 10:35 Dose: 20 meq Topiramate (Topamax) 25 mg PO DAILY [facility] Last Admin: 10/01/17 10:35 Dose: 25 mg - Labs Labs: 10/01/17 06:00 10/01/17 06:00 PT 13.0 SECONDS (9.7-12.2) H 09/20/17 06:49 INR 1.2 09/20/17 06:49 APTT 57 SECONDS (21-34) H D 09/22/17 07:50 - Constitutional Appears: Non-toxic, No Acute Distress - Head Exam Head Exam: NORMAL INSPECTION - Eye Exam Eye Exam: EOMI, Normal appearance - ENT Exam ENT Exam: Mucous Membranes Moist - Neck Exam Neck Exam: Full ROM Additional comments: no thyromegaly - Respiratory Exam Respiratory Exam: Decreased Breath Sounds, NORMAL BREATHING PATTERN - Cardiovascular Exam Cardiovascular Exam: REGULAR RHYTHM, +S1, +S2 - GI/Abdominal Exam GI & Abdominal Exam: Distended, Soft, Normal Bowel Sounds Additional comments: nontender - Extremities Exam Extremities Exam: Full ROM Additional comments: normal color, palpation of DP, PT, AT pulses bilaterally. 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 Phan 09/25 OK for PT out bed to ambulate, ok to transfer to tele * Continue Rosuvastatin * Continue Nimodipine for vasospasm * d/w Dr. Guerra * anticoagulation contraindicated for DVT due to SAH (2) Subarachnoid hemorrhage Assessment and Plan: * s/p TPA * anticoagulation contraindicated for DVT due to SAH * 09/25: CT brain done -no bleeding; Patient transferred to telemetry * Neurology consult: Dr. Crockett and Dr. Cervantes * Patient scheduled for cerebral angiogram on 10/01 * Per Dr. Crockett, continue Nimodipine 30mg PO Q4H, Topamax 25mg PO daily * Pain medications: Acetaminophen 650mg Q6 PRN; Dilaudid 0.5mg IVP Q4H PRN * f/u Cerebral angio today. (3) Hypothyroidism Assessment and Plan: * Continue Levothyroxine 100mcg (7) HTN Assessment and Plan: * Continue Hydralazine 10mg IVP Q6H PRN (7) Hypercoagulopathy Assessment and Plan: * Dr. Guerra consulted, help appreciated * anticoagulation contraindicated for DVT due to SAH (6) Constipation, resolved Assessment and Plan: * 09/26 Miralax 17gm once; Colace 100mg TID [facility], hold for bm * 09/28 Miralax 17gm PO BID [facility] x2 doses (7) Prophylaxis Assessment and Plan: * GI prophylaxis: protonix * DVT: Off anticoagulation and no SCD; stockings on * Potassium 20 meq POQD * Zofran 4mg IVP Q5H PRN * PT and OT f/u with Dr. Ry Menon, DO PGY1 <Ry Espinoza H - Last Filed: 10/01/17 13:01> Objective - Vital Signs/Intake and Output Vital Signs (last 24 hours): Temp Pulse Resp BP Pulse Ox 98.8 F 90 18 159/80 H 100 10/01/17 08:00 10/01/17 08:00 10/01/17 08:00 10/01/17 08:00 10/01/17 08:00 Intake and Output: 10/01/17 10/01/17 06:59 18:59 Intake Total 150 Balance 150 - Medications Medications: Current Medications Acetaminophen (Tylenol 325mg Tab) 650 mg PO Q6 PRN PRN Reason: Headache Last Admin: 09/30/17 06:11 Dose: 650 mg Clonazepam (Klonopin) 1 mg PO DAILY [facility] Last Admin: 10/01/17 10:35 Dose: 1 mg Docusate Sodium (Colace) 100 mg PO TID [facility] Last Admin: 10/01/17 10:35 Dose: 100 mg Ergocalciferol (Drisdol 50,000 Intl Units Cap) 1 cap PO QWK [facility] Last Admin: 09/27/17 11:13 Dose: 1 cap Fluticasone Propionate (Flonase) 1 spr SNEHAL DAILY [facility] Last Admin: 10/01/17 10:35 Dose: 1 spr Gabapentin (Neurontin) 300 mg PO BID [facility] Last Admin: 10/01/17 10:35 Dose: 300 mg Hydralazine HCl (Apresoline) 10 mg IVP Q6H PRN PRN Reason: Systolic Blood Pressure Hydromorphone HCl (Dilaudid) 0.5 mg IVP Q4H PRN PRN Reason: Pain, moderate (4-7) Last Admin: 10/01/17 10:45 Dose: 0.5 mg Hydromorphone HCl (Dilaudid) 1 mg IVP Q4H PRN PRN Reason: Pain, severe (8-10) Last Admin: 10/01/17 06:04 Dose: 1 mg Levothyroxine Sodium (Synthroid) 100 mcg PO DAILY@0630 [facility] Last Admin: 10/01/17 06:33 Dose: Not Given Metoclopramide HCl (Reglan) 10 mg IVP Q6 PRN PRN Reason: Nausea/Vomiting Last Admin: 09/26/17 11:23 Dose: 10 mg Nimodipine (Nimotop) 30 mg PO Q4H [facility] Last Admin: 12/11/17 10:35 Dose: 30 mg Ondansetron HCl (Zofran Inj) 4 mg IVP Q6H PRN PRN Reason: Nausea/Vomiting Last Admin: 10/01/17 12:55 Dose: 4 mg Pantoprazole Sodium (Protonix Ec Tab) 40 mg PO DAILY [facility] Last Admin: 10/01/17 10:35 Dose: 40 mg Potassium Chloride (K-Dur 20 Meq Er Tab) 20 meq PO DAILY [facility] Last Admin: 10/01/17 10:35 Dose: 20 meq Topiramate (Topamax) 25 mg PO DAILY [facility] Last Admin: 10/01/17 10:35 Dose: 25 mg - Labs Labs: 10/01/17 06:00 10/01/17 06:00 PT 12.9 SECONDS (9.7-12.2) H 10/01/17 11:12 INR 1.1 10/01/17 11:12 APTT 57 SECONDS (21-34) H D 09/22/17 07:50 Attending/Attestation - Attestation I have personally seen and examined this patient.: Yes I have fully participated in the care of the patient.: Yes I have reviewed all pertinent clinical information, including history, physical exam and plan: Yes Notes (Text): 10/01/17 13:00 Medical attending: Patient was seen and examined by me as well, reviewed and agree with the above note by the medical driver. The patient reported that she was much better than previously. She still says she has minimal headaches however much better than before. As documented before this is my first time seeing the patient since the previous week. Had discussed with patient, medical staff as to the events of last week. Has been previously documented the patient had a history of DVT coming in and required AngioJet with TPA and IVC filter placement. After that she developed a headache as well as elevated blood pressure and was immediately brought to the ICU. It was determined that she had a subarachnoid hemorrhage. Since that time she's done quite well with decreasing. She's had several repeat CAT scans of the brain today is a CT angiogram of the brain The patient states that she is feeling much better than before is interested in going home very soon we explained to the waiting on this CAT scan thank you Ry Espinoza
[2017-10-01] MEDS: HYDROmorphone 0.5 mg/0.5 ml ISec IVP PRN ×2 (10:45→15:05)
[2017-10-01 11:25] LABS: INR 1.1
--- NOTE | 2017-10-01 16:24 | CP.PCM.CON ---
History of Present Illness - History of Present Illness History of Present Illness: Chief Concern: Headache Ms. 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 The patient underwent clot lysis and stenting during which tPA and heparin was used and pos procedure, she developed a severe headache. A head CT demonstrated subarachnoid hemorrhage and neurology was consulted. Anticoagulation was discontinued and the patient was started on Nimodipine. Currently she reports that she is feeling "alright" except for the headache. No other complaints. Review of Systems - Constitutional Constitutional: absent: Anorexia, Chills, Fever - EENT Eyes: absent: Blind Spots, Floaters, Photophobia, Tunnel Vision Ears: absent: Decreased Hearing, Ear Discharge, Ear Pain Nose/Mouth/Throat: absent: Epistaxis, Nasal Congestion, Nasal Discharge - Cardiovascular Cardiovascular: absent: Chest Pain, Chest Pain at Rest, Dyspnea on Exertion - Respiratory Respiratory: absent: Cough, Dyspnea, Hemoptysis, Dyspnea on Exertion, Wheezing, Excessive Mucous Production - Gastrointestinal Gastrointestinal: absent: Change in Bowel Habits, Change in Stool Character, Constipation, Diarrhea - Genitourinary Genitourinary: absent: Urinary Frequency, Urinary Hesitance, Urinary Urgency - Musculoskeletal Musculoskeletal: absent: Abnormal Gait, Arthralgias, Atrophy - Neurological Neurological: As Per HPI - Psychiatric Psychiatric: absent: Abnormal Sleep Pattern, Depression, Irritability Past Patient History - Infectious Disease Hx of Infectious Diseases: None - Past Medical History & Family History Past Medical History?: Yes - Past Social History Smoking Status: Former Smoker Chewing Tobacco Use: No Cigar Use: No Alcohol: None Drugs: Denies Home Situation {Lives}: With Family - CARDIAC Hx Hypertension: Yes - PULMONARY Hx Asthma: Yes - NEUROLOGICAL Hx Neurological Disorder: Yes Other/Comment: trigeminal neuralgia - HEENT Other/Comment: states recently completed abtx for tooth infection x1wk ago - RENAL Hx Chronic Kidney Disease: Yes - ENDOCRINE/METABOLIC Hx Hypothyroidism: Yes - HEMATOLOGICAL/ONCOLOGICAL Hx Blood Disorders: No - INTEGUMENTARY Hx Dermatological Problems: No - MUSCULOSKELETAL/RHEUMATOLOGICAL Hx Musculoskeletal Disorders: No - GASTROINTESTINAL Hx Gastrointestinal Disorders: No - GENITOURINARY/GYNECOLOGICAL Hx Genitourinary Disorders: No - PSYCHIATRIC Hx Anxiety: Yes Hx Substance Use: No - SURGICAL HISTORY Hx Surgeries: No - ANESTHESIA Hx Anesthesia: No Hx Anesthesia Reactions: No Hx Malignant Hyperthermia: No Meds Allergies/Adverse Reactions: Allergies Allergy/AdvReac Type Severity Reaction Status Date / Time No Known Allergies Allergy Verified 09/19/17 11:06 - Medications Medications: Current Medications Acetaminophen (Tylenol 325mg Tab) 650 mg PO Q6 PRN PRN Reason: Headache Last Admin: 09/30/17 06:11 Dose: 650 mg Clonazepam (Klonopin) 1 mg PO DAILY [facility] Last Admin: 10/01/17 10:35 Dose: 1 mg Docusate Sodium (Colace) 100 mg PO TID [facility] Last Admin: 10/01/17 15:04 Dose: 100 mg Ergocalciferol (Drisdol 50,000 Intl Units Cap) 1 cap PO QWK [facility] Last Admin: 09/27/17 11:13 Dose: 1 cap Fluticasone Propionate (Flonase) 1 spr SNEHAL DAILY [facility] Last Admin: 10/01/17 10:35 Dose: 1 spr Gabapentin (Neurontin) 300 mg PO BID [facility] Last Admin: 10/01/17 10:35 Dose: 300 mg Hydralazine HCl (Apresoline) 10 mg IVP Q6H PRN PRN Reason: Systolic Blood Pressure Hydromorphone HCl (Dilaudid) 0.5 mg IVP Q4H PRN PRN Reason: Pain, moderate (4-7) Last Admin: 10/01/17 15:05 Dose: 0.5 mg Hydromorphone HCl (Dilaudid) 1 mg IVP Q4H PRN PRN Reason: Pain, severe (8-10) Last Admin: 10/01/17 06:04 Dose: 1 mg Levothyroxine Sodium (Synthroid) 100 mcg PO DAILY@0630 [facility] Last Admin: 10/01/17 06:33 Dose: Not Given Metoclopramide HCl (Reglan) 10 mg IVP Q6 PRN PRN Reason: Nausea/Vomiting Last Admin: 09/26/17 11:23 Dose: 10 mg Nimodipine (Nimotop) 30 mg PO Q4H [facility] Last Admin: 10/01/17 15:04 Dose: 30 mg Ondansetron HCl (Zofran Inj) 4 mg IVP Q6H PRN PRN Reason: Nausea/Vomiting Last Admin: 10/01/17 12:55 Dose: 4 mg Pantoprazole Sodium (Protonix Ec Tab) 40 mg PO DAILY [facility] Last Admin: 10/01/17 10:35 Dose: 40 mg Potassium Chloride (K-Dur 20 Meq Er Tab) 20 meq PO DAILY [facility] Last Admin: 10/01/17 10:35 Dose: 20 meq Topiramate (Topamax) 25 mg PO DAILY [facility] Last Admin: 10/01/17 10:35 Dose: 25 mg Physical Exam - Additional Findings Additional findings: MSE: Alert and oriented, no aphasia or neglect, no dysarthria CN: pupils 4 mm to 3 mm b/l, VFF, EOM full, v1-3 intact, NO facial droop, tongue midline Motor: 5/5 b/l Sensory: Intact b/l Coord: No dysmetria Gait: Deferred Results - Vital Signs Recent Vital Signs: Last Vital Signs Temp 99 F 10/01/17 15:00 Pulse 79 10/01/17 15:00 Resp 20 10/01/17 15:00 BP 140/101 H 10/01/17 15:00 Pulse Ox 97 10/01/17 15:00 - Labs Result Diagrams: 10/01/17 06:00 10/01/17 06:00 Labs: Laboratory Results - last 24 hr 10/01/17 10/01/17 10/01/17 06:00 06:00 11:12 WBC 7.4 RBC 4.36 Hgb 13.3 Hct 39.2 MCV 89.8 MCH 30.5 MCHC 34.0 RDW 13.0 Plt Count 211 MPV 10.0 Neut % (Auto) 67.6 Lymph % (Auto) 22.0 [place] % (Auto) 6.0 Eos % (Auto) 4.0 Baso % (Auto) 0.4 Neut # 5.0 Lymph # 1.6 [place] # 0.4 Eos # 0.3 Baso # 0.0 PT 12.9 H INR 1.1 Sodium 136 Potassium 3.7 Chloride 100 Carbon Dioxide 28 Anion Gap 12 BUN 15 Creatinine 0.6 L Est GFR ( Amer) > 60 Est GFR (Non-Af Amer) > 60 Random Glucose 107 H Calcium 8.6 Magnesium 1.6 Total Bilirubin 0.4 AST 23 ALT 46 Alkaline Phosphatase 67 Total Protein 7.0 Albumin 4.0 Globulin 3.0 Albumin/Globulin Ratio 1.3 Assessment & Plan (1) Subarachnoid hemorrhage Status: Acute Priority: High - Assessment and Plan (Free Text) Assessment: Subarachnoid hemorrhage in the setting of anticoagulation and tPA for evaluation with cerebral angiogram to rule out a vascular malformation Plan: 1) I had a long and detailed conversation with the patient and her regarding the serious nature of her condition. The risks, benefits and alternatives to diagnostic angiography were discussed in detail and the patient agreed to proceed with diagnostic angiography 2) Further management based on the results of the angiogram 3) Discussed with neurology team in detail 4) Approximately 45 minutes of critical care time was spent in evaluating and managing and documenting and coordinating care of this patient with acute central nervous system dysfunction from subarachnoid hemorrhage
[2017-10-01] MEDS ORDERED: Propofol 10 mg/ml Inj (20 ML) ONE ×2 (16:32)
[2017-10-01] MEDS ORDERED: Iodixanol 320 MG/ML 100 ML BOTTLE IV ONE ×2 (16:44)
[2017-10-01] MEDS ORDERED: Nitroglycerin 50mg in D5W 50 MG/250 ML BOTTLE IV ONE (16:44)
[2017-10-01] MEDS ORDERED: Lidocaine 2% Inj (20ml) ONE (16:55)
[2017-10-01] MEDS ORDERED: Midazolam 2 MG/2 ML VIAL ONE (16:55)
[2017-10-01] MEDS ORDERED: Sodium Chloride 0.9% 500 ML IV SCH (18:45)
--- NOTE | 2017-10-01 18:49 | PCM.SURG1 ---
Surgeon's Initial Post Op Note - Surgeon's Notes Surgeon: Dr. Cervantes Human Anatomy Teacher: Gordy Lai Type of Anesthesia: MAC Pre-Operative Diagnosis: Aneurysmal Sub Arachnoid Hemorrhage Operative Findings: 1) No evidence of a vascular malformation. 2) Multiple areas of vasoconstriction in the distal vasculature consistent with vasospasm from patients recent subarachnoid hemorrhage Post-Operative Diagnosis: 1) Mild to Moderate Cerebral Vasospasm Operation Performed: Diagnostic Cerebral Angiogram Specimen/Specimens Removed: None Estimated Blood Loss: EBL {In ML}: 10 Blood Products Given: N/A Drains Used: No Drains Post-Op Condition: Fair Date of Surgery/Procedure: 10/01/17 Time of Surgery/Procedure: 17:00
--- NOTE | 2017-10-01 19:14 | CARD ---
APPROVED REPORT EKG Measurement Heart [id number] <Conclusion> Normal sinus rhythm Normal ECG
--- NOTE | 2017-10-01 19:19 | CP.PCM.PN ---
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 Pt is hesitant to do lovenox and thus would recommend starting coumadin without bridging therapy. 2) The patient can resume her diet at 8 pm today 3) Please notify me of any changes in the patients status 4) The patient complains of mild left leg pain and swelling over the past two days and on discussing this with Dr. Phan the best option to image her would be with a CT Angiogram to evaluate the iliac vein stent. Please discuss the same with Dr. Phan 5) Please do not hesitate to contact me for any further questions or clarifications Objective - Vital Signs/Intake and Output Vital Signs (last 24 hours): - Constitutional Appears: Well - Head Exam Head Exam: ATRAUMATIC, NORMAL INSPECTION, NORMOCEPHALIC - Eye Exam Eye Exam: EOMI, Normal appearance, PERRL Pupil Exam: NORMAL ACCOMODATION, PERRL - ENT Exam ENT Exam: Mucous Membranes Moist, Normal Exam - Neck Exam Neck Exam: Full ROM, Normal Inspection. absent: Lymphadenopathy - Respiratory Exam Respiratory Exam: Clear to Ausculation Bilateral, NORMAL BREATHING PATTERN - Cardiovascular Exam Cardiovascular Exam: REGULAR RHYTHM, +S1, +S2. absent: Murmur - GI/Abdominal Exam GI & Abdominal Exam: Soft, Normal Bowel Sounds. absent: Tenderness - Rectal Exam Rectal Exam: NORMAL INSPECTION - Exam Exam: Circumcision, NORMAL INSPECTION External exam: NORMAL EXTERNAL EXAM Speculum exam: NORMAL SPECULUM EXAM Bimanual exam: NORMAL BIMANUAL EXAM - Extremities Exam Extremities Exam: Full ROM, Normal Capillary Refill, Normal Inspection. absent : Joint Swelling, Pedal Edema - Back Exam Back Exam: NORMAL INSPECTION - Neurological Exam Neurological Exam: Alert, Awake, CN II-XII Intact, Normal Gait, Oriented x3 - Psychiatric Exam Psychiatric exam: Normal Affect, Normal Mood Assessment and Plan (1) Subarachnoid hemorrhage Status: Acute
--- NOTE | 2017-10-01 19:27 | CP.PCM.PN ---
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 Pt is hesitant to do lovenox and thus would recommend starting coumadin without bridging therapy. 2) The patient can resume her diet at 8 pm today 3) Please notify me of any changes in the patients status 4) The patient complains of mild left leg pain and swelling over the past two days and on discussing this with Dr. Phan the best option to image her would be with a CT Angiogram to evaluate the iliac vein stent. Please discuss the same with Dr. Phan 5) Please do not hesitate to contact me for any further questions or clarifications Objective - Vital Signs/Intake and Output Vital Signs (last 24 hours): Temp Pulse Resp BP Pulse Ox 99 F 79 20 140/101 H 97 10/01/17 15:00 10/01/17 15:00 10/01/17 15:00 10/01/17 15:00 10/01/17 15:00 - Medications Medications: Current Medications Acetaminophen (Tylenol 325mg Tab) 650 mg PO Q6 PRN PRN Reason: Headache Last Admin: 09/30/17 06:11 Dose: 650 mg Clonazepam (Klonopin) 1 mg PO DAILY [facility] Last Admin: 10/01/17 10:35 Dose: 1 mg Docusate Sodium (Colace) 100 mg PO TID [facility] Last Admin: 10/01/17 18:54 Dose: Not Given Ergocalciferol (Drisdol 50,000 Intl Units Cap) 1 cap PO QWK [facility] Last Admin: 09/27/17 11:13 Dose: 1 cap Fluticasone Propionate (Flonase) 1 spr SNEHAL DAILY [facility] Last Admin: 10/01/17 10:35 Dose: 1 spr Gabapentin (Neurontin) 300 mg PO BID [facility] Last Admin: 10/01/17 18:55 Dose: Not Given Hydralazine HCl (Apresoline) 10 mg IVP Q6H PRN PRN Reason: Systolic Blood Pressure Hydromorphone HCl (Dilaudid) 0.5 mg IVP Q4H PRN PRN Reason: Pain, moderate (4-7) Last Admin: 10/01/17 15:05 Dose: 0.5 mg Hydromorphone HCl (Dilaudid) 1 mg IVP Q4H PRN PRN Reason: Pain, severe (8-10) Last Admin: 10/01/17 06:04 Dose: 1 mg Sodium Chloride (Sodium Chloride 0.9%) 500 mls @ 75 mls/hr IV .Q6H40M [facility] Stop: 10/01/17 23:46 Levothyroxine Sodium (Synthroid) 100 mcg PO DAILY@0630 [facility] Last Admin: 10/01/17 06:33 Dose: Not Given Metoclopramide HCl (Reglan) 10 mg IVP Q6 PRN PRN Reason: Nausea/Vomiting Last Admin: 09/26/17 11:23 Dose: 10 mg Nimodipine (Nimotop) 30 mg PO Q4H [facility] Last Admin: 10/01/17 15:04 Dose: 30 mg Ondansetron HCl (Zofran Inj) 4 mg IVP Q6H PRN PRN Reason: Nausea/Vomiting Last Admin: 10/01/17 12:55 Dose: 4 mg Pantoprazole Sodium (Protonix Ec Tab) 40 mg PO DAILY [facility] Last Admin: 10/01/17 10:35 Dose: 40 mg Potassium Chloride (K-Dur 20 Meq Er Tab) 20 meq PO DAILY [facility] Last Admin: 10/01/17 10:35 Dose: 20 meq Topiramate (Topamax) 25 mg PO DAILY [facility] Last Admin: 10/01/17 10:35 Dose: 25 mg - Labs Labs: 10/01/17 06:00 10/01/17 06:00 PT 12.9 SECONDS (9.7-12.2) H 10/01/17 11:12 INR 1.1 10/01/17 11:12 APTT 57 SECONDS (21-34) H D 09/22/17 07:50 Assessment and Plan (1) Subarachnoid hemorrhage Status: Acute - Assessment and Plan (Free Text) Plan: Post Op Note: Procedure: Diagnostic Cerebral Angiogram Anesthesia: MAC Access: Right TERRAZZO LABORER Closure: Mynx Imp: 1) No evidence of a vascular malformation 2) Multiple areas of mild to moderate vasoconstriction in the distal cerebral vasculature Recommendations: 1) After reviewing the patients history, examination and imaging and weighing the risks and benefits and discussing it with the patient, i would recommend restarting anticoagulation. Pt is hesitant to do lovenox and thus would recommend starting coumadin without bridging therapy. 2) The patient can resume her diet at 8 pm today 3) Please notify me of any changes in the patients status 4) The patient complains of mild left leg pain and swelling over the past two days and on discussing this with Dr. Phan the best option to image her would be with a CT Angiogram to evaluate the iliac vein stent. Please discuss the same with Dr. Phan 5) Please do not hesitate to contact me for any further questions or clarifications
[2017-10-01] MEDS ORDERED: Eptifibatide 20 mg/10mL Inj IVP ONE ×4 (20:24→21:48)
[2017-10-01] MEDS ORDERED: Eptifibatide 0.75 mg/ml 75 MG/100 ML BOTTLE IV SCH ×3 (20:30→20:45)
[2017-10-01] MEDS ORDERED: Eptifibatide 0.75 mg/ml 75 MG/100 ML BOTTLE IV ONE (21:46)
--- NOTE | 2017-10-01 22:28 | CP.PCM.CON ---
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 The patient underwent clot lysis and stenting during which tPA and heparin was used and post procedure, she developed a severe headache. A head CT demonstrated subarachnoid hemorrhage . patient had a Diagnostic Cerebral Angiogram today to evaluate for possible Vascular malformation.Procedure revealed no evidence of a vascular malformation and Multiple areas of mild to moderate vasoconstriction in the distal cerebral vasculature.Post procedure patient complained of "streaks /f; ashes"in the right visual field.She was started on eptifibatide for 4 hrs and transferred to ICU.Denies nausea ,vomitting.No visual symptoms at present time. Review of Systems - Constitutional Constitutional: absent: Anorexia, Chills, Lethargy, Weight Loss - EENT Eyes: Change in Vision. absent: Blurred Vision, Diplopia, Loss of Vision Nose/Mouth/Throat: absent: Epistaxis, Nasal Trauma, Nose Pain, Mouth Pain - Breasts Breasts: absent: Skin Changes - Cardiovascular Cardiovascular: absent: Chest Pain, Orthopnea - Respiratory Respiratory: absent: Cough, Dyspnea - Gastrointestinal Gastrointestinal: absent: Abdominal Pain, Nausea, Vomiting - Genitourinary Genitourinary: absent: Change in Urinary Stream - Musculoskeletal Musculoskeletal: absent: Back Pain, Stiffness - Integumentary Integumentary: absent: Skin Ulcer - Neurological Neurological: absent: Convulsions, Dizziness - Endocrine Endocrine: absent: Polydipsia, Polyphagia - Hematologic/Lymphatic Hematologic: absent: Easy Bleeding Past Patient History - Infectious Disease Hx of Infectious Diseases: None - Past Medical History & Family History Past Medical History?: Yes - Past Social History Smoking Status: Former Smoker Chewing Tobacco Use: No Cigar Use: No Alcohol: None Drugs: Denies Home Situation {Lives}: With Family - CARDIAC Hx Hypertension: Yes - PULMONARY Hx Asthma: Yes - NEUROLOGICAL Hx Neurological Disorder: Yes Other/Comment: trigeminal neuralgia - HEENT Other/Comment: states recently completed abtx for tooth infection x1wk ago - RENAL Hx Chronic Kidney Disease: Yes - ENDOCRINE/METABOLIC Hx Hypothyroidism: Yes - HEMATOLOGICAL/ONCOLOGICAL Hx Blood Disorders: No - INTEGUMENTARY Hx Dermatological Problems: No - MUSCULOSKELETAL/RHEUMATOLOGICAL Hx Musculoskeletal Disorders: No - GASTROINTESTINAL Hx Gastrointestinal Disorders: No - GENITOURINARY/GYNECOLOGICAL Hx Genitourinary Disorders: No - PSYCHIATRIC Hx Anxiety: Yes Hx Substance Use: No - SURGICAL HISTORY Hx Surgeries: No - ANESTHESIA Hx Anesthesia: No Hx Anesthesia Reactions: No Hx Malignant Hyperthermia: No Meds Allergies/Adverse Reactions: Allergies Allergy/AdvReac Type Severity Reaction Status Date / Time No Known Allergies Allergy Verified 09/19/17 11:06 - Medications Medications: Current Medications Acetaminophen (Tylenol 325mg Tab) 650 mg PO Q6 PRN PRN Reason: Headache Last Admin: 09/30/17 06:11 Dose: 650 mg Clonazepam (Klonopin) 1 mg PO DAILY [facility] Last Admin: 10/01/17 10:35 Dose: 1 mg Docusate Sodium (Colace) 100 mg PO TID [facility] Last Admin: 10/01/17 18:54 Dose: Not Given Ergocalciferol (Drisdol 50,000 Intl Units Cap) 1 cap PO QWK [facility] Last Admin: 09/27/17 11:13 Dose: 1 cap Fluticasone Propionate (Flonase) 1 spr SNEHAL DAILY [facility] Last Admin: 10/01/17 10:35 Dose: 1 spr Gabapentin (Neurontin) 300 mg PO BID [facility] Last Admin: 10/01/17 18:55 Dose: Not Given Hydralazine HCl (Apresoline) 10 mg IVP Q6H PRN PRN Reason: Systolic Blood Pressure Hydromorphone HCl (Dilaudid) 0.5 mg IVP Q4H PRN PRN Reason: Pain, moderate (4-7) Last Admin: 10/01/17 15:05 Dose: 0.5 mg Hydromorphone HCl (Dilaudid) 1 mg IVP Q4H PRN PRN Reason: Pain, severe (8-10) Last Admin: 10/01/17 06:04 Dose: 1 mg Sodium Chloride (Sodium Chloride 0.9%) 500 mls @ 75 mls/hr IV .Q6H40M [facility]AN[facility]A Stop: 10/01/17 23:46 Last Admin: 10/01/17 19:00 Dose: 75 mls/hr Eptifibatide (Integrilin) 75 mg in 100 mls @ 3.265 mls/hr IV .Q24H KASSANDRA; 0.5 MCG /KG/MIN PRN Reason: Protocol Last Admin: 10/01/17 20:51 Dose: 3.265 mls/hr Levothyroxine Sodium (Synthroid) 100 mcg PO DAILY@0630 [facility] Last Admin: 10/01/17 06:33 Dose: Not Given Metoclopramide HCl (Reglan) 10 mg IVP Q6 PRN PRN Reason: Nausea/Vomiting Last Admin: 09/26/17 11:23 Dose: 10 mg Nimodipine (Nimotop) 30 mg PO Q4H [facility] Last Admin: 10/01/17 19:00 Dose: Not Given Ondansetron HCl (Zofran Inj) 4 mg IVP Q6H PRN PRN Reason: Nausea/Vomiting Last Admin: 10/01/17 12:55 Dose: 4 mg Pantoprazole Sodium (Protonix Ec Tab) 40 mg PO DAILY [facility] Last Admin: 10/01/17 10:35 Dose: 40 mg Potassium Chloride (K-Dur 20 Meq Er Tab) 20 meq PO DAILY [facility] Last Admin: 10/01/17 10:35 Dose: 20 meq Topiramate (Topamax) 25 mg PO DAILY [facility] Last Admin: 10/01/17 10:35 Dose: 25 mg Physical Exam - Constitutional Appears: Non-toxic, No Acute Distress - Head Exam Head Exam: ATRAUMATIC, NORMAL INSPECTION, NORMOCEPHALIC - Eye Exam Eye Exam: EOMI, Normal appearance, PERRL. absent: Scleral icterus Pupil Exam: NORMAL ACCOMODATION - ENT Exam ENT Exam: Mucous Membranes Moist, Normal Exam. absent: Mucous Membranes Dry - Neck Exam Neck exam: Positive for: Normal Inspection. Negative for: Lymphadenopathy, Meningismus - Respiratory Exam Respiratory Exam: Clear to Auscultation Bilateral. absent: Rhonchi, Wheezes - Cardiovascular Exam Cardiovascular Exam: REGULAR RHYTHM. absent: JVD - GI/Abdominal Exam GI & Abdominal Exam: Normal Bowel Sounds, Soft. absent: Tenderness - Extremities Exam Extremities exam: Negative for: joint swelling - Back Exam Back exam: NORMAL INSPECTION - Neurological Exam Neurological exam: Alert, CN II-XII Intact, Oriented x3 Results - Vital Signs Recent Vital Signs: Last Vital Signs Temp 98.2 F 10/01/17 21:53 Pulse 72 10/01/17 21:30 Resp 12 10/01/17 21:30 BP 140/101 H 10/01/17 15:00 Pulse Ox 100 10/01/17 21:30 - Labs Result Diagrams: 10/01/17 06:00 10/01/17 06:00 Labs: Laboratory Results - last 24 hr 10/01/17 10/01/17 10/01/17 06:00 06:00 11:12 WBC 7.4 RBC 4.36 Hgb 13.3 Hct 39.2 MCV 89.8 MCH 30.5 MCHC 34.0 RDW 13.0 Plt Count 211 MPV 10.0 Neut % (Auto) 67.6 Lymph % (Auto) 22.0 [place] % (Auto) 6.0 Eos % (Auto) 4.0 Baso % (Auto) 0.4 Neut # 5.0 Lymph # 1.6 [place] # 0.4 Eos # 0.3 Baso # 0.0 PT 12.9 H INR 1.1 Sodium 136 Potassium 3.7 Chloride 100 Carbon Dioxide 28 Anion Gap 12 BUN 15 Creatinine 0.6 L Est GFR ( Amer) > 60 Est GFR (Non-Af Amer) > 60 Random Glucose 107 H Calcium 8.6 Magnesium 1.6 Total Bilirubin 0.4 AST 23 ALT 46 Alkaline Phosphatase 67 Total Protein 7.0 Albumin 4.0 Globulin 3.0 Albumin/Globulin Ratio 1.3 Beta HCG, Quant < 2.39 Assessment & Plan - Assessment and Plan (Free Text) Assessment: 1.Transient visual symptoms following Diagnostic Cerebral Angiogram No evidence of a vascular malformation with Multiple areas of mild to moderate vasoconstriction in the distal cerebral vasculature continue Epifibatide until 12:30am clinical f/u 2.HTN continue meds 3.Hypothyroidism on meds 4.DVT May Thurner syndrome
[2017-10-02] MEDS: HYDROmorphone 1 mg/ml ISec IVP PRN ×4 (03:47→20:15)
[2017-10-02] MEDS: Levothyroxine 100 MCG TAB PO SCH (06:30)
[2017-10-02 06:44] LABS: BASO % 0.8 % (0.0-2.0); EOS # 0.3 K/uL (0.0-0.7); EOS % 4.4 % (0.0-4.0); HEMATOCRIT 37.3 % (34.0-47.0); LYMPH # 1.1 K/uL (1.0-4.3); LYMPH % 17.8 % (20.0-40.0); MEAN CELL VOLUME 89.8 fL (81.0-99.0); MEAN CORPUSCULAR HEMOGLOBIN 30.2 pg (27.0-31.0); MEAN CORPUSCULAR HGB CONC 33.7 g/dL (33.0-37.0); MEAN PLATELET VOLUME 10.4 fL (7.2-11.7); MONO # 0.4 K/uL (0.0-0.8); MONO % 6.9 % (0.0-10.0)
[2017-10-02 06:56] LABS: ALB/GLOB RATIO 1.3 (1.0-2.1); ALKALINE PHOSPHATASE 62 U/L (38-126); ALT/SGPT 38 U/L (9-52); AST/SGOT 46 U/L (14-36); BILIRUBIN,TOTAL 1.2 mg/dL (0.2-1.3); BLOOD UREA NITROGEN 15 mg/dL (7-17); CALCIUM 8.3 mg/dl (8.6-10.4); CARBON DIOXIDE 23 mmol/L (22-30); CHLORIDE 104 mmol/L (98-107); GFR AFRICAN-AMERICAN > 60; GLUCOSE,RANDOM 80 mg/dL (65-105); MAGNESIUM 1.8 mg/dL (1.6-2.3); POTASSIUM 4.4 mmol/L (3.6-5.2); SODIUM 137 mmol/L (132-148)
--- NOTE | 2017-10-02 08:31 | OP ---
DATE OF PROCEDURE: 10/01/2017 PREOPERATIVE DIAGNOSIS: Subarachnoid hemorrhage in the setting of anticoagulation for evaluation with cerebral angiography to rule out a vascular malformation. POSTOPERATIVE DIAGNOSIS: No evidence of vascular malformation on this study. PROCEDURE: Diagnostic cerebral angiogram. REFERRING PHYSICIAN: Dr. Crockett. SURGEON: Toro Cervantes MD/MORELIA CONSENT: Informed consent was obtained for the procedure after discussing the potential risks and benefits of the procedure. Potential risks such as vascular injury, vascular occlusion, further stroke, intracranial hemorrhage, and even were discussed. After all questions were satisfactorily answered, informed consent was obtained from the patient. ANESTHESIA: MAC (monitored anesthesia care). PREOPERATIVE MEDICATIONS: None. INTRODUCTION: After the patient was placed under anesthesia, both groins and the right ribs were prepped and draped in the usual sterile fashion. Time of procedure was documented. The patient's name, date of , and medical record number as well as the procedure to be performed was confirmed by the entire team. After everyone agreed, the procedure was initiated. The attempt to puncture the right radial artery were unsuccessful. Using sterile Seldinger technique, the right common femoral artery was punctured using a micropuncture needle. Over a 3-mm J wire, a 5-Gabonese sheath was introduced into the artery and hooked up to a continuous heparinized flush system. Via the sheath, a 5-Gabonese Ap catheter was introduced over an 0.035 Glidewire into the abdominal aorta. The catheter was then double flushed. The following vessels were then sequentially selected. Digital angiographic acquisitions were obtained. The right common carotid artery was selected, and cervical views were obtained. The right internal carotid artery was selected, and high-definition magnified views of the intracranial circulation were obtained. The left common carotid artery was selected, and cervical views were obtained. The left internal carotid artery was selected, and intracranial views were obtained. The left vertebral artery was selected, and high-definition magnified views of the intracranial circulation were obtained. We can have the same thing for the right internal carotid artery. High definition magnified views of the intracranial circulation were obtained. The right common femoral artery was selected, and pelvic views are obtained. DIAGNOSTIC IMAGING FINDINGS: The diagnostic catheter was navigated over the arch using an 0.035 Glidewire. The right common carotid artery was selected and injected with cervical views. The right common carotid artery appears normal without any areas of irregularity or stenosis. The right internal carotid artery appears normal without any areas of irregularity or stenosis. The right external carotid artery appears normal without any areas of irregularity or stenosis. The right internal carotid artery was then selected and injected with cranial views. The right internal carotid artery was injected with high-definition magnified views of the intracranial circulation. The right internal carotid artery appears normal without any areas of irregularity or stenosis. The right middle cerebral artery demonstrates multiple irregularities in its distal circulation consistent with vasospasm from her recent subarachnoid hemorrhage. The right anterior cerebral artery demonstrates multiple areas of vasoconstriction consistent with the patient's recent subarachnoid hemorrhage. There is no evidence of a vascular malformation in the study of the right internal carotid artery. The left common carotid artery was selected and injected with cervical views. The left common carotid artery appears normal without any areas of irregularity or stenosis. The left internal carotid artery appears normal without any areas of irregularity or stenosis. The left external carotid artery appears normal without any areas of irregularity or stenosis. The left internal carotid artery was selected and injected with intracranial view. The left internal carotid artery appears normal without any areas of irregularity or stenosis. The left A1 segment is hypoplastic with faint visualization of the distal RANULFO. The left MCA demonstrates multiple areas of vasoconstriction consistent with her recent subarachnoid hemorrhage. The left vertebral artery was selected and injected with cranial views. The left vertebral artery appears normal without any areas of irregularity or stenosis. The left PICA appears normal without any areas of irregularity or stenosis. The basilar artery appears normal without any areas of irregularity or stenosis. There is again multiple areas of vasoconstriction noted in the distal posterior cerebral arteries bilaterally. The proximal theatrical variety agent appeared normal bilaterally. The right common femoral artery was injected with pelvic views. The right common femoral, common superficial, and deep femoral arteries appeared normal without any areas of irregularity or stenosis. Hemostasis was obtained using a 5-Gabonese Mynx device. There was minimal blood loss. The patient tolerated the procedure well, and there were no complications associated with the procedure. The patient's neurological exam was normal postprocedure. INTRAOPERATIVE MEDICATIONS: None. EQUIPMENT: Diagnostic angiography kit. IMPRESSION: 1. No evidence of a vascular malformation. 2. Multiple areas of vasoconstriction noted in the distal cerebral vasculature consistent with [id number] vasospasm from the patient's recent subarachnoid hemorrhage. Please do not hesitate to contact me for any further questions or clarifications regarding the procedure at [phone]. If you have any questions, please do not hesitate to contact me. Toro Cervantes MD/ MORELIA
[2017-10-02] MEDS: Fluticasone Nasal 50 mcg/Spray NAS SCH (11:00)
[2017-10-02] MEDS: Pantoprazole 40 mg EC Tab PO SCH (11:32)
[2017-10-02] MEDS: Potassium Chloride 20 mEq ER Tab PO SCH (11:33)
--- NOTE | 2017-10-02 12:13 | CP.PCM.PN ---
<Rozina Menon - Last Filed: 10/02/17 12:09> Subjective - Date & Time of Evaluation Date of Evaluation: 10/02/17 Time of Evaluation: 12:10 - Subjective Subjective: Progress note for Dr. Espinoza Patient seen and examined at bedside. No acute events overnight. Patient states she still has a headache and her abdomen and right lower leg hurt her after moving it. Patient still feels sore. Patient denies chest pain, shortness of breath, fever, chills, nausea, vomiting. Objective - Vital Signs/Intake and Output Vital Signs (last 24 hours): Temp Pulse Resp BP Pulse Ox 98.4 F 77 14 116/57 L 97 10/02/17 04:00 10/02/17 07:29 10/02/17 07:29 10/02/17 07:29 10/02/17 07:29 Intake and Output: 10/02/17 10/02/17 06:59 18:59 Intake Total 856.0 Output Total 300 Balance 556.0 - Medications Medications: Current Medications Acetaminophen (Tylenol 325mg Tab) 650 mg PO Q6 PRN PRN Reason: Headache Last Admin: 09/30/17 06:11 Dose: 650 mg Clonazepam (Klonopin) 1 mg PO DAILY [facility] Last Admin: 10/02/17 11:35 Dose: 1 mg Docusate Sodium (Colace) 100 mg PO TID [facility] Last Admin: 10/02/17 11:33 Dose: 100 mg Ergocalciferol (Drisdol 50,000 Intl Units Cap) 1 cap PO QWK [facility] Last Admin: 09/27/17 11:13 Dose: 1 cap Fluticasone Propionate (Flonase) 1 spr SNEHAL DAILY [facility] Last Admin: 10/01/17 10:35 Dose: 1 spr Gabapentin (Neurontin) 300 mg PO BID [facility] Last Admin: 10/02/17 11:35 Dose: 300 mg Hydralazine HCl (Apresoline) 10 mg IVP Q6H PRN PRN Reason: Systolic Blood Pressure Hydromorphone HCl (Dilaudid) 0.5 mg IVP Q4H PRN PRN Reason: Pain, moderate (4-7) Hydromorphone HCl (Dilaudid) 1 mg IVP Q4H PRN PRN Reason: Pain, severe (8-10) Last Admin: 10/02/17 08:07 Dose: 1 mg Eptifibatide (Integrilin) 75 mg in 100 mls @ 3.265 mls/hr IV .Q24H KASSANDRA; 0.5 MCG /KG/MIN PRN Reason: Protocol Last Admin: 10/01/17 20:51 Dose: 3.265 mls/hr Levothyroxine Sodium (Synthroid) 100 mcg PO DAILY@0630 [facility] Last Admin: 10/02/17 06:30 Dose: 100 mcg Metoclopramide HCl (Reglan) 10 mg IVP Q6 PRN PRN Reason: Nausea/Vomiting Last Admin: 09/26/17 11:23 Dose: 10 mg Nimodipine (Nimotop) 30 mg PO Q4H [facility] Last Admin: 10/02/17 11:33 Dose: 30 mg Ondansetron HCl (Zofran Inj) 4 mg IVP Q6H PRN PRN Reason: Nausea/Vomiting Last Admin: 10/02/17 11:34 Dose: 4 mg Pantoprazole Sodium (Protonix Ec Tab) 40 mg PO DAILY [facility] Last Admin: 10/02/17 11:32 Dose: 40 mg Potassium Chloride (K-Dur 20 Meq Er Tab) 20 meq PO DAILY [facility] Last Admin: 10/02/17 11:33 Dose: 20 meq Topiramate (Topamax) 25 mg PO DAILY [facility] Last Admin: 10/02/17 11:32 Dose: 25 mg - Labs Labs: 10/02/17 06:22 10/02/17 06:22 PT 12.9 SECONDS (9.7-12.2) H 10/01/17 11:12 INR 1.1 10/01/17 11:12 APTT 57 SECONDS (21-34) H D 09/22/17 07:50 - Constitutional Appears: Non-toxic, No Acute Distress - Head Exam Head Exam: NORMAL INSPECTION - Eye Exam Eye Exam: EOMI, Normal appearance. absent: Periorbital swelling Pupil Exam: absent: Fixed, Irregular - Neck Exam Neck Exam: Full ROM. absent: Tenderness, Thyromegaly - Respiratory Exam Respiratory Exam: NORMAL BREATHING PATTERN. absent: Accessory Muscle Use, Respiratory Distress - Cardiovascular Exam Cardiovascular Exam: REGULAR RHYTHM, +S1, +S2. absent: Bradycardia, Tachycardia - GI/Abdominal Exam GI & Abdominal Exam: Distended, Soft, Normal Bowel Sounds. absent: Tenderness, Rebound - Extremities Exam Extremities Exam: Full ROM. 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 Phan 09/25 OK for PT out bed to ambulate, ok to transfer to tele * Continue Rosuvastatin * Continue Nimodipine for vasospasm * d/w Dr. Guerra * anticoagulation contraindicated for DVT due to SAH * f/u Angio of Abdomen and pelvis today (10/02) * Patient to start on coumadin today (10/02) * f/u AM INR (10/03) (2) Subarachnoid hemorrhage Assessment and Plan: * s/p TPA * anticoagulation contraindicated for DVT due to SAH * 09/25: CT brain done -no bleeding; Patient transferred to telemetry * Neurology consult: Dr. Crockett and Dr. Cervantes * Patient scheduled for cerebral angiogram on 10/01 * Per Dr. Crockett, continue Nimodipine 30mg PO Q4H, Topamax 25mg PO daily * Pain medications: Acetaminophen 650mg Q6 PRN; Dilaudid 0.5mg IVP Q4H PRN * f/u Cerebral angio today. (3) Hypothyroidism Assessment and Plan: * Continue Levothyroxine 100mcg (7) HTN Assessment and Plan: * Continue Hydralazine 10mg IVP Q6H PRN (7) Hypercoagulopathy Assessment and Plan: * Dr. Guerra consulted, help appreciated * anticoagulation contraindicated for DVT due to SAH (6) Constipation, resolved Assessment and Plan: * 09/26 Miralax 17gm once; Colace 100mg TID KASSANDRA, hold for bm * 09/28 Miralax 17gm PO BID [facility]ASSANDRA x2 doses (7) Prophylaxis Assessment and Plan: * GI prophylaxis: protonix * DVT: Off anticoagulation and no SCD; stockings on * Potassium 20 meq POQD * Zofran 4mg IVP Q5H PRN * PT and OT f/u with Dr. Ry Menon, DO PGY1 <Ry Espinoza H - Last Filed: 10/02/17 18:20> Objective - Vital Signs/Intake and Output Vital Signs (last 24 hours): Temp Pulse Resp BP Pulse Ox 98.2 F 85 14 109/74 99 10/02/17 16:00 10/02/17 17:00 10/02/17 17:00 10/02/17 15:29 10/02/17 17:00 Intake and Output: 10/02/17 10/02/17 06:59 18:59 Intake Total 856.0 400 Output Total 300 1500 Balance 556.0 -1100 - Medications Medications: Current Medications Acetaminophen (Tylenol 325mg Tab) 650 mg PO Q6 PRN PRN Reason: Headache Last Admin: 09/30/17 06:11 Dose: 650 mg Clonazepam (Klonopin) 1 mg PO DAILY [facility] Last Admin: 10/02/17 11:35 Dose: 1 mg Docusate Sodium (Colace) 100 mg PO TID [facility] Last Admin: 10/02/17 15:00 Dose: 100 mg Ergocalciferol (Drisdol 50,000 Intl Units Cap) 1 cap PO QWK [facility] Last Admin: 09/27/17 11:13 Dose: 1 cap Fluticasone Propionate (Flonase) 1 spr SNEHAL DAILY [facility] Last Admin: 10/02/17 11:00 Dose: 1 spr Gabapentin (Neurontin) 300 mg PO BID [facility] Last Admin: 10/02/17 11:35 Dose: 300 mg Hydralazine HCl (Apresoline) 10 mg IVP Q6H PRN PRN Reason: Systolic Blood Pressure Hydromorphone HCl (Dilaudid) 0.5 mg IVP Q4H PRN PRN Reason: Pain, moderate (4-7) Last Admin: 10/02/17 16:57 Dose: 0.5 mg Hydromorphone HCl (Dilaudid) 1 mg IVP Q4H PRN PRN Reason: Pain, severe (8-10) Last Admin: 10/02/17 08:07 Dose: 1 mg Eptifibatide (Integrilin) 75 mg in 100 mls @ 3.265 mls/hr IV .Q24H KASSANDRA; 0.5 MCG /KG/MIN PRN Reason: Protocol Last Admin: 10/01/17 20:51 Dose: 3.265 mls/hr Levothyroxine Sodium (Synthroid) 100 mcg PO DAILY@0630 [facility] Last Admin: 10/02/17 06:30 Dose: 100 mcg Metoclopramide HCl (Reglan) 10 mg IVP Q6 PRN PRN Reason: Nausea/Vomiting Last Admin: 09/26/17 11:23 Dose: 10 mg Nimodipine (Nimotop) 30 mg PO Q4H [facility] Last Admin: 10/02/17 16:57 Dose: 30 mg Ondansetron HCl (Zofran Inj) 4 mg IVP Q6H PRN PRN Reason: Nausea/Vomiting Last Admin: 10/02/17 11:34 Dose: 4 mg Pantoprazole Sodium (Protonix Ec Tab) 40 mg PO DAILY [facility] Last Admin: 10/02/17 11:32 Dose: 40 mg Potassium Chloride (K-Dur 20 Meq Er Tab) 20 meq PO DAILY [facility] Last Admin: 10/02/17 11:33 Dose: 20 meq Topiramate (Topamax) 25 mg PO DAILY [facility] Last Admin: 10/02/17 11:32 Dose: 25 mg Warfarin Sodium (Coumadin) 5 mg PO 1800 [facility] Stop: 10/03/17 18:01 - Labs Labs: 10/02/17 06:22 10/02/17 06:22 PT 12.9 SECONDS (9.7-12.2) H 10/01/17 11:12 INR 1.1 10/01/17 11:12 APTT 57 SECONDS (21-34) H D 09/22/17 07:50 Attending/Attestation - Attestation I have personally seen and examined this patient.: Yes I have fully participated in the care of the patient.: Yes I have reviewed all pertinent clinical information, including history, physical exam and plan: Yes Notes (Text): 10/02/17 18:17 Medical attending: Agree with the above note by the medical claims assistant. Patient was seen with the medical claims assistant Today start coumadin 5 mg x 1 dose and check INR again tommorow. The patient is S/P Diagnostic Cerebral Angiogram. It did not show evidence of a vascular malformation Per neurology will start coumadin without bridging. Patient is eager to go home and asked about it. thank you Ry Espinoza
[2017-10-02] MEDS: HYDROmorphone 0.5 mg/0.5 ml ISec IVP PRN (16:57)
[2017-10-02] MEDS ORDERED: Iodixanol 320 mg/ml 150 ml Bottle IV ONE (18:49)
[2017-10-03] MEDS: HYDROmorphone 1 mg/ml ISec IVP PRN ×3 (00:41→19:54)
[2017-10-03] MEDS: Levothyroxine 100 MCG TAB PO SCH (06:12)
[2017-10-03 06:36] LABS: INR 1.1
[2017-10-03 06:37] LABS: BASO # 0.1 K/uL (0.0-0.2); BASO % 0.7 % (0.0-2.0); EOS # 0.4 K/uL (0.0-0.7); EOS % 5.5 % (0.0-4.0); HEMATOCRIT 35.7 % (34.0-47.0); LYMPH # 1.2 K/uL (1.0-4.3); LYMPH % 16.1 % (20.0-40.0); MEAN CELL VOLUME 88.6 fL (81.0-99.0); MEAN CORPUSCULAR HEMOGLOBIN 30.1 pg (27.0-31.0); MEAN CORPUSCULAR HGB CONC 33.9 g/dL (33.0-37.0); MEAN PLATELET VOLUME 9.8 fL (7.2-11.7); MONO # 0.5 K/uL (0.0-0.8); MONO % 6.1 % (0.0-10.0); WHITE BLOOD COUNT 7.6 K/uL (4.8-10.8)
[2017-10-03 06:49] LABS: ALB/GLOB RATIO 1.4 (1.0-2.1); ALKALINE PHOSPHATASE 72 U/L (38-126); ALT/SGPT 51 U/L (9-52); AST/SGOT 21 U/L (14-36); BILIRUBIN,TOTAL 0.3 mg/dL (0.2-1.3); BLOOD UREA NITROGEN 12 mg/dL (7-17); CALCIUM 8.7 mg/dl (8.6-10.4); CARBON DIOXIDE 26 mmol/L (22-30); CHLORIDE 104 mmol/L (98-107); GFR AFRICAN-AMERICAN > 60; GLUCOSE,RANDOM 99 mg/dL (65-105); MAGNESIUM 1.7 mg/dL (1.6-2.3); SODIUM 138 mmol/L (132-148); TOTAL PROTEIN 6.4 g/dL (6.3-8.3)
--- NOTE | 2017-10-03 09:42 | CP.PCM.PN ---
<Cecil Moeller - Last Filed: 10/03/17 14:30> Subjective - Date & Time of Evaluation Date of Evaluation: 10/03/17 Time of Evaluation: 09:38 - Subjective Subjective: PGY-[address] Espinoza Overnight the patient complained of pain to the lower abdomen and groin areas which improved with administration of pain meds. Today she denies any headache, lightheadedness, dizziness, weakness, nausea, or vomiting. She is AAOx3. Denies focal deficits. She states of experiencing left leg pain, pending CT of the abdomen. Objective - Vital Signs/Intake and Output Vital Signs (last 24 hours): Temp Pulse Resp BP Pulse Ox 98 F 90 13 111/71 96 10/03/17 04:00 10/03/17 07:00 10/03/17 07:00 10/03/17 03:51 10/03/17 06:00 Intake and Output: 10/03/17 10/03/17 06:59 18:59 Intake Total 500 Output Total 1000 Balance -500 - Medications Medications: Current Medications Acetaminophen (Tylenol 325mg Tab) 650 mg PO Q6 PRN PRN Reason: Headache Last Admin: 09/30/17 06:11 Dose: 650 mg Clonazepam (Klonopin) 1 mg PO DAILY [facility] Last Admin: 10/02/17 11:35 Dose: 1 mg Docusate Sodium (Colace) 100 mg PO TID [facility] Last Admin: 10/02/17 18:00 Dose: 100 mg Ergocalciferol (Drisdol 50,000 Intl Units Cap) 1 cap PO QWK [facility] Last Admin: 09/27/17 11:13 Dose: 1 cap Fluticasone Propionate (Flonase) 1 spr SNEHAL DAILY [facility] Last Admin: 10/02/17 11:00 Dose: 1 spr Gabapentin (Neurontin) 300 mg PO BID [facility] Last Admin: 10/02/17 19:48 Dose: 300 mg Hydralazine HCl (Apresoline) 10 mg IVP Q6H PRN PRN Reason: Systolic Blood Pressure Hydromorphone HCl (Dilaudid) 0.5 mg IVP Q4H PRN PRN Reason: Pain, moderate (4-7) Last Admin: 10/02/17 16:57 Dose: 0.5 mg Hydromorphone HCl (Dilaudid) 1 mg IVP Q4H PRN PRN Reason: Pain, severe (8-10) Last Admin: 10/03/17 06:16 Dose: 1 mg Levothyroxine Sodium (Synthroid) 100 mcg PO DAILY@0630 [facility] Last Admin: 10/03/17 06:12 Dose: 100 mcg Metoclopramide HCl (Reglan) 10 mg IVP Q6 PRN PRN Reason: Nausea/Vomiting Last Admin: 09/26/17 11:23 Dose: 10 mg Nimodipine (Nimotop) 30 mg PO Q4H [facility] Last Admin: 10/03/17 06:12 Dose: 30 mg Ondansetron HCl (Zofran Inj) 4 mg IVP Q6H PRN PRN Reason: Nausea/Vomiting Last Admin: 10/02/17 11:34 Dose: 4 mg Pantoprazole Sodium (Protonix Ec Tab) 40 mg PO DAILY [facility] Last Admin: 10/02/17 11:32 Dose: 40 mg Potassium Chloride (K-Dur 20 Meq Er Tab) 20 meq PO DAILY [facility] Last Admin: 10/02/17 11:33 Dose: 20 meq Topiramate (Topamax) 25 mg PO DAILY [facility] Last Admin: 10/02/17 11:32 Dose: 25 mg Warfarin Sodium (Coumadin) 5 mg PO ONCE ONE Stop: 10/03/17 20:01 - Labs Labs: 10/03/17 06:26 10/03/17 06:23 PT 12.3 SECONDS (9.7-12.2) H 10/03/17 06:26 INR 1.1 10/03/17 06:26 APTT 57 SECONDS (21-34) H D 09/22/17 07:50 - Additional Findings Additional findings: - Constitutional Appears: Non-toxic, No Acute Distress - Head Exam Head Exam: NORMAL INSPECTION - Eye Exam Eye Exam: EOMI, Normal appearance. absent: Periorbital swelling Pupil Exam: absent: Fixed, Irregular - Neck Exam Neck Exam: Full ROM. absent: Tenderness, Thyromegaly - Respiratory Exam Respiratory Exam: NORMAL BREATHING PATTERN. absent: Accessory Muscle Use, Respiratory Distress - Cardiovascular Exam Cardiovascular Exam: REGULAR RHYTHM, +S1, +S2. absent: Bradycardia, Tachycardia - GI/Abdominal Exam GI & Abdominal Exam: Distended, Soft, Normal Bowel Sounds. absent: Tenderness, Rebound - Extremities Exam Extremities Exam: Full ROM. absent: Pedal Edema Additional comments: Stockings on bilaterally Pulses palpated bilaterally (dp, pt, and at pulses) Right femoral area, with mild ecchymosis, no s/s hematoma, with very mild tenderness. 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 Phan 09/25 OK for PT out bed to ambulate, ok to transfer to tele * Rosuvastatin (discontinued) * Nimodipine 30mg PO Q4H for vasospasm * d/w Dr. Guerra * anticoagulation contraindicated for DVT due to SAH * CT Angio of abd/pelvis/lower extremity 10/03: (1) CT venogram shows small amount of thrombus adjacent to the IVC filter at the level of the renal veins. There is also thrombus within the IVC filter. Nonocclusive thrombus is present within the infrarenal IVC and also within the recently placed left common iliac vein stent. This stent is otherwise patent. (2) A small amount of nonocclusive thrombus within the proximal common femoral vein. * Warfarin 5mg po QD started 10/02 (2) Subarachnoid hemorrhage Assessment and Plan: * CT head without contrast 09/22: Stable subarachnoid hemorrhage is seen in the parasagittal bifrontal and biparietal distributions as well as at the left frontal lobe laterally. No interval increase in volume subarachnoid hemorrhage is identified at this time. Remainder of the brain appears normal. * anticoagulation contraindicated for DVT due to SAH * 09/25: CT brain done -no bleeding; Patient transferred to telemetry * Neurology consult: Dr. Crockett and Dr. Cervantes * Per Dr. Crockett, continue Nimodipine 30mg PO Q4H, Topamax 25mg PO daily * s/p diagnostic cerebral angiogram 10/01: no evidence of a vascular malformation; Multiple areas of vasoconstriction in the distal vasculature consistent with vasospasm from patients recent subarachnoid hemorrhage * Per Dr Cervantes 10/01, recommend restarting anticoagulation Meds: * s/p TPA * Nimodipine 30mg PO Q4H (indicated for improvement in neurological outcome post subarachnoid hemorrhage) * Pain medications: Acetaminophen 650mg Q6 PRN; Dilaudid 0.5mg IVP Q4H PRN; Dilaudid 1mg IVP Q4H PRN (3) Hypothyroidism Assessment and Plan: * Continue Levothyroxine 100mcg (7) HTN Assessment and Plan: * Continue Hydralazine 10mg IVP Q6H PRN (7) Hypercoagulopathy Assessment and Plan: * Dr. Guerra consulted, help appreciated * anticoagulation contraindicated for DVT due to SAH (6) Constipation, resolved Assessment and Plan: * 09/26 Miralax 17gm once; Colace 100mg TID [facility], hold for bm * 09/28 Miralax 17gm PO BID [facility] x2 doses (7) Prophylaxis Assessment and Plan: * GI prophylaxis: protonix * DVT: Off anticoagulation and no SCD; stockings on * Potassium 20 meq PO QD * Zofran 4mg IVP Q5H PRN * PT and OT Discussed with Dr. Ry Espinoza <Ry Espinoza H - Last Filed: 10/03/17 16:58> Objective - Vital Signs/Intake and Output Vital Signs (last 24 hours): Temp Pulse Resp BP Pulse Ox 98.9 F 92 H 17 121/78 99 10/03/17 16:00 10/03/17 16:00 10/03/17 16:00 10/03/17 16:00 10/03/17 16:00 Intake and Output: 10/03/17 10/03/17 06:59 18:59 Intake Total 500 750 Output Total 1000 1800 Balance -500 -1050 - Medications Medications: Current Medications Acetaminophen (Tylenol 325mg Tab) 650 mg PO Q6 PRN PRN Reason: Headache Last Admin: 09/30/17 06:11 Dose: 650 mg Clonazepam (Klonopin) 1 mg PO DAILY [facility] Last Admin: 10/03/17 09:58 Dose: 1 mg Docusate Sodium (Colace) 100 mg PO TID [facility] Last Admin: 10/03/17 15:18 Dose: Not Given Ergocalciferol (Drisdol 50,000 Intl Units Cap) 1 cap PO QWK [facility] Last Admin: 09/27/17 11:13 Dose: 1 cap Fluticasone Propionate (Flonase) 1 spr SNEHAL DAILY [facility] Last Admin: 10/03/17 10:01 Dose: 1 spr Gabapentin (Neurontin) 300 mg PO BID [facility] Last Admin: 10/03/17 09:58 Dose: 300 mg Hydralazine HCl (Apresoline) 10 mg IVP Q6H PRN PRN Reason: Systolic Blood Pressure Hydromorphone HCl (Dilaudid) 0.5 mg IVP Q4H PRN PRN Reason: Pain, moderate (4-7) Last Admin: 10/03/17 16:40 Dose: 0.5 mg Hydromorphone HCl (Dilaudid) 1 mg IVP Q4H PRN PRN Reason: Pain, severe (8-10) Last Admin: 10/03/17 06:16 Dose: 1 mg Levothyroxine Sodium (Synthroid) 100 mcg PO DAILY@0630 [facility] Last Admin: 10/03/17 06:12 Dose: 100 mcg Metoclopramide HCl (Reglan) 10 mg IVP Q6 PRN PRN Reason: Nausea/Vomiting Last Admin: 09/26/17 11:23 Dose: 10 mg Nimodipine (Nimotop) 30 mg PO Q4H [facility] Last Admin: 10/03/17 15:15 Dose: 30 mg Ondansetron HCl (Zofran Inj) 4 mg IVP Q6H PRN PRN Reason: Nausea/Vomiting Last Admin: 10/03/17 10:01 Dose: 4 mg Pantoprazole Sodium (Protonix Ec Tab) 40 mg PO DAILY [facility] Last Admin: 10/03/17 09:58 Dose: 40 mg Potassium Chloride (K-Dur 20 Meq Er Tab) 20 meq PO DAILY [facility] Last Admin: 10/03/17 12:33 Dose: 20 meq Topiramate (Topamax) 25 mg PO DAILY [facility] Last Admin: 10/03/17 09:58 Dose: 25 mg Warfarin Sodium (Coumadin) 5 mg PO 1800 [facility] Stop: 10/03/17 18:01 - Labs Labs: 10/03/17 06:26 10/03/17 06:23 PT 12.3 SECONDS (9.7-12.2) H 10/03/17 06:26 INR 1.1 10/03/17 06:26 APTT 57 SECONDS (21-34) H D 09/22/17 07:50 Attending/Attestation - Attestation I have personally seen and examined this patient.: Yes I have fully participated in the care of the patient.: Yes I have reviewed all pertinent clinical information, including history, physical exam and plan: Yes Notes (Text): 10/03/17 16:58 Medical attending: Patient was was seen and examined by me as well, agrees the above note by medical apparatus model maker. The patient underwent an additional study of the lower extremities with contrast today. The results did return later on in the afternoon showing that there is still some thrombus present. There was thrombus adjacent to the IVC filter, also thrombus noted in the filter. There also able to see that there is a nonocclusive thrombus within the recently placed left common iliac vein stent. They noted that the stent is patent. The patient was started on Coumadin yesterday, and will repeat the Coumadin dose again today and follow-up on the INRs. thank you Ry Espinoza
--- NOTE | 2017-10-03 09:52 | CP.PCM.PN ---
Subjective - Date & Time of Evaluation Date of Evaluation: 10/03/17 Time of Evaluation: 09:49 - Subjective Subjective: Ms. Martinez was seen and examined at the bedside. She is alert, oriented in all spheres. She denies any headache, lightheadedness, dizziness, weakness, nausea, or vomiting. She states of experiencing left leg pain, pending CT of the abdomen. She is able to move all extremities without any problem. Right femoral area, with mild ecchymosis, no s/s hematoma, with very mild tenderness. Dressing changed and patient teaching done, patient verbalizes understanding. There was no untoward events overnight. Objective - Vital Signs/Intake and Output Vital Signs (last 24 hours): Temp Pulse Resp BP Pulse Ox 98 F 90 13 111/71 96 10/03/17 04:00 10/03/17 07:00 10/03/17 07:00 10/03/17 03:51 10/03/17 06:00 Intake and Output: 10/03/17 10/03/17 06:59 18:59 Intake Total 500 Output Total 1000 Balance -500 - Medications Medications: Current Medications Acetaminophen (Tylenol 325mg Tab) 650 mg PO Q6 PRN PRN Reason: Headache Last Admin: 09/30/17 06:11 Dose: 650 mg Clonazepam (Klonopin) 1 mg PO DAILY [facility] Last Admin: 10/02/17 11:35 Dose: 1 mg Docusate Sodium (Colace) 100 mg PO TID [facility] Last Admin: 10/02/17 18:00 Dose: 100 mg Ergocalciferol (Drisdol 50,000 Intl Units Cap) 1 cap PO QWK [facility] Last Admin: 09/27/17 11:13 Dose: 1 cap Fluticasone Propionate (Flonase) 1 spr SNEHAL DAILY [facility] Last Admin: 10/02/17 11:00 Dose: 1 spr Gabapentin (Neurontin) 300 mg PO BID [facility] Last Admin: 10/02/17 19:48 Dose: 300 mg Hydralazine HCl (Apresoline) 10 mg IVP Q6H PRN PRN Reason: Systolic Blood Pressure Hydromorphone HCl (Dilaudid) 0.5 mg IVP Q4H PRN PRN Reason: Pain, moderate (4-7) Last Admin: 10/02/17 16:57 Dose: 0.5 mg Hydromorphone HCl (Dilaudid) 1 mg IVP Q4H PRN PRN Reason: Pain, severe (8-10) Last Admin: 10/03/17 06:16 Dose: 1 mg Levothyroxine Sodium (Synthroid) 100 mcg PO DAILY@0630 [facility] Last Admin: 10/03/17 06:12 Dose: 100 mcg Metoclopramide HCl (Reglan) 10 mg IVP Q6 PRN PRN Reason: Nausea/Vomiting Last Admin: 09/26/17 11:23 Dose: 10 mg Nimodipine (Nimotop) 30 mg PO Q4H [facility] Last Admin: 10/03/17 06:12 Dose: 30 mg Ondansetron HCl (Zofran Inj) 4 mg IVP Q6H PRN PRN Reason: Nausea/Vomiting Last Admin: 10/02/17 11:34 Dose: 4 mg Pantoprazole Sodium (Protonix Ec Tab) 40 mg PO DAILY [facility] Last Admin: 10/02/17 11:32 Dose: 40 mg Potassium Chloride (K-Dur 20 Meq Er Tab) 20 meq PO DAILY [facility] Last Admin: 10/02/17 11:33 Dose: 20 meq Topiramate (Topamax) 25 mg PO DAILY [facility] Last Admin: 10/02/17 11:32 Dose: 25 mg Warfarin Sodium (Coumadin) 5 mg PO ONCE ONE Stop: 10/03/17 20:01 - Labs Labs: 10/03/17 06:26 10/03/17 06:23 PT 12.3 SECONDS (9.7-12.2) H 10/03/17 06:26 INR 1.1 10/03/17 06:26 APTT 57 SECONDS (21-34) H D 09/22/17 07:50 - Constitutional Appears: No Acute Distress - Head Exam Head Exam: ATRAUMATIC - Neurological Exam Neurological Exam: Alert, Awake Neuro motor strength exam: Left Upper Extremity: 5, Right Upper Extremity: 5, Left Lower Extremity: 5, Right Lower Extremity: 5 Additional comments: Neurological unchanged from previous examination. Assessment and Plan (1) Subarachnoid hemorrhage Assessment & Plan: Case discussed with Dr. Crockett, continue all medical, physical, and occupational therapies. Pending CT of the abdomen. There is no new recommendation from neurology. Status: Acute
[2017-10-03] MEDS: Pantoprazole 40 mg EC Tab PO SCH (09:58)
[2017-10-03] MEDS: Fluticasone Nasal 50 mcg/Spray NAS SCH (10:01)
[2017-10-03] MEDS: HYDROmorphone 0.5 mg/0.5 ml ISec IVP PRN ×2 (10:25→16:40)
[2017-10-03] MEDS: Potassium Chloride 20 mEq ER Tab PO SCH (12:33)
--- NOTE | 2017-10-03 13:39 | CT ---
PROCEDURE: CT Angiography Abdomen, Pelvis and Lower Extremity with Contrast HISTORY: Iliofemoral DVT COMPARISON: CT ANGIOGRAM 09/20/2017 TECHNIQUE: Technique: CT angiography of the abdomen, pelvis was performed in the venous phase of enhancement. Coronal and sagittal reformats, and well as rotating MIP images of the vessels generated at the workstation. Intravenous contrast dose: 100 MILLILITERS VISIPAQUE 320 Radiation dose: Total exam DLP = 1263.76 MGy-cm. This CT exam was performed using one or more of the following dose reduction techniques: Automated exposure control, adjustment of the mA and/or kV according to patient size, and/or use of iterative reconstruction technique. FINDINGS: CT ANGIOGRAPHY: Comparison made to CT angiogram of 09/20/2017. Patient underwent placement of left iliac vein stent and IVC filter. Venogram shows thrombus at the level of the IVC filter noted within the filter and above the filter adjacent to the renal failure. There is also nonocclusive thrombus in the infrarenal IVC that is unchanged. A small amount of thrombus is noted within the left common iliac vein stent which is otherwise patent. The external iliac vein is unremarkable. The common femoral is patent. A small amount of nonocclusive thrombus seen within the proximal superficial femoral vein. The overall size of the common femoral vein and superficial femoral vein is significantly smaller than on previous CT scan. ABDOMINAL AORTA:: MAJOR AORTIC BRANCHES: Celiac [place]: Unremarkable. Superior mesenteric artery: Unremarkable. Inferior mesenteric artery: Unremarkable. Renal arteries: Unremarkable. PELVIC ARTERIES: Right Common Iliac: Unremarkable. Right External Iliac: Unremarkable. Right Internal Iliac: Unremarkable. Left Common Iliac: Unremarkable. Left External Iliac: Unremarkable. Left Internal Iliac: Unremarkable. RIGHT LOWER EXTREMITY ARTERIES: LEFT LOWER EXTREMITY ARTERIES: NON-ANGIOGRAPHIC ASPECT OF THE EXAM: LOWER THORAX: Unremarkable. LIVER: Unremarkable. No gross lesion or ductal dilatation. GALLBLADDER AND BILE DUCTS: Unremarkable. PANCREAS: Unremarkable. No gross lesion or ductal dilatation. SPLEEN: 1.2 centimeter splenule. Otherwise unremarkable ADRENALS: Unremarkable. No mass. KIDNEYS AND URETERS: Unremarkable. No hydronephrosis. No solid mass. STOMACH AND BOWEL: Unremarkable. No obstruction. No gross mural thickening. APPENDIX: Normal appendix. PERITONEUM: Unremarkable. No free fluid. No free air. LYMPH NODES: Unremarkable. No enlarged lymph nodes. BLADDER: Unremarkable. REPRODUCTIVE: Unremarkable. BONES: No acute fracture. OTHER FINDINGS: None. IMPRESSION: 1. CT venogram shows small amount of thrombus adjacent to the IVC filter at the level of the renal veins. There is also thrombus within the IVC filter. Nonocclusive thrombus is present within the infrarenal IVC and also within the recently placed left common iliac vein stent. This stent is otherwise patent. 2. The external iliac vein common femoral vein are normal. 3. A small amount of nonocclusive thrombus within the proximal common femoral vein.
[2017-10-04] MEDS: HYDROmorphone 0.5 mg/0.5 ml ISec IVP PRN ×2 (00:59→05:36)
[2017-10-04] MEDS: Levothyroxine 100 MCG TAB PO SCH (06:51)
[2017-10-04 06:53] LABS: INR 1.1
[2017-10-04 06:55] LABS: ALKALINE PHOSPHATASE 78 U/L (38-126); ALT/SGPT 61 U/L (9-52); AST/SGOT 24 U/L (14-36); BILIRUBIN,TOTAL 0.4 mg/dL (0.2-1.3); BLOOD UREA NITROGEN 10 mg/dL (7-17); CALCIUM 8.8 mg/dl (8.6-10.4); CARBON DIOXIDE 26 mmol/L (22-30); CHLORIDE 103 mmol/L (98-107); GFR AFRICAN-AMERICAN > 60; GLUCOSE,RANDOM 99 mg/dL (65-105); MAGNESIUM 1.7 mg/dL (1.6-2.3); POTASSIUM 3.9 mmol/L (3.6-5.2); SODIUM 137 mmol/L (132-148); TOTAL PROTEIN 8.1 g/dL (6.3-8.3)
[2017-10-04 06:57] LABS: BASO % 0.4 % (0.0-2.0); EOS # 0.4 K/uL (0.0-0.7); EOS % 3.8 % (0.0-4.0); HEMATOCRIT 39.3 % (34.0-47.0); LYMPH # 1.1 K/uL (1.0-4.3); LYMPH % 11.7 % (20.0-40.0); MEAN CELL VOLUME 88.8 fL (81.0-99.0); MEAN CORPUSCULAR HEMOGLOBIN 30.1 pg (27.0-31.0); MEAN CORPUSCULAR HGB CONC 33.9 g/dL (33.0-37.0); MONO # 0.6 K/uL (0.0-0.8); RED CELL DISTRIBUTION WIDTH 13.2 % (11.5-14.5); WHITE BLOOD COUNT 9.5 K/uL (4.8-10.8)
--- NOTE | 2017-10-04 07:52 | CP.PCM.PN ---
<Cecil Moeller - Last Filed: 10/04/17 15:52> Subjective - Date & Time of Evaluation Date of Evaluation: 10/04/17 Time of Evaluation: 07:45 - Subjective Subjective: PGY-[address] Espinoza. No acute events noted overnight. Transferred from ICU telemetry to general floors. Patient complains of tenderness to the left side of her face which she rates a 2/10. She is ambulating with minor pain. She is eating well. She denies chest pain, abdominal pain, fever, diarrhea, nausea, vomiting. Objective - Vital Signs/Intake and Output Vital Signs (last 24 hours): Temp Pulse Resp BP Pulse Ox 98.5 F 76 20 114/80 98 10/04/17 01:10 10/04/17 01:10 10/04/17 01:10 10/04/17 01:10 10/04/17 01:10 Intake and Output: 10/04/17 10/04/17 06:59 18:59 Intake Total 360 Balance 360 - Medications Medications: Current Medications Acetaminophen (Tylenol 325mg Tab) 650 mg PO Q6 PRN PRN Reason: Headache Last Admin: 09/30/17 06:11 Dose: 650 mg Clonazepam (Klonopin) 1 mg PO DAILY [facility] Last Admin: 10/03/17 09:58 Dose: 1 mg Docusate Sodium (Colace) 100 mg PO TID [facility] Last Admin: 10/03/17 18:35 Dose: Not Given Ergocalciferol (Drisdol 50,000 Intl Units Cap) 1 cap PO QWK [facility] Last Admin: 09/27/17 11:13 Dose: 1 cap Fluticasone Propionate (Flonase) 1 spr SNEHAL DAILY [facility] Last Admin: 10/03/17 10:01 Dose: 1 spr Gabapentin (Neurontin) 300 mg PO BID [facility] Last Admin: 10/03/17 17:11 Dose: 300 mg Hydralazine HCl (Apresoline) 10 mg IVP Q6H PRN PRN Reason: Systolic Blood Pressure Hydromorphone HCl (Dilaudid) 0.5 mg IVP Q4H PRN PRN Reason: Pain, moderate (4-7) Last Admin: 10/04/17 05:36 Dose: 0.5 mg Hydromorphone HCl (Dilaudid) 1 mg IVP Q4H PRN PRN Reason: Pain, severe (8-10) Last Admin: 10/03/17 19:54 Dose: 1 mg Levothyroxine Sodium (Synthroid) 100 mcg PO DAILY@0630 [facility] Last Admin: 10/04/17 06:51 Dose: 100 mcg Metoclopramide HCl (Reglan) 10 mg IVP Q6 PRN PRN Reason: Nausea/Vomiting Last Admin: 09/26/17 11:23 Dose: 10 mg Nimodipine (Nimotop) 30 mg PO Q4H [facility] Last Admin: 10/04/17 06:51 Dose: 30 mg Ondansetron HCl (Zofran Inj) 4 mg IVP Q6H PRN PRN Reason: Nausea/Vomiting Last Admin: 10/03/17 17:10 Dose: 4 mg Pantoprazole Sodium (Protonix Ec Tab) 40 mg PO DAILY [facility] Last Admin: 10/03/17 09:58 Dose: 40 mg Potassium Chloride (K-Dur 20 Meq Er Tab) 20 meq PO DAILY [facility] Last Admin: 10/03/17 12:33 Dose: 20 meq Topiramate (Topamax) 25 mg PO DAILY [facility] Last Admin: 10/03/17 09:58 Dose: 25 mg - Labs Labs: 10/04/17 06:28 10/04/17 06:28 PT 12.8 SECONDS (9.7-12.2) H 10/04/17 06:28 INR 1.1 10/04/17 06:28 APTT 57 SECONDS (21-34) H D 09/22/17 07:50 - Additional Findings Additional findings: - Constitutional Appears: Non-toxic, No Acute Distress - Head Exam Head Exam: NORMAL INSPECTION - Eye Exam Eye Exam: EOMI, Normal appearance. absent: Periorbital swelling Pupil Exam: absent: Fixed, Irregular - Neck Exam Neck Exam: Full ROM. absent: Tenderness, Thyromegaly - Respiratory Exam Respiratory Exam: NORMAL BREATHING PATTERN. absent: Accessory Muscle Use, Respiratory Distress - Cardiovascular Exam Cardiovascular Exam: REGULAR RHYTHM, +S1, +S2. absent: Bradycardia, Tachycardia - GI/Abdominal Exam GI & Abdominal Exam: Distended, Soft, Normal Bowel Sounds. absent: Tenderness, Rebound - Extremities Exam Extremities Exam: Full ROM. absent: Pedal Edema Additional comments: Stockings on bilaterally Pulses palpated bilaterally (dp, pt, and at pulses) Right femoral area, with mild ecchymosis, no s/s hematoma, with very mild tenderness. 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 Phan 09/25 OK for PT out bed to ambulate, ok to transfer to tele * Rosuvastatin (discontinued) * Nimodipine 30mg PO Q4H for vasospasm * d/w Dr. Guerra * anticoagulation contraindicated for DVT due to SAH * CT Angio of abd/pelvis/lower extremity 10/03: (1) CT venogram shows small amount of thrombus adjacent to the IVC filter at the level of the renal veins. There is also thrombus within the IVC filter. Nonocclusive thrombus is present within the infrarenal IVC and also within the recently placed left common iliac vein stent. This stent is otherwise patent. (2) A small amount of nonocclusive thrombus within the proximal common femoral vein. * Warfarin 5mg PO QD started 10/02 (discontinued 10/04 and increased to higher dose as INR subtherapeutic) * Warfarin 7.5mg PO QD started 10/04 (2) Subarachnoid hemorrhage Assessment and Plan: * CT head without contrast 09/22: Stable subarachnoid hemorrhage is seen in the parasagittal bifrontal and biparietal distributions as well as at the left frontal lobe laterally. No interval increase in volume subarachnoid hemorrhage is identified at this time. Remainder of the brain appears normal. * anticoagulation contraindicated for DVT due to SAH * 09/25: CT brain done -no bleeding; Patient transferred to telemetry * Neurology consult: Dr. Crockett and Dr. Cervantes * Per Dr. Crockett, continue Nimodipine 30mg PO Q4H, Topamax 25mg PO daily * s/p diagnostic cerebral angiogram 10/01: no evidence of a vascular malformation; Multiple areas of vasoconstriction in the distal vasculature consistent with vasospasm from patients recent subarachnoid hemorrhage * Per Dr Cervantes 10/01, recommend restarting anticoagulation Meds: * s/p TPA * Nimodipine 30mg PO Q4H (indicated for improvement in neurological outcome post subarachnoid hemorrhage) * Pain medications: Acetaminophen 650mg Q6 PRN; Dilaudid 0.5mg IVP Q4H PRN; Dilaudid 1mg IVP Q4H PRN (3) Hypothyroidism Assessment and Plan: * Continue Levothyroxine 100mcg (7) HTN Assessment and Plan: * Continue Hydralazine 10mg IVP Q6H PRN (7) Hypercoagulopathy Assessment and Plan: * Dr. Guerra consulted, help appreciated * anticoagulation contraindicated for DVT due to SAH (6) Constipation, resolved Assessment and Plan: * 09/26 Miralax 17gm once; Colace 100mg TID [facility], hold for bm * 09/28 Miralax 17gm PO BID [facility] x2 doses (7) Prophylaxis Assessment and Plan: * GI prophylaxis: protonix * DVT: Off anticoagulation and no SCD (contraindicated due to DVT); stockings on * Potassium 20 meq PO QD * Zofran 4mg IVP Q5H PRN * PT and OT Discussed with Dr. Ry Espinoza <Ry Espinoza H - Last Filed: 10/04/17 17:49> Objective - Vital Signs/Intake and Output Vital Signs (last 24 hours): Temp Pulse Resp BP Pulse Ox 98.7 F 102 H 20 134/85 98 10/04/17 07:40 10/04/17 07:40 10/04/17 07:40 10/04/17 07:40 10/04/17 07:40 Intake and Output: 10/04/17 10/04/17 06:59 18:59 Intake Total 360 800 Balance 360 800 - Medications Medications: Current Medications Acetaminophen (Tylenol 325mg Tab) 650 mg PO Q6 PRN PRN Reason: Headache Last Admin: 09/30/17 06:11 Dose: 650 mg Clonazepam (Klonopin) 1 mg PO DAILY [facility] Last Admin: 10/04/17 09:56 Dose: 1 mg Docusate Sodium (Colace) 100 mg PO TID [facility] Last Admin: 10/04/17 13:30 Dose: Not Given Ergocalciferol (Drisdol 50,000 Intl Units Cap) 1 cap PO QWK [facility] Last Admin: 10/04/17 09:52 Dose: 1 cap Fluticasone Propionate (Flonase) 1 spr SNEHAL DAILY [facility] Last Admin: 10/04/17 09:52 Dose: 1 spr Gabapentin (Neurontin) 300 mg PO BID [facility] Last Admin: 10/04/17 09:51 Dose: 300 mg Hydralazine HCl (Apresoline) 10 mg IVP Q6H PRN PRN Reason: Systolic Blood Pressure Hydromorphone HCl (Dilaudid) 0.5 mg IVP Q4H PRN PRN Reason: Pain, moderate (4-7) Last Admin: 10/04/17 05:36 Dose: 0.5 mg Hydromorphone HCl (Dilaudid) 1 mg IVP Q4H PRN PRN Reason: Pain, severe (8-10) Last Admin: 10/04/17 09:47 Dose: 1 mg Levothyroxine Sodium (Synthroid) 100 mcg PO DAILY@0630 [facility] Last Admin: 10/04/17 06:51 Dose: 100 mcg Metoclopramide HCl (Reglan) 10 mg IVP Q6 PRN PRN Reason: Nausea/Vomiting Last Admin: 09/26/17 11:23 Dose: 10 mg Nimodipine (Nimotop) 30 mg PO Q4H [facility] Last Admin: 10/04/17 13:10 Dose: 30 mg Ondansetron HCl (Zofran Inj) 4 mg IVP Q6H PRN PRN Reason: Nausea/Vomiting Last Admin: 10/03/17 17:10 Dose: 4 mg Pantoprazole Sodium (Protonix Ec Tab) 40 mg PO DAILY [facility] Last Admin: 10/04/17 09:52 Dose: 40 mg Potassium Chloride (K-Dur 20 Meq Er Tab) 20 meq PO DAILY [facility] Last Admin: 10/04/17 09:52 Dose: 20 meq Topiramate (Topamax) 25 mg PO DAILY [facility] Last Admin: 10/04/17 09:51 Dose: 25 mg Warfarin Sodium (Coumadin) 7.5 mg PO 1800 [facility] Stop: 10/04/17 18:01 - Labs Labs: 10/04/17 06:28 10/04/17 06:28 PT 12.8 SECONDS (9.7-12.2) H 10/04/17 06:28 INR 1.1 10/04/17 06:28 APTT 57 SECONDS (21-34) H D 09/22/17 07:50 Attending/Attestation - Attestation I have personally seen and examined this patient.: Yes I have fully participated in the care of the patient.: Yes I have reviewed all pertinent clinical information, including history, physical exam and plan: Yes Notes (Text): 10/04/17 17:48 Medical attending: The patient was seen and examined by me as well, reviewed the above note by the medical records technician and agree. The patient was in the bathroom and she was able to ambulate out of the bathroom and talk to us without any difficulty with walking. She explains to us that when we saw her she was not having any headaches or abdominal pain or leg pain. She says that she did have some headache last night but it wasn't a major issue. I spoke with vascular surgery again today. We are continuing with Coumadin. I also explained this to the patient as well that the INR remains very subtherapeutic.. He was only 1.1 today despite getting Coumadin for the past 2 days order to increase the dose to 7.5 today and recheck again I explained to the patient that I don't expect her INR to be therapeutic tomorrow either. Thank you so much, Ry Espinoza
[2017-10-04] MEDS: HYDROmorphone 1 mg/ml ISec IVP PRN ×3 (09:47→22:42)
[2017-10-04] MEDS: Pantoprazole 40 mg EC Tab PO SCH (09:52)
[2017-10-04] MEDS: Fluticasone Nasal 50 mcg/Spray NAS SCH (09:52)
[2017-10-04] MEDS: Potassium Chloride 20 mEq ER Tab PO SCH (09:52)
[2017-10-04] MEDS: Ergocalciferol 50,000 Intl Units Cap PO SCH (09:52)
--- NOTE | 2017-10-04 10:40 | CP.PCM.PN ---
Subjective - Date & Time of Evaluation Date of Evaluation: 10/04/17 Time of Evaluation: 10:36 - Subjective Subjective: Ms. rodriguez was seen and examined at the bedside. She is alert, oriented in all spheres. She complains of dull headache in the left frontal area radiating to the left side of her face, with pain scale 5/20. Asymmetrical sensation in her face. She states of experiencing headache since last night. She further states of seeing spots very minimal in comparison from previous days. She denies any blurred vision, dizziness, lightheadedness, nausea, or vomiting. The right groin remains stable, with fading ecchymosis, no s/s hematoma or infection. There was no untoward events overnight. Objective - Vital Signs/Intake and Output Vital Signs (last 24 hours): Temp Pulse Resp BP Pulse Ox 98.7 F 102 H 20 134/85 98 10/04/17 07:40 10/04/17 07:40 10/04/17 07:40 10/04/17 07:40 10/04/17 07:40 Intake and Output: 10/04/17 10/04/17 06:59 18:59 Intake Total 360 Balance 360 - Medications Medications: Current Medications Acetaminophen (Tylenol 325mg Tab) 650 mg PO Q6 PRN PRN Reason: Headache Last Admin: 09/30/17 06:11 Dose: 650 mg Clonazepam (Klonopin) 1 mg PO DAILY [facility] Last Admin: 10/04/17 09:56 Dose: 1 mg Dexamethasone (Decadron Inj) 10 mg IVP ONCE ONE Stop: 10/04/17 10:36 Docusate Sodium (Colace) 100 mg PO TID [facility] Last Admin: 10/04/17 09:51 Dose: 100 mg Ergocalciferol (Drisdol 50,000 Intl Units Cap) 1 cap PO QWK [facility] Last Admin: 10/04/17 09:52 Dose: 1 cap Fluticasone Propionate (Flonase) 1 spr SNEHAL DAILY [facility] Last Admin: 10/04/17 09:52 Dose: 1 spr Gabapentin (Neurontin) 300 mg PO BID [facility] Last Admin: 10/04/17 09:51 Dose: 300 mg Hydralazine HCl (Apresoline) 10 mg IVP Q6H PRN PRN Reason: Systolic Blood Pressure Hydromorphone HCl (Dilaudid) 0.5 mg IVP Q4H PRN PRN Reason: Pain, moderate (4-7) Last Admin: 10/04/17 05:36 Dose: 0.5 mg Hydromorphone HCl (Dilaudid) 1 mg IVP Q4H PRN PRN Reason: Pain, severe (8-10) Last Admin: 10/04/17 09:47 Dose: 1 mg Magnesium Sulfate/Dextrose (Magnesium Sulfate 1 Gm/100 Ml D5w) 1 gm in 100 mls @ 300 mls/hr IVPB Q30M [facility] Stop: 10/04/17 11:34 Levothyroxine Sodium (Synthroid) 100 mcg PO DAILY@0630 [facility] Last Admin: 10/04/17 06:51 Dose: 100 mcg Metoclopramide HCl (Reglan) 10 mg IVP Q6 PRN PRN Reason: Nausea/Vomiting Last Admin: 09/26/17 11:23 Dose: 10 mg Nimodipine (Nimotop) 30 mg PO Q4H [facility] Last Admin: 10/04/17 06:51 Dose: 30 mg Ondansetron HCl (Zofran Inj) 4 mg IVP Q6H PRN PRN Reason: Nausea/Vomiting Last Admin: 10/03/17 17:10 Dose: 4 mg Pantoprazole Sodium (Protonix Ec Tab) 40 mg PO DAILY [facility] Last Admin: 10/04/17 09:52 Dose: 40 mg Potassium Chloride (K-Dur 20 Meq Er Tab) 20 meq PO DAILY [facility] Last Admin: 10/04/17 09:52 Dose: 20 meq Topiramate (Topamax) 25 mg PO DAILY [facility] Last Admin: 10/04/17 09:51 Dose: 25 mg Warfarin Sodium (Coumadin) 5 mg PO 1800 [facility] Stop: 10/04/17 18:01 - Labs Labs: 10/04/17 06:28 10/04/17 06:28 PT 12.8 SECONDS (9.7-12.2) H 10/04/17 06:28 INR 1.1 10/04/17 06:28 APTT 57 SECONDS (21-34) H D 09/22/17 07:50 - Constitutional Appears: No Acute Distress - Head Exam Head Exam: ATRAUMATIC - Neurological Exam Neurological Exam: Alert, Awake, CN II-XII Intact, Normal Gait, Oriented x3 Neuro motor strength exam: Left Upper Extremity: 5, Right Upper Extremity: 5, Left Lower Extremity: 5, Right Lower Extremity: 5 Additional comments: neurological status unchanged from previous examination except for the headache today. Sensation is asymmetrical in her face, but equal the rest of her body. Assessment and Plan (1) Subarachnoid hemorrhage Assessment & Plan: Case discussed with Dr. Crockett, Headache; recommends repeat CT of the head without contrast. Magnesium 2 gms IVPB for 1 dose and Decadron 10 mg IV for 1 dose. Continue all other medical, physical, and occupational therapies. Status: Acute
--- NOTE | 2017-10-04 12:24 | CT ---
PROCEDURE: CT HEAD WITHOUT CONTRAST. HISTORY: headache COMPARISON: Unenhanced head CT 09/24/2017. TECHNIQUE: Axial computed tomography images were obtained through the head/brain without intravenous contrast. Radiation dose: Total exam DLP = 1080.32 mGy-cm. This CT exam was performed using one or more of the following dose reduction techniques: Automated exposure control, adjustment of the mA and/or kV according to patient size, and/or use of iterative reconstruction technique. FINDINGS: HEMORRHAGE: No intracranial hemorrhage. BRAIN: Normal andrade-white matter differentiation and density are appreciated throughout the cerebrum and cerebellum with the brainstem appearing unremarkable as well. There is no mass effect. There is no suspicious extra-axial fluid collection and the midline brain anatomy appears diffusely unremarkable. VENTRICLES: Unremarkable. No hydrocephalus. CALVARIUM: Unremarkable. PARANASAL SINUSES: Multifocal acute superimposed on chronic ethmoid sinusitis is appreciated increased in the interval. MASTOID AIR CELLS: Unremarkable as visualized. No inflammatory changes. OTHER FINDINGS: None. IMPRESSION: Stable unremarkable unenhanced head CT as per above Multifocal ethmoid sinusitis appears acute superimposed on chronic sinusitis.
[2017-10-04] MEDS: Magnesium Sulfate 1 gm in D5W 1 GM/100 ML BAG IVPB SCH ×2 (12:53→13:10)
[2017-10-04] MEDS ORDERED: Magnesium Sulfate 1 gm in D5W 1 GM/100 ML BAG IVPB SCH (13:00)
[2017-10-05] MEDS: HYDROmorphone 0.5 mg/0.5 ml ISec IVP PRN ×3 (03:02→20:26)
--- NOTE | 2017-10-05 06:25 | CP.PCM.PN ---
Addendum entered and electronically signed by Berlin Galeas DO 10/05/17 11:51: Only INR will be drawn tomorrow AM for labwork per Dr. Espinoza Original Note: <Berlin Galeas - Last Filed: 10/05/17 11:49> Subjective - Date & Time of Evaluation Date of Evaluation: 10/05/17 Time of Evaluation: 06:24 - Subjective Subjective: PGY-[address] Espinoza's service: Pt seen and examined at bedside. Nursing reports no acute events overnight. Patient found laying comfortably in bed. She reports discomfort in her nostrils after receiving MRSA treatment. Patient reports history of pressure in her sinuses off/on over last few months. She states she has been on fluticasone nasal spray but "it is not helping at all." Patient is able to ambulate, and reports tolerating diet/moving bowels without difficulty. She denies headache, vision changes, chest pain, abdominal pain, N/V. Objective - Vital Signs/Intake and Output Vital Signs (last 24 hours): Temp Pulse Resp BP Pulse Ox 99.0 F 86 20 113/67 97 10/05/17 04:00 10/05/17 04:00 10/05/17 04:00 10/05/17 04:00 10/05/17 04:00 Intake and Output: 10/04/17 10/05/17 18:59 06:59 Intake Total 800 100 Balance 800 100 - Medications Medications: Current Medications Acetaminophen (Tylenol 325mg Tab) 650 mg PO Q6 PRN PRN Reason: Headache Last Admin: 09/30/17 06:11 Dose: 650 mg Clonazepam (Klonopin) 1 mg PO DAILY [facility] Last Admin: 10/04/17 09:56 Dose: 1 mg Docusate Sodium (Colace) 100 mg PO TID [facility] Last Admin: 10/04/17 18:13 Dose: 100 mg Ergocalciferol (Drisdol 50,000 Intl Units Cap) 1 cap PO QWK [facility] Last Admin: 10/04/17 09:52 Dose: 1 cap Fluticasone Propionate (Flonase) 1 spr SNEHAL DAILY [facility] Last Admin: 10/04/17 09:52 Dose: 1 spr Gabapentin (Neurontin) 300 mg PO BID [facility] Last Admin: 10/04/17 17:50 Dose: 300 mg Hydralazine HCl (Apresoline) 10 mg IVP Q6H PRN PRN Reason: Systolic Blood Pressure Hydromorphone HCl (Dilaudid) 0.5 mg IVP Q4H PRN PRN Reason: Pain, moderate (4-7) Last Admin: 10/05/17 03:02 Dose: 0.5 mg Hydromorphone HCl (Dilaudid) 1 mg IVP Q4H PRN PRN Reason: Pain, severe (8-10) Last Admin: 10/04/17 22:42 Dose: 1 mg Levothyroxine Sodium (Synthroid) 100 mcg PO DAILY@0630 [facility] Last Admin: 10/04/17 06:51 Dose: 100 mcg Metoclopramide HCl (Reglan) 10 mg IVP Q6 PRN PRN Reason: Nausea/Vomiting Last Admin: 09/26/17 11:23 Dose: 10 mg Nimodipine (Nimotop) 30 mg PO Q4H [facility] Last Admin: 10/05/17 02:14 Dose: 30 mg Ondansetron HCl (Zofran Inj) 4 mg IVP Q6H PRN PRN Reason: Nausea/Vomiting Last Admin: 10/03/17 17:10 Dose: 4 mg Pantoprazole Sodium (Protonix Ec Tab) 40 mg PO DAILY [facility] Last Admin: 10/04/17 09:52 Dose: 40 mg Potassium Chloride (K-Dur 20 Meq Er Tab) 20 meq PO DAILY [facility] Last Admin: 10/04/17 09:52 Dose: 20 meq Topiramate (Topamax) 25 mg PO DAILY [facility] Last Admin: 10/04/17 09:51 Dose: 25 mg - Labs Labs: 10/04/17 06:28 10/04/17 06:28 PT 12.8 SECONDS (9.7-12.2) H 10/04/17 06:28 INR 1.1 10/04/17 06:28 APTT 57 SECONDS (21-34) H D 09/22/17 07:50 - Constitutional Appears: Non-toxic, No Acute Distress - Head Exam Head Exam: ATRAUMATIC, NORMAL INSPECTION - Eye Exam Eye Exam: EOMI, Normal appearance. absent: Periorbital swelling Pupil Exam: PERRL - ENT Exam ENT Exam: Mucous Membranes Moist Additional comments: TTP at ethmoid sinuses (worst on left) - Respiratory Exam Respiratory Exam: Clear to Ausculation Bilateral, NORMAL BREATHING PATTERN - Cardiovascular Exam Cardiovascular Exam: REGULAR RHYTHM, +S1, +S2 - GI/Abdominal Exam GI & Abdominal Exam: Soft, Normal Bowel Sounds. 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 Phan 09/25 OK for PT out bed to ambulate, ok to transfer to tele * Rosuvastatin (discontinued) * Nimodipine 30mg PO Q4H for vasospasm * d/w Dr. Guerra * anticoagulation contraindicated for DVT due to SAH * CT Angio of abd/pelvis/lower extremity 10/03: (1) CT venogram shows small amount of thrombus adjacent to the IVC filter at the level of the renal veins. There is also thrombus within the IVC filter. Nonocclusive thrombus is present within the infrarenal IVC and also within the recently placed left common iliac vein stent. This stent is otherwise patent. (2) A small amount of nonocclusive thrombus within the proximal common femoral vein. INR 1.4 today * Warfarin 5mg PO QD started 10/02 (discontinued 10/04 and increased to higher dose as INR subtherapeutic) * Continue Warfarin 7.5mg PO QD started 10/04 * f/u INR Subarachnoid hemorrhage Assessment and Plan: * CT head without contrast 09/22: Stable subarachnoid hemorrhage is seen in the parasagittal bifrontal and biparietal distributions as well as at the left frontal lobe laterally. No interval increase in volume subarachnoid hemorrhage is identified at this time. Remainder of the brain appears normal. * repeat CT head (10/04/17): stable unremarkable unenhanced head CT as per above. Multifocal ethmoid sinusitis appears acute superimposed on chronic sinusitis * anticoagulation contraindicated for DVT due to SAH * 09/25: CT brain done -no bleeding; Patient transferred to telemetry * Neurology consult: Dr. Crockett and Dr. Cervantes * Per Dr. Crockett, continue Nimodipine 30mg PO Q4H, Topamax 25mg PO daily * 10/04: recommends repeat CT head, Mg, and Decadron 10mg once * s/p diagnostic cerebral angiogram 10/01: no evidence of a vascular malformation; Multiple areas of vasoconstriction in the distal vasculature consistent with vasospasm from patients recent subarachnoid hemorrhage * Per Dr Cervantes 10/01, recommend restarting anticoagulation Meds: * s/p TPA * Nimodipine 30mg PO Q4H (indicated for improvement in neurological outcome post subarachnoid hemorrhage) * Pain medications: Acetaminophen 650mg Q6 PRN; Dilaudid 0.5mg IVP Q4H PRN; Dilaudid 1mg IVP Q4H PRN Ethmoid Sinusitis * CT head without contrast 09/22: Stable subarachnoid hemorrhage is seen in the parasagittal bifrontal and biparietal distributions as well as at the left frontal lobe laterally. No interval increase in volume subarachnoid hemorrhage is identified at this time. Remainder of the brain appears normal. * repeat CT head (10/04/17): stable unremarkable unenhanced head CT as per above. Multifocal ethmoid sinusitis appears acute superimposed on chronic sinusitis * start Augmentin 875/125mg PO Q12H * continue Flonase Nasal MRSA MRSA positive (10/05) - Mupirocin 2% Nasal 0.5g SNEHAL BID Hypothyroidism TSH 17 on 09/19/17 * Continue Levothyroxine 100mcg HTN Assessment and Plan: * Well-controlled * Continue Hydralazine 10mg IVP Q6H PRN Hypercoagulopathy Assessment and Plan: * Dr. Guerra consulted, help appreciated * anticoagulation contraindicated for DVT due to SAH Constipation, resolved Assessment and Plan: * 09/26 Miralax 17gm once; Colace 100mg TID [facility], hold for bm * 09/28 Miralax 17gm PO BID [facility] x2 doses Hypomagnesemia; resolved MG 1.7 yesterday, repleted - f/u AM labs Prophylaxis Assessment and Plan: * GI prophylaxis: protonix * DVT: Off anticoagulation and no SCD (contraindicated due to DVT); stockings on * Potassium 20 meq PO QD * Zofran 4mg IVP Q5H PRN * PT and OT [place] Galeas PGY-[address] Ry Espinoza <Ry Espinoza H - Last Filed: 10/05/17 13:33> Objective - Vital Signs/Intake and Output Vital Signs (last 24 hours): Temp Pulse Resp BP Pulse Ox 98.3 F 66 18 149/76 96 10/05/17 07:20 10/05/17 07:20 10/05/17 07:20 10/05/17 07:20 10/05/17 07:20 Intake and Output: 10/05/17 10/05/17 06:59 18:59 Intake Total 100 Balance 100 - Medications Medications: Current Medications Acetaminophen (Tylenol 325mg Tab) 650 mg PO Q6 PRN PRN Reason: Headache Last Admin: 09/30/17 06:11 Dose: 650 mg Amoxicillin/Clavulanate Potassium (Augmentin 875 Mg-125 Mg Tab) 1 tab PO Q12H [facility] Last Admin: 10/05/17 13:13 Dose: 1 tab Clonazepam (Klonopin) 1 mg PO DAILY [facility] Last Admin: 10/05/17 09:14 Dose: 1 mg Docusate Sodium (Colace) 100 mg PO TID [facility] Last Admin: 10/05/17 09:12 Dose: 100 mg Ergocalciferol (Drisdol 50,000 Intl Units Cap) 1 cap PO QWK [facility] Last Admin: 10/04/17 09:52 Dose: 1 cap Fluticasone Propionate (Flonase) 1 spr SNEHAL DAILY [facility] Last Admin: 10/05/17 09:15 Dose: 1 spr Gabapentin (Neurontin) 300 mg PO BID [facility] Last Admin: 10/05/17 09:13 Dose: 300 mg Hydralazine HCl (Apresoline) 10 mg IVP Q6H PRN PRN Reason: Systolic Blood Pressure Hydromorphone HCl (Dilaudid) 0.5 mg IVP Q4H PRN PRN Reason: Pain, moderate (4-7) Last Admin: 10/05/17 03:02 Dose: 0.5 mg Hydromorphone HCl (Dilaudid) 1 mg IVP Q4H PRN PRN Reason: Pain, severe (8-10) Last Admin: 10/05/17 08:30 Dose: 1 mg Levothyroxine Sodium (Synthroid) 100 mcg PO DAILY@0630 [facility] Last Admin: 10/05/17 06:27 Dose: 100 mcg Metoclopramide HCl (Reglan) 10 mg IVP Q6 PRN PRN Reason: Nausea/Vomiting Last Admin: 09/26/17 11:23 Dose: 10 mg Mupirocin (Bactroban 2% Nasal) 0.5 gm SNEHAL BID [facility] Last Admin: 10/05/17 09:15 Dose: 0.5 gm Nimodipine (Nimotop) 30 mg PO Q4H [facility] Last Admin: 10/05/17 11:22 Dose: 30 mg Ondansetron HCl (Zofran Inj) 4 mg IVP Q6H PRN PRN Reason: Nausea/Vomiting Last Admin: 10/05/17 09:15 Dose: 4 mg Pantoprazole Sodium (Protonix Ec Tab) 40 mg PO DAILY [facility] Last Admin: 10/05/17 09:14 Dose: 40 mg Potassium Chloride (K-Dur 20 Meq Er Tab) 20 meq PO DAILY [facility] Last Admin: 10/05/17 09:13 Dose: 20 meq Topiramate (Topamax) 25 mg PO DAILY [facility] Last Admin: 10/05/17 09:12 Dose: 25 mg Warfarin Sodium (Coumadin) 7.5 mg PO 1800 [facility] Stop: 10/05/17 18:01 - Labs Labs: 10/05/17 07:39 10/05/17 07:39 PT 15.8 SECONDS (9.7-12.2) H 10/05/17 07:39 INR 1.4 10/05/17 07:39 APTT 57 SECONDS (21-34) H D 09/22/17 07:50 Attending/Attestation - Attestation I have personally seen and examined this patient.: Yes I have fully participated in the care of the patient.: Yes I have reviewed all pertinent clinical information, including history, physical exam and plan: Yes Notes (Text): 10/05/17 13:33 Medical attending: Patient was seen and examined by me, agrees the above note by senior medical technologist. She reported doing well today. We spoke about her INR level, it is now 1.4. Regarding repeat the dose of Coumadin again tonight. And recheck an INR Recent imaging showed that she probably has sinusitis going on give low dose of Augmentin twice a day. Thank you very much, Ry Espinoza
[2017-10-05] MEDS: Levothyroxine 100 MCG TAB PO SCH (06:27)
[2017-10-05 07:52] LABS: INR 1.4
[2017-10-05 07:55] LABS: BASO % 0.2 % (0.0-2.0); EOS # 0.1 K/uL (0.0-0.7); EOS % 0.5 % (0.0-4.0); LYMPH # 1.6 K/uL (1.0-4.3); LYMPH % 11.8 % (20.0-40.0); MEAN CELL VOLUME 89.2 fL (81.0-99.0); MEAN CORPUSCULAR HEMOGLOBIN 29.7 pg (27.0-31.0); MEAN CORPUSCULAR HGB CONC 33.3 g/dL (33.0-37.0); MONO # 0.7 K/uL (0.0-0.8); MONO % 5.1 % (0.0-10.0); RED CELL DISTRIBUTION WIDTH 13.2 % (11.5-14.5); WHITE BLOOD COUNT 13.9 K/uL (4.8-10.8)
[2017-10-05 08:13] LABS: ALB/GLOB RATIO 1.3 (1.0-2.1); ALKALINE PHOSPHATASE 73 U/L (38-126); ALT/SGPT 52 U/L (9-52); AST/SGOT 23 U/L (14-36); BILIRUBIN,TOTAL 0.3 mg/dL (0.2-1.3); BLOOD UREA NITROGEN 11 mg/dL (7-17); CALCIUM 8.8 mg/dl (8.6-10.4); CARBON DIOXIDE 29 mmol/L (22-30); CHLORIDE 101 mmol/L (98-107); GFR AFRICAN-AMERICAN > 60; GLUCOSE,RANDOM 121 mg/dL (65-105); MAGNESIUM 1.8 mg/dL (1.6-2.3); POTASSIUM 3.6 mmol/L (3.6-5.2); SODIUM 138 mmol/L (132-148); TOTAL PROTEIN 7.5 g/dL (6.3-8.3)
--- NOTE | 2017-10-05 08:16 | PN ---
DATE: SUBJECTIVE: The CT venogram, which was done was reviewed. This shows clot in the vena cava below the filter, also some clot along the wall of the previously placed stent. This is most likely because she was not able to be anticoagulated for the past week. I discussed this with the patient. I told her that she should remain on anticoagulation with Coumadin. There is a likelihood, though I can't give her a percentage that these clots will dissolve overtime and that she needs to be followed closely. The need for followup, supports stockings, long-term followup, elevation of her legs was all reviewed and discussed. She will follow up with me in the office in 1 week. Morteza Phan Jr., MD
[2017-10-05] MEDS: HYDROmorphone 1 mg/ml ISec IVP PRN (08:30)
[2017-10-05] MEDS: Potassium Chloride 20 mEq ER Tab PO SCH (09:13)
[2017-10-05] MEDS: Pantoprazole 40 mg EC Tab PO SCH (09:14)
[2017-10-05] MEDS: Mupirocin 2% Ointment (NASAL) NAS SCH ×2 (09:15→18:04)
[2017-10-05] MEDS: Fluticasone Nasal 50 mcg/Spray NAS SCH (09:15)
--- NOTE | 2017-10-05 09:56 | CP.PCM.PN ---
Subjective - Date & Time of Evaluation Date of Evaluation: 10/05/17 Time of Evaluation: 09:53 - Subjective Subjective: Ms. Martinez was seen and examined at the bedside. She is alert, oriented in all spheres. She denies any headache, dizziness, lightheadedness, nausea, or vomiting. She still states of seeing very mild dark spots but much improved from yesterday. She is on isolation for nasal MRSA, CT of the head showed acute sinusitis and currently on treatment. Her right groin is healing well, no s/s of infection or hematoma.There was no untoward events overnight. Objective - Vital Signs/Intake and Output Vital Signs (last 24 hours): Temp Pulse Resp BP Pulse Ox 98.3 F 66 18 149/76 96 10/05/17 07:20 10/05/17 07:20 10/05/17 07:20 10/05/17 07:20 10/05/17 07:20 Intake and Output: 10/05/17 10/05/17 06:59 18:59 Intake Total 100 Balance 100 - Medications Medications: Current Medications Acetaminophen (Tylenol 325mg Tab) 650 mg PO Q6 PRN PRN Reason: Headache Last Admin: 09/30/17 06:11 Dose: 650 mg Clonazepam (Klonopin) 1 mg PO DAILY [facility] Last Admin: 10/05/17 09:14 Dose: 1 mg Docusate Sodium (Colace) 100 mg PO TID [facility] Last Admin: 10/05/17 09:12 Dose: 100 mg Ergocalciferol (Drisdol 50,000 Intl Units Cap) 1 cap PO QWK [facility] Last Admin: 10/04/17 09:52 Dose: 1 cap Fluticasone Propionate (Flonase) 1 spr SNEHAL DAILY [facility] Last Admin: 10/05/17 09:15 Dose: 1 spr Gabapentin (Neurontin) 300 mg PO BID [facility] Last Admin: 10/05/17 09:13 Dose: 300 mg Hydralazine HCl (Apresoline) 10 mg IVP Q6H PRN PRN Reason: Systolic Blood Pressure Hydromorphone HCl (Dilaudid) 0.5 mg IVP Q4H PRN PRN Reason: Pain, moderate (4-7) Last Admin: 10/05/17 03:02 Dose: 0.5 mg Hydromorphone HCl (Dilaudid) 1 mg IVP Q4H PRN PRN Reason: Pain, severe (8-10) Last Admin: 10/05/17 08:30 Dose: 1 mg Levothyroxine Sodium (Synthroid) 100 mcg PO DAILY@0630 [facility] Last Admin: 10/05/17 06:27 Dose: 100 mcg Metoclopramide HCl (Reglan) 10 mg IVP Q6 PRN PRN Reason: Nausea/Vomiting Last Admin: 09/26/17 11:23 Dose: 10 mg Mupirocin (Bactroban 2% Nasal) 0.5 gm SNEHAL BID [facility] Last Admin: 10/05/17 09:15 Dose: 0.5 gm Nimodipine (Nimotop) 30 mg PO Q4H [facility] Last Admin: 10/05/17 06:27 Dose: 30 mg Ondansetron HCl (Zofran Inj) 4 mg IVP Q6H PRN PRN Reason: Nausea/Vomiting Last Admin: 10/05/17 09:15 Dose: 4 mg Pantoprazole Sodium (Protonix Ec Tab) 40 mg PO DAILY [facility] Last Admin: 10/05/17 09:14 Dose: 40 mg Potassium Chloride (K-Dur 20 Meq Er Tab) 20 meq PO DAILY [facility] Last Admin: 10/05/17 09:13 Dose: 20 meq Topiramate (Topamax) 25 mg PO DAILY [facility] Last Admin: 10/05/17 09:12 Dose: 25 mg - Labs Labs: 10/05/17 07:39 10/05/17 07:39 PT 15.8 SECONDS (9.7-12.2) H 10/05/17 07:39 INR 1.4 10/05/17 07:39 APTT 57 SECONDS (21-34) H D 09/22/17 07:50 - Constitutional Appears: No Acute Distress - Head Exam Head Exam: ATRAUMATIC - Neurological Exam Neurological Exam: Alert, Awake, CN II-XII Intact, Oriented x3 Neuro motor strength exam: Left Upper Extremity: 5, Right Upper Extremity: 5, Left Lower Extremity: 5, Right Lower Extremity: 5 Additional comments: She is able to answer questions appropriately and follows simple commands. Assessment and Plan (1) Subarachnoid hemorrhage Assessment & Plan: Case discussed with Dr. Crockett, continue all current medical regimen. There is no new recommendation from neurology. Status: Acute
[2017-10-05] MEDS ORDERED: Potassium Chloride 20 mEq ER Tab PO ONE (11:46)
[2017-10-05] MEDS: Amoxicillin-Clav 875-125 mg Tab PO SCH (13:13)
[2017-10-05] MEDS ORDERED: DiphenhydrAMINE 50 mg/ml Inj IVP STA (19:38)
[2017-10-06] MEDS: Amoxicillin-Clav 875-125 mg Tab PO SCH ×2 (00:35→12:23)
[2017-10-06] MEDS: Levothyroxine 100 MCG TAB PO SCH (05:37)
[2017-10-06] MEDS: HYDROmorphone 0.5 mg/0.5 ml ISec IVP PRN ×3 (05:43→19:10)
--- NOTE | 2017-10-06 06:27 | CP.PCM.PN ---
Subjective - Date & Time of Evaluation Date of Evaluation: 10/06/17 Time of Evaluation: 06:23 - Subjective Subjective: Ms. Martinez was seen and examined at the bedside. She is alert, oriented in all spheres. She is complaining of left cheek soreness which is radiating to the left frontal area causing her headache. She further describe the headache as pressure-like, 3/10, but denies any blurred vision, weakness, lightheadedness, nausea, or vomiting. Her sensation is asymmetrical in her face. She is currently on antibiotic treatment for her sinusitis. She further states of She remains on contact isolation for nasal MRSA. There was no untoward events overnight. Objective - Vital Signs/Intake and Output Vital Signs (last 24 hours): Temp Pulse Resp BP Pulse Ox 98.4 F 88 20 90/61 L 100 10/05/17 23:50 10/06/17 00:04 10/05/17 23:50 10/05/17 23:50 10/05/17 23:50 Intake and Output: 10/05/17 10/06/17 18:59 06:59 Intake Total 600 Balance 600 - Medications Medications: Current Medications Acetaminophen (Tylenol 325mg Tab) 650 mg PO Q6 PRN PRN Reason: Headache Last Admin: 09/30/17 06:11 Dose: 650 mg Amoxicillin/Clavulanate Potassium (Augmentin 875 Mg-125 Mg Tab) 1 tab PO Q12H [facility] Last Admin: 10/06/17 00:35 Dose: 1 tab Clonazepam (Klonopin) 1 mg PO DAILY [facility] Last Admin: 10/05/17 09:14 Dose: 1 mg Docusate Sodium (Colace) 100 mg PO TID [facility] Last Admin: 10/05/17 18:04 Dose: 100 mg Ergocalciferol (Drisdol 50,000 Intl Units Cap) 1 cap PO QWK [facility] Last Admin: 10/04/17 09:52 Dose: 1 cap Fluticasone Propionate (Flonase) 1 spr SNEHAL DAILY [facility] Last Admin: 10/05/17 09:15 Dose: 1 spr Gabapentin (Neurontin) 300 mg PO BID [facility] Last Admin: 10/05/17 18:04 Dose: 300 mg Hydralazine HCl (Apresoline) 10 mg IVP Q6H PRN PRN Reason: Systolic Blood Pressure Hydromorphone HCl (Dilaudid) 0.5 mg IVP Q4H PRN PRN Reason: Pain, moderate (4-7) Last Admin: 10/06/17 05:43 Dose: 0.5 mg Hydromorphone HCl (Dilaudid) 1 mg IVP Q4H PRN PRN Reason: Pain, severe (8-10) Last Admin: 10/05/17 08:30 Dose: 1 mg Levothyroxine Sodium (Synthroid) 100 mcg PO DAILY@0630 [facility] Last Admin: 10/06/17 05:37 Dose: 100 mcg Magnesium Oxide (Mag-Ox) 400 mg PO BID [facility] Metoclopramide HCl (Reglan) 10 mg IVP Q6 PRN PRN Reason: Nausea/Vomiting Last Admin: 09/26/17 11:23 Dose: 10 mg Mupirocin (Bactroban 2% Nasal) 0.5 gm SNEHAL BID [facility] Last Admin: 10/05/17 18:04 Dose: 0.5 gm Nimodipine (Nimotop) 30 mg PO Q4H [facility] Last Admin: 10/06/17 06:03 Dose: 30 mg Ondansetron HCl (Zofran Inj) 4 mg IVP Q6H PRN PRN Reason: Nausea/Vomiting Last Admin: 10/05/17 09:15 Dose: 4 mg Pantoprazole Sodium (Protonix Ec Tab) 40 mg PO DAILY [facility] Last Admin: 10/05/17 09:14 Dose: 40 mg Potassium Chloride (K-Dur 20 Meq Er Tab) 20 meq PO DAILY [facility] Last Admin: 10/05/17 09:13 Dose: 20 meq Topiramate (Topamax) 25 mg PO DAILY [facility] Last Admin: 10/05/17 09:12 Dose: 25 mg - Labs Labs: 10/05/17 07:39 10/05/17 07:39 PT 15.8 SECONDS (9.7-12.2) H 10/05/17 07:39 INR 1.4 10/05/17 07:39 APTT 57 SECONDS (21-34) H D 09/22/17 07:50 - Constitutional Appears: No Acute Distress - Head Exam Head Exam: ATRAUMATIC - Neurological Exam Neurological Exam: Alert, Awake, Oriented x3 Neuro motor strength exam: Left Upper Extremity: 5, Right Upper Extremity: 5, Left Lower Extremity: 5, Right Lower Extremity: 5 Additional comments: Neurological unchanged from previous examination. Assessment and Plan (1) Subarachnoid hemorrhage Assessment & Plan: Case discussed with Dr. Crockett, continue all current medical regimen. Status: Acute (2) Headache Assessment & Plan: Case discussed with Dr. Crockett, recommend Magnesium 400 mg PO BID. Status: Acute
--- NOTE | 2017-10-06 10:04 | CP.PCM.PN ---
Subjective - Date & Time of Evaluation Date of Evaluation: 10/06/17 Time of Evaluation: 09:45 - Subjective Subjective: Patient did not have any acute events overnight however she explained her left jaw and left cheek feel swollen and tender. She is actively ambulating on her own in the room. When she eats it is difficult due to pain. + tenderness with palpation of the left upper gum as well as inner cheek area. Continue with the PO Augmentin for now. She may need to see a dentist Check INR today, Coumadin again tonight. Objective - Vital Signs/Intake and Output Vital Signs (last 24 hours): Temp Pulse Resp BP Pulse Ox 98.2 F 75 18 109/68 98 10/06/17 07:10 10/06/17 07:10 10/06/17 07:10 10/06/17 07:10 10/06/17 07:10 - Medications Medications: Current Medications Acetaminophen (Tylenol 325mg Tab) 650 mg PO Q6 PRN PRN Reason: Headache Last Admin: 09/30/17 06:11 Dose: 650 mg Amoxicillin/Clavulanate Potassium (Augmentin 875 Mg-125 Mg Tab) 1 tab PO Q12H [facility] Last Admin: 10/06/17 00:35 Dose: 1 tab Clonazepam (Klonopin) 1 mg PO DAILY [facility] Last Admin: 10/05/17 09:14 Dose: 1 mg Docusate Sodium (Colace) 100 mg PO TID [facility] Last Admin: 10/05/17 18:04 Dose: 100 mg Ergocalciferol (Drisdol 50,000 Intl Units Cap) 1 cap PO QWK [facility] Last Admin: 10/04/17 09:52 Dose: 1 cap Fluticasone Propionate (Flonase) 1 spr SNEHAL DAILY [facility] Last Admin: 10/05/17 09:15 Dose: 1 spr Gabapentin (Neurontin) 300 mg PO BID [facility] Last Admin: 10/05/17 18:04 Dose: 300 mg Hydralazine HCl (Apresoline) 10 mg IVP Q6H PRN PRN Reason: Systolic Blood Pressure Hydromorphone HCl (Dilaudid) 0.5 mg IVP Q4H PRN PRN Reason: Pain, moderate (4-7) Last Admin: 10/06/17 05:43 Dose: 0.5 mg Hydromorphone HCl (Dilaudid) 1 mg IVP Q4H PRN PRN Reason: Pain, severe (8-10) Last Admin: 10/05/17 08:30 Dose: 1 mg Levothyroxine Sodium (Synthroid) 100 mcg PO DAILY@0630 [facility] Last Admin: 10/06/17 05:37 Dose: 100 mcg Magnesium Oxide (Mag-Ox) 400 mg PO BID [facility] Metoclopramide HCl (Reglan) 10 mg IVP Q6 PRN PRN Reason: Nausea/Vomiting Last Admin: 09/26/17 11:23 Dose: 10 mg Mupirocin (Bactroban 2% Nasal) 0.5 gm SNEHAL BID [facility] Last Admin: 10/05/17 18:04 Dose: 0.5 gm Nimodipine (Nimotop) 30 mg PO Q4H [facility] Last Admin: 10/06/17 06:03 Dose: 30 mg Ondansetron HCl (Zofran Inj) 4 mg IVP Q6H PRN PRN Reason: Nausea/Vomiting Last Admin: 10/05/17 09:15 Dose: 4 mg Pantoprazole Sodium (Protonix Ec Tab) 40 mg PO DAILY [facility] Last Admin: 10/05/17 09:14 Dose: 40 mg Potassium Chloride (K-Dur 20 Meq Er Tab) 20 meq PO DAILY [facility] Last Admin: 10/05/17 09:13 Dose: 20 meq Topiramate (Topamax) 25 mg PO DAILY [facility] Last Admin: 10/05/17 09:12 Dose: 25 mg - Labs Labs: 10/05/17 07:39 10/05/17 07:39 PT 15.8 SECONDS (9.7-12.2) H 10/05/17 07:39 INR 1.4 10/05/17 07:39 APTT 57 SECONDS (21-34) H D 09/22/17 07:50 - Constitutional Appears: Well, Non-toxic, No Acute Distress - Head Exam Head Exam: NORMAL INSPECTION, NORMOCEPHALIC Additional comments: left cheek swollen - Eye Exam Eye Exam: EOMI, Normal appearance - ENT Exam ENT Exam: Mucous Membranes Moist - Neck Exam Neck Exam: Full ROM, Tenderness Additional comments: left upper neck area tender - Respiratory Exam Respiratory Exam: Clear to Ausculation Bilateral, NORMAL BREATHING PATTERN - GI/Abdominal Exam GI & Abdominal Exam: Soft, Normal Bowel Sounds. absent: Distended, Firm, Guarding, Rigid, Tenderness - Extremities Exam Additional comments: left lower extremity appears normal. No swelling. 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 Phan 09/25 OK for PT out bed to ambulate, ok to transfer to tele * Rosuvastatin (discontinued) * Nimodipine 30mg PO Q4H for vasospasm * d/w Dr. Guerra * anticoagulation contraindicated for DVT due to SAH * CT Angio of abd/pelvis/lower extremity 10/03: (1) CT venogram shows small amount of thrombus adjacent to the IVC filter at the level of the renal veins. There is also thrombus within the IVC filter. Nonocclusive thrombus is present within the infrarenal IVC and also within the recently placed left common iliac vein stent. This stent is otherwise patent. (2) A small amount of nonocclusive thrombus within the proximal common femoral vein. INR 1.4 today * Warfarin 5mg PO QD started 10/02 (discontinued 10/04 and increased to higher dose as INR subtherapeutic) * Continue Warfarin 7.5mg PO QD started 10/04 * f/u INR Subarachnoid hemorrhage Assessment and Plan: 10/06: Patient is doing well. Ambulating in room on her own. * CT head without contrast 09/22: Stable subarachnoid hemorrhage is seen in the parasagittal bifrontal and biparietal distributions as well as at the left frontal lobe laterally. No interval increase in volume subarachnoid hemorrhage is identified at this time. Remainder of the brain appears normal. * repeat CT head (10/04/17): stable unremarkable unenhanced head CT as per above. Multifocal ethmoid sinusitis appears acute superimposed on chronic sinusitis * anticoagulation contraindicated for DVT due to SAH * 09/25: CT brain done -no bleeding; Patient transferred to telemetry * Neurology consult: Dr. Crockett and Dr. Cervantes * Per Dr. Crockett, continue Nimodipine 30mg PO Q4H, Topamax 25mg PO daily * 10/04: recommends repeat CT head, Mg, and Decadron 10mg once * s/p diagnostic cerebral angiogram 10/01: no evidence of a vascular malformation; Multiple areas of vasoconstriction in the distal vasculature consistent with vasospasm from patients recent subarachnoid hemorrhage * Per Dr Cervantes 10/01, recommend restarting anticoagulation Meds: * s/p TPA * Nimodipine 30mg PO Q4H (indicated for improvement in neurological outcome post subarachnoid hemorrhage) * Pain medications: Acetaminophen 650mg Q6 PRN; Dilaudid 0.5mg IVP Q4H PRN; Dilaudid 1mg IVP Q4H PRN Ethmoid Sinusitis 10/06: Patient will need to continue with PO Augmentin, probably should also see a dentist when she leaves from here * CT head without contrast 09/22: Stable subarachnoid hemorrhage is seen in the parasagittal bifrontal and biparietal distributions as well as at the left frontal lobe laterally. No interval increase in volume subarachnoid hemorrhage is identified at this time. Remainder of the brain appears normal. * repeat CT head (10/04/17): stable unremarkable unenhanced head CT as per above. Multifocal ethmoid sinusitis appears acute superimposed on chronic sinusitis * start Augmentin 875/125mg PO Q12H * continue Flonase Nasal MRSA MRSA positive (10/05) - Mupirocin 2% Nasal 0.5g SNEHAL BID Hypothyroidism TSH 17 on 09/19/17 * Continue Levothyroxine 100mcg HTN Assessment and Plan: * Well-controlled * Continue Hydralazine 10mg IVP Q6H PRN Hypercoagulopathy Assessment and Plan: * Dr. Guerra consulted, help appreciated * anticoagulation contraindicated for DVT due to SAH Constipation, resolved Assessment and Plan: * 09/26 Miralax 17gm once; Colace 100mg TID KASSANDRA, hold for bm * 09/28 Miralax 17gm PO BID KASSANDRA x2 doses Hypomagnesemia; resolved MG 1.7 yesterday, repleted - f/u AM labs Prophylaxis Assessment and Plan: * GI prophylaxis: protonix * DVT: Off anticoagulation and no SCD (contraindicated due to DVT); stockings on * Potassium 20 meq PO QD * Zofran 4mg IVP Q5H PRN * PT and OT
[2017-10-06] MEDS: Mupirocin 2% Ointment (NASAL) NAS SCH ×2 (10:09→18:00)
[2017-10-06] MEDS: Pantoprazole 40 mg EC Tab PO SCH (10:09)
[2017-10-06] MEDS: Fluticasone Nasal 50 mcg/Spray NAS SCH (10:10)
[2017-10-06] MEDS: Magnesium Oxide 400 mg Tab UD PO SCH ×2 (10:10→18:00)
[2017-10-06] MEDS: Potassium Chloride 20 mEq ER Tab PO SCH (10:10)
[2017-10-06 11:49] LABS: BASO # 0.1 K/uL (0.0-0.2); EOS # 0.2 K/uL (0.0-0.7); EOS % 2.2 % (0.0-4.0); HEMATOCRIT 35.5 % (34.0-47.0); LYMPH # 1.7 K/uL (1.0-4.3); LYMPH % 18.5 % (20.0-40.0); MEAN CELL VOLUME 88.6 fL (81.0-99.0); MEAN CORPUSCULAR HEMOGLOBIN 30.5 pg (27.0-31.0); MEAN CORPUSCULAR HGB CONC 34.4 g/dL (33.0-37.0); MEAN PLATELET VOLUME 9.4 fL (7.2-11.7); MONO # 0.6 K/uL (0.0-0.8); MONO % 6.9 % (0.0-10.0); RED CELL DISTRIBUTION WIDTH 13.4 % (11.5-14.5)
[2017-10-06 12:05] LABS: ALB/GLOB RATIO 1.3 (1.0-2.1); ALKALINE PHOSPHATASE 66 U/L (38-126); ALT/SGPT 52 U/L (9-52); AST/SGOT 18 U/L (14-36); BILIRUBIN,TOTAL 0.4 mg/dL (0.2-1.3); BLOOD UREA NITROGEN 12 mg/dL (7-17); CALCIUM 8.3 mg/dl (8.6-10.4); CARBON DIOXIDE 26 mmol/L (22-30); CHLORIDE 103 mmol/L (98-107); GFR AFRICAN-AMERICAN > 60; GLUCOSE,RANDOM 84 mg/dL (65-105); POTASSIUM 3.8 mmol/L (3.6-5.2); SODIUM 137 mmol/L (132-148); TOTAL PROTEIN 6.8 g/dL (6.3-8.3)
[2017-10-06 16:23] VITALS: RESP 20
[2017-10-07] MEDS: Amoxicillin-Clav 875-125 mg Tab PO SCH ×2 (00:21→11:45)
[2017-10-07] MEDS: HYDROmorphone 0.5 mg/0.5 ml ISec IVP PRN ×2 (00:26→07:03)
[2017-10-07 04:55] VITALS: O2SAT 100
[2017-10-07] MEDS: Levothyroxine 100 MCG TAB PO SCH (06:12)
[2017-10-07 08:10] LABS: INR 2.1
[2017-10-07 08:11] LABS: BASO % 0.6 % (0.0-2.0); EOS # 0.3 K/uL (0.0-0.7); EOS % 3.9 % (0.0-4.0); HEMATOCRIT 36.5 % (34.0-47.0); LYMPH # 1.5 K/uL (1.0-4.3); LYMPH % 19.4 % (20.0-40.0); MEAN CELL VOLUME 89.3 fL (81.0-99.0); MEAN CORPUSCULAR HEMOGLOBIN 30.3 pg (27.0-31.0); MEAN CORPUSCULAR HGB CONC 33.9 g/dL (33.0-37.0); MONO # 0.5 K/uL (0.0-0.8); MONO % 6.5 % (0.0-10.0); NRBC % 0.1 % (0.0-2.0); RED CELL DISTRIBUTION WIDTH 13.4 % (11.5-14.5); WHITE BLOOD COUNT 7.5 K/uL (4.8-10.8)
[2017-10-07 08:14] VITALS: BP 123/84; PULSE 74; TEMP 98
[2017-10-07 08:36] LABS: ALB/GLOB RATIO 1.4 (1.0-2.1); ALKALINE PHOSPHATASE 72 U/L (38-126); ALT/SGPT 46 U/L (9-52); AST/SGOT 19 U/L (14-36); BILIRUBIN,TOTAL 0.6 mg/dL (0.2-1.3); BLOOD UREA NITROGEN 15 mg/dL (7-17); CALCIUM 8.4 mg/dl (8.6-10.4); CARBON DIOXIDE 29 mmol/L (22-30); CHLORIDE 100 mmol/L (98-107); GFR AFRICAN-AMERICAN > 60; GLUCOSE,RANDOM 87 mg/dL (65-105); POTASSIUM 4.1 mmol/L (3.6-5.2); SODIUM 137 mmol/L (132-148); TOTAL PROTEIN 6.7 g/dL (6.3-8.3)
[2017-10-07] MEDS: Pantoprazole 40 mg EC Tab PO SCH (09:22)
[2017-10-07] MEDS: Magnesium Oxide 400 mg Tab UD PO SCH (09:23)
[2017-10-07] MEDS: Potassium Chloride 20 mEq ER Tab PO SCH (09:23)
[2017-10-07] MEDS: Mupirocin 2% Ointment (NASAL) NAS SCH (09:24)
--- NOTE | 2017-10-07 09:57 | CP.PCM.DIS ---
Provider - Provider Date of Admission: 09/19/17 12:31 Attending physician: Ry Espinoza DO Primary care physician: [facility] Consults: Vascular ~ Dr Phan Neurology ~ Dr Crockett Hematology ~ Dr Guerra Time Spent in preparation of Discharge (in minutes): 31 Hospital Course - Lab Results Lab Results: Micro Results 10/04/17 00:30 Nose MRSA Culture - Final 10/01/17 08:00 Nose MRSA Culture (Admit) - Final 09/27/17 Unknown Naris MRSA Culture - Final MRSA NOT DETECTED 09/21/17 06:00 Naris MRSA Culture (Admit) - Final MRSA NOT DETECTED Most Recent Lab Values WBC 7.5 K/uL (4.8-10.8) 10/07/17 07:57 RBC 4.08 Mil/uL (3.80-5.20) 10/07/17 07:57 Hgb 12.4 g/dL (11.0-16.0) 10/07/17 07:57 Hct 36.5 % (34.0-47.0) 10/07/17 07:57 MCV 89.3 fL (81.0-99.0) 10/07/17 07:57 MCH 30.3 pg (27.0-31.0) 10/07/17 07:57 MCHC 33.9 g/dL (33.0-37.0) 10/07/17 07:57 RDW 13.4 % (11.5-14.5) 10/07/17 07:57 Plt Count 206 K/uL (130-400) 10/07/17 07:57 MPV 10.0 fL (7.2-11.7) 10/07/17 07:57 Neut % (Auto) 69.6 % (50.0-75.0) 10/07/17 07:57 Lymph % (Auto) 19.4 % (20.0-40.0) L 10/07/17 07:57 Keith % (Auto) 6.5 % (0.0-10.0) 10/07/17 07:57 Eos % (Auto) 3.9 % (0.0-4.0) 10/07/17 07:57 Baso % (Auto) 0.6 % (0.0-2.0) 10/07/17 07:57 Neut # 5.2 K/uL (1.8-7.0) 10/07/17 07:57 Lymph # 1.5 K/uL (1.0-4.3) 10/07/17 07:57 Keith # 0.5 K/uL (0.0-0.8) 10/07/17 07:57 Eos # 0.3 K/uL (0.0-0.7) 10/07/17 07:57 Baso # 0.0 K/uL (0.0-0.2) 10/07/17 07:57 Neutrophils % (Manual) 89 % (50-75) H 09/21/17 20:14 Band Neutrophils % 1 % (0-2) 09/21/17 20:14 Lymphocytes % (Manual) 7 % (20-40) L 09/21/17 20:14 Monocytes % (Manual) 3 % (0-10) 09/21/17 20:14 Platelet Estimate Normal (NORMAL) 09/21/17 20:14 PT 23.9 SECONDS (9.7-12.2) H 10/07/17 07:57 INR 2.1 10/07/17 07:57 APTT 57 SECONDS (21-34) H D 09/22/17 07:50 D-Dimer, Quantitative 4800 ng/mlDDU (0-243) H 09/19/17 11:52 Factor V see note 09/20/17 13:51 Sodium 137 mmol/L (132-148) 10/07/17 07:57 Potassium 4.1 mmol/L (3.6-5.2) 10/07/17 07:57 Chloride 100 mmol/L (98-107) 10/07/17 07:57 Carbon Dioxide 29 mmol/L (22-30) 10/07/17 07:57 Anion Gap 11 (10-20) 10/07/17 07:57 BUN 15 mg/dL (7-17) 10/07/17 07:57 Creatinine 0.6 mg/dL (0.7-1.2) L 10/07/17 07:57 Est GFR ( Amer) > 60 10/07/17 07:57 Est GFR (Non-Af Amer) > 60 10/07/17 07:57 Random Glucose 87 mg/dL (65-105) 10/07/17 07:57 Calcium 8.4 mg/dl (8.6-10.4) L 10/07/17 07:57 Phosphorus 4.1 mg/dL (2.5-4.5) 09/25/17 06:37 Magnesium 1.8 mg/dL (1.6-2.3) 10/05/17 07:39 Total Bilirubin 0.6 mg/dL (0.2-1.3) 10/07/17 07:57 Direct Bilirubin 1.7 mg/dL (0.0-0.4) H 09/21/17 21:00 AST 19 U/L (14-36) 10/07/17 07:57 ALT 46 U/L (9-52) 10/07/17 07:57 Alkaline Phosphatase 72 U/L (38-126) 10/07/17 07:57 Total Creatine Kinase 26 U/L (30-135) L 09/30/17 10:19 CK-MB (Mass) 0.31 ng/mL (0.0-3.38) 09/30/17 10:19 Troponin I < 0.0120 ng/mL (0.00-0.120) 09/30/17 10:19 NT-Pro-B Natriuret Pep 101 pg/mL (0-450) 09/19/17 17:29 Total Protein 6.7 g/dL (6.3-8.3) 10/07/17 07:57 Albumin 3.9 g/dL (3.5-5.0) 10/07/17 07:57 Globulin 2.8 gm/dL (2.2-3.9) 10/07/17 07:57 Albumin/Globulin Ratio 1.4 (1.0-2.1) 10/07/17 07:57 Triglycerides 91 mg/dL (0-149) D 09/19/17 17:29 Cholesterol 148 mg/dL (0-199) 09/19/17 17:29 LDL Cholesterol Direct 102 mg/dL (0-129) 09/19/17 17:29 HDL Cholesterol 39 mg/dL (30-70) 09/19/17 17:29 Phospholipids 173 mg/dL (151-264) 10/04/17 06:28 Free T4 1.51 ng/dL (0.78-2.19) 09/19/17 17:29 TSH 3rd Generation 17.00 mIU/L (0.46-4.68) H 09/19/17 17:29 Beta HCG, Quant < 2.39 mIU/ML 10/01/17 06:00 [id number] Ab <9 KRISTI (<=20) 09/20/17 13:51 Beta-2 GPI IgG Ab <9 SGU (<=20) 09/20/17 13:51 Beta-2 GPI IgM Ab 10 SMU (<=20) 09/20/17 13:51 Phosphatidylserine IgG <10 U/mL (<10) 09/20/17 13:51 Phosphatidylserine IgA <20 U/mL (<20) 09/20/17 13:51 Phosphatidylserine IgM <25 U/mL (<25) 09/20/17 13:51 Anti-Phospholipid Intrp see note 09/20/17 13:51 Anti-Cardiolipin IgG Ab <14 GPL (<=14) 09/20/17 13:51 Anti-Cardiolipin IgA Ab <11 APL (<=11) 09/20/17 13:51 Anti-Cardiolipin IgM Ab 13 MPL (<=12) H 09/20/17 13:51 Prothrombin Mut Interp see note 09/20/17 13:51 Prothrombin Gene Mutate see note 09/20/17 13:51 Prothromb Gene Review see note 09/20/17 13:51 - Hospital Course Hospital Course: This is a very nice 36 year old female who initially came to the hospital on due to left leg pain and swelling. She had a venous doppler done which showed that she had a DVT. We started the patient on Lovenox SC BID, however the next day 09/20 when we came to assess the patient her left leg was very swollen and increasing in size as well as in pain. 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 The next day she felt very well and the leg had decreased in size and pain. However that night she was reported to have headache and nausea and vomiting and a CT of the head was done showing that there was a SAH. She underwent repeat CT scan of the head to follow the SAH. All anticoagulation was placed on hold immediately and she was seen and evaluated by neurology. With medication started for vasospasms and also blood pressure monitoring. She was in the ICU for almost a week and ultimately she is now doing very well. Repeat CT imaging was done several times and she also underwent diagnostic CTA to assess for anuresyms and this was negative she was stable. We were able to resume anticoagulation with coumadin on 10/04 and have been watching the INRs, it is now 2.1. She will be discharged today 10/07/2017. She understands she needs to be on coumadin 5mg PO QHS and also recheck INRs each week intially She will also be on Percocet 5/325 - I told her to use this sparingly as possible Also a RX for Synthroid 100 for her hypothyroid Also an RX for Nimodipine 30 Q TID for control of vasospams Also Augmetin 875/125 BID PO for what looks like infection gums - she needs to see a dentist From the resident HPI: 36F presents with left leg pain and swelling for the last 2 days. Patient was seen in clinic and discharged home with pain medications. Patient came back because the pain wasn't getting better. Pain still persists even with tramadol given today in ED. Patient denies numbness, tingling, fever. Patient states there is some pain in her legs when she squeezes her left thigh. Patient states she's also had shortness of breath which happened prior to feeling the sharper pain in her left leg. Patient states she sometimes has palpitations but workup has not found anything in her past. Patient denies ever using control. Discharge Exam - Head Exam Head Exam: NORMAL INSPECTION, NORMOCEPHALIC - Respiratory Exam Respiratory Exam: Clear to PA & Lateral, NORMAL BREATHING PATTERN, UNREMARKABLE - Cardiovascular Exam Cardiovascular Exam: REGULAR RHYTHM - GI/Abdominal Exam GI & Abdominal Exam: Normal Bowel Sounds, Unremarkable - Neurological Exam Neurological exam: Alert, CN II-XII Intact, Normal Gait, Oriented x3 - Psychiatric Exam Psychiatric exam: Normal Affect, Normal Mood - Skin Skin Exam: Normal Color, Warm Discharge Plan - Follow Up Plan Condition: GOOD Disposition: HOME/ ROUTINE Instructions: Deep Venous Thrombosis (DC) Additional Instructions: Patient is to follow up at the [facility] to take Warfarin 5mg POQD, Amoxicillin-clavulanic acid for
[2017-10-07] MEDS ORDERED: Influenza Vaccine 60 mcg/0.5 mL SYR (4YR UP) IM ONE (10:17)
[2017-10-07] MEDS ORDERED: Pneumococcal 23-Valent Vaccine IM ONE (10:17)
[2017-10-07] MEDS: Fluticasone Nasal 50 mcg/Spray NAS SCH (10:20)
[2017-10-07] MEDS: HYDROmorphone 1 mg/ml ISec IVP PRN (11:45)
== END 2017-10-07 14:54 | disposition home or self-care (01) | DRG 531 ==
LOC: C.ER 10:48 → C.9E 12:31 → C.5S 22:16 → C.9I 09-21 22:08 → C.6T 09-27 13:04 → C.9I 10-01 21:23 → C.6T 10-04 00:41
PROVIDERS: ADMIT Hospitalist; ATTEND Hospitalist
PROC: 06H03DZ Insertion of Intraluminal Device into Inferior Vena Cava, Percutaneous Approach (ICD-10-PCS; principal; 2017-09-21)
PROC: 047D3ZZ Dilation of Left Common Iliac Artery, Percutaneous Approach (ICD-10-PCS; 2017-09-21)
PROC: 047J3DZ Dilation of Left External Iliac Artery with Intraluminal Device, Percutaneous Approach (ICD-10-PCS; 2017-09-21)
PROC: B32R1ZZ Computerized Tomography (CT Scan) of Intracranial Arteries using Low Osmolar Contrast (ICD-10-PCS; 2017-10-01)
DX: I60.9 Nontraumatic subarachnoid hemorrhage, unspecified (principal); I82.422 Acute embolism and thrombosis of left iliac vein; I82.412 Acute embolism and thrombosis of left femoral vein; N18.9 Chronic kidney disease, unspecified; E87.6 Hypokalemia; I87.1 Compression of vein; I67.848 Other cerebrovascular vasospasm and vasoconstriction; Z79.01 Long term (current) use of anticoagulants; J01.90 Acute sinusitis, unspecified; J32.2 Chronic ethmoidal sinusitis; J45.909 Unspecified asthma, uncomplicated; K59.00 Constipation, unspecified; I12.9 Hypertensive chronic kidney disease with stage 1 through stage 4 chronic kidney disease, or unspecified chronic kidney disease; Z87.891 Personal history of nicotine dependence; F41.1 Generalized anxiety disorder; E03.9 Hypothyroidism, unspecified

== ENCOUNTER 2018-08-02 04:45 | Emergency (ER) | payer MEDICAID, SELFPAY ==
--- NOTE | 2018-08-02 05:07 | C.PDOC ---
History Of Present Illness Presents to the ED complaining of diffuse abdominal pain for the last couple months that has been worsening over the past three days. The patient states the pain is moderate, 4/10. She reports associated nausea and vomiting. The patient denies any fever, chills, or diarrhea. Time Seen by Provider: 08/02/18 05:06 Chief Complaint (Nursing): Abdominal Pain History Per: Patient History/Exam Limitations: no limitations Onset/Duration Of Symptoms: Days Current Symptoms Are (Timing): Still Present Context: Other Severity: Moderate Pain Scale Rating Of: 4 Location Of Pain/Discomfort: Diffuse Radiation Of Pain To:: None Quality Of Discomfort: "Pain" Associated Symptoms: Nausea, Vomiting. denies: Fever, Chills, Diarrhea Exacerbating Factors: None Alleviating Factors: None Last Bowel Movement: Yesterday Recent travel outside of the [place]: No Additional History Per: Patient Abnormal Vaginal Bleeding: No Past Medical History Reviewed: Historical Data, Nursing Documentation, Vital Signs - Medical History PMH: Anxiety, Asthma, HTN, Hypothyroidism, Personality Disorder, Chronic Kidney Disease Other Surgeries: IVC filter, clot removal - [facility] Procedures CT SCAN OF INTRACRAN ART USING L OSM CONTRAST (09/19/17) DILATION OF L EXT ILIAC ART WITH INTRALUM DEV, PERC APPROACH (09/19/17) DILATION OF LEFT COMMON ILIAC ARTERY, PERCUTANEOUS APPROACH (09/19/17) MONITORING NOS (05/07/14) INSERTION OF INTRALUM DEV INTO INF VENA CAVA, PERC APPROACH (09/19/17) MANUAL ASSIST DELIV NEC (05/07/14) Family History: States: Unknown Family Hx - Social History Hx Tobacco Use: No Hx Alcohol Use: No Hx Substance Use: No - Immunization History Hx Tetanus Toxoid Vaccination: No Hx Influenza Vaccination: No Hx Pneumococcal Vaccination: No Review Of Systems Constitutional: Negative for: Fever, Chills ENT: Negative for: Throat Pain Cardiovascular: Negative for: Chest Pain Respiratory: Negative for: Shortness of Breath Gastrointestinal: Positive for: Nausea, Vomiting, Abdominal Pain. Negative for: Diarrhea Genitourinary: Negative for: Dysuria Musculoskeletal: Positive for: Back Pain Skin: Negative for: Rash Neurological: Negative for: Weakness Psych: Negative for: Anxiety Physical Exam - Physical Exam Appears: Non-toxic, No Acute Distress Skin: Warm, Dry Head: Normacephalic Eye(s): bilateral: Normal Inspection Oral Mucosa: Moist Neck: Trachea Midline, Supple Chest: Symmetrical Cardiovascular: Rhythm Regular Respiratory: No Rales, No Rhonchi, No Wheezing Gastrointestinal/Abdominal: Soft, Tenderness (Diffuse), No Distention, No Guarding, No Rebound Back: Normal Inspection Extremity: Normal ROM Extremity: Bilateral: Normal Color And Temperature Pulses: Left Dorsalis Pedis: Normal, Right Dorsalis Pedis: Normal Neurological/Psych: Oriented x3, Normal Speech Gait: Steady ED Course And Treatment - Laboratory Results Result Diagrams: 08/02/18 05:30 08/02/18 05:30 O2 Sat by Pulse Oximetry: 100 (RA) Pulse Ox Interpretation: Normal Disposition Counseled Patient/Family Regarding: Studies Performed, Diagnosis - Disposition Disposition Time: 05:06 Condition: FAIR Forms: [facility] (Turkish) - Clinical Impression Clinical Impression: Abdominal pain - PA / PUBLIC WELFARE DIRECTOR / Resident Statement MD/DO has reviewed & agrees with the documentation as recorded. - Scribe Statement The provider has reviewed the documentation as recorded by the Scribe (Jadyn Messina) Provider Attestation: All medical record entries made by the Scribe were at my direction and personally dictated by me. I have reviewed the chart and agree that the record accurately reflects my personal performance of the history, physical exam, medical decision making, and the department course for this patient. I have also personally directed, reviewed, and agree with the discharge instructions and disposition. Physician Patient Turnover Patient Signed Over To: Ana Maurer Handoff Comments: pending ct, re-eval and dispo
[2018-08-02] MEDS ORDERED: Sodium Chloride 0.9% 1,000 ML IV ONE (05:14)
[2018-08-02] MEDS ORDERED: Sodium Chloride 0.9% 1,000 ML ONE (05:26)
[2018-08-02 05:42] LABS: BASO # 0.1 K/uL (0.0-0.2); BASO % 0.6 % (0.0-2.0); EOS # 0.3 K/uL (0.0-0.7); EOS % 3.5 % (0.0-4.0); HEMOGLOBIN 13.5 g/dL (11.0-16.0); LYMPH # 1.7 K/uL (1.0-4.3); LYMPH % 20.1 % (20.0-40.0); MEAN CELL VOLUME 87.3 fL (81.0-99.0); MEAN CORPUSCULAR HEMOGLOBIN 29.9 pg (27.0-31.0); MEAN CORPUSCULAR HGB CONC 34.3 g/dL (33.0-37.0); MEAN PLATELET VOLUME 10.3 fL (7.2-11.7); MONO # 0.5 K/uL (0.0-0.8); MONO % 5.4 % (0.0-10.0); NEUT % 70.4 % (50.0-75.0); RBC 4.51 Mil/uL (3.80-5.20); RED CELL DISTRIBUTION WIDTH 13.7 % (11.5-14.5); WHITE BLOOD COUNT 8.5 K/uL (4.8-10.8)
[2018-08-02 06:00] LABS: PROTHROMBIN TIME 35.7 SECONDS (9.7-12.2)
[2018-08-02 06:01] LABS: INR 3.3
[2018-08-02 06:18] LABS: ALB/GLOB RATIO 1.3 (1.0-2.1); ALBUMIN 4.2 g/dL (3.5-5.0); ALT/SGPT 61 U/L (9-52); AST/SGOT 65 U/L (14-36); BLOOD UREA NITROGEN 10 mg/dL (7-17); CALCIUM 9.5 mg/dl (8.6-10.4); GFR NON-AFRICAN AMERICAN > 60; LIPASE 43 U/L (23-300)
[2018-08-02 07:07] LABS: URINE BILIRUBIN NEGATIVE (NEGATIVE); URINE BLOOD NEGATIVE (NEGATIVE); URINE CLARITY Clear (Clear); URINE COLOR Yellow (YELLOW); URINE GLUCOSE (UA) NORMAL (Normal); URINE LEUKOCYTE ESTERASE NEG Leu/uL (Negative); URINE PROTEIN NEGATIVE (NEGATIVE); URINE UROBILINOGEN NORMAL mg/dL (0.2-1.0)
[2018-08-02 07:08] LABS: HCG,QUALITATIVE URINE NEGATIVE (NEGATIVE)
[2018-08-02 08:04] VITALS: RESP 20
[2018-08-02] MEDS ORDERED: Iodixanol 320 MG/ML 100 ML BOTTLE IV ONE (08:18)
--- NOTE | 2018-08-02 10:10 | CT ---
Date of service: 08/02/2018 PROCEDURE: CT Abdomen and Pelvis with contrast HISTORY: diffuse abd pain, hx of february karoline COMPARISON: 07/16/2018. TECHNIQUE: CT scan of the abdomen and pelvis was performed without administration of intravenous contrast. Oral contrast was not administered. Coronal and sagittal reformatted images were obtained. Contrast dose: 100 mL Visipaque Radiation dose: Total exam DLP = 1184.52 mGy-cm. This CT exam was performed using one or more of the following dose reduction techniques: Automated exposure control, adjustment of the mA and/or kV according to patient size, and/or use of iterative reconstruction technique. FINDINGS: LOWER THORAX: There is dependent atelectasis in the lung bases. LIVER: Mild hepatomegaly and fatty liver. No gross lesion or ductal dilatation. GALLBLADDER AND BILE DUCTS: Well distended without evidence for calcified gallstones. PANCREAS: Normal in size with homogeneous enhancement. No gross lesion or ductal dilatation. SPLEEN: Borderline splenomegaly. Normal homogeneous enhancement. There is a splenule at the inferior pole. ADRENALS: No discrete nodule. KIDNEYS AND URETERS: Normal in size with homogeneous enhancement. No hydronephrosis. No solid mass. VASCULATURE: An infrarenal IVC filter remains in place. There is a stent graft in the left common iliac vein. No aortic aneurysm. BOWEL: The small bowel loops are normal in caliber. There is apparent moderate mural thickening and mucosal edema in the left hemicolon. No evidence for perforation or abscess. APPENDIX: Normal appendix. PERITONEUM: No free fluid. No free air. LYMPH NODES: No enlarged lymph nodes. BLADDER: Grossly normal in appearance. REPRODUCTIVE: The uterus is normal in size. BONES: No acute fracture. Within normal limits for the patient's age. OTHER FINDINGS: There is a small fat containing umbilical hernia. IMPRESSION: Findings are consistent with acute nonspecific infectious/inflammatory colitis involving the descending and sigmoid colon. No evidence for perforation or abscess. No bowel obstruction. Mild hepatosplenomegaly. Fatty liver.
[2018-08-02 10:56] VITALS: BP 106/72; PULSE 61; TEMP 98.1; O2SAT 99
== END 2018-08-02 11:23 | disposition home or self-care (01) ==
LOC: C.ER 04:45
DX: R10.84 Generalized abdominal pain (principal); E03.9 Hypothyroidism, unspecified; I12.9 Hypertensive chronic kidney disease with stage 1 through stage 4 chronic kidney disease, or unspecified chronic kidney disease; N18.9 Chronic kidney disease, unspecified
CPT/HCPCS: 74177; 80053; 81001; 83690; 84443; 84703; 85025; 85610; 85730; 96361; 96374; 96375; 99285; J1885; J2405; J7030; Q9967

== ENCOUNTER 2018-08-02 18:26 | Inpatient (IN) | payer MEDICAID, SELFPAY ==
--- NOTE | 2018-08-02 19:44 | C.PDOC ---
History Of Present Illness 37 year old female presents to the ED with abdominal pain and rectal bleeding. Patient was seen earlier today for abdominal and back pain. She had normal blood work with an INR of 3, the CT scan showed nonspecific infection/inflammatory colitis involving descending and sigmoid colon. Patient denies any nausea, vomiting, diarrhea, dysuria, fever or chills. Time Seen by Provider: 08/02/18 19:44 Chief Complaint (Nursing): GI Problem History Per: Patient History/Exam Limitations: no limitations Onset/Duration Of Symptoms: Days Current Symptoms Are (Timing): Still Present Number Of Bleeding Episodes: Multiple: (3) Amount of Blood Loss: Small Severity: Moderate Pain Scale Rating Of: 4 Quality Of Discomfort: Dull, Cramping Associated Symptoms: denies: Nausea, Vomiting Modifying Factors: Other Indicated Below Currently Taking: Warfarin Recent travel outside of the [facility]: No Additional History Per: Patient Past Medical History Reviewed: Historical Data, Nursing Documentation, Vital Signs Vital Signs: Last Vital Signs Temp 97.9 F 08/02/18 19:03 Pulse 78 08/02/18 19:03 Resp 22 08/02/18 19:03 BP 132/87 08/02/18 19:03 Pulse Ox 99 08/02/18 19:03 - Medical History PMH: Anxiety, Asthma, HTN (Pt denies), Hypothyroidism, Personality Disorder, Chronic Kidney Disease - [facility] Procedures CT SCAN OF INTRACRAN ART USING L OSM CONTRAST (09/19/17) DILATION OF L EXT ILIAC ART WITH INTRALUM DEV, PERC APPROACH (09/19/17) DILATION OF LEFT COMMON ILIAC ARTERY, PERCUTANEOUS APPROACH (09/19/17) MONITORING NOS (05/07/14) INSERTION OF INTRALUM DEV INTO INF VENA CAVA, PERC APPROACH (09/19/17) MANUAL ASSIST DELIV NEC (05/07/14) Family History: States: No Known Family Hx - Social History Hx Tobacco Use: No Hx Alcohol Use: No Hx Substance Use: No - Immunization History Hx Tetanus Toxoid Vaccination: No Hx Influenza Vaccination: No Hx Pneumococcal Vaccination: No Review Of Systems Constitutional: Negative for: Fever, Chills Eyes: Negative for: Vision Change ENT: Negative for: Throat Pain Cardiovascular: Negative for: Chest Pain, Palpitations Respiratory: Negative for: Cough, Shortness of Breath Gastrointestinal: Positive for: Abdominal Pain, Other (rectal bleeding). Negative for: Nausea, Vomiting, Diarrhea Genitourinary: Negative for: Dysuria, Hematuria Musculoskeletal: Negative for: Back Pain Skin: Negative for: Rash Neurological: Negative for: Weakness, Numbness Psych: Negative for: Anxiety Physical Exam - Physical Exam Appears: Non-toxic Skin: Warm, Dry Head: Normacephalic Eye(s): bilateral: Normal Inspection Oral Mucosa: Moist Neck: Supple Chest: Symmetrical, No Tenderness Cardiovascular: Rhythm Regular Respiratory: No Rales, No Rhonchi, No Wheezing Gastrointestinal/Abdominal: Bowel Sounds (Active), Soft, No Tenderness, No Distention, No Guarding Rectal: Heme Positive (bright red blood in the vault), No Hemorrhoids, Other (brbin the rectal vault) Back: Normal Inspection Extremity: Normal ROM Extremity: Bilateral: Atraumatic Pulses: Left Radial: Normal, Right Radial: Normal, Left Dorsalis Pedis: Normal, Right Dorsalis Pedis: Normal Neurological/Psych: Oriented x3 Gait: Steady ED Course And Treatment - Laboratory Results Result Diagrams: 08/02/18 20:00 08/02/18 20:00 O2 Sat by Pulse Oximetry: 99 (RA) Pulse Ox Interpretation: Normal Progress Note: Blood work ordered. Administered Pantoprazole and IV fluids. pt had a bm with brbpr in the ed Disposition Discussed With DrAvelino: Dajuan Roman Comment: accepted the pt onhis service and took over the care at 9:14PM Counseled Patient/Family Regarding: Studies Performed, Diagnosis - Disposition Disposition: HOSPITALIZED Disposition Time: 19:44 Condition: GUARDED Forms: [facility] (Croatian) - POA Present On Arrival: Poor Glycemic Control - Clinical Impression Clinical Impression: Gastrointestinal hemorrhage, Colitis - Scribe Statement The provider has reviewed the documentation as recorded by the Scribe (Paradise Carbajal) All medical record entries made by the Scribe were at my direction and personally dictated by me. I have reviewed the chart and agree that the record accurately reflects my personal performance of the history, physical exam, medical decision making, and the department course for this patient. I have also personally directed, reviewed, and agree with the discharge instructions and disposition. Decision To Admit - Pt Status Changed To: Hospital Disposition Of: Inpatient - Admit Certification Admit to Inpatient:: After my assessment, the patient will require hospitalization for at least two midnights. This is because of the severity of symptoms shown, intensity of services needed, and/or the medical risk in this patient being treated as an outpatient. - InPatient: Physician Admission Certification: I certify that this patient requires 2 or more midnights of care for the following reason:: After my assessment, the patient will require hospitalization for at least two midnights. This is because of the severity of symptoms shown, intensity of services needed, and/or the medical risk in this patient being treated as an outpatient. - . Bed Request Type: Regular Admitting Physician: Dajuan Roman Patient Diagnosis: Gastrointestinal hemorrhage, Colitis
[2018-08-02] MEDS ORDERED: Sodium Chloride 0.9% 1,000 ML IV ONE (19:46)
[2018-08-02] MEDS ORDERED: Pantoprazole 80 MG in Sodium Chloride 0.9% 100 ML IV STA (19:46)
[2018-08-02] MEDS ORDERED: Sodium Chloride 0.9% 1,000 ML ONE (19:53)
[2018-08-02 20:04] LABS: BASO % 0.3 % (0.0-2.0); EOS # 0.1 K/uL (0.0-0.7); EOS % 0.9 % (0.0-4.0); HEMOGLOBIN 14.5 g/dL (11.0-16.0); LYMPH # 0.8 K/uL (1.0-4.3); MEAN CELL VOLUME 87.5 fL (81.0-99.0); MEAN CORPUSCULAR HEMOGLOBIN 29.7 pg (27.0-31.0); MEAN CORPUSCULAR HGB CONC 33.9 g/dL (33.0-37.0); MEAN PLATELET VOLUME 10.2 fL (7.2-11.7); MONO # 0.4 K/uL (0.0-0.8); MONO % 3.1 % (0.0-10.0); NEUT # 10.1 K/uL (1.8-7.0); NEUT % 88.7 % (50.0-75.0); PLATELET COUNT 176 K/uL (130-400); RBC 4.89 Mil/uL (3.80-5.20); RED CELL DISTRIBUTION WIDTH 13.8 % (11.5-14.5); WHITE BLOOD COUNT 11.4 K/uL (4.8-10.8)
[2018-08-02 20:14] LABS: PROTHROMBIN TIME 37.9 SECONDS (9.7-12.2)
[2018-08-02 20:26] LABS: INR 3.5
[2018-08-02 20:36] LABS: ALB/GLOB RATIO 1.3 (1.0-2.1); ALBUMIN 4.2 g/dL (3.5-5.0); ALT/SGPT 59 U/L (9-52); AST/SGOT 39 U/L (14-36); BLOOD UREA NITROGEN 6 mg/dL (7-17); CALCIUM 9.1 mg/dl (8.6-10.4); GFR NON-AFRICAN AMERICAN > 60
[2018-08-02] MEDS ORDERED: Ciprofloxacin 400mg/200ml D5W 400 MG/200 ML BAG IVPB STA (21:11)
[2018-08-02] MEDS ORDERED: metroNIDAZOLE IV 500 mg/100 ml 500 MG/100 ML BAG IVPB SCH (21:15)
[2018-08-02] MEDS ORDERED: metroNIDAZOLE IV 500 mg/100 ml 500 MG/100 ML BAG IVPB STA (21:19)
[2018-08-02] MEDS ORDERED: metroNIDAZOLE IV 500 mg/100 ml 500 MG/100 ML BAG ONE (21:23)
[2018-08-02] MEDS ORDERED: Ciprofloxacin 400mg/200ml D5W 400 MG/200 ML BAG IVPB ONE (21:24)
[2018-08-02 22:30] LABS: EOSINOPHIL 2 % (0-4); LYMPHOCYTE 6 % (20-40); MONOCYTE 3 % (0-10); NEUTROPHIL 89 % (50-75); PLATELET ESTIMATE NORMAL (NORMAL); TOTAL CELLS COUNTED 100
[2018-08-02] MEDS: Sodium Chloride 0.9% 1,000 ML IV SCH (23:44)
--- NOTE | 2018-08-03 00:58 | CP.PCM.HP ---
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 Pt reports that she was seen in the ED earlier in the day for abdominal pain and was discharged home after a diagnosis of colitis. Pt describes abdominal pain as intermittent, ranging from 7/10 to 10/10, sharp cramp-like pain that goes across the lower abdomen, associated with nausea and vomiting productive of clear or yellow material (nonbloody). Pt is worse on the right lower part of her abdomen and sometimes radiates to the right side of her back. Pt took tramadol today, that did not help with the pain. Pt describes having a feeling to defecate, but only produced bright red blood in jelly-like form when going to the bathroom. She admits to tactile fevers and chills. Pt states that she had an episode of near- syncope today that was described as a lightheadedness. Pt denies headache, dizziness, lightheadedness, blurry vision, chest pain at rest or exertion, pleuritic chest pain, diarrhea. Pt states she has chronic shortness of breath, that her PMD attributes to her hypothyroidism. Pt admits to cough productive of clear phlegm for the past couple of days. Pt reports that for the past couple of weeks she has had alternating constipation and diarrhea, with some dark stools in the past week. ED physician noted BRB in rectal vault during rectal examination. 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 Meds: Coumadin 6 mg PO daily, Sertraline, Gabapentin 300 mg PO BID, Klonopin 2.5 mg during the day with 1/2 tab at nighttime as needed, Topamax 25 mg PO QHS, Omeprazole 40 mg PO daily, Tramadol as needed, Synthroid 112 mcg PO daily. medications need to be confirmed with pharmacy. Allx: none Social Hx: denies alcohol use, history of smoking in the past quit 7 years ago (socially), denies illicit drug use (hx of marijuana use) [employer] history: Menstrual cycle ended 2-3 days ago as per pt Present on Admission - Present on Admission Any Indicators Present on Admission: Yes History of DVT/PE: Yes Review of Systems - Review of Systems All systems: reviewed and no additional remarkable complaints except (as per HPI) Past Patient History - Infectious Disease Hx of Infectious Diseases: None - Past Medical History & Family History Past Medical History?: Yes - Past Social History Smoking Status: Former Smoker - CARDIAC Hx Hypertension: Yes (Pt denies) - PULMONARY Hx Asthma: Yes - NEUROLOGICAL Hx Neurological Disorder: Yes Other/Comment: trigeminal neuralgia. Brain bleed - HEENT Other/Comment: states recently completed abtx for tooth infection x1wk ago - RENAL Hx Chronic Kidney Disease: Yes - ENDOCRINE/METABOLIC Hx Hypothyroidism: Yes - HEMATOLOGICAL/ONCOLOGICAL Hx Blood Disorders: No Other/Comment: Mariajose Crouch sydrome - INTEGUMENTARY Hx Dermatological Problems: No - MUSCULOSKELETAL/RHEUMATOLOGICAL Hx Musculoskeletal Disorders: No - GASTROINTESTINAL Hx Gastrointestinal Disorders: No - GENITOURINARY/GYNECOLOGICAL Hx Genitourinary Disorders: No - PSYCHIATRIC Hx Anxiety: Yes Hx Substance Use: No - SURGICAL HISTORY Hx Surgeries: Yes Other/Comment: IVC filter, clot removal - ANESTHESIA Hx Anesthesia: Yes Hx Anesthesia Reactions: No Hx Malignant Hyperthermia: No Meds Allergies/Adverse Reactions: Allergies Allergy/AdvReac Type Severity Reaction Status Date / Time No Known Allergies Allergy Verified 08/02/18 19:10 Physical Exam - Constitutional Appears: Non-toxic, No Acute Distress - Head Exam Head Exam: ATRAUMATIC, NORMAL INSPECTION - Eye Exam Eye Exam: EOMI, Normal appearance Additional comments: (+) conjunctival pallor - ENT Exam ENT Exam: Mucous Membranes Moist - Neck Exam Neck exam: Positive for: Normal Inspection - Respiratory Exam Respiratory Exam: Clear to Auscultation Bilateral, NORMAL BREATHING PATTERN. absent: Rales, Rhonchi, Wheezes, Respiratory Distress - Cardiovascular Exam Cardiovascular Exam: REGULAR RHYTHM, +S1, +S2 - GI/Abdominal Exam GI & Abdominal Exam: Normal Bowel Sounds, Soft, Tenderness (mild tenderness across the lowe abdomen; right greater than left). absent: Distended, Firm, Guarding, Rebound, Rigid Additional comments: (-) rovsig sign - Extremities Exam Extremities exam: Positive for: normal capillary refill, normal inspection, pedal pulses present. Negative for: calf tenderness, pedal edema, tenderness - Back Exam Back exam: NORMAL INSPECTION, paraspinal tenderness ((+) mild right sided lumbar parvertebral tenderness). absent: CVA tenderness (L), CVA tenderness (R) - Neurological Exam Neurological exam: Alert, Oriented x3 - Psychiatric Exam Psychiatric exam: Normal Affect, Normal Mood - Skin Skin Exam: Dry, Normal Color, Warm Results - Vital Signs Recent Vital Signs: Last Vital Signs Temp 97.8 F 08/03/18 00:19 Pulse 68 08/03/18 00:19 Resp 20 08/03/18 00:19 BP 123/79 08/03/18 00:19 Pulse Ox 99 08/03/18 00:19 - Labs Result Diagrams: 08/03/18 02:07 08/02/18 20:00 Labs: Laboratory Results - last 24 hr 08/02/18 08/02/18 08/02/18 20:00 20:00 20:00 WBC 11.4 H RBC 4.89 Hgb 14.5 Hct 42.7 MCV 87.5 MCH 29.7 MCHC 33.9 RDW 13.8 Plt Count 176 MPV 10.2 Neut % (Auto) 88.7 H Lymph % (Auto) 7.0 L [place] % (Auto) 3.1 Eos % (Auto) 0.9 Baso % (Auto) 0.3 Neut # (Auto) 10.1 H Lymph # (Auto) 0.8 L [place] # (Auto) 0.4 Eos # (Auto) 0.1 Baso # (Auto) 0.0 Neutrophils % (Manual) 89 H Lymphocytes % (Manual) 6 L Monocytes % (Manual) 3 Eosinophils % (Manual) 2 Platelet Estimate Normal PT 37.9 H INR 3.5 APTT 52 H D Sodium 141 Potassium 3.7 Chloride 109 H Carbon Dioxide 22 Anion Gap 14 BUN 6 L Creatinine 0.6 L Est GFR ( Amer) > 60 Est GFR (Non-Af Amer) > 60 Random Glucose 153 H Calcium 9.1 Total Bilirubin 0.4 AST 39 H D ALT 59 H Alkaline Phosphatase 117 Total Protein 7.5 Albumin 4.2 Globulin 3.4 Albumin/Globulin Ratio 1.3 Stool Occult Blood Blood Type Antibody Screen Antibody Identification Antigen Identification 08/02/18 08/02/18 20:00 20:19 WBC RBC Hgb Hct MCV MCH MCHC RDW Plt Count MPV Neut % (Auto) Lymph % (Auto) [place] % (Auto) Eos % (Auto) Baso % (Auto) Neut # (Auto) Lymph # (Auto) [place] # (Auto) Eos # (Auto) Baso # (Auto) Neutrophils % (Manual) Lymphocytes % (Manual) Monocytes % (Manual) Eosinophils % (Manual) Platelet Estimate PT INR APTT Sodium Potassium Chloride Carbon Dioxide Anion Gap BUN Creatinine Est GFR ( Amer) Est GFR (Non-Af Amer) Random Glucose Calcium Total Bilirubin AST ALT Alkaline Phosphatase Total Protein Albumin Globulin Albumin/Globulin Ratio Stool Occult Blood Negative Blood Type O POSITIVE Antibody Screen Positive Antibody Identification Anti C Antigen Identification C Antigen - NEGATIVE Assessment & Plan - Assessment and Plan (Free Text) Assessment: This is a 37 year old female with PMH of anxiety, hypothyroidism, trigeminal neuralgia, 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 Plan: GI Bleed; likely lower -hold coumadin -H/H is 14.5/42.7 on admission -NS at 150 mL/hr -protonix gtt at 8 mg/hr -repeat CBC shows Hgb of 13.4, likely dilutional -gastroenterology consult, Dr. Kurtz -case discussed with Gi who requests C.Diff and to continue current management -f/u c.diff toxin a/b, FOBT x2 Lower Abdominal pain; nonspecific Colitis on CT -leukocytosis of 11.4 on admission with left shift; pt afebrile repeat CBC shows WBC of 10.5 -abdominal CT shows nonspecific infectious/inflammatory colitis of the ascending and descending colon. Mild hepatosplenomegaly. fatty Liver. -Ciprofloxacin 400 mg IVPB Q12H and Metronidazole 400 mg IVPB Q8H -morphine 1 mg IVP Q6H PRN for pain, Tylenol 650 mg q6h PRN fever Hx of DVT on coumadin with supratherapeutic INR - hold coumadin for now - PT/PTT/INR is 37.9/3.5/52 on admission - repeat PT/PTT/INR in am Hx of hypothyroidism -continue home dose of Levothyroxine 112 mcg PO daily PPX/Diet protonix gtt for GI ppx SCDs for DVT ppx; CI to chemical VTE ppx due to INR of 3.5 NPO except meds Case was reviewed and discussed with attending physician, Dr. Anil Balderas PGY-1 <Dajuan Roman - Last Filed: 08/03/18 06:24> Results - Vital Signs Recent Vital Signs: Last Vital Signs Temp 98.1 F 08/03/18 04:33 Pulse 65 08/03/18 04:33 Resp 20 08/03/18 04:33 BP 126/87 08/03/18 04:33 Pulse Ox 98 08/03/18 04:33 - Labs Result Diagrams: 08/03/18 02:07 08/02/18 20:00 Labs: Laboratory Results - last 24 hr 08/02/18 08/02/18 08/02/18 20:00 20:00 20:00 WBC 11.4 H RBC 4.89 Hgb 14.5 Hct 42.7 MCV 87.5 MCH 29.7 MCHC 33.9 RDW 13.8 Plt Count 176 MPV 10.2 Neut % (Auto) 88.7 H Lymph % (Auto) 7.0 L [place] % (Auto) 3.1 Eos % (Auto) 0.9 Baso % (Auto) 0.3 Neut # (Auto) 10.1 H Lymph # (Auto) 0.8 L [place] # (Auto) 0.4 Eos # (Auto) 0.1 Baso # (Auto) 0.0 Neutrophils % (Manual) 89 H Lymphocytes % (Manual) 6 L Monocytes % (Manual) 3 Eosinophils % (Manual) 2 Platelet Estimate Normal PT 37.9 H INR 3.5 APTT 52 H D Sodium 141 Potassium 3.7 Chloride 109 H Carbon Dioxide 22 Anion Gap 14 BUN 6 L Creatinine 0.6 L Est GFR ( Amer) > 60 Est GFR (Non-Af Amer) > 60 Random Glucose 153 H Calcium 9.1 Total Bilirubin 0.4 AST 39 H D ALT 59 H Alkaline Phosphatase 117 Total Protein 7.5 Albumin 4.2 Globulin 3.4 Albumin/Globulin Ratio 1.3 Stool Occult Blood Blood Type Antibody Screen Antibody Identification Antigen Identification 08/02/18 08/02/18 08/03/18 20:00 20:19 02:07 WBC 10.5 RBC 4.54 Hgb 13.4 Hct 39.9 MCV 87.8 MCH 29.4 MCHC 33.5 RDW 14.0 Plt Count 152 MPV 10.5 Neut % (Auto) 78.5 H Lymph % (Auto) 16.0 L [place] % (Auto) 4.3 Eos % (Auto) 0.9 Baso % (Auto) 0.3 Neut # (Auto) 8.3 H Lymph # (Auto) 1.7 [place] # (Auto) 0.5 Eos # (Auto) 0.1 Baso # (Auto) 0.0 Neutrophils % (Manual) Lymphocytes % (Manual) Monocytes % (Manual) Eosinophils % (Manual) Platelet Estimate PT INR APTT Sodium Potassium Chloride Carbon Dioxide Anion Gap BUN Creatinine Est GFR ( Amer) Est GFR (Non-Af Amer) Random Glucose Calcium Total Bilirubin AST ALT Alkaline Phosphatase Total Protein Albumin Globulin Albumin/Globulin Ratio Stool Occult Blood Negative Blood Type O POSITIVE Antibody Screen Positive Antibody Identification Anti C Antigen Identification C Antigen - NEGATIVE Assessment & Plan - Date & Time Date: 08/03/18 (I have seen and examined the patient. I agree with the findings and plan of care as documented by Dr. Balderas. Patient with GI bleed and colitis. Cipro and Flagyl. GI consult. Hemodynamically stable. Continue to monitor CBC. History of DVT. INR supratherapeutic. If GI bleed continues and hemodynamically unstable, consider vitamin K. Protonix drip. Monitor for acute changes.) Time: 06:21 Attending/Attestation - Attestation I have personally seen and examined this patient.: Yes I have fully participated in the care of the patient.: Yes I have reviewed all pertinent clinical information: Yes
[2018-08-03 02:11] LABS: BASO % 0.3 % (0.0-2.0); EOS # 0.1 K/uL (0.0-0.7); EOS % 0.9 % (0.0-4.0); HEMOGLOBIN 13.4 g/dL (11.0-16.0); LYMPH # 1.7 K/uL (1.0-4.3); MEAN CELL VOLUME 87.8 fL (81.0-99.0); MEAN CORPUSCULAR HEMOGLOBIN 29.4 pg (27.0-31.0); MEAN CORPUSCULAR HGB CONC 33.5 g/dL (33.0-37.0); MEAN PLATELET VOLUME 10.5 fL (7.2-11.7); MONO # 0.5 K/uL (0.0-0.8); MONO % 4.3 % (0.0-10.0); NEUT # 8.3 K/uL (1.8-7.0); NEUT % 78.5 % (50.0-75.0); NRBC % 0.1 % (0.0-2.0); RBC 4.54 Mil/uL (3.80-5.20); WHITE BLOOD COUNT 10.5 K/uL (4.8-10.8)
[2018-08-03] MEDS ORDERED: Pantoprazole 80 MG in Sodium Chloride 0.9% 100 ML IVP SCH (02:30)
[2018-08-03] MEDS: Sodium Chloride 0.9% 1,000 ML IV SCH ×3 (05:39→20:50)
[2018-08-03] MEDS: Levothyroxine 112 MCG TAB PO SCH (06:14)
[2018-08-03 07:46] LABS: INR 2.9; PROTHROMBIN TIME 31.4 SECONDS (9.7-12.2)
[2018-08-03 07:48] LABS: BASO % 0.5 % (0.0-2.0); EOS # 0.2 K/uL (0.0-0.7); EOS % 2.6 % (0.0-4.0); HEMOGLOBIN 13.7 g/dL (11.0-16.0); LYMPH # 1.5 K/uL (1.0-4.3); MEAN CELL VOLUME 88.3 fL (81.0-99.0); MEAN CORPUSCULAR HEMOGLOBIN 29.8 pg (27.0-31.0); MEAN CORPUSCULAR HGB CONC 33.7 g/dL (33.0-37.0); MEAN PLATELET VOLUME 10.3 fL (7.2-11.7); MONO # 0.4 K/uL (0.0-0.8); MONO % 5.4 % (0.0-10.0); NEUT % 73.5 % (50.0-75.0); NRBC % 0.2 % (0.0-2.0); RBC 4.58 Mil/uL (3.80-5.20); RED CELL DISTRIBUTION WIDTH 13.9 % (11.5-14.5); WHITE BLOOD COUNT 8.2 K/uL (4.8-10.8)
[2018-08-03] MEDS: metroNIDAZOLE IV 500 mg/100 ml 500 MG/100 ML BAG IVPB SCH ×3 (07:50→21:40)
[2018-08-03 08:14] LABS: ALB/GLOB RATIO 1.2 (1.0-2.1); ALBUMIN 3.5 g/dL (3.5-5.0); ALT/SGPT 56 U/L (9-52); AST/SGOT 32 U/L (14-36); BLOOD UREA NITROGEN 4 mg/dL (7-17); CALCIUM 8.5 mg/dl (8.6-10.4); GFR NON-AFRICAN AMERICAN > 60
--- NOTE | 2018-08-03 10:20 | RAD ---
HISTORY: cough COMPARISON: Chest x-ray performed 01/28/18 TECHNIQUE: Chest, one view. FINDINGS: LUNGS: Mild patchy infiltrate, left lung base. Please note that chest x-ray has limited sensitivity for the detection of pulmonary masses. PLEURA: No significant pleural effusion identified. No definite pneumothorax . CARDIOVASCULAR: Heart size appears within normal limits. OSSEOUS STRUCTURES: Degenerative changes. VISUALIZED UPPER ABDOMEN: Unremarkable. OTHER FINDINGS: None. IMPRESSION: Mild patchy infiltrate left lung base.
[2018-08-03] MEDS: Ciprofloxacin 400mg/200ml D5W 400 MG/200 ML BAG IVPB SCH ×2 (10:50→22:25)
--- NOTE | 2018-08-03 17:55 | CP.PCM.PN ---
<Juancho Byrnes - Last Filed: 08/03/18 18:02> Subjective - Date & Time of Evaluation Date of Evaluation: 08/03/18 Time of Evaluation: 17:53 - Subjective Subjective: PGY-2 Progress Note Patient seen and examined at bedside. Per nursing no acute events occurred overnight. Patient reports some abdominal discomfort upon today's visit. She denies any chest pain, shortness of breath, fevers, chills, nausea, vomiting, syncopal episodes, or any other complaints. Objective - Vital Signs/Intake and Output Vital Signs (last 24 hours): Temp Pulse Resp BP Pulse Ox 98.5 F 70 18 117/81 98 08/03/18 15:28 08/03/18 16:35 08/03/18 15:28 08/03/18 15:28 08/03/18 15:28 Intake and Output: 08/03/18 08/03/18 06:59 18:59 Intake Total 1200 Balance 1200 - Medications Medications: Current Medications Acetaminophen (Tylenol 325mg Tab) 650 mg PO Q6 PRN PRN Reason: Fever >100.4 F Clonazepam (Klonopin) 0.5 mg PO DAILY KASSANDRA Last Admin: 08/03/18 14:36 Dose: 0.5 mg Sodium Chloride (Sodium Chloride 0.9%) 1,000 mls @ 150 mls/hr IV .Q6H40M KASSANDRA Last Admin: 08/03/18 12:35 Dose: 150 mls/hr Ciprofloxacin (Cipro 400mg/200ml Dsw) 400 mg in 200 mls @ 133 mls/hr IVPB Q12H KASSANDRA; Protocol Last Admin: 08/03/18 10:50 Dose: 133 mls/hr Metronidazole (Flagyl) 500 mg in 100 mls @ 100 mls/hr IVPB Q8H KASSANDRA; Protocol Last Admin: 08/03/18 14:37 Dose: 100 mls/hr Influenza Virus Vaccine (Fluzone Quad 6904-5901) 60 mcg IM .ONCE ONE Stop: 08/04/18 14:01 Levothyroxine Sodium (Synthroid) 112 mcg PO DAILY@0630 KASSANDRA Last Admin: 08/03/18 06:14 Dose: 112 mcg Morphine Sulfate (Morphine) 2 mg IVP Q4H PRN PRN Reason: Pain, severe (8-10) Last Admin: 08/03/18 12:29 Dose: 2 mg Pantoprazole Sodium (Protonix Inj) 40 mg IVP Q12H KASSANDRA Pneumococcal Polyvalent Vaccine (Pneumovax 23 Vaccine) 0.5 ml IM .ONCE ONE Stop: 08/04/18 12:01 Sertraline HCl (Zoloft) 50 mg PO DAILY KASSANDRA Last Admin: 08/03/18 14:39 Dose: 50 mg - Labs Labs: 08/03/18 07:29 08/03/18 07:29 PT 31.4 SECONDS (9.7-12.2) H D 08/03/18 07:29 INR 2.9 D 08/03/18 07:29 APTT 47 SECONDS (21-34) H D 08/03/18 07:29 - Head Exam Head Exam: ATRAUMATIC, NORMAL INSPECTION - Eye Exam Eye Exam: EOMI, Normal appearance, PERRL Pupil Exam: NORMAL ACCOMODATION, PERRL. absent: Irregular, Unequal - ENT Exam ENT Exam: Mucous Membranes Moist, Normal Oropharynx - Respiratory Exam Respiratory Exam: Clear to Ausculation Bilateral, NORMAL BREATHING PATTERN. absent: Prolonged Expiratory Phase, Respiratory Distress - Cardiovascular Exam Cardiovascular Exam: REGULAR RHYTHM, RRR, +S1, +S2. absent: Rubs - GI/Abdominal Exam GI & Abdominal Exam: Soft, Normal Bowel Sounds - Back Exam Back Exam: NORMAL INSPECTION. absent: CVA tenderness (R), paraspinal tenderness - Neurological Exam Neurological Exam: Alert, Awake, CN II-XII Intact, Oriented x3 - Psychiatric Exam Psychiatric exam: Normal Affect, Normal Mood. 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 Plan: GI Bleed; likely lower -hold coumadin -H/H is 14.5/42.7 on admission -Continue NS at 150 mL/hr -protonix gtt changed to Protonix 40mg IVP Q12H -repeat CBC shows Hgb of 13.7, likely dilutional -gastroenterology consult, Dr. Kurtz -case discussed with Gi who requests C.Diff and to continue current ma nagement -f/u c.diff toxin a/b, giardia, norovirus -FOBT (-)X1.Will f/u with remaining result. Lower Abdominal pain; nonspecific Colitis on CT -leukocytosis of 11.4 on admission with left shift; pt afebrile repeat CBC shows WBC of 10.5 -abdominal CT shows nonspecific infectious/inflammatory colitis of the ascending and descending colon. Mild hepatosplenomegaly. fatty Liver. -Ciprofloxacin 400 mg IVPB Q12H and Metronidazole 400 mg IVPB Q8H -morphine 2 mg IVP Q6H PRN for pain, Tylenol 650 mg q6h PRN fever Hx of DVT on coumadin with supratherapeutic INR - hold coumadin for now - PT/PTT/INR is 37.9/3.5/52 on admission - repeat PT/PTT/INR is 31.4/2.9/47 Hx of hypothyroidism -continue home dose of Levothyroxine 112 mcg PO daily Anxiety -Continue home medications Zoloft 50mg PO Daily HX of Seizure disorder -Continue home medication Klonipin .5mg PO Daily PPX/Diet protonix gtt for GI ppx SCDs for DVT ppx; CI to chemical VTE ppx due to INR of 3.5 NPO except meds Case was reviewed and discussed with attending physician, Dr. Dipak Byrnes, PGY-2 <Bogdan Quesada - Last Filed: 08/09/18 21:59> Objective - Vital Signs/Intake and Output Vital Signs (last 24 hours): Temp Pulse Resp BP Pulse Ox 98.5 F 57 L 20 149/93 H 99 08/08/18 09:18 08/08/18 09:18 08/08/18 09:18 08/08/18 09:18 08/08/18 09:18 - Labs Labs: 08/08/18 08:23 08/08/18 08:23 PT 14.6 SECONDS (9.7-12.2) H 08/08/18 08:23 INR 1.3 08/08/18 08:23 APTT 32 SECONDS (21-34) 08/08/18 08:23 Attending/Attestation - Attestation I have personally seen and examined this patient.: Yes I have fully participated in the care of the patient.: Yes I have reviewed all pertinent clinical information, including history, physical exam and plan: Yes Notes (Text): Seen and examined 1.Rectal bleeding/likely colitis Hold warfarin follow cbc follow GI recommendation d/w resident and I agree with the documentation
[2018-08-04] MEDS: Sodium Chloride 0.9% 1,000 ML IV SCH ×3 (05:35→21:19)
[2018-08-04] MEDS: Levothyroxine 112 MCG TAB PO SCH (05:36)
[2018-08-04] MEDS: metroNIDAZOLE IV 500 mg/100 ml 500 MG/100 ML BAG IVPB SCH ×3 (05:36→21:20)
[2018-08-04 08:20] LABS: BASO % 0.6 % (0.0-2.0); EOS # 0.2 K/uL (0.0-0.7); EOS % 2.2 % (0.0-4.0); HEMOGLOBIN 13.8 g/dL (11.0-16.0); LYMPH # 1.3 K/uL (1.0-4.3); LYMPH % 19.1 % (20.0-40.0); MEAN CELL VOLUME 88.5 fL (81.0-99.0); MEAN CORPUSCULAR HEMOGLOBIN 29.9 pg (27.0-31.0); MEAN CORPUSCULAR HGB CONC 33.8 g/dL (33.0-37.0); MEAN PLATELET VOLUME 10.4 fL (7.2-11.7); MONO # 0.3 K/uL (0.0-0.8); MONO % 4.5 % (0.0-10.0); NEUT # 5.2 K/uL (1.8-7.0); NEUT % 73.6 % (50.0-75.0); RBC 4.6 Mil/uL (3.80-5.20); RED CELL DISTRIBUTION WIDTH 13.5 % (11.5-14.5)
[2018-08-04 08:27] LABS: INR 1.8; PROTHROMBIN TIME 19.5 SECONDS (9.7-12.2)
[2018-08-04 08:42] LABS: ALB/GLOB RATIO 1.2 (1.0-2.1); ALBUMIN 3.9 g/dL (3.5-5.0); ALT/SGPT 55 U/L (9-52); AST/SGOT 37 U/L (14-36); BLOOD UREA NITROGEN 3 mg/dL (7-17); GFR NON-AFRICAN AMERICAN > 60
[2018-08-04] MEDS: Ciprofloxacin 400mg/200ml D5W 400 MG/200 ML BAG IVPB SCH ×2 (10:34→22:09)
[2018-08-04] MEDS ORDERED: Pneumococcal 23-Valent Vaccine IM ONE (12:00)
--- NOTE | 2018-08-04 12:37 | CP.PCM.CON ---
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 She states over the last few months she has felt more bloated than normal, but then over the last few days she began to notice intermittent, cramp/sharp, bilateral lower quadrant pain (worse on L side) that would occasionally radiate to her R side and back. Pain is also associate with tenesmum and bloody bowel movements. She states that stool would be formed brown with bright red blood around it; other times she would feel the urge to defecate but only blood clots would pass. Cannot identify any precipitating or alleviating factors; no change with PO intake. She reports intermittent constipation and diarrhea but never had symptoms like this before. She denies any recent travel, antibiotic use, sick contacts, change in dietary habits, eating undercooked foods, dysphagia, melena, rashes or change in vision. She had never had any endoscopic evaluation before. MHx: See above SurgHx: IVC filter Meds: Reviewed in [employer] FamHx: Denies family history of GI problems SocHx: Former tobacco and MJ, no EtOH/illicits/tobacco currently All: NKDA Past Patient History - Infectious Disease Hx of Infectious Diseases: None - Past Medical History & Family History Past Medical History?: Yes - Past Social History Smoking Status: Former Smoker - CARDIAC Hx Hypertension: Yes (Pt denies) - PULMONARY Hx Asthma: Yes - NEUROLOGICAL Hx Neurological Disorder: Yes Other/Comment: trigeminal neuralgia. Brain bleed - HEENT Other/Comment: states recently completed abtx for tooth infection x1wk ago - RENAL Hx Chronic Kidney Disease: Yes - ENDOCRINE/METABOLIC Hx Hypothyroidism: Yes - HEMATOLOGICAL/ONCOLOGICAL Hx Blood Disorders: No Other/Comment: Mariajose Crouch sydrome - INTEGUMENTARY Hx Dermatological Problems: No - MUSCULOSKELETAL/RHEUMATOLOGICAL Hx Musculoskeletal Disorders: No - GASTROINTESTINAL Hx Gastrointestinal Disorders: No - GENITOURINARY/GYNECOLOGICAL Hx Genitourinary Disorders: No - PSYCHIATRIC Hx Anxiety: Yes Hx Substance Use: No - SURGICAL HISTORY Hx Surgeries: Yes Other/Comment: IVC filter, clot removal - ANESTHESIA Hx Anesthesia: Yes Hx Anesthesia Reactions: No Hx Malignant Hyperthermia: No Meds Allergies/Adverse Reactions: Allergies Allergy/AdvReac Type Severity Reaction Status Date / Time No Known Allergies Allergy Verified 08/02/18 19:10 - Medications Medications: Current Medications Acetaminophen (Tylenol 325mg Tab) 650 mg PO Q6 PRN PRN Reason: Fever >100.4 F Clonazepam (Klonopin) 0.5 mg PO DAILY [facility] Last Admin: 08/04/18 10:33 Dose: 0.5 mg Sodium Chloride (Sodium Chloride 0.9%) 1,000 mls @ 150 mls/hr IV .Q6H40M [facility] Last Admin: 08/04/18 10:40 Dose: 150 mls/hr Ciprofloxacin (Cipro 400mg/200ml Dsw) 400 mg in 200 mls @ 133 mls/hr IVPB Q12H [facility]; Protocol Last Admin: 08/04/18 10:34 Dose: 133 mls/hr Metronidazole (Flagyl) 500 mg in 100 mls @ 100 mls/hr IVPB Q8H [facility]; Protocol Last Admin: 08/04/18 05:36 Dose: 100 mls/hr Influenza Virus Vaccine (Fluzone Quad [id number]) 60 mcg IM .ONCE ONE Stop: 08/04/18 14:01 Levothyroxine Sodium (Synthroid) 112 mcg PO DAILY@0630 [facility] Last Admin: 08/04/18 05:36 Dose: 112 mcg Morphine Sulfate (Morphine) 2 mg IVP Q4H PRN PRN Reason: Pain, severe (8-10) Last Admin: 08/04/18 05:41 Dose: 2 mg Pantoprazole Sodium (Protonix Inj) 40 mg IVP Q12H [facility] Last Admin: 08/04/18 10:34 Dose: 40 mg Sertraline HCl (Zoloft) 50 mg PO DAILY [facility] Last Admin: 08/04/18 10:34 Dose: 50 mg Physical Exam - Constitutional Appears: Well, Non-toxic, No Acute Distress - Head Exam Head Exam: ATRAUMATIC, NORMAL INSPECTION - Eye Exam Eye Exam: EOMI, Normal appearance. absent: Conjunctival injection, Scleral icterus - ENT Exam ENT Exam: Mucous Membranes Dry, Normal External Ear Exam. absent: Mucous Membranes Moist - Respiratory Exam Respiratory Exam: Clear to Auscultation Bilateral, NORMAL BREATHING PATTERN. absent: Accessory Muscle Use, Respiratory Distress - Cardiovascular Exam Cardiovascular Exam: REGULAR RHYTHM, RRR - GI/Abdominal Exam GI & Abdominal Exam: Normal Bowel Sounds, Soft, Tenderness. absent: Bruit, Diminished Bowel Sounds, Distended, Firm, Guarding, Hernia, Organomegaly, Pulsatile Mass, Rebound, Rigid Additional comments: ttp in lower quadrants, L worse than R, no guarding - Rectal Exam Rectal Exam: NORMAL INSPECTION Additional comments: Scant amount of mucous red visualized on JANESSA, no signs of abscess nor fistula. - Extremities Exam Extremities exam: Positive for: normal inspection. Negative for: pedal edema - Neurological Exam Neurological exam: Alert, CN II-XII Intact, Oriented x3 - Psychiatric Exam Psychiatric exam: Normal Affect, Normal Mood - Skin Skin Exam: Normal Color, Warm Results - Vital Signs Recent Vital Signs: Last Vital Signs Temp 98.3 F 08/04/18 08:00 Pulse 78 08/04/18 09:16 Resp 20 08/04/18 08:00 BP 155/92 H 08/04/18 08:00 Pulse Ox 97 08/04/18 08:00 - Labs Result Diagrams: 08/04/18 08:12 08/04/18 08:12 Labs: Laboratory Results - last 24 hr 08/04/18 08/04/18 08/04/18 01:05 08:12 08:12 WBC 7.0 RBC 4.60 Hgb 13.8 Hct 40.7 MCV 88.5 MCH 29.9 MCHC 33.8 RDW 13.5 Plt Count 166 MPV 10.4 Neut % (Auto) 73.6 Lymph % (Auto) 19.1 L [place] % (Auto) 4.5 Eos % (Auto) 2.2 Baso % (Auto) 0.6 Neut # (Auto) 5.2 Lymph # (Auto) 1.3 [place] # (Auto) 0.3 Eos # (Auto) 0.2 Baso # (Auto) 0.0 PT 19.5 H D INR 1.8 D APTT 39 H D Sodium Potassium Chloride Carbon Dioxide Anion Gap BUN Creatinine Est GFR ( Amer) Est GFR (Non-Af Amer) Random Glucose Calcium Total Bilirubin AST ALT Alkaline Phosphatase Total Protein Albumin Globulin Albumin/Globulin Ratio Stool Occult Blood Positive 08/04/18 08:12 WBC RBC Hgb Hct MCV MCH MCHC RDW Plt Count MPV Neut % (Auto) Lymph % (Auto) [place] % (Auto) Eos % (Auto) Baso % (Auto) Neut # (Auto) Lymph # (Auto) [place] # (Auto) Eos # (Auto) Baso # (Auto) PT INR APTT Sodium 141 Potassium 3.8 Chloride 107 Carbon Dioxide 24 Anion Gap 15 BUN 3 L Creatinine 0.5 L Est GFR ( Amer) > 60 Est GFR (Non-Af Amer) > 60 Random Glucose 84 Calcium 9.0 Total Bilirubin 0.7 AST 37 H ALT 55 H Alkaline Phosphatase 102 Total Protein 7.2 Albumin 3.9 Globulin 3.2 Albumin/Globulin Ratio 1.2 Stool Occult Blood Assessment & Plan - Assessment and Plan (Free Text) Assessment: 37 yo WF with h/o May-Thurner, Hypothyroid presenting with abd pain and bright red blood per rectum. # Painful Hematochezia: Likely due to colitis seen on CT affecting descending and sigmoid colon. Unclear etiology. At risk for bleeding with ongoing warfarin use for May-Thurner. Ischemic colitis on differential but less likely as therapeutic (supra) on warfarin and May-Thurner seems more anatomically induced clotting rather than an innate hypercoagulable state. Constellation of tenesmus with BRBPR could suggest IBD. Stool was reportedly formed with blood around it making infectious causes less likely. # May-Thurner Syndrome: On warfarin as out with last dose just prior to presentation. INR 3.5 on admission. Warfarin held with last INR 1.8. Plan: - Plan for Colonoscopy to further evaluate --- Timing to be determine by GI team tomorrow - Clear Liquid Diet - No plans for colon prep tonight - Agree with Cipro+Metronidazole - Monitor CBC, CMP, INR - Hold warfarin --- Consider Hematology eval Pt discussed with Dr. Lopes; see attestation for further recs/changes. <Vicente Lopes - Last Filed: 08/04/18 13:48> Meds - Medications Medications: Current Medications Acetaminophen (Tylenol 325mg Tab) 650 mg PO Q6 PRN PRN Reason: Fever >100.4 F Clonazepam (Klonopin) 0.5 mg PO DAILY [facility] Last Admin: 08/04/18 10:33 Dose: 0.5 mg Sodium Chloride (Sodium Chloride 0.9%) 1,000 mls @ 150 mls/hr IV .Q6H40M [facility] Last Admin: 08/04/18 10:40 Dose: 150 mls/hr Ciprofloxacin (Cipro 400mg/200ml Dsw) 400 mg in 200 mls @ 133 mls/hr IVPB Q12H [facility]; Protocol Last Admin: 08/04/18 10:34 Dose: 133 mls/hr Metronidazole (Flagyl) 500 mg in 100 mls @ 100 mls/hr IVPB Q8H [facility]; Protocol Last Admin: 08/04/18 05:36 Dose: 100 mls/hr Influenza Virus Vaccine (Fluzone Quad [id number]) 60 mcg IM .ONCE ONE Stop: 08/04/18 14:01 Levothyroxine Sodium (Synthroid) 112 mcg PO DAILY@0630 [facility] Last Admin: 08/04/18 05:36 Dose: 112 mcg Morphine Sulfate (Morphine) 2 mg IVP Q4H PRN PRN Reason: Pain, severe (8-10) Last Admin: 08/04/18 05:41 Dose: 2 mg Pantoprazole Sodium (Protonix Inj) 40 mg IVP Q12H [facility] Last Admin: 08/04/18 10:34 Dose: 40 mg Sertraline HCl (Zoloft) 50 mg PO DAILY [facility] Last Admin: 08/04/18 10:34 Dose: 50 mg Results - Vital Signs Recent Vital Signs: Last Vital Signs Temp 98.3 F 08/04/18 08:00 Pulse 78 08/04/18 09:16 Resp 20 08/04/18 08:00 BP 155/92 H 08/04/18 08:00 Pulse Ox 97 08/04/18 08:00 - Labs Result Diagrams: 08/04/18 08:12 08/04/18 08:12 Labs: Laboratory Results - last 24 hr 08/04/18 08/04/18 08/04/18 01:05 08:12 08:12 WBC 7.0 RBC 4.60 Hgb 13.8 Hct 40.7 MCV 88.5 MCH 29.9 MCHC 33.8 RDW 13.5 Plt Count 166 MPV 10.4 Neut % (Auto) 73.6 Lymph % (Auto) 19.1 L [place] % (Auto) 4.5 Eos % (Auto) 2.2 Baso % (Auto) 0.6 Neut # (Auto) 5.2 Lymph # (Auto) 1.3 [place] # (Auto) 0.3 Eos # (Auto) 0.2 Baso # (Auto) 0.0 PT 19.5 H D INR 1.8 D APTT 39 H D Sodium Potassium Chloride Carbon Dioxide Anion Gap BUN Creatinine Est GFR ( Amer) Est GFR (Non-Af Amer) Random Glucose Calcium Total Bilirubin AST ALT Alkaline Phosphatase Total Protein Albumin Globulin Albumin/Globulin Ratio Stool Occult Blood Positive 08/04/18 08:12 WBC RBC Hgb Hct MCV MCH MCHC RDW Plt Count MPV Neut % (Auto) Lymph % (Auto) [place] % (Auto) Eos % (Auto) Baso % (Auto) Neut # (Auto) Lymph # (Auto) [place] # (Auto) Eos # (Auto) Baso # (Auto) PT INR APTT Sodium 141 Potassium 3.8 Chloride 107 Carbon Dioxide 24 Anion Gap 15 BUN 3 L Creatinine 0.5 L Est GFR ( Amer) > 60 Est GFR (Non-Af Amer) > 60 Random Glucose 84 Calcium 9.0 Total Bilirubin 0.7 AST 37 H ALT 55 H Alkaline Phosphatase 102 Total Protein 7.2 Albumin 3.9 Globulin 3.2 Albumin/Globulin Ratio 1.2 Stool Occult Blood Attending/Attestation - Attestation I have personally seen and examined this patient.: Yes I have fully participated in the care of the patient.: Yes I have reviewed all pertinent clinical information: Yes Notes (Text): 08/04/18 13:47 Chart reviewed. The patient was seen and examined. Agree with physical exam. Assessment and recommendations were discussed with Dr. Chaney and documented above.
[2018-08-04] MEDS ORDERED: Influenza Vaccine 60 MCG/0.5 ML SYR (3 yr & up) IM ONE (14:00)
[2018-08-04] MEDS: Enoxaparin 40 mg Syringe SC SCH (15:20)
--- NOTE | 2018-08-04 18:27 | CP.PCM.PN ---
Subjective - Date & Time of Evaluation Date of Evaluation: 08/04/18 Time of Evaluation: 13:00 - Subjective Subjective: Patient was seen this afternoon mild lower abdominal crampy pain,no fever,patient had no BM this morning no vomiting,has nausea,on oliquid diet Hemoglobin remains stable INR went down to 1.8 Objective - Vital Signs/Intake and Output Vital Signs (last 24 hours): Temp Pulse Resp BP Pulse Ox 98.2 F 62 20 131/90 99 08/04/18 15:00 08/04/18 15:35 08/04/18 15:00 08/04/18 15:00 08/04/18 15:00 Intake and Output: 08/04/18 08/04/18 06:59 18:59 Intake Total 2400 Balance 2400 - Medications Medications: Current Medications Acetaminophen (Tylenol 325mg Tab) 650 mg PO Q6 PRN PRN Reason: Fever >100.4 F Clonazepam (Klonopin) 0.5 mg PO DAILY [facility] Last Admin: 08/04/18 10:33 Dose: 0.5 mg Enoxaparin Sodium (Lovenox) 40 mg SC DAILY [facility] Last Admin: 08/04/18 15:20 Dose: 40 mg Sodium Chloride (Sodium Chloride 0.9%) 1,000 mls @ 150 mls/hr IV .Q6H40M [facility] Last Admin: 08/04/18 10:40 Dose: 150 mls/hr Ciprofloxacin (Cipro 400mg/200ml Dsw) 400 mg in 200 mls @ 133 mls/hr IVPB Q12H [facility]; Protocol Last Admin: 08/04/18 10:34 Dose: 133 mls/hr Metronidazole (Flagyl) 500 mg in 100 mls @ 100 mls/hr IVPB Q8H [facility]; Protocol Last Admin: 08/04/18 14:01 Dose: 100 mls/hr Levothyroxine Sodium (Synthroid) 112 mcg PO DAILY@0630 [facility] Last Admin: 08/04/18 05:36 Dose: 112 mcg Morphine Sulfate (Morphine) 2 mg IVP Q4H PRN PRN Reason: Pain, severe (8-10) Last Admin: 08/04/18 14:03 Dose: 2 mg Pantoprazole Sodium (Protonix Inj) 40 mg IVP Q12H [facility] Last Admin: 08/04/18 10:34 Dose: 40 mg Sertraline HCl (Zoloft) 50 mg PO DAILY [facility] Last Admin: 08/04/18 10:34 Dose: 50 mg - Labs Labs: 08/04/18 08:12 08/04/18 08:12 PT 19.5 SECONDS (9.7-12.2) H D 08/04/18 08:12 INR 1.8 D 08/04/18 08:12 APTT 39 SECONDS (21-34) H D 08/04/18 08:12 - Constitutional Appears: Non-toxic, No Acute Distress - Head Exam Head Exam: NORMAL INSPECTION - Eye Exam Eye Exam: EOMI, Normal appearance Pupil Exam: NORMAL ACCOMODATION, PERRL - ENT Exam ENT Exam: Mucous Membranes Moist, Normal Exam - Respiratory Exam Respiratory Exam: Clear to Ausculation Bilateral, NORMAL BREATHING PATTERN - Cardiovascular Exam Cardiovascular Exam: REGULAR RHYTHM - GI/Abdominal Exam GI & Abdominal Exam: Soft, Normal Bowel Sounds. absent: Distended, Tenderness - Extremities Exam Extremities Exam: Full ROM, Normal Inspection - Back Exam Back Exam: NORMAL INSPECTION - Neurological Exam Neurological Exam: Awake, Oriented x3 - Psychiatric Exam Psychiatric exam: Normal Affect, Normal Mood - Skin Skin Exam: Intact, Normal Color Assessment and Plan - Assessment and Plan (Free Text) Assessment: This is a 37 year old female with PMH of anxiety, hypothyroidism, trigeminal neuralgia, May Wahl syndrome with DVT in 09/2017 requiring thrombolysis with TPA with angiojet and stenting, right IVC filter and had SAH during last admission came for bloody stool with mucus.Crampy pain on coumadin 6 mg PO daily for her DVT Plan: 1.Lower GI Bleed painful diarrhea with blood and mucus .likely colitis abdominal CT shows nonspecific infectious/inflammatory colitis of the ascending and descending colon. Mild hepatosplenomegaly. fatty Liver. Ciprofloxacin 400 mg IVPB Q12H and Metronidazole 400 mg IVPB Q8H morphine for pain we will hold coumadin continue liquid diet,IV fluids protonix Discussed with GI fellow.planning for colonoscopy and recommending to hold anticoagulation for now 2.Hx of DVT on coumadin hold coumadin for now resume coumadin after colonoscopy we will give lovenox prophylaxis dose 3.Hx of hypothyroidism continue Levothyroxine 112 mcg PO daily 4. Anxiety Continue home medications Zoloft 50mg PO Daily 5. HX of Seizure disorder Continue home medication Klonipin .5mg PO Daily 6.PPX/Diet DVT prophy is on lovenox GI protonix diet liquids
[2018-08-05] MEDS: Sodium Chloride 0.9% 1,000 ML IV SCH ×2 (04:46→18:00)
[2018-08-05] MEDS: Levothyroxine 112 MCG TAB PO SCH (05:39)
[2018-08-05] MEDS: metroNIDAZOLE IV 500 mg/100 ml 500 MG/100 ML BAG IVPB SCH ×2 (05:40→22:01)
[2018-08-05 07:06] LABS: BASO % 0.7 % (0.0-2.0); EOS # 0.2 K/uL (0.0-0.7); EOS % 2.5 % (0.0-4.0); HEMOGLOBIN 13.4 g/dL (11.0-16.0); LYMPH # 1.4 K/uL (1.0-4.3); LYMPH % 19.3 % (20.0-40.0); MEAN CELL VOLUME 88.1 fL (81.0-99.0); MEAN CORPUSCULAR HEMOGLOBIN 30.1 pg (27.0-31.0); MEAN CORPUSCULAR HGB CONC 34.2 g/dL (33.0-37.0); MEAN PLATELET VOLUME 10.6 fL (7.2-11.7); MONO # 0.4 K/uL (0.0-0.8); NEUT # 5.2 K/uL (1.8-7.0); NEUT % 71.5 % (50.0-75.0); RBC 4.44 Mil/uL (3.80-5.20); RED CELL DISTRIBUTION WIDTH 13.4 % (11.5-14.5); WHITE BLOOD COUNT 7.3 K/uL (4.8-10.8)
[2018-08-05 07:10] LABS: INR 1.6; PROTHROMBIN TIME 17.8 SECONDS (9.7-12.2)
[2018-08-05 07:48] LABS: ALB/GLOB RATIO 1.3 (1.0-2.1); ALBUMIN 3.9 g/dL (3.5-5.0); ALT/SGPT 54 U/L (9-52); AST/SGOT 50 U/L (14-36); BLOOD UREA NITROGEN 4 mg/dL (7-17); GFR NON-AFRICAN AMERICAN > 60
[2018-08-05] MEDS: Enoxaparin 40 mg Syringe SC SCH (09:42)
[2018-08-05] MEDS: Ciprofloxacin 400mg/200ml D5W 400 MG/200 ML BAG IVPB SCH ×2 (09:43→23:49)
--- NOTE | 2018-08-05 11:45 | CP.PCM.PN ---
<Alia Landers - Last Filed: 08/05/18 17:24> Subjective - Date & Time of Evaluation Date of Evaluation: 08/05/18 Time of Evaluation: 08:30 - Subjective Subjective: Patient examined at bedside. No acute events overnight. Pt reports abdominal fullness, no BM since Sunday. Pt reports some nausea today and headache. Denies chest pain, SOB, no further episodes of hamtochezia Objective - Vital Signs/Intake and Output Vital Signs (last 24 hours): Temp Pulse Resp BP Pulse Ox 98.4 F 65 20 135/87 97 08/05/18 08:14 08/05/18 08:14 08/05/18 08:14 08/05/18 08:14 08/05/18 08:14 Intake and Output: 08/05/18 08/05/18 06:59 18:59 Intake Total 1200 1320 Balance 1200 1320 - Medications Medications: Current Medications Acetaminophen (Tylenol 325mg Tab) 650 mg PO Q6 PRN PRN Reason: Fever >100.4 F Clonazepam (Klonopin) 0.5 mg PO DAILY [facility] Last Admin: 08/05/18 09:42 Dose: 0.5 mg Enoxaparin Sodium (Lovenox) 40 mg SC DAILY [facility] Last Admin: 08/05/18 09:42 Dose: 40 mg Sodium Chloride (Sodium Chloride 0.9%) 1,000 mls @ 150 mls/hr IV .Q6H40M [facility] Last Admin: 08/05/18 04:46 Dose: 150 mls/hr Ciprofloxacin (Cipro 400mg/200ml Dsw) 400 mg in 200 mls @ 133 mls/hr IVPB Q12H [facility]; Protocol Last Admin: 08/05/18 09:43 Dose: 133 mls/hr Metronidazole (Flagyl) 500 mg in 100 mls @ 100 mls/hr IVPB Q8H [facility]; Protocol Last Admin: 08/05/18 05:40 Dose: 100 mls/hr Levothyroxine Sodium (Synthroid) 112 mcg PO DAILY@0630 [facility] Last Admin: 08/05/18 05:39 Dose: 112 mcg Morphine Sulfate (Morphine) 2 mg IVP Q4H PRN PRN Reason: Pain, severe (8-10) Last Admin: 08/05/18 09:42 Dose: 2 mg Ondansetron HCl (Zofran Tab) 4 mg PO Q8 PRN PRN Reason: Nausea/Vomiting Last Admin: 08/05/18 11:37 Dose: 4 mg Pantoprazole Sodium (Protonix Inj) 40 mg IVP Q12H [facility] Last Admin: 08/04/18 10:34 Dose: 40 mg Sertraline HCl (Zoloft) 50 mg PO DAILY [facility] Last Admin: 08/05/18 09:42 Dose: 50 mg - Labs Labs: 08/05/18 06:55 08/05/18 06:55 PT 17.8 SECONDS (9.7-12.2) H 08/05/18 06:55 INR 1.6 08/05/18 06:55 APTT 35 SECONDS (21-34) H 08/05/18 06:55 - Constitutional Appears: No Acute Distress - Head Exam Head Exam: ATRAUMATIC, NORMAL INSPECTION, NORMOCEPHALIC - Eye Exam Eye Exam: EOMI, Normal appearance - ENT Exam ENT Exam: Mucous Membranes Moist, Normal Exam - Respiratory Exam Respiratory Exam: Clear to Ausculation Bilateral, NORMAL BREATHING PATTERN. absent: Rhonchi - Cardiovascular Exam Cardiovascular Exam: REGULAR RHYTHM, +S1, +S2. absent: Murmur - GI/Abdominal Exam GI & Abdominal Exam: Soft, Normal Bowel Sounds. absent: Distended, Tenderness - Back Exam Back Exam: NORMAL INSPECTION - Neurological Exam Neurological Exam: Alert, Awake, Oriented x3 - Psychiatric Exam Psychiatric exam: Normal Affect, Normal Mood - Skin Skin Exam: Dry, Intact, Normal Color, Warm Assessment and Plan - Assessment and Plan (Free Text) Assessment: This is a 37 year old female with PMH of anxiety, hypothyroidism, trigeminal neuralgia, May Wahl syndrome with DVT in 09/2017 requiring thrombolysis with TPA with angiojet and stenting, right IVC filter and had SAH during last admission came for bloody stool with mucus. Crampy pain on coumadin 6 mg PO daily for her DVT 1.Lower GI Bleed abdominal CT shows nonspecific infectious/inflammatory colitis of the ascending and descending colon. Mild hepatosplenomegaly. fatty Liver. Ciprofloxacin 400 mg IVPB Q12H and Metronidazole 400 mg IVPB Q8H morphine for pain NPO Colonoscopy tmrw w/ GI resume AC pending recs 2.Hx of DVT on coumadin hold coumadin for now resume coumadin after colonoscopy we will give lovenox prophylaxis dose 40mg 3.Hx of hypothyroidism continue Levothyroxine 112 mcg PO daily 4. Anxiety Continue home medications Zoloft 50mg PO Daily 5. HX of Seizure disorder Continue home medication Klonipin .5mg PO Daily 6.PPX/Diet DVT ppx is on lovenox 40 GI protonix NPO <Ry Espinoza H - Last Filed: 08/05/18 17:34> Objective - Vital Signs/Intake and Output Vital Signs (last 24 hours): Temp Pulse Resp BP Pulse Ox 98 F 68 20 155/80 H 96 08/05/18 15:00 08/05/18 15:30 08/05/18 15:00 08/05/18 15:00 08/05/18 15:00 Intake and Output: 08/05/18 08/05/18 06:59 18:59 Intake Total 1200 1320 Balance 1200 1320 - Medications Medications: Current Medications Acetaminophen (Tylenol 325mg Tab) 650 mg PO Q6 PRN PRN Reason: Fever >100.4 F Clonazepam (Klonopin) 0.5 mg PO DAILY [facility] Last Admin: 08/05/18 09:42 Dose: 0.5 mg Enoxaparin Sodium (Lovenox) 40 mg SC DAILY [facility] Last Admin: 08/05/18 09:42 Dose: 40 mg Sodium Chloride (Sodium Chloride 0.9%) 1,000 mls @ 150 mls/hr IV .Q6H40M [facility] Last Admin: 08/05/18 04:46 Dose: 150 mls/hr Ciprofloxacin (Cipro 400mg/200ml Dsw) 400 mg in 200 mls @ 133 mls/hr IVPB Q12H [facility]; Protocol Last Admin: 08/05/18 09:43 Dose: 133 mls/hr Metronidazole (Flagyl) 500 mg in 100 mls @ 100 mls/hr IVPB Q8H [facility]; Protocol Last Admin: 08/05/18 05:40 Dose: 100 mls/hr Levothyroxine Sodium (Synthroid) 112 mcg PO DAILY@0630 [facility] Last Admin: 08/05/18 05:39 Dose: 112 mcg Morphine Sulfate (Morphine) 2 mg IVP Q4H PRN PRN Reason: Pain, severe (8-10) Last Admin: 08/05/18 13:49 Dose: 2 mg Ondansetron HCl (Zofran Tab) 4 mg PO Q8 PRN PRN Reason: Nausea/Vomiting Last Admin: 08/05/18 11:37 Dose: 4 mg Pantoprazole Sodium (Protonix Inj) 40 mg IVP Q12H [facility] Last Admin: 08/05/18 11:38 Dose: 40 mg Sertraline HCl (Zoloft) 50 mg PO DAILY [facility] Last Admin: 08/05/18 09:42 Dose: 50 mg - Labs Labs: 08/05/18 06:55 08/05/18 06:55 PT 17.8 SECONDS (9.7-12.2) H 08/05/18 06:55 INR 1.6 08/05/18 06:55 APTT 35 SECONDS (21-34) H 08/05/18 06:55 Attending/Attestation - Attestation I have personally seen and examined this patient.: Yes I have fully participated in the care of the patient.: Yes I have reviewed all pertinent clinical information, including history, physical exam and plan: Yes Notes (Text): 08/05/18 17:30 Medical attending: Patient was seen and examined by me with the medical physicist. Reviewed the above note by the resident and agree with the above. Other family members present and the patient was ok with family discussing and participating with her care as well. As mentioned above the patient was on coumadin for some time now and currently this is on hold. The INR is now decreased to 1.6. Her Hgb is 13 this morning. There are plans for at some point for a colonscopy. At this time she remains on the IV cipro and IV flagyl Ry Espinoza
[2018-08-05] MEDS ORDERED: Iohexol 240 (50 ml) PO ONE ×2 (13:30→13:45)
--- NOTE | 2018-08-05 13:41 | CP.PCM.PN ---
<Eliot Salcido - Last Filed: 08/05/18 17:08> Subjective - Date & Time of Evaluation Date of Evaluation: 08/05/18 Time of Evaluation: 12:50 - Subjective Subjective: PGY6 GI Fellow Progress Note Patient seen and examined bedside this afternoon. The patient admits to ongoing bloating and nausea, with difficulty tolerating even liquid diet. States she has not had a BM since Sunday prior to arrival. No events overnight. 12 system ROS performed and negative except where stated Objective - Vital Signs/Intake and Output Vital Signs (last 24 hours): Temp Pulse Resp BP Pulse Ox 98.4 F 65 20 135/87 97 08/05/18 08:14 08/05/18 08:14 08/05/18 08:14 08/05/18 08:14 08/05/18 08:14 Intake and Output: 08/05/18 08/05/18 06:59 18:59 Intake Total 1200 1320 Balance 1200 1320 - Medications Medications: Current Medications Acetaminophen (Tylenol 325mg Tab) 650 mg PO Q6 PRN PRN Reason: Fever >100.4 F Clonazepam (Klonopin) 0.5 mg PO DAILY [facility] Last Admin: 08/05/18 09:42 Dose: 0.5 mg Enoxaparin Sodium (Lovenox) 40 mg SC DAILY [facility] Last Admin: 08/05/18 09:42 Dose: 40 mg Sodium Chloride (Sodium Chloride 0.9%) 1,000 mls @ 150 mls/hr IV .Q6H40M [facility] Last Admin: 08/05/18 04:46 Dose: 150 mls/hr Ciprofloxacin (Cipro 400mg/200ml Dsw) 400 mg in 200 mls @ 133 mls/hr IVPB Q12H [facility]; Protocol Last Admin: 08/05/18 09:43 Dose: 133 mls/hr Metronidazole (Flagyl) 500 mg in 100 mls @ 100 mls/hr IVPB Q8H [facility]; Protocol Last Admin: 08/05/18 05:40 Dose: 100 mls/hr Levothyroxine Sodium (Synthroid) 112 mcg PO DAILY@0630 [facility] Last Admin: 08/05/18 05:39 Dose: 112 mcg Morphine Sulfate (Morphine) 2 mg IVP Q4H PRN PRN Reason: Pain, severe (8-10) Last Admin: 08/05/18 09:42 Dose: 2 mg Ondansetron HCl (Zofran Tab) 4 mg PO Q8 PRN PRN Reason: Nausea/Vomiting Last Admin: 08/05/18 11:37 Dose: 4 mg Pantoprazole Sodium (Protonix Inj) 40 mg IVP Q12H [facility] Last Admin: 08/05/18 11:38 Dose: 40 mg Sertraline HCl (Zoloft) 50 mg PO DAILY [facility] Last Admin: 08/05/18 09:42 Dose: 50 mg - Labs Labs: 08/05/18 06:55 08/05/18 06:55 PT 17.8 SECONDS (9.7-12.2) H 08/05/18 06:55 INR 1.6 08/05/18 06:55 APTT 35 SECONDS (21-34) H 08/05/18 06:55 - Constitutional Appears: Non-toxic, No Acute Distress - Eye Exam Eye Exam: EOMI, PERRL - ENT Exam ENT Exam: Mucous Membranes Moist - Respiratory Exam Respiratory Exam: Clear to Ausculation Bilateral. absent: Rales, Rhonchi, Wheezes - Cardiovascular Exam Cardiovascular Exam: Bradycardia, REGULAR RHYTHM, +S1, +S2 - GI/Abdominal Exam GI & Abdominal Exam: Soft, Normal Bowel Sounds. 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 -Hematochezia -Abdominal pain -Nausea/vomiting -Supratherapeutic INR, resolved Plan: -Differential includes ischemic, infectious, inflammatory colitis (less likely) -Patient did describe episode of near-syncope prior to initial ED visit and inflammation is limited to the left hemicolon on CT without oral contrast from 08/02 - thus low-flow state cannot be ruled out -Pain, nausea and inability to tolerate significant PO currently the predominant symptoms with no BM since Sunday -Recommend bowel prep as tolerated by patient with NPO past MN for evaluation with EGD/Colonoscopy -Analgesia and antiemetics per primary service -Hold tomorrow AM dose of Lovenox <Stanley Limon Y - Last Filed: 08/05/18 17:27> Objective - Vital Signs/Intake and Output Vital Signs (last 24 hours): Temp Pulse Resp BP Pulse Ox 98 F 68 20 155/80 H 96 08/05/18 15:00 08/05/18 15:30 08/05/18 15:00 08/05/18 15:00 08/05/18 15:00 Intake and Output: 08/05/18 08/05/18 06:59 18:59 Intake Total 1200 1320 Balance 1200 1320 - Medications Medications: Current Medications Acetaminophen (Tylenol 325mg Tab) 650 mg PO Q6 PRN PRN Reason: Fever >100.4 F Clonazepam (Klonopin) 0.5 mg PO DAILY [facility] Last Admin: 08/05/18 09:42 Dose: 0.5 mg Enoxaparin Sodium (Lovenox) 40 mg SC DAILY [facility] Last Admin: 08/05/18 09:42 Dose: 40 mg Sodium Chloride (Sodium Chloride 0.9%) 1,000 mls @ 150 mls/hr IV .Q6H40M [facility] Last Admin: 08/05/18 04:46 Dose: 150 mls/hr Ciprofloxacin (Cipro 400mg/200ml Dsw) 400 mg in 200 mls @ 133 mls/hr IVPB Q12H [facility]; Protocol Last Admin: 08/05/18 09:43 Dose: 133 mls/hr Metronidazole (Flagyl) 500 mg in 100 mls @ 100 mls/hr IVPB Q8H [facility]; Protocol Last Admin: 08/05/18 05:40 Dose: 100 mls/hr Levothyroxine Sodium (Synthroid) 112 mcg PO DAILY@0630 [facility] Last Admin: 08/05/18 05:39 Dose: 112 mcg Morphine Sulfate (Morphine) 2 mg IVP Q4H PRN PRN Reason: Pain, severe (8-10) Last Admin: 08/05/18 13:49 Dose: 2 mg Ondansetron HCl (Zofran Tab) 4 mg PO Q8 PRN PRN Reason: Nausea/Vomiting Last Admin: 08/05/18 11:37 Dose: 4 mg Pantoprazole Sodium (Protonix Inj) 40 mg IVP Q12H [facility] Last Admin: 08/05/18 11:38 Dose: 40 mg Sertraline HCl (Zoloft) 50 mg PO DAILY [facility] Last Admin: 08/05/18 09:42 Dose: 50 mg - Labs Labs: 08/05/18 06:55 08/05/18 06:55 PT 17.8 SECONDS (9.7-12.2) H 08/05/18 06:55 INR 1.6 08/05/18 06:55 APTT 35 SECONDS (21-34) H 08/05/18 06:55 Attending/Attestation - Attestation I have personally seen and examined this patient.: Yes I have fully participated in the care of the patient.: Yes I have reviewed all pertinent clinical information, including history, physical exam and plan: Yes Notes (Text): 08/05/18 17:23 I have seen and examined patient with GI fellow. No acute events overnight, no bowel movements in past 48 hours. She still reports bilateral lower quadrant abdominal pain along with nausea. She denies vomiting, fever/chills. Tolerating PO liquids without difficulty. May-Thurner syndrome DVT on coumadin (held) Hypothyroidism Abdominal pain, rectal bleeding - possibly related to ischemia - Liquid diet as tolerated - Continue with supportive care, IVF hydration and antibiotic therapy - Given complaint of abdominal pain even prior to hospital admission along with unexplained left sided colitis, would favor endoscopic evaluation with EGD/colo noscopy tomorrow. Golytely bowel preparation today, NPO after midnight. Coumadin held, would hold morning dose of Lovenox prior to procedure. - Will continue to monitor patient clinical course
[2018-08-05 14:46] LABS: HEPATITIS B SURFACE AG Negative (NEGATIVE)
[2018-08-05 14:51] LABS: HEPATITIS A IGM NEGATIVE (NEGATIVE); HEPATITIS B CORE AB NEGATIVE (NEGATIVE)
[2018-08-05 15:03] LABS: HEPATITIS C ANTIBODY NEGATIVE (NEGATIVE)
[2018-08-05] MEDS ORDERED: Peg-Electrolyte Oral Soln 4L (Golytely) PO ONE (17:06)
--- NOTE | 2018-08-05 20:41 | CARD ---
APPROVED REPORT Date of service: 08/02/2018 EKG Measurement Heart [id number] <Conclusion> Normal sinus rhythm Normal ECG
[2018-08-06] MEDS: Levothyroxine 112 MCG TAB PO SCH (06:16)
[2018-08-06] MEDS: metroNIDAZOLE IV 500 mg/100 ml 500 MG/100 ML BAG IVPB SCH ×4 (06:16→21:49)
--- NOTE | 2018-08-06 07:02 | CP.PCM.PN ---
<LandersAlia - Last Filed: 08/06/18 13:19> Subjective - Date & Time of Evaluation Date of Evaluation: 08/06/18 Time of Evaluation: 09:15 - Subjective Subjective: Pt examined at bedside. No acute events overnight. Pt reports she has been drinking the Go Lytely prep and has had multiple BM, with only the last 1-2 having a tinge of blood in them. Pt reports continued nausea, but will take zofran iv, as relief experienced yesterday following treatment. Pt is eager to go to endoscopy today. She reports appetite. Denies chest pain, abd pain, vomiting Objective - Vital Signs/Intake and Output Vital Signs (last 24 hours): Temp Pulse Resp BP Pulse Ox 98.4 F 57 L 20 150/86 96 08/06/18 04:00 08/06/18 04:10 08/06/18 04:00 08/06/18 04:00 08/06/18 04:00 Intake and Output: 08/06/18 08/06/18 06:59 18:59 Intake Total 1100 Balance 1100 - Medications Medications: Current Medications Acetaminophen (Tylenol 325mg Tab) 650 mg PO Q6 PRN PRN Reason: Fever >100.4 F Clonazepam (Klonopin) 0.5 mg PO DAILY [facility] Last Admin: 08/05/18 09:42 Dose: 0.5 mg Enoxaparin Sodium (Lovenox) 40 mg SC DAILY [facility] Last Admin: 08/05/18 09:42 Dose: 40 mg Sodium Chloride (Sodium Chloride 0.9%) 1,000 mls @ 150 mls/hr IV .Q6H40M [facility] Last Admin: 08/05/18 18:00 Dose: Not Given Ciprofloxacin (Cipro 400mg/200ml Dsw) 400 mg in 200 mls @ 133 mls/hr IVPB Q12H [facility]; Protocol Last Admin: 08/05/18 23:49 Dose: 133 mls/hr Metronidazole (Flagyl) 500 mg in 100 mls @ 100 mls/hr IVPB Q8H [facility]; Protocol Last Admin: 08/06/18 06:16 Dose: 100 mls/hr Levothyroxine Sodium (Synthroid) 112 mcg PO DAILY@0630 [facility] Last Admin: 08/06/18 06:16 Dose: 112 mcg Morphine Sulfate (Morphine) 2 mg IVP Q4H PRN PRN Reason: Pain, severe (8-10) Last Admin: 08/06/18 00:11 Dose: 2 mg Ondansetron HCl (Zofran Tab) 4 mg PO Q8 PRN PRN Reason: Nausea/Vomiting Last Admin: 08/05/18 11:37 Dose: 4 mg Pantoprazole Sodium (Protonix Inj) 40 mg IVP Q12H [facility] Last Admin: 08/05/18 23:50 Dose: 40 mg Sertraline HCl (Zoloft) 50 mg PO DAILY [facility] Last Admin: 08/05/18 09:42 Dose: 50 mg - Labs Labs: 08/05/18 06:55 08/05/18 06:55 PT 17.8 SECONDS (9.7-12.2) H 08/05/18 06:55 INR 1.6 08/05/18 06:55 APTT 35 SECONDS (21-34) H 08/05/18 06:55 - Constitutional Appears: No Acute Distress - Head Exam Head Exam: ATRAUMATIC, NORMAL INSPECTION, NORMOCEPHALIC - Eye Exam Eye Exam: EOMI, Normal appearance - ENT Exam ENT Exam: Mucous Membranes Moist, Normal Exam - Neck Exam Neck Exam: Normal Inspection - Respiratory Exam Respiratory Exam: Clear to Ausculation Bilateral, NORMAL BREATHING PATTERN - Cardiovascular Exam Cardiovascular Exam: REGULAR RHYTHM, +S1, +S2 - GI/Abdominal Exam GI & Abdominal Exam: Soft, Normal Bowel Sounds. absent: Distended, Tenderness - Extremities Exam Extremities Exam: Normal Inspection. absent: Calf Tenderness, Pedal Edema - Neurological Exam Neurological Exam: Alert, Awake, Oriented x3 - Psychiatric Exam Psychiatric exam: Normal Affect, Normal Mood - Skin Skin Exam: Dry, Intact, Normal Color, Warm Assessment and Plan - Assessment and Plan (Free Text) Assessment: This is a 37 year old female with PMH of anxiety, hypothyroidism, trigeminal neuralgia, May Wahl syndrome with DVT in 09/2017 requiring thrombolysis with TPA with angiojet and stenting, right IVC filter and had SAH during last admission came for bloody stool with mucus. Crampy pain on coumadin 6 mg PO daily for her DVT 1.Lower GI Bleed s/p EGD/colonoscopy EGD(08/06): friable, congested mucosa visualized. Bx taken Colonoscopy(08/06): areas of congestion, erythema and friable mucosa. F/U path abdominal CT shows nonspecific infectious/inflammatory colitis of the ascending and descending colon. Mild hepatosplenomegaly. fatty Liver. Ciprofloxacin 400 mg IVPB Q12H and Metronidazole 400 mg IVPB Q8H morphine for pain regular diet as tolerated resume AC pending recs Dr. Guerra consulted 2.Hx of DVT on coumadin Dr. Guerra recs: s/p scope w/ bx; start therapeutic Lovenox and bridge to home coumadin dose, daily INR checks 1 day s/p procedure 3.Hx of hypothyroidism continue Levothyroxine 112 mcg PO daily 4. Anxiety Continue home medications Zoloft 50mg PO Daily 5. HX of Seizure disorder Continue home medication Klonipin .5mg PO Daily 6.PPX/Diet DVT ppx currently on hold; lovenox 40 GI protonix <Ry Espinoza - Last Filed: 08/06/18 15:13> Objective - Vital Signs/Intake and Output Vital Signs (last 24 hours): Temp Pulse Resp BP Pulse Ox 96.4 F L 64 16 122/87 100 08/06/18 12:37 08/06/18 12:37 08/06/18 12:37 08/06/18 12:37 08/06/18 12:37 Intake and Output: 08/06/18 08/06/18 06:59 18:59 Intake Total 2250 Balance 2250 - Medications Medications: Current Medications Acetaminophen (Tylenol 325mg Tab) 650 mg PO Q6 PRN PRN Reason: Fever >100.4 F Clonazepam (Klonopin) 0.5 mg PO DAILY [facility] Last Admin: 08/06/18 10:23 Dose: Not Given Enoxaparin Sodium (Lovenox) 40 mg SC DAILY [facility] Last Admin: 08/05/18 09:42 Dose: 40 mg Sodium Chloride (Sodium Chloride 0.9%) 1,000 mls @ 150 mls/hr IV .Q6H40M [facility] Last Admin: 08/06/18 10:24 Dose: 150 mls/hr Ciprofloxacin (Cipro 400mg/200ml Dsw) 400 mg in 200 mls @ 133 mls/hr IVPB Q12H [facility]; Protocol Last Admin: 08/06/18 10:21 Dose: 133 mls/hr Metronidazole (Flagyl) 500 mg in 100 mls @ 100 mls/hr IVPB Q8H [facility]; Protocol Last Admin: 08/06/18 13:39 Dose: 100 mls/hr Levothyroxine Sodium (Synthroid) 112 mcg PO DAILY@0630 [facility] Last Admin: 08/06/18 06:16 Dose: 112 mcg Morphine Sulfate (Morphine) 2 mg IVP Q4H PRN PRN Reason: Pain, severe (8-10) Last Admin: 08/06/18 13:50 Dose: 2 mg Ondansetron HCl (Zofran Inj) 4 mg IVP Q8 PRN PRN Reason: Nausea/Vomiting Last Admin: 08/06/18 13:48 Dose: 4 mg Pantoprazole Sodium (Protonix Inj) 40 mg IVP Q12H [facility] Last Admin: 08/06/18 13:23 Dose: Not Given Sertraline HCl (Zoloft) 50 mg PO DAILY [facility] Last Admin: 08/06/18 10:24 Dose: Not Given - Labs Labs: 08/06/18 07:22 08/06/18 07:22 PT 16.0 SECONDS (9.7-12.2) H 08/06/18 07:22 INR 1.5 08/06/18 07:22 APTT 34 SECONDS (21-34) 08/06/18 07:22 Attending/Attestation - Attestation I have personally seen and examined this patient.: Yes I have fully participated in the care of the patient.: Yes I have reviewed all pertinent clinical information, including history, physical exam and plan: Yes Notes (Text): 08/06/18 15:12 Medical attending: I reviewed the above note by the emergency medical service coordinator, by the time we had rounded with the medical residents they had taken her for the colonoscopy. I will have to come back later on this afternoon to see the patient. There was a a biopsy taken from what I understand, and so we will slowly work on the bridging her back onto the Coumadin that she was taking before. thank you Ry Espinoza
[2018-08-06 07:34] LABS: BASO % 0.5 % (0.0-2.0); EOS # 0.1 K/uL (0.0-0.7); EOS % 1.8 % (0.0-4.0); HEMOGLOBIN 13.1 g/dL (11.0-16.0); LYMPH % 15.4 % (20.0-40.0); MEAN CELL VOLUME 87.4 fL (81.0-99.0); MEAN CORPUSCULAR HEMOGLOBIN 30.3 pg (27.0-31.0); MEAN CORPUSCULAR HGB CONC 34.7 g/dL (33.0-37.0); MEAN PLATELET VOLUME 10.3 fL (7.2-11.7); MONO # 0.4 K/uL (0.0-0.8); MONO % 6.5 % (0.0-10.0); NEUT # 4.7 K/uL (1.8-7.0); NEUT % 75.8 % (50.0-75.0); RBC 4.32 Mil/uL (3.80-5.20); RED CELL DISTRIBUTION WIDTH 13.2 % (11.5-14.5); WHITE BLOOD COUNT 6.2 K/uL (4.8-10.8)
[2018-08-06 08:04] LABS: ALB/GLOB RATIO 1.3 (1.0-2.1); ALBUMIN 3.8 g/dL (3.5-5.0); ALT/SGPT 73 U/L (9-52); AST/SGOT 67 U/L (14-36); BLOOD UREA NITROGEN 3 mg/dL (7-17); CALCIUM 8.8 mg/dl (8.6-10.4); GFR NON-AFRICAN AMERICAN > 60
[2018-08-06 08:48] LABS: INR 1.5
[2018-08-06] MEDS: Ciprofloxacin 400mg/200ml D5W 400 MG/200 ML BAG IVPB SCH ×2 (10:21→21:50)
[2018-08-06] MEDS: Sodium Chloride 0.9% 1,000 ML IV SCH ×3 (10:24→21:35)
[2018-08-06] MEDS ORDERED: Propofol 10 mg/ml Inj (20 ML) ONE ×3 (11:05→11:51)
[2018-08-06] MEDS ORDERED: Midazolam 2 MG/2 ML VIAL ONE (11:05)
[2018-08-06] MEDS ORDERED: Lactated Ringer's 500 ML IV ONE (11:08)
[2018-08-06] MEDS ORDERED: Simethicone 40 mg/0.6 ml Liquid (30 ml) ONE (11:35)
[2018-08-06 17:08] VITALS: RESP 20
[2018-08-07] MEDS: metroNIDAZOLE IV 500 mg/100 ml 500 MG/100 ML BAG IVPB SCH ×3 (05:40→22:10)
[2018-08-07] MEDS: Levothyroxine 112 MCG TAB PO SCH (05:41)
[2018-08-07 06:37] LABS: BASO % 0.6 % (0.0-2.0); EOS # 0.2 K/uL (0.0-0.7); LYMPH # 0.9 K/uL (1.0-4.3); LYMPH % 15.8 % (20.0-40.0); MEAN CELL VOLUME 87.4 fL (81.0-99.0); MEAN CORPUSCULAR HEMOGLOBIN 29.6 pg (27.0-31.0); MEAN CORPUSCULAR HGB CONC 33.9 g/dL (33.0-37.0); MEAN PLATELET VOLUME 10.5 fL (7.2-11.7); MONO # 0.4 K/uL (0.0-0.8); MONO % 6.8 % (0.0-10.0); NEUT # 4.2 K/uL (1.8-7.0); NEUT % 73.8 % (50.0-75.0); NRBC % 0.1 % (0.0-2.0); RBC 4.4 Mil/uL (3.80-5.20); RED CELL DISTRIBUTION WIDTH 13.3 % (11.5-14.5); WHITE BLOOD COUNT 5.7 K/uL (4.8-10.8)
[2018-08-07 06:48] LABS: INR 1.4; PROTHROMBIN TIME 15.2 SECONDS (9.7-12.2)
[2018-08-07 07:37] LABS: ALB/GLOB RATIO 1.3 (1.0-2.1); ALBUMIN 3.8 g/dL (3.5-5.0); ALT/SGPT 82 U/L (9-52); AST/SGOT 73 U/L (14-36); BLOOD UREA NITROGEN 6 mg/dL (7-17); CALCIUM 8.8 mg/dl (8.6-10.4); GFR NON-AFRICAN AMERICAN > 60
[2018-08-07] MEDS: Sodium Chloride 0.9% 1,000 ML IV SCH ×4 (09:44→22:09)
--- NOTE | 2018-08-07 10:07 | CP.PCM.PN ---
<Elidiajose antonioaryanEliot - Last Filed: 08/07/18 11:47> Subjective - Date & Time of Evaluation Date of Evaluation: 08/07/18 Time of Evaluation: 08:00 - Subjective Subjective: PGY6 GI Fellow Progress Note Patient seen and examined bedside this morning. The patient states that she is continuing to have some diffuse abdominal pain, particularly in the lower abdomen. She also notes some nausea this morning. Did tolerate solid food for lunch/dinner without vomiting yesterday. No events overnight. 12 system ROS performed and negative except where stated Objective - Vital Signs/Intake and Output Vital Signs (last 24 hours): Temp Pulse Resp BP Pulse Ox 98.6 F 69 20 139/95 H 100 08/07/18 08:20 08/07/18 08:20 08/07/18 08:20 08/07/18 08:20 08/07/18 08:20 Intake and Output: 08/07/18 08/07/18 06:59 18:59 Intake Total 2470 Balance 2470 - Medications Medications: Current Medications Acetaminophen (Tylenol 325mg Tab) 650 mg PO Q6 PRN PRN Reason: Fever >100.4 F Clonazepam (Klonopin) 0.5 mg PO DAILY [facility] Last Admin: 08/07/18 09:44 Dose: 0.5 mg Enoxaparin Sodium (Lovenox) 40 mg SC DAILY [facility] Last Admin: 08/05/18 09:42 Dose: 40 mg Sodium Chloride (Sodium Chloride 0.9%) 1,000 mls @ 150 mls/hr IV .Q6H40M [facility] Last Admin: 08/07/18 09:44 Dose: 150 mls/hr Ciprofloxacin (Cipro 400mg/200ml Dsw) 400 mg in 200 mls @ 133 mls/hr IVPB Q12H [facility]; Protocol Last Admin: 08/06/18 21:50 Dose: 133 mls/hr Metronidazole (Flagyl) 500 mg in 100 mls @ 100 mls/hr IVPB Q8H [facility]; Protocol Last Admin: 08/07/18 05:40 Dose: 100 mls/hr Levothyroxine Sodium (Synthroid) 112 mcg PO DAILY@0630 [facility] Last Admin: 08/07/18 05:41 Dose: 112 mcg Morphine Sulfate (Morphine) 2 mg IVP Q4H PRN PRN Reason: Pain, severe (8-10) Last Admin: 08/07/18 09:43 Dose: 2 mg Ondansetron HCl (Zofran Inj) 4 mg IVP Q8 PRN PRN Reason: Nausea/Vomiting Last Admin: 08/07/18 07:51 Dose: 4 mg Pantoprazole Sodium (Protonix Inj) 40 mg IVP Q12H [facility] Last Admin: 08/06/18 22:25 Dose: 40 mg Sertraline HCl (Zoloft) 50 mg PO DAILY [facility] Last Admin: 08/07/18 09:44 Dose: 50 mg Warfarin Sodium (Coumadin) 6 mg PO 1800 [facility] Stop: 08/07/18 18:01 - Labs Labs: 08/07/18 06:28 08/07/18 06:28 PT 15.2 SECONDS (9.7-12.2) H 08/07/18 06:28 INR 1.4 08/07/18 06:28 APTT 31 SECONDS (21-34) 08/07/18 06:28 - Constitutional Appears: Non-toxic, No Acute Distress - Eye Exam Eye Exam: EOMI, PERRL - ENT Exam ENT Exam: Mucous Membranes Moist - Respiratory Exam Respiratory Exam: Clear to Ausculation Bilateral. absent: Rales, Rhonchi, Wheezes - Cardiovascular Exam Cardiovascular Exam: RRR, +S1, +S2 - GI/Abdominal Exam GI & Abdominal Exam: Soft, Tenderness (RLQ), Normal Bowel Sounds. absent: Distended, Firm, Guarding, Rigid, Organomegaly - Extremities Exam Extremities Exam: Normal Inspection. 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 -Abdominal pain -Nausea/vomiting -Hematochezia, resolved -Supratherapeutic INR, resolved Plan: -Abdominal pain and nausea persist -Colonoscopy showing significant edema from 30cm from anal verge to cecum - also noted is area of erythema/friability 30-40cm from rectal verge in sigmoid -Biopsies pending, await results -Etiology of colitis remains elusive presently, awaiting biopsies - does not grossly appear 2/2 ischemic injury; inflammatory causes cannot be excluded at this time -Consider endometriosis in diagnosis given worsening of symptoms during menstrual periods -Diet as tolerated -Nausea may be adverse effect of antibiotic therapy - continue with antiemetics PRN <Stanley Limon - Last Filed: 08/07/18 19:00> Objective - Vital Signs/Intake and Output Vital Signs (last 24 hours): Temp Pulse Resp BP Pulse Ox 98.7 F 67 20 137/98 H 98 08/07/18 15:23 08/07/18 15:23 08/07/18 15:23 08/07/18 15:23 08/07/18 15:23 Intake and Output: 08/07/18 08/07/18 06:59 18:59 Intake Total 2470 Balance 2470 - Medications Medications: Current Medications Acetaminophen (Tylenol 325mg Tab) 650 mg PO Q6 PRN PRN Reason: Fever >100.4 F Benzocaine/Menthol (Cepacol Sore Throat) 1 jessica MT Q4H PRN PRN Reason: Sore Throat Clonazepam (Klonopin) 0.5 mg PO DAILY [facility] Last Admin: 08/07/18 09:44 Dose: 0.5 mg Sodium Chloride (Sodium Chloride 0.9%) 1,000 mls @ 150 mls/hr IV .Q6H40M [facility] Last Admin: 08/07/18 09:44 Dose: 150 mls/hr Ciprofloxacin (Cipro 400mg/200ml Dsw) 400 mg in 200 mls @ 133 mls/hr IVPB Q12H [facility]; Protocol Last Admin: 08/07/18 11:12 Dose: 133 mls/hr Metronidazole (Flagyl) 500 mg in 100 mls @ 100 mls/hr IVPB Q8H [facility]; Protocol Last Admin: 08/07/18 14:22 Dose: 100 mls/hr Levothyroxine Sodium (Synthroid) 112 mcg PO DAILY@0630 [facility] Last Admin: 08/07/18 05:41 Dose: 112 mcg Morphine Sulfate (Morphine) 2 mg IVP Q4H PRN PRN Reason: Pain, severe (8-10) Last Admin: 08/07/18 16:31 Dose: 2 mg Ondansetron HCl (Zofran Inj) 4 mg IVP Q6H PRN PRN Reason: Nausea/Vomiting Pantoprazole Sodium (Protonix Inj) 40 mg IVP Q12H [facility] Last Admin: 08/07/18 11:12 Dose: 40 mg Sertraline HCl (Zoloft) 50 mg PO DAILY [facility] Last Admin: 08/07/18 09:44 Dose: 50 mg - Labs Labs: 08/07/18 06:28 08/07/18 06:28 PT 15.2 SECONDS (9.7-12.2) H 08/07/18 06:28 INR 1.4 08/07/18 06:28 APTT 31 SECONDS (21-34) 08/07/18 06:28 Attending/Attestation - Attestation I have personally seen and examined this patient.: Yes I have fully participated in the care of the patient.: Yes I have reviewed all pertinent clinical information, including history, physical exam and plan: Yes Notes (Text): 08/07/18 18:57 I have seen and examined patient with GI fellow. No acute events overnight, she is seen ambulating in room, appears comfortable. She was able to tolerate PO diet without difficulty, still endorses nausea with mild abdominal discomfort. No bowel movements today. May-Thurner syndrome DVT on coumadin Hypothyroidism Abdominal pain - s/p EGD and colonoscopy with biopsies showing unremarkable findings - Advance diet as tolerated - Follow up hematology recommendations - Consider discontinuing antibiotic therapy as this may contribute to ongoing nausea - no focal GI abnormality to warrant use at this time - No further planned GI intervention, suggest additional outpatient follow up. Will sign off case, please reconsult as necessary, thank you.
[2018-08-07] MEDS: Ciprofloxacin 400mg/200ml D5W 400 MG/200 ML BAG IVPB SCH ×2 (11:12→22:12)
--- NOTE | 2018-08-07 12:27 | CP.PCM.CON ---
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 The patient notes to worsening abdominal pain associated with bright red blood per rectum. She has been taking coumadin 6mg daily with therapeutic INRs. Past medical history: anxiety, hypothyroid, May-Thurner syndrome Past surgical history: IVC filter Family history: Denies hematologic and oncologic problems Social history: Denies tobacco, alcohol, and illicit drug use. Allergies: NKA Review of systems: All remaining review of systems including HEENT, cardiovascular, respiratory, gastrointestinal, genitourinary, musculoskeletal, dermatologic, neurologic, and psychiatric are negative unless mentioned in the HPI. Past Patient History - Infectious Disease Hx of Infectious Diseases: None - Past Medical History & Family History Past Medical History?: Yes - Past Social History Smoking Status: Former Smoker - CARDIAC Hx Hypertension: Yes (Pt denies) - PULMONARY Hx Asthma: Yes - NEUROLOGICAL Hx Neurological Disorder: Yes Other/Comment: trigeminal neuralgia. Brain bleed - HEENT Other/Comment: states recently completed abtx for tooth infection x1wk ago - RENAL Hx Chronic Kidney Disease: Yes - ENDOCRINE/METABOLIC Hx Hypothyroidism: Yes - HEMATOLOGICAL/ONCOLOGICAL Hx Blood Disorders: No Other/Comment: Mariajose Crouch sydrome - INTEGUMENTARY Hx Dermatological Problems: No - MUSCULOSKELETAL/RHEUMATOLOGICAL Hx Musculoskeletal Disorders: No - GASTROINTESTINAL Hx Gastrointestinal Disorders: No - GENITOURINARY/GYNECOLOGICAL Hx Genitourinary Disorders: No - PSYCHIATRIC Hx Anxiety: Yes Hx Substance Use: No - SURGICAL HISTORY Hx Surgeries: Yes Other/Comment: IVC filter, clot removal - ANESTHESIA Hx Anesthesia: Yes Hx Anesthesia Reactions: No Hx Malignant Hyperthermia: No Meds Allergies/Adverse Reactions: Allergies Allergy/AdvReac Type Severity Reaction Status Date / Time No Known Allergies Allergy Verified 08/02/18 19:10 - Medications Medications: Current Medications Acetaminophen (Tylenol 325mg Tab) 650 mg PO Q6 PRN PRN Reason: Fever >100.4 F Clonazepam (Klonopin) 0.5 mg PO DAILY [facility] Last Admin: 08/07/18 09:44 Dose: 0.5 mg Sodium Chloride (Sodium Chloride 0.9%) 1,000 mls @ 150 mls/hr IV .Q6H40M [facility] Last Admin: 08/07/18 09:44 Dose: 150 mls/hr Ciprofloxacin (Cipro 400mg/200ml Dsw) 400 mg in 200 mls @ 133 mls/hr IVPB Q12H [facility]; Protocol Last Admin: 08/07/18 11:12 Dose: 133 mls/hr Metronidazole (Flagyl) 500 mg in 100 mls @ 100 mls/hr IVPB Q8H [facility]; Protocol Last Admin: 08/07/18 05:40 Dose: 100 mls/hr Levothyroxine Sodium (Synthroid) 112 mcg PO DAILY@0630 [facility] Last Admin: 08/07/18 05:41 Dose: 112 mcg Morphine Sulfate (Morphine) 2 mg IVP Q4H PRN PRN Reason: Pain, severe (8-10) Last Admin: 08/07/18 09:43 Dose: 2 mg Ondansetron HCl (Zofran Inj) 4 mg IVP Q6H PRN PRN Reason: Nausea/Vomiting Pantoprazole Sodium (Protonix Inj) 40 mg IVP Q12H [facility] Last Admin: 08/07/18 11:12 Dose: 40 mg Sertraline HCl (Zoloft) 50 mg PO DAILY [facility] Last Admin: 08/07/18 09:44 Dose: 50 mg Warfarin Sodium (Coumadin) 6 mg PO 1800 [facility] Stop: 08/07/18 18:01 Physical Exam - Head Exam Head Exam: ATRAUMATIC - Eye Exam Eye Exam: Normal appearance - ENT Exam ENT Exam: Mucous Membranes Dry - Respiratory Exam Respiratory Exam: NORMAL BREATHING PATTERN - Cardiovascular Exam Cardiovascular Exam: +S1, +S2 - GI/Abdominal Exam GI & Abdominal Exam: Normal Bowel Sounds - Extremities Exam Extremities exam: Positive for: normal inspection - Neurological Exam Neurological exam: Oriented x3 - Psychiatric Exam Psychiatric exam: Normal Affect, Normal Mood - Skin Skin Exam: Warm Results - Vital Signs Recent Vital Signs: Last Vital Signs Temp 98.6 F 08/07/18 08:20 Pulse 69 08/07/18 08:20 Resp 20 08/07/18 08:20 BP 139/95 H 08/07/18 08:20 Pulse Ox 100 08/07/18 08:20 - Labs Result Diagrams: 08/07/18 06:28 08/07/18 06:28 Labs: Laboratory Results - last 24 hr 08/07/18 08/07/18 08/07/18 06:28 06:28 06:28 WBC 5.7 RBC 4.40 Hgb 13.0 Hct 38.5 MCV 87.4 MCH 29.6 MCHC 33.9 RDW 13.3 Plt Count 159 MPV 10.5 Neut % (Auto) 73.8 Lymph % (Auto) 15.8 L [place] % (Auto) 6.8 Eos % (Auto) 3.0 Baso % (Auto) 0.6 Neut # (Auto) 4.2 Lymph # (Auto) 0.9 L [place] # (Auto) 0.4 Eos # (Auto) 0.2 Baso # (Auto) 0.0 PT 15.2 H INR 1.4 APTT 31 Sodium 139 Potassium 3.7 Chloride 102 Carbon Dioxide 26 Anion Gap 15 BUN 6 L Creatinine 0.5 L Est GFR ( Amer) > 60 Est GFR (Non-Af Amer) > 60 Random Glucose 87 Calcium 8.8 Total Bilirubin 0.7 AST 73 H ALT 82 H Alkaline Phosphatase 86 Total Protein 6.8 Albumin 3.8 Globulin 3.0 Albumin/Globulin Ratio 1.3 Assessment & Plan (1) DVT (deep venous thrombosis) Assessment and Plan: Provoked from May-Thurners syndrome s/p IVC filter and thrombolysis on therapeutic anticoagulation with coumadin will need to clarify with vascular surgery on if patient will require lifelong anticoagulation coumadin on hold for colonoscopy with biopsy; goal INR < 1.5 therapeutic lovenox post colonoscopy with resumption of coumadin; goal INR 2-3 Thank you for this interesting consult. Status: Acute
--- NOTE | 2018-08-07 12:30 | CP.PCM.PN ---
<Lamonte Villarreal - Last Filed: 08/07/18 13:09> Subjective - Date & Time of Evaluation Date of Evaluation: 08/07/18 Time of Evaluation: 09:05 - Subjective Subjective: Progress Note for Hospitalist Service Pt seen and examined at bedside this am. States she feels a little better compared to yesterday. States she was feeling nauseous earlier this am and received Zofran which helped. Was able to tolerate eating cereal this am, but couldn't eat the rest of the items on her breakfast tray because she felt nauseous. Denies diarrhea, abd pain, rectal bleeding, constipation, vomiting episodes, fever, chills, chest pain, sob, urinary complaints, or other symptoms. Also c/o sore throat pain that pt states may have been 2/2 to her endoscopy yesterday. Objective - Vital Signs/Intake and Output Vital Signs (last 24 hours): Temp Pulse Resp BP Pulse Ox 98.6 F 69 20 139/95 H 100 08/07/18 08:20 08/07/18 08:20 08/07/18 08:20 08/07/18 08:20 08/07/18 08:20 Intake and Output: 08/07/18 08/07/18 06:59 18:59 Intake Total 2470 Balance 2470 - Medications Medications: Current Medications Acetaminophen (Tylenol 325mg Tab) 650 mg PO Q6 PRN PRN Reason: Fever >100.4 F Clonazepam (Klonopin) 0.5 mg PO DAILY [facility] Last Admin: 08/07/18 09:44 Dose: 0.5 mg Sodium Chloride (Sodium Chloride 0.9%) 1,000 mls @ 150 mls/hr IV .Q6H40M [facility] Last Admin: 08/07/18 09:44 Dose: 150 mls/hr Ciprofloxacin (Cipro 400mg/200ml Dsw) 400 mg in 200 mls @ 133 mls/hr IVPB Q12H [facility]; Protocol Last Admin: 08/07/18 11:12 Dose: 133 mls/hr Metronidazole (Flagyl) 500 mg in 100 mls @ 100 mls/hr IVPB Q8H [facility]; Protocol Last Admin: 08/07/18 05:40 Dose: 100 mls/hr Levothyroxine Sodium (Synthroid) 112 mcg PO DAILY@0630 [facility] Last Admin: 08/07/18 05:41 Dose: 112 mcg Morphine Sulfate (Morphine) 2 mg IVP Q4H PRN PRN Reason: Pain, severe (8-10) Last Admin: 08/07/18 09:43 Dose: 2 mg Ondansetron HCl (Zofran Inj) 4 mg IVP Q6H PRN PRN Reason: Nausea/Vomiting Pantoprazole Sodium (Protonix Inj) 40 mg IVP Q12H [facility] Last Admin: 08/07/18 11:12 Dose: 40 mg Sertraline HCl (Zoloft) 50 mg PO DAILY [facility] Last Admin: 08/07/18 09:44 Dose: 50 mg Warfarin Sodium (Coumadin) 6 mg PO 1800 [facility] Stop: 08/07/18 18:01 - Labs Labs: 08/07/18 06:28 08/07/18 06:28 PT 15.2 SECONDS (9.7-12.2) H 08/07/18 06:28 INR 1.4 08/07/18 06:28 APTT 31 SECONDS (21-34) 08/07/18 06:28 - Constitutional Appears: Non-toxic, No Acute Distress - Head Exam Head Exam: ATRAUMATIC, NORMOCEPHALIC - Eye Exam Eye Exam: EOMI, Normal appearance, PERRL - ENT Exam ENT Exam: Mucous Membranes Moist, Normal Oropharynx - Neck Exam Neck Exam: Full ROM, Normal Inspection. absent: Lymphadenopathy, Tenderness - Respiratory Exam Respiratory Exam: Clear to Ausculation Bilateral, NORMAL BREATHING PATTERN. absent: Rales, Rhonchi, Wheezes - Cardiovascular Exam Cardiovascular Exam: REGULAR RHYTHM, +S1, +S2. absent: Gallop, Rubs, Murmur - GI/Abdominal Exam GI & Abdominal Exam: Soft, Normal Bowel Sounds. absent: Distended, Firm, Guarding, Rigid, Organomegaly, Rebound Additional comments: Mild tenderness to palpation in RLQ - Neurological Exam Neurological Exam: Alert, Awake, CN II-XII Intact, Oriented x3 - Psychiatric Exam Psychiatric exam: Normal Affect, Normal Mood - Skin Skin Exam: Dry, Intact, Normal Color, Warm Assessment and Plan - Assessment and Plan (Free Text) Assessment: 37 year old female with PMH of anxiety, hypothyroidism, trigeminal neuralgia, May Wahl syndrome with DVT in 09/2017 requiring thrombolysis with TPA with angiojet and stenting, right IVC filter and had SAH during last admission, presented during this admission with bloody stool with mucus, and crampy abd pain. Currently being managed for lower GI bleed and colitis. Plan: Lower GI Bleed s/p EGD/colonoscopy; Colitis EGD(08/06): friable, congested mucosa visualized. Bx taken Colonoscopy(08/06): areas of congestion, erythema and friable mucosa. F/U path abdominal CT shows nonspecific infectious/inflammatory colitis of the ascending and descending colon. Mild hepatosplenomegaly. fatty Liver. Ciprofloxacin 400 mg IVPB Q12H and Metronidazole 400 mg IVPB Q8H Morphine for pain Antiemetics prn for nausea Regular diet as tolerated Resume coumadin this evening 6 mg at 6 pm tonight, f/u repeat INR tomorrow am GI consulted, recs appreciated Dr. Guerra (Heme/Onc) consulted, recs appreciated Hx of DVT on coumadin Dr. Guerra recs: s/p scope w/ bx; start therapeutic Lovenox and bridge to home coumadin dose, daily INR checks 1 day s/p procedure Lovenox d/c'd today Hx of hypothyroidism Continue Levothyroxine 112 mcg PO daily Anxiety Continue home medications Zoloft 50mg PO Daily Hx of Seizure disorder Continue home medication Klonipin .5mg PO Daily PPX/Diet DVT ppx: Lovenox d/c'd, will start Coumadin 6 mg daily tonight GI ppx: protonix Pt seen, examined with, and plan d/w Dr. Espinoza, attending physician. Lamonte Villarreal DO PGY-1, [employer] Pager #[phone] <Ry Espinoza H - Last Filed: 08/07/18 14:55> Objective - Vital Signs/Intake and Output Vital Signs (last 24 hours): Temp Pulse Resp BP Pulse Ox 98.6 F 69 20 139/95 H 100 08/07/18 08:20 08/07/18 08:20 08/07/18 08:20 08/07/18 08:20 08/07/18 08:20 Intake and Output: 08/07/18 08/07/18 06:59 18:59 Intake Total 2470 Balance 2470 - Medications Medications: Current Medications Acetaminophen (Tylenol 325mg Tab) 650 mg PO Q6 PRN PRN Reason: Fever >100.4 F Benzocaine/Menthol (Cepacol Sore Throat) 1 jessica [place] Q4H PRN PRN Reason: Sore Throat Clonazepam (Klonopin) 0.5 mg PO DAILY [facility] Last Admin: 08/07/18 09:44 Dose: 0.5 mg Sodium Chloride (Sodium Chloride 0.9%) 1,000 mls @ 150 mls/hr IV .Q6H40M [facility] Last Admin: 08/07/18 09:44 Dose: 150 mls/hr Ciprofloxacin (Cipro 400mg/200ml Dsw) 400 mg in 200 mls @ 133 mls/hr IVPB Q12H [facility]; Protocol Last Admin: 08/07/18 11:12 Dose: 133 mls/hr Metronidazole (Flagyl) 500 mg in 100 mls @ 100 mls/hr IVPB Q8H [facility]; Protocol Last Admin: 08/07/18 14:22 Dose: 100 mls/hr Levothyroxine Sodium (Synthroid) 112 mcg PO DAILY@0630 [facility] Last Admin: 08/07/18 05:41 Dose: 112 mcg Morphine Sulfate (Morphine) 2 mg IVP Q4H PRN PRN Reason: Pain, severe (8-10) Last Admin: 08/07/18 09:43 Dose: 2 mg Ondansetron HCl (Zofran Inj) 4 mg IVP Q6H PRN PRN Reason: Nausea/Vomiting Pantoprazole Sodium (Protonix Inj) 40 mg IVP Q12H [facility] Last Admin: 08/07/18 11:12 Dose: 40 mg Sertraline HCl (Zoloft) 50 mg PO DAILY [facility] Last Admin: 08/07/18 09:44 Dose: 50 mg Warfarin Sodium (Coumadin) 6 mg PO 1800 [facility] Stop: 08/07/18 18:01 - Labs Labs: 08/07/18 06:28 08/07/18 06:28 PT 15.2 SECONDS (9.7-12.2) H 08/07/18 06:28 INR 1.4 08/07/18 06:28 APTT 31 SECONDS (21-34) 08/07/18 06:28 Attending/Attestation - Attestation I have personally seen and examined this patient.: Yes I have fully participated in the care of the patient.: Yes I have reviewed all pertinent clinical information, including history, physical exam and plan: Yes Notes (Text): 08/07/18 14:52 Medical attending: Patient was seen and examined by me. Agree with the above note by the resident The patient was not in any acute distress when I came and saw her today. she had some very mild lower qudarant pain. Also throat felt hoarse she said probably from [email or web address] Currently pending the biopsy results from GI Will restart the coumadin now. The Hgb has remained stable Possible if biopsy returns tommorow patient can be discharged Ry Espinoza
[2018-08-07] MEDS ORDERED: Benzocaine/Menthol (Cepacol) Lozenge MT PRN (14:14)
[2018-08-08] MEDS: metroNIDAZOLE IV 500 mg/100 ml 500 MG/100 ML BAG IVPB SCH (05:46)
[2018-08-08] MEDS: Levothyroxine 112 MCG TAB PO SCH (05:46)
[2018-08-08 08:37] LABS: BASO % 0.6 % (0.0-2.0); EOS # 0.1 K/uL (0.0-0.7); HEMOGLOBIN 13.7 g/dL (11.0-16.0); LYMPH % 17.7 % (20.0-40.0); MEAN CELL VOLUME 86.8 fL (81.0-99.0); MEAN CORPUSCULAR HEMOGLOBIN 29.7 pg (27.0-31.0); MEAN CORPUSCULAR HGB CONC 34.2 g/dL (33.0-37.0); MEAN PLATELET VOLUME 10.5 fL (7.2-11.7); MONO # 0.4 K/uL (0.0-0.8); MONO % 7.7 % (0.0-10.0); NEUT # 4.2 K/uL (1.8-7.0); NRBC % 0.1 % (0.0-2.0); RBC 4.63 Mil/uL (3.80-5.20); RED CELL DISTRIBUTION WIDTH 13.5 % (11.5-14.5); WHITE BLOOD COUNT 5.8 K/uL (4.8-10.8)
[2018-08-08 08:40] LABS: INR 1.3; PROTHROMBIN TIME 14.6 SECONDS (9.7-12.2)
[2018-08-08 08:47] LABS: ALB/GLOB RATIO 1.4 (1.0-2.1); ALBUMIN 4.2 g/dL (3.5-5.0); ALT/SGPT 81 U/L (9-52); AST/SGOT 64 U/L (14-36); BLOOD UREA NITROGEN 7 mg/dL (7-17); CALCIUM 9.1 mg/dl (8.6-10.4); GFR NON-AFRICAN AMERICAN > 60
[2018-08-08 09:20] VITALS: BP 149/93; PULSE 57; TEMP 98.5; O2SAT 99
[2018-08-08] MEDS: Ciprofloxacin 400mg/200ml D5W 400 MG/200 ML BAG IVPB SCH (10:56)
--- NOTE | 2018-08-08 12:53 | CP.PCM.DIS ---
<Alia Landers - Last Filed: 08/08/18 13:20> Provider - Provider Date of Admission: 08/02/18 21:13 Attending physician: Dajuan Roman MD Consults: Dr. Guerra, heme/onc Dr. 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: Requiring anticoagulation Hospital Course - Lab Results Lab Results: Micro Results 08/03/18 11:36 Blood-Venous Blood Culture - Final NO GROWTH AFTER 5 DAYS 08/03/18 11:36 Blood-Venous Gram Stain - Final TEST NOT PERFORMED 08/03/18 07:00 Blood-Venous Blood Culture - Final NO GROWTH AFTER 5 DAYS 08/03/18 07:00 Blood-Venous Gram Stain - Final TEST NOT PERFORMED Most Recent Lab Values WBC 5.8 K/uL (4.8-10.8) 08/08/18 08:23 RBC 4.63 Mil/uL (3.80-5.20) 08/08/18 08:23 Hgb 13.7 g/dL (11.0-16.0) 08/08/18 08:23 Hct 40.2 % (34.0-47.0) 08/08/18 08:23 MCV 86.8 fL (81.0-99.0) 08/08/18 08:23 MCH 29.7 pg (27.0-31.0) 08/08/18 08:23 MCHC 34.2 g/dL (33.0-37.0) 08/08/18 08:23 RDW 13.5 % (11.5-14.5) 08/08/18 08:23 Plt Count 163 K/uL (130-400) 08/08/18 08:23 MPV 10.5 fL (7.2-11.7) 08/08/18 08:23 Neut % (Auto) 72.0 % (50.0-75.0) 08/08/18 08:23 Lymph % (Auto) 17.7 % (20.0-40.0) L 08/08/18 08:23 Carlton % (Auto) 7.7 % (0.0-10.0) 08/08/18 08:23 Eos % (Auto) 2.0 % (0.0-4.0) 08/08/18 08: Baso % (Auto) 0.6 % (0.0-2.0) 08/08/18 08: Neut # (Auto) 4.2 K/uL (1.8-7.0) 08/08/18 08: Lymph # (Auto) 1.0 K/uL (1.0-4.3) 08/08/18 08: Carlton # (Auto) 0.4 K/uL (0.0-0.8) 08/08/18 08: Eos # (Auto) 0.1 K/uL (0.0-0.7) 08/08/18 08: Baso # (Auto) 0.0 K/uL (0.0-0.2) 08/08/18 08: Neutrophils % (Manual) 89 % (50-75) H 08/02/18 20:00 Lymphocytes % (Manual) 6 % (20-40) L 08/02/18 20:00 Monocytes % (Manual) 3 % (0-10) 08/02/18 20:00 Eosinophils % (Manual) 2 % (0-4) 08/02/18 20:00 Differential Comment 08/08/18 08: Platelet Estimate Normal (NORMAL) 08/02/18 20:00 PT 14.6 SECONDS (9.7-12.2) H 08/08/18 08: INR 1.3 08/08/18: APTT 32 SECONDS (21-34) 08/08/18 08: Sodium 140 mmol/L (132-148) 08/08/18 08: Potassium 3.8 mmol/L (3.6-5.2) 08/08/18 08: Chloride 105 mmol/L (98-107) 08/08/18: Carbon Dioxide 24 mmol/L (22-30) 08/08/18 08: Anion Gap 16 (10-20) 08/08/18 08: BUN 7 mg/dL (7-17) 08/08/18 08: Creatinine 0.5 mg/dL (0.7-1.2) L 08/08/18 08: Est GFR ( Amer) > 60 08/08/18 08:23 Est GFR (Non-Af Amer) > 60 08/08/18 08:23 Random Glucose 95 mg/dL (65-105) 08/08/18 08:23 Calcium 9.1 mg/dl (8.6-10.4) 08/08/18 08:23 Phosphorus 2.2 mg/dL (2.5-4.5) L 08/03/18 07:29 Magnesium 1.7 mg/dL (1.6-2.3) 08/03/18 07:29 Total Bilirubin 0.5 mg/dL (0.2-1.3) 08/08/18 08:23 AST 64 U/L (14-36) H 08/08/18 08:23 ALT 81 U/L (9-52) H 08/08/18 08:23 Alkaline Phosphatase 88 U/L (38-126) 08/08/18 08:23 Total Protein 7.2 g/dL (6.3-8.3) 08/08/18 08:23 Albumin 4.2 g/dL (3.5-5.0) 08/08/18 08:23 Globulin 3.0 gm/dL (2.2-3.9) 08/08/18 08:23 Albumin/Globulin Ratio 1.4 (1.0-2.1) 08/08/18 08:23 Urine HCG, Qual Negative (NEGATIVE) 08/05/18 19:02 Stool Occult Blood Positive (NEGATIVE) 08/04/18 01:05 Stool Occult Blood #2 (NEGATIVE) 08/04/18 01:05 Hepatitis A IgM Ab Negative (NEGATIVE) 08/05/18 14:03 Hep Bs Antigen Negative (NEGATIVE) 08/05/18 14:03 Hep B Core IgM Ab Negative (NEGATIVE) 08/05/18 14:03 Hepatitis C Antibody Negative (NEGATIVE) 08/05/18 14:03 Blood Type O POSITIVE 08/02/18 20:00 Antibody Screen Positive 08/02/18 20:00 Antibody Identification Anti C 08/02/18 20:00 Antigen Identification C Antigen - NEGATIVE 08/02/18 20:00 - Hospital Course Hospital Course: Patient is a 37 year old female who was evaluated and treated at [facility] from 08/02/18-08/08/18. Patient presented with complaints of abdominal discomfort and hematochezia. Pt had presented to ED earlier in the day, CT revealed findings consistent w/ colitis. Pt returned later in the day w/ new on hematochezia. EKG, CXR, bloodwork were all within normal limits. Hgb remained stable at 13-14 throughout stay. Patient's INR was elevated at 3.5 on admission and stool occult was positive. sudha Arias was consulted and Dr. Kurtz for GI. Recommendations to discontinue AC were made. GI performed endoscopy/colonoscopy with bx. No active bleeding visualized nor acute pathology identified. Patient's hgb remailed stable, and INR decreased. Pt's INR at time of discharge is 1.3. Pt was restarted on home coumadin dose of 6mg and instructed to follow up in clinic for monitoring. Pt stable for discharge home, and instructed to return to ED w/ any worsening of symptoms or excessive/prolonged bleed. 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 Pt reports that she was seen in the ED earlier in the day for abdominal pain and was discharged home after a diagnosis of colitis. Pt describes abdominal pain as intermittent, ranging from 7/10 to 10/10, sharp cramp-like pain that goes across the lower abdomen, associated with nausea and vomiting productive of clear or yellow material (nonbloody). Pt is worse on the right lower part of her abdomen and sometimes radiates to the right side of her back. Pt took tramadol today, that did not help with the pain. Pt describes having a feeling to defecate, but only produced bright red blood in jelly-like form when going to the bathroom. She admits to tactile fevers and chills. Pt states that she had an episode of near- syncope today that was described as a lightheadedness. Pt denies headache, dizziness, lightheadedness, blurry vision, chest pain at rest or exertion, pleuritic chest pain, diarrhea. Pt states she has chronic shortness of breath, that her PMD attributes to her hypothyroidism. Pt admits to cough productive of clear phlegm for the past couple of days. Pt reports that for the past couple of weeks she has had alternating constipation and diarrhea, with some dark stools in the past week." For a more detailed account, refer to EMR Discharge Exam - Head Exam Head Exam: ATRAUMATIC, NORMAL INSPECTION, NORMOCEPHALIC - Eye Exam Eye Exam: EOMI, Normal appearance - ENT Exam ENT Exam: Mucous Membranes Moist, Normal Exam - Neck Exam Neck exam: Normal Inspection - Respiratory Exam Respiratory Exam: Clear to PA & Lateral, NORMAL BREATHING PATTERN, UNREMARKABLE - Cardiovascular Exam Cardiovascular Exam: REGULAR RHYTHM, +S1, +S2. absent: Tachycardia - GI/Abdominal Exam GI & Abdominal Exam: Normal Bowel Sounds, Unremarkable. absent: Distended, Tenderness - Rectal Exam Rectal Exam: NORMAL INSPECTION - Extremities Exam Extremities exam: normal inspection, pedal pulses present - Neurological Exam Neurological exam: Alert, Normal Gait, Oriented x3 - Psychiatric Exam Psychiatric exam: Normal Affect, Normal Mood - Skin Skin Exam: Dry, Intact, Normal Color, Warm Discharge Plan - Follow Up Plan Condition: STABLE Disposition: HOME/ ROUTINE Instructions: Diarrhea in Adolescents and Adults, Colonoscopy (DC), Raúl rointestinal Bleeding (DC), Upper GI Endoscopy (DC), Warfarin, Deep Venous Thrombosis (DC) Additional Instructions: Patient is stable for discharge home. Patient instructed to continue with home meds, including coumadin 6mg po hs, daily. Pt instructed to follow up in clinic Sunday morning to obtain a CBC, PT/INR/PTT. The clinic will continue monitoring coumadin and INR levels accordingly. Patient will be given a script for bloodwork. Patient will resume anticoagulation and should be careful to avoid trauma, as anticoagulation can cause prolonged or excessive bleeding. Should patient experience prolonged or excessive bleed, or have any worsening of symptoms, pt is to return to the ED immediately. Referrals: Bernice Reyes MD [Staff Provider] - <Ry Espinoza - Last Filed: 08/08/18 16:09> Provider - Provider Date of Admission: 08/02/18 21:13 Attending physician: Dajuan Roman MD Hospital Course - Lab Results Lab Results: Micro Results 08/03/18 11:36 Blood-Venous Blood Culture - Final NO GROWTH AFTER 5 DAYS 08/03/18 11:36 Blood-Venous Gram Stain - Final TEST NOT PERFORMED 08/03/18 07:00 Blood-Venous Blood Culture - Final NO GROWTH AFTER 5 DAYS 08/03/18 07:00 Blood-Venous Gram Stain - Final TEST NOT PERFORMED Most Recent Lab Values WBC 5.8 K/uL (4.8-10.8) 08/08/18 08: RBC 4.63 Mil/uL (3.80-5.20) 08/08/18 08:23 Hgb 13.7 g/dL (11.0-16.0) 08/08/18 08: Hct 40.2 % (34.0-47.0) 08/08/18 08: MCV 86.8 fL (81.0-99.0) 08/08/18 08: MCH 29.7 pg (27.0-31.0) 08/08/18 08: MCHC 34.2 g/dL (33.0-37.0) 08/08/18 08: RDW 13.5 % (11.5-14.5) 08/08/18 08: Plt Count 163 K/uL (130-400) 08/08/18 08: MPV 10.5 fL (7.2-11.7) 08/08/18 08: Neut % (Auto) 72.0 % (50.0-75.0) 08/08/18 08: Lymph % (Auto) 17.7 % (20.0-40.0) L 08/08/18 08: Carlton % (Auto) 7.7 % (0.0-10.0) 08/08/18 08: Eos % (Auto) 2.0 % (0.0-4.0) 08/08/18 08: Baso % (Auto) 0.6 % (0.0-2.0) 08/08/18 08: Neut # (Auto) 4.2 K/uL (1.8-7.0) 08/08/18 08: Lymph # (Auto) 1.0 K/uL (1.0-4.3) 08/08/18 08:23 Carlton # (Auto) 0.4 K/uL (0.0-0.8) 08/08/18 08: Eos # (Auto) 0.1 K/uL (0.0-0.7) 08/08/18 08:23 Baso # (Auto) 0.0 K/uL (0.0-0.2) 08/08/18 08:23 Neutrophils % (Manual) 89 % (50-75) H 08/02/18 20:00 Lymphocytes % (Manual) 6 % (20-40) L 08/02/18 20:00 Monocytes % (Manual) 3 % (0-10) 08/02/18 20:00 Eosinophils % (Manual) 2 % (0-4) 08/02/18 20:00 Differential Comment 08/08/18 08:23 Platelet Estimate Normal (NORMAL) 08/02/18 20:00 PT 14.6 SECONDS (9.7-12.2) H 08/08/18 08:23 INR 1.3 08/08/18 08:23 APTT 32 SECONDS (21-34) 08/08/18 08:23 Sodium 140 mmol/L (132-148) 08/08/18 08:23 Potassium 3.8 mmol/L (3.6-5.2) 08/08/18 08:23 Chloride 105 mmol/L (98-107) 08/08/18 08:23 Carbon Dioxide 24 mmol/L (22-30) 08/08/18 08:23 Anion Gap 16 (10-20) 08/08/18 08:23 BUN 7 mg/dL (7-17) 08/08/18 08:23 Creatinine 0.5 mg/dL (0.7-1.2) L 08/08/18 08:23 Est GFR ( Amer) > 60 08/08/18 08:23 Est GFR (Non-Af Amer) > 60 08/08/18 08:23 Random Glucose 95 mg/dL (65-105) 08/08/18 08:23 Calcium 9.1 mg/dl (8.6-10.4) 08/08/18 08:23 Phosphorus 2.2 mg/dL (2.5-4.5) L 08/03/18 07:29 Magnesium 1.7 mg/dL (1.6-2.3) 08/03/18 07:29 Total Bilirubin 0.5 mg/dL (0.2-1.3) 08/08/18 08:23 AST 64 U/L (14-36) H 08/08/18 08:23 ALT 81 U/L (9-52) H 08/08/18 08:23 Alkaline Phosphatase 88 U/L (38-126) 08/08/18 08:23 Total Protein 7.2 g/dL (6.3-8.3) 08/08/18 08:23 Albumin 4.2 g/dL (3.5-5.0) 08/08/18 08:23 Globulin 3.0 gm/dL (2.2-3.9) 08/08/18 08:23 Albumin/Globulin Ratio 1.4 (1.0-2.1) 08/08/18 08:23 Urine HCG, Qual Negative (NEGATIVE) 08/05/18 19:02 Stool Occult Blood Positive (NEGATIVE) 08/04/18 01:05 Stool Occult Blood #2 (NEGATIVE) 08/04/18 01:05 Hepatitis A IgM Ab Negative (NEGATIVE) 08/05/18 14:03 Hep Bs Antigen Negative (NEGATIVE) 08/05/18 14:03 Hep B Core IgM Ab Negative (NEGATIVE) 08/05/18 14:03 Hepatitis C Antibody Negative (NEGATIVE) 08/05/18 14:03 Blood Type O POSITIVE 08/02/18 20:00 Antibody Screen Positive 08/02/18 20:00 Antibody Identification Anti C 08/02/18 20:00 Antigen Identification C Antigen - NEGATIVE 08/02/18 20:00 Attending/Attestation - Attestation I have personally seen and examined this patient.: Yes I have fully participated in the care of the patient.: Yes I have reviewed all pertinent clinical information, including history, physical exam and plan: Yes Notes (Text): 08/08/18 16:04 Medical attending: Patient was seen and examined by me. Agree with the above note The patient had return of the biopsy results and these were fine. Patient's Hgb is 13 and has remained stable while she has been here WBC stable as well She explained there was little to no abdominal pain. Minimal tenderness of throat following the procedure. Will discharge today - she explains she doesn't want to wait for INR checks and instead will follow up in the clinic for them. The patient was explained and acknowledges that she will resume the home dose of coumadin Ry Espinoza
--- NOTE | 2018-08-08 19:23 | CP.PCM.PN ---
Subjective - Date & Time of Evaluation Date of Evaluation: 08/07/18 Time of Evaluation: 12:00 - Subjective Subjective: Feeling better Objective - Vital Signs/Intake and Output Vital Signs (last 24 hours): Temp Pulse Resp BP Pulse Ox 98.5 F 57 L 20 149/93 H 99 08/08/18 09:18 08/08/18 09:18 08/08/18 09:18 08/08/18 09:18 08/08/18 09:18 - Labs Labs: 08/08/18 08:23 08/08/18 08:23 PT 14.6 SECONDS (9.7-12.2) H 08/08/18 08:23 INR 1.3 08/08/18 08:23 APTT 32 SECONDS (21-34) 08/08/18 08:23 - Head Exam Head Exam: ATRAUMATIC - Eye Exam Eye Exam: Normal appearance - ENT Exam ENT Exam: Mucous Membranes Dry - Respiratory Exam Respiratory Exam: NORMAL BREATHING PATTERN - Cardiovascular Exam Cardiovascular Exam: +S1, +S2 - GI/Abdominal Exam GI & Abdominal Exam: Normal Bowel Sounds Assessment and Plan (1) DVT (deep venous thrombosis) Assessment & Plan: Provoked from May-Thurners syndrome s/p IVC filter and thrombolysis on therapeutic anticoagulation with coumadin will need to clarify with vascular surgery on if patient will require lifelong anticoagulation coumadin on hold for colonoscopy with biopsy; goal INR < 1.5 therapeutic lovenox post colonoscopy with resumption of coumadin; goal INR 2-3 Status: Acute
--- NOTE | 2018-08-08 19:24 | CP.PCM.PN ---
Subjective - Date & Time of Evaluation Date of Evaluation: 08/08/18 Time of Evaluation: 11:00 - Subjective Subjective: Feeling better. Objective - Vital Signs/Intake and Output Vital Signs (last 24 hours): Temp Pulse Resp BP Pulse Ox 98.5 F 57 L 20 149/93 H 99 08/08/18 09:18 08/08/18 09:18 08/08/18 09:18 08/08/18 09:18 08/08/18 09:18 - Labs Labs: 08/08/18 08:23 08/08/18 08:23 PT 14.6 SECONDS (9.7-12.2) H 08/08/18 08:23 INR 1.3 08/08/18 08:23 APTT 32 SECONDS (21-34) 08/08/18 08:23 - Head Exam Head Exam: ATRAUMATIC - Eye Exam Eye Exam: Normal appearance - ENT Exam ENT Exam: Mucous Membranes Dry - Respiratory Exam Respiratory Exam: NORMAL BREATHING PATTERN - Cardiovascular Exam Cardiovascular Exam: +S1, +S2 - GI/Abdominal Exam GI & Abdominal Exam: Normal Bowel Sounds Assessment and Plan (1) DVT (deep venous thrombosis) Assessment & Plan: Provoked from May-Thurners syndrome s/p IVC filter and thrombolysis on therapeutic anticoagulation with coumadin will need to clarify with vascular surgery on if patient will require lifelong anticoagulation Status: Acute
== END 2018-08-08 15:14 | disposition home or self-care (01) | DRG 392 ==
LOC: C.ER 18:26 → C.9E 21:13 → C.3T 22:18 → C.9E 22:23 → C.6T 22:56
PROVIDERS: ADMIT Family Medicine; ATTEND Family Medicine
PROC: 0DBN8ZX Excision of Sigmoid Colon, Via Natural or Artificial Opening Endoscopic, Diagnostic (ICD-10-PCS; 2018-08-06)
PROC: 0DB68ZX Excision of Stomach, Via Natural or Artificial Opening Endoscopic, Diagnostic (ICD-10-PCS; principal; 2018-08-06 11:11)
PROC: 0DBP8ZX Excision of Rectum, Via Natural or Artificial Opening Endoscopic, Diagnostic (ICD-10-PCS; 2018-08-06 11:11)
DX: K52.9 Noninfective gastroenteritis and colitis, unspecified (principal); I87.1 Compression of vein; J45.909 Unspecified asthma, uncomplicated; G40.909 Epilepsy, unspecified, not intractable, without status epilepticus; E03.9 Hypothyroidism, unspecified; F60.9 Personality disorder, unspecified; F41.9 Anxiety disorder, unspecified; R79.1 Abnormal coagulation profile; Z87.891 Personal history of nicotine dependence; Z79.01 Long term (current) use of anticoagulants; I12.9 Hypertensive chronic kidney disease with stage 1 through stage 4 chronic kidney disease, or unspecified chronic kidney disease; N18.9 Chronic kidney disease, unspecified; K76.0 Fatty (change of) liver, not elsewhere classified; Z79.02 Long term (current) use of antithrombotics/antiplatelets; K29.70 Gastritis, unspecified, without bleeding

== ENCOUNTER 2019-02-06 16:14 | Emergency (ER) | payer SELFPAY ==
[2019-02-06 16:27] VITALS: BMI 34.3
[2019-02-06] MEDS ORDERED: Sodium Chloride 0.9% 1,000 ML IV ONE (17:42)
--- NOTE | 2019-02-06 17:46 | C.PDOC ---
History Of Present Illness Patient is a 38 year old female with pmhx of DVT 2/2 May Thurner syndrome on coumadin, and subarachnoid hemorrhage presenting to the ED with complaints of headache. Patient reports her children have all been sick with a viral gastr oenteritis, and she started having similar symptoms of vomiting, headache and diarrhea since Sunday. Patient reports approximately 3 episodes of NBNB vomiting daily, and is not sure she kept her coumadin down. Patient reports headache, with muscle tension in upper back, cervical muscles, and a band-like distribution around her head, with occasional lightheadedness. Patient reports decreased PO intake and loose stools which have now resolved. Denies vision changes, motor or sensory deficits, hematemesis. <Alia Landers - Last Filed: 02/06/19 19:10> History Per: Patient History/Exam Limitations: no limitations Onset/Duration Of Symptoms: Days Current Symptoms Are (Timing): Still Present Severity: Moderate Quality: Pressure, Squeezing Preceeding Symptoms: None Associated Symptoms: Nausea, Vomiting Recent travel outside of the [place]: No <Alia Landers - Last Filed: 02/06/19 19:10> <Octavio Thompson - Last Filed: 02/06/19 19:34> Time Seen by Provider: 02/06/19 17:08 Chief Complaint (Nursing): Headache Past Medical History Vital Signs: Last Vital Signs Temp 99.1 F 02/06/19 16:25 Pulse 85 02/06/19 16:25 Resp 20 02/06/19 16:25 BP 116/80 02/06/19 16:25 Pulse Ox 100 02/06/19 16:25 - Medical History PMH: Anxiety, Asthma, HTN (Pt denies), Hypothyroidism, Personality Disorder, Pneumonia, Chronic Kidney Disease - [facility] Procedures CT SCAN OF INTRACRAN ART USING L OSM CONTRAST (09/19/17) DILATION OF L EXT ILIAC ART WITH INTRALUM DEV, PERC APPROACH (09/19/17) DILATION OF LEFT COMMON ILIAC ARTERY, PERCUTANEOUS APPROACH (09/19/17) EXCISION OF RECTUM, ENDO, DIAGN (08/02/18) EXCISION OF SIGMOID COLON, ENDO, DIAGN (08/02/18) EXCISION OF STOMACH, ENDO, DIAGN (08/02/18) MONITORING NOS (05/07/14) INSERTION OF INTRALUM DEV INTO INF VENA CAVA, PERC APPROACH (09/19/17) MANUAL ASSIST DELIV NEC (05/07/14) Family History: States: Unknown Family Hx - Social History Hx Tobacco Use: No Hx Alcohol Use: No Hx Substance Use: No - Immunization History Hx Tetanus Toxoid Vaccination: No Hx Influenza Vaccination: No Hx Pneumococcal Vaccination: No <Alia Landers - Last Filed: 02/06/19 19:10> Vital Signs: Last Vital Signs Temp 99.6 F 02/06/19 18:46 Pulse 78 02/06/19 18:46 Resp 16 02/06/19 18:46 BP 123/85 02/06/19 18:46 Pulse Ox 100 02/06/19 19:10 - [facility] Procedures CT SCAN OF INTRACRAN ART USING L OSM CONTRAST (09/19/17) DILATION OF L EXT ILIAC ART WITH INTRALUM DEV, PERC APPROACH (09/19/17) DILATION OF LEFT COMMON ILIAC ARTERY, PERCUTANEOUS APPROACH (09/19/17) EXCISION OF RECTUM, ENDO, DIAGN (08/02/18) EXCISION OF SIGMOID COLON, ENDO, DIAGN (08/02/18) EXCISION OF STOMACH, ENDO, DIAGN (08/02/18) MONITORING NOS (05/07/14) INSERTION OF INTRALUM DEV INTO INF VENA CAVA, PERC APPROACH (09/19/17) MANUAL ASSIST DELIV NEC (05/07/14) <Octavio Thompson - Last Filed: 02/06/19 19:34> Review Of Systems Constitutional: Positive for: Fever, Chills, Sweats, Weakness Eyes: Negative for: Vision Change ENT: Negative for: Ear Pain Cardiovascular: Positive for: Light Headedness. Negative for: Chest Pain, Palpitations Respiratory: Negative for: Cough, Shortness of Breath Gastrointestinal: Positive for: Nausea, Vomiting. Negative for: Diarrhea, Hematochezia, Hematemesis Genitourinary: Negative for: Hematuria Musculoskeletal: Positive for: Neck Pain, Shoulder Pain Skin: Negative for: Rash Neurological: Positive for: Headache. Negative for: Weakness, Numbness, Confusion <Alia Landers - Last Filed: 02/06/19 19:10> Physical Exam - Physical Exam Appears: Non-toxic, No Acute Distress Skin: Normal Color, Warm, Diaphoretic, No Pale, No Rash Head: Atraumatic, Normacephalic Eye(s): bilateral: Normal Inspection, PERRL, EOMI Oral Mucosa: Dry Throat: Normal Neck: Normal Cardiovascular: Rhythm Regular Respiratory: Normal Breath Sounds, No Rales, No Rhonchi Gastrointestinal/Abdominal: Normal Exam, Bowel Sounds, Soft, No Tenderness, No Distention Extremity: No Tenderness, No Pedal Edema, No Calf Tenderness, No Swelling Pulses: Left Radial: Normal, Right Radial: Normal Neurological/Psych: Oriented x3, Normal Speech, Normal Cognition, Normal Motor, Normal Sensation <Alia Landers - Last Filed: 02/06/19 19:10> ED Course And Treatment - Laboratory Results Result Diagrams: 02/06/19 17:44 02/06/19 18:24 Lab Interpretation: Normal O2 Sat by Pulse Oximetry: 100 Pulse Ox Interpretation: Normal - CT Scan/US CT Head Other Rad Studies (CT/US): Read By Radiologist CT/US Interpretation: Stable unremarkable unenhanced head CT compared to 10/04/17 CT Progress Note: Patient reports some improvement of headache. Denies nausea Reevaluation Time: 18:35 Reassessment Condition: Improved <Alia Landers - Last Filed: 02/06/19 19:10> - Laboratory Results Result Diagrams: 02/06/19 17:44 02/06/19 18:24 Lab Results: PT 30.0 SECONDS (9.7-12.2) H 02/06/19 18:24 INR 2.7 02/06/19 18:24 Total Bilirubin 0.4 mg/dL (0.2-1.3) 02/06/19 18:24 AST 56 U/L (14-36) H 02/06/19 18:24 ALT 60 U/L (9-52) H D 02/06/19 18:24 Alkaline Phosphatase 97 U/L (38-126) 02/06/19 18:24 Total Protein 7.2 g/dL (6.3-8.3) 02/06/19 18:24 Albumin 4.1 g/dL (3.5-5.0) 02/06/19 18:24 Globulin 3.1 gm/dL (2.2-3.9) 02/06/19 18:24 Albumin/Globulin Ratio 1.3 (1.0-2.1) 02/06/19 18:24 <Octavio Thompson - Last Filed: 02/06/19 19:34> Medical Decision Making Medical Decision Making: CBC CMP INR Head CT IVF Tylenol Zofran Patient reports some improvement in headache. Denies nausea/vomiting. INR 2.7 CT head negative for acute findings <Alia Landers - Last Filed: 02/06/19 19:10> Medical Decision Making: Seen and examined with resident. 38 y/o F p/w headache. On exam, no focal deficit. <Octavio Thompson - Last Filed: 02/06/19 19:34> Disposition Counseled Patient/Family Regarding: Studies Performed, Diagnosis, Need For Followup - Disposition Disposition Time: 19:07 - POA Present On Arrival: Deep Vein Thrombosis / PE (history of) <Alia Landers - Last Filed: 02/06/19 19:10> <Octavio Thompson - Last Filed: 02/06/19 19:34> - Disposition Referrals: [facility] [Outside] [facility] [Outside] Disposition: HOME/ ROUTINE Condition: FAIR Additional Instructions: Patient instructed to follow up with PMD upon discharge. Patient instructed to resume home medications including coumadin as prescribed. Patient encouraged to maintain adequate fluid intake Patient instructed to return to the ED with any worsening of symptoms including inability to tolerate fluids, fevers in excess of 100.4 unrelieved by Tylenol/Motrin or any other worsening of symptoms. Instructions: Tension Headache (DC), Gastroenteritis (DC) Forms: [employer] ([place]) - Clinical Impression Clinical Impression: Headache, Gastroenteritis
[2019-02-06 17:56] LABS: BASO % 0.3 % (0.0-2.0); EOS # 0.1 K/uL (0.0-0.7); EOS % 1.5 % (0.0-4.0); HEMOGLOBIN 13.9 g/dL (11.0-16.0); LYMPH # 0.7 K/uL (1.0-4.3); MEAN CORPUSCULAR HEMOGLOBIN 29.4 pg (27.0-31.0); MEAN CORPUSCULAR HGB CONC 34.5 g/dL (33.0-37.0); MEAN PLATELET VOLUME 10.6 fL (7.2-11.7); MONO # 0.4 K/uL (0.0-0.8); NEUT # 5.5 K/uL (1.8-7.0); NEUT % 82.2 % (50.0-75.0); NRBC % 0.1 % (0.0-2.0); RBC 4.71 Mil/uL (3.80-5.20); RED CELL DISTRIBUTION WIDTH 14.7 % (11.5-14.5); WHITE BLOOD COUNT 6.7 K/uL (4.8-10.8)
[2019-02-06 17:59] LABS: MEAN CELL VOLUME 85.3 fL (81.0-99.0)
[2019-02-06] MEDS ORDERED: Sodium Chloride 0.9% 1,000 ML ONE (18:16)
[2019-02-06 18:35] LABS: ALB/GLOB RATIO 1.3 (1.0-2.1); ALBUMIN 4.1 g/dL (3.5-5.0); ALT/SGPT 60 U/L (9-52); AST/SGOT 56 U/L (14-36); BLOOD UREA NITROGEN 10 mg/dL (7-17); CALCIUM 8.5 mg/dl (8.6-10.4); GFR NON-AFRICAN AMERICAN > 60
[2019-02-06 18:44] LABS: INR 2.7
--- NOTE | 2019-02-06 18:51 | CT ---
Date of service: 02/06/2019 PROCEDURE: CT HEAD WITHOUT CONTRAST. HISTORY: headache, hx of intracranial hemorrhage COMPARISON: Noncontrast head CT 10/04/2017. TECHNIQUE: Axial computed tomography images were obtained through the head/brain without intravenous contrast. Radiation dose: Total exam DLP = 1055.24 mGy-cm. This CT exam was performed using one or more of the following dose reduction techniques: Automated exposure control, adjustment of the mA and/or kV according to patient size, and/or use of iterative reconstruction technique. FINDINGS: HEMORRHAGE: No intracranial hemorrhage. BRAIN: No mass effect or edema. No atrophy or chronic microvascular ischemic changes. VENTRICLES: Unremarkable. No hydrocephalus. CALVARIUM: Unremarkable. PARANASAL SINUSES: Unremarkable as visualized. No significant inflammatory changes. MASTOID AIR CELLS: Unremarkable as visualized. No inflammatory changes. OTHER FINDINGS: None. IMPRESSION: Stable unremarkable unenhanced head CT compared 10/04/2017 CT.
[2019-02-06 19:04] VITALS: O2SAT 100
[2019-02-06 19:55] VITALS: BP 121/78; PULSE 82; RESP 18; TEMP 99
== END 2019-02-06 19:55 | disposition home or self-care (01) ==
LOC: C.ER 16:14
DX: R51 Headache (principal); K52.9 Noninfective gastroenteritis and colitis, unspecified
CPT/HCPCS: 70450; 80053; 81025; 85025; 85610; 96374; 96375; 99285; J1885; J2405; J7030